=== PATIENT | female | born 1975 | race Caucasian/White ===

== ENCOUNTER 2018-04-05 21:03 | Inpatient (IN) | payer MEDICARE, MEDICAID ==
[~2018-04-05] VITALS: Ht 162.6 cm; Wt 59.6 kg
[~2018-04-05 21:03] MED LIST: ALBU17AE23 IH; ALPR0.5T PO; AMIT100T2 PO; ASPI-84 PO; ATOR40TA PO; BUPR300T PO; CALC-316 PO; CEPH500C PO; CLOB15CR3 TP; CYCL10TA9 PO; DEXT5TAB19 PO; DICY20TA57 PO; DULO60CA6 PO; HYDR-34 PO; IBP800T PO; INTE30KI4 SC; LINA145C PO; MORP15TA PO; MORP15TA69 PO; NF-ESOM40C PO; PREG150C PO; PROM25TA14 PO; RT-ALBUINH IH; TRAM50TA2 PO; ZLP10T PO; [UNRECOGNIZED DRUG - CODE] SQ; [UNRECOGNIZED DRUG - CODE] SQ
--- OUTSIDE RECORDS SUMMARY | 2018-04-05 21:10 | XMS REPORT ---
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 [employer] Name Role Phone GLADYS PATRICK Unavailable Allergies No Known Allergies Problems Problem Type Condition Code Onset Dates Condition Status Problem Anxiety F41.9 Active Problem GERD (gastroesophageal reflux disease) K21.9 Active Problem Fatigue R53.83 Active Problem Right shoulder pain M25.511 Active Problem Degenerative disc disease, lumbar M51.36 Active Problem Irritable bowel K58.9 Active Problem Multiple sclerosis G35 Active Problem Depression F32.9 Active Medications Medication Code System Code Instructions Start Date End Date Status Dosage Nexium [facility] [address]-20 40 MG Orally Once a day Nov 05, 2015 1 capsule Results No Known Results Summary Purpose eClinicalWorks Submission
--- OUTSIDE RECORDS SUMMARY | 2018-04-05 21:10 | XMS REPORT ---
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 Name Role Phone GLADYS Cheung Unavailable PROBLEMS Type Condition ICD9-CM Code FWV99-XI Code Onset Dates Condition Status SNOMED Code Problem Chronic pain G89.29 Active 70750049 Problem Other constipation K59.09 Active 100865627040768 Problem Mixed hyperlipidemia E78.2 Active 856983961 Problem Constipation, unspecified constipation type K59.00 Active 74697712 Problem Anxiety F41.9 Active 13124347 Problem Fibromyalgia M79.7 Active 892974128 Problem Acute cystitis without hematuria N30.00 Active 49382948 Problem Weight gain, abnormal R63.5 Active 352363713 Problem Acute left-sided low back pain with left-sided sciatica M54.42 Active 218295420 Problem GERD (gastroesophageal reflux disease) K21.9 Active 931666772 Problem Degenerative disc disease, lumbar M51.36 Active 00701808 Problem Multiple sclerosis G35 Active 21541840 Problem Depression F32.9 Active 54508777 Problem Anxiety state F41.1 Active 320861730 Problem Major depressive disorder, recurrent episode, moderate F33.1 Active 620510773 Problem Irritable bowel K58.9 Active 88825179 Problem Insomnia G47.00 Active 553859056 Problem Fatigue R53.83 Active 73898192 Problem Thrush B37.0 Active 81753636 ALLERGIES Substance Reaction Event Type Date Status Sulfamethoxazole Unknown Drug Allergy Apr, Active Remeron Unknown Drug Allergy Apr, Active Pendleton Unknown Drug Allergy Apr, Active Naproxen Unknown Drug Allergy Apr, Active Levaquin Unknown Drug Allergy Apr, Active Abilify Unknown Drug Allergy Apr, Active Adhesives, tapes, bandages Unknown Non Drug Allergy Apr, Active ENCOUNTERS Encounter Location Date Diagnosis [facility] [id number] [place] [address] 14963- 1983 Feb, [facility] [id number] [place] [address] 49960 -3677 Jan, Constipation, unspecified constipation type K59.00 [facility] [id number] [place] [address] 20026- 8840 Jan, [facility] [address] 96594- 9843 Jan, Multiple sclerosis G35 ; Anxiety F41.9 ; Insomnia G47.00 and Chronic pain G89.29 [facility] [address] 00098- 6621 Dec, [facility] [id number] [place] [address] 45298- 1689 Dec, [facility] [address] 31524- 0950 Nov, Fibromyalgia M79.7 [facility] [id number] [place] [address] 08908- 4547 Nov, [facility] [id number] [place] [address] 08147- 7190 Nov, [facility] [id number] [place] [address] 37367- 1273 Nov, Fibromyalgia M79.7 [facility] [id number] [place] [address] 05686- 4959 Oct, [facility] [id number] [place] [address] 81918- 7872 Oct, Multiple sclerosis G35 ; Depression F32.9 and Weight gain, abnormal R63.5 [facility] [id number] [place] [address] 76396- 0053 Oct, [facility] [id number] [place] [address] 83367- 2703 Sep, Fibromyalgia M79.7 [place] [id number] [place] [address] 53924- 5131 Sep, Urinary incontinence in female R32 [place] [address] 30046- 0247 08 Sep, 2017 [place] [address] 77467- 9371 Sep, [place] [address] 00328- 4253 Sep, Hypokalemia E87.6 [facility] [place] [address] 65195 -3527 Sep, Colitis K52.9 and Distended abdomen R14.0 [place] [address] 02873- 7899 Sep, Fibromyalgia M79.7 [facility] [place] [address] 21291 -2237 Aug, Epigastric pain R10.13 and Drug-induced constipation K59.03 [place] [address] 18560- 0429 Aug, Fibromyalgia M79.7 [place] [address] 57011- 7813 Jul, Fibromyalgia M79.7 [place] [address] 11309- 0021 Jul, [place] [address] 11901- 3620 Jun, Degenerative disc disease, lumbar M51.36 [place] [address] 86927- 4926 Jun, Acute left-sided low back pain with left-sided sciatica M54.42 ; Fibromyalgia M79.7 and Other constipation K59.09 [place] [id number] [place] [address] 26374- 7137 Jun, Acute left-sided low back pain with left-sided sciatica M54.42 [place] [id number] [place] [address] 57800- 8442 Jun, [place] [id number] [place] [address] 53496- 0735 Jun, [place] [id number] [place] [address] 83985- 6438 Jun, [place] [id number] [place] [address] 81352- 9714 Jun, Degenerative disc disease, lumbar M51.36 [facility] [id number] [place] [address] 96751 -8434 Jun, Acute left-sided low back pain with left-sided sciatica M54.42 [place] [id number] [place] [address] 84313- 6963 May, Degenerative disc disease, lumbar M51.36 ; Multiple sclerosis G35 ; GERD (gastroesophageal reflux disease) K21.9 ; Fatigue R53.83 ; Irritable bowel K58.9 ; Major depressive disorder, recurrent episode, moderate F33.1 ; Anxiety state F41.1 ; Thrush B37.0 ; Fibromyalgia M79.7 and Insomnia G47.00 [place] [id number] [place] [address] 08959- 9014 May, Chronic pain G89.29 and Major depressive disorder, recurrent episode, moderate F33.1 [place] [id number] [place] [address] 28784- 5309 May, Degenerative disc disease, lumbar M51.36 [facility] [address] [place] [address] 39545 -2508 May, Oral thrush B37.0 [place] [id number] [place] [address] 71026- 7817 May, Fatigue R53.83 and Chronic pain G89.29 [place] [id number] [place] [address] 25154- 7478 Apr, Multiple sclerosis G35 ; Chronic pain G89.29 ; GERD ( gastroesophageal reflux disease) K21.9 ; Fatigue R53.83 ; Depression F32.9 ; Degenerative disc disease, lumbar M51.36 ; Irritable bowel K58.9 ; Insomnia G47.00 ; Mixed hyperlipidemia E78.2 ; Fibromyalgia M79.7 and Urinary incontinence in female R32 [place] [address] 53686- 2439 March, Major depressive disorder, recurrent episode, moderate F33.1 [place] [address] 79851- 1776 March, Chronic pain G89.29 [place] [address] 29392- 3836 March, Urinary incontinence in female R32 and Allergic conjunctivitis, right H10.11 [place] [address] 14543- 8295 March, Radicular pain M54.10 [place] [address] 94878- 1293 March, [place] [address] 27190- 2284 Jan, [place] [address] 25528- 5921 Jan, Hypokalemia E87.6 [place] [address] 25698- 7224 Jan, Fatigue R53.83 [place] [address] 14260- 3903 Dec, [place] [address] 58548- 2042 Dec, Fatigue R53.83 [place] [id number] [place] [address] 23569- 1511 Dec, [place] [address] 65976- 6958 Dec, [place] [address] 88583- 6074 Dec, Hypokalemia E87.6 [place] [address] 49734- 4710 Nov, GERD (gastroesophageal reflux disease) K21.9 ; Fatigue R53.83 ; Depression F32.9 ; Major depressive disorder, recurrent episode, moderate F33.1 ; Fibromyalgia M79.7 ; Other constipation K59.09 ; Primary insomnia F51.01 ; Multiple sclerosis G35 and Mixed hyperlipidemia E78.2 [place] [address] 79974- 1487 Nov, [place] [address] 33111- 7342 Nov, Degenerative disc disease, lumbar M51.[address] 21785- 3790 Nov, [place] [address] 04331- 8029 Oct, Degenerative disc disease, lumbar M51.36 [place] [id number] [place] [address] 33569- 6715 Oct, Fibromyalgia M79.7 ; GERD (gastroesophageal reflux disease) K21.9 ; Multiple sclerosis G35 ; Depression F32.9 ; Degenerative disc disease, lumbar M51.36 ; Irritable bowel K58.9 ; Anxiety F41.9 ; Insomnia G47.00 ; Adverse effect of other opioids, initial encounter T40.2X5A ; Other constipation K59.09 and Fatigue R53.83 [place] [address] 48620- 7372 Oct, [facility] [id number] [place] [address] 95420 -1712 Sep, Hordeolum externum of right lower eyelid H00.012 [facility] [id number] [place] [address] 96595- 5960 Sep, GERD (gastroesophageal reflux disease) K21.9 ; Fatigue R53.83 ; Depression F32.9 ; Degenerative disc disease, lumbar M51.36 ; Irritable bowel K58.9 ; Anxiety F41.9 ; Major depressive disorder, recurrent episode, moderate F33.1 ; Insomnia G47.00 ; Multiple sclerosis G35 and Chronic pain G89.[address] 19114- 0104 Sep, Fatigue R53.83 [place] [id number] [place] [address] 84229- 1968 Sep, [place] [address] 87314- 2649 Aug, GERD (gastroesophageal reflux disease) K21.9 ; Fatigue R53.83 ; Depression F32.9 ; Degenerative disc disease, lumbar M51.36 ; Irritable bowel K58.9 ; Anxiety F41.9 ; Major depressive disorder, recurrent episode, moderate F33.1 ; Anxiety state F41.1 ; Chronic pain G89.29 ; Family history of hypercholesterolemia Z83.49 ; Other constipation K59.09 ; Fibromyalgia M79.7 and Hypercholesterolemia E78.00 [place] [id number] [place] [address] 93035- 6710 Aug, [address] 84222- 9454 Aug, Epigastric pain R10.13 ; Nausea R11.0 and Other constipation K59.09 [place] [id number] [place] [address] 14088- 5426 Aug, [place] [address] 87853- 4348 Aug, [facility] [id number] [place] [address] 86444- 7296 Jul, [facility] [id number] [place] [address] 09706- 1514 Jul, [facility] [id number] [place] [address] 14866- 8258 Jun, Dysuria R30.0 ; Irritable bowel K58.9 ; Adverse effect of other opioids, initial encounter T40.2X5A ; Other constipation K59.09 and Acute cystitis without hematuria N30.00 [facility] [id number] [place] [address] 53462- 8192 Jun, [facility] [id number] [place] [address] 36116 -4329 Jun, Left upper quadrant pain R10.12 [facility] [id number] [place] [address] 73753- 9943 Jun, Major depressive disorder, recurrent episode, moderate F33.1 ; Anxiety state F41.1 and Insomnia G47.00 [facility] [id number] [place] [address] 59120- 0856 May, [facility] [id number] [place] [address] 85001- 3635 May, [facility] [id number] [place] [address] 61027- 1956 May, Depression F32.9 ; Major depressive disorder, recurrent episode, moderate F33.1 ; Multiple sclerosis G35 and Chronic pain G89.29 [facility] [id number] [place] [address] 00637- 5708 May, [facility] [id number] [place] [address] 38130- 5465 Apr, Right shoulder pain M25.511 [facility] [id number] [place] [address] 05225- 2224 Apr, [place] [id number] [place] [address] 12484- 5040 Apr, Fatigue R53.83 ; Multiple sclerosis G35 ; Depression F32.9 ; Anxiety state F41.1 ; Degenerative disc disease, lumbar M51.36 ; GERD ( gastroesophageal reflux disease) K21.9 ; Insomnia G47.00 ; Environmental allergies Z91.09 and Thrush B37.0 [place] [address] 48281- 9031 Apr, [place] [address] 57369- 9098 Apr, Mixed hyperlipidemia E78.2 [place] [address] 21042- 8059 Apr, [place] [address] 36717- 0897 Apr, [place] [address] 61669- 8059 March, Degenerative disc disease, lumbar M51.36 [place] [address] 28196- 8292 March, Major depressive disorder, recurrent episode, moderate F33.1 ; Mass in neck R22.1 and Fatigue R53.83 [place] [id number] [place] [address] 82552- 4228 March, Major depressive disorder, recurrent episode, moderate F33.1 ; Anxiety F41.9 ; Insomnia G47.00 and Other chcf (current) drug therapy Z79.899 [place] [address] 29180- 0993 March, GERD (gastroesophageal reflux disease) K21.9 and Degenerative disc disease, lumbar M51.36 [place] [id number] [place] [address] 56568- 2208 March, GERD (gastroesophageal reflux disease) K21.9 ; Fatigue R53.83 ; Multiple sclerosis G35 ; Depression F32.9 ; Degenerative disc disease, lumbar M51.36 ; Anxiety F41.9 ; Right shoulder pain M25.511 ; Major depressive disorder, recurrent episode, moderate F33.1 and Insomnia G47.00 [place] [id number] [place] [address] 17736- 9035 March, Multiple sclerosis G35 [place] [address] 32699- 9324 Feb, [place] [address] 81455- 5753 Feb, [place] [address] 02330- 6925 Feb, Chronic pain G89.29 ; Fatigue R53.83 ; Depression F32.9 ; Degenerative disc disease, lumbar M51.36 ; Irritable bowel K58.9 ; Anxiety F41.9 ; Insomnia G47.00 and GERD (gastroesophageal reflux disease) K21.9 [place] [id number] [place] [address] 41175- 1955 Feb, Anxiety F41.9 and Major depressive disorder, recurrent episode, moderate F33.1 [place] [id number] [place] [address] 98342- 2558 Feb, [place] [id number] [place] [address] 42164- 9370 Jan, [place] [id number] [place] [address] 65460- 2954 Jan, Degenerative disc disease, lumbar M51.36 ; Multiple sclerosis G35 ; Fatigue R53.83 ; Depression F32.9 ; Irritable bowel K58.9 ; GERD (gastroesophageal reflux disease) K21.9 and 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 [place] [id number] [place] [address] 12517- 6097 Jan, [place] [address] [address]- 0586 16 Jan, 2016 [facility] [address] [address]- 8038 14 Jan, 2016 [facility] [address] [address]- 8048 14 Jan, 2016 [facility] [address] [address]- 2071 14 Jan, 2016 [facility] [address] [address]- 7391 Jan, [facility] [address]- 7874 Jan, [facility] [address] [address]- 2056 Jan, [facility] [address] [address]- 5439 Jan, [facility] [address] [place] [address]- 8322 Jan, [facility] [address] [address]- 2512 Dec, [facility] [address] [address]- 5124 Dec, Major depressive disorder, recurrent episode, moderate F33.1 ; Anxiety F41.9 and Insomnia G47.00 [facility] [address] [address]- 4767 Dec, Lymphadenitis I88.9 ; GERD (gastroesophageal reflux disease ) K21.9 ; Multiple sclerosis G35 ; Depression F32.9 ; Degenerative disc disease , lumbar M51.36 ; Irritable bowel K58.9 ; Anxiety F41.9 ; Major depressive disorder, recurrent episode, moderate F33.1 and Insomnia G47.00 [facility] [address] [address]- 8338 23 Dec, 2015 Major depressive disorder, recurrent episode, moderate F33.1 and Anxiety state F41.1 [place] [id number] [place] [address] 24780- 4189 16 Dec, 2015 Screening breast examination Z12.39 [place] [id number] [place] [address] 79149- 1994 10 Dec, 2015 Mass in neck R22.1 ; Chronic pain G89.29 ; GERD ( gastroesophageal reflux disease) K21.9 ; Fatigue R53.83 ; Anxiety F41.9 ; Major depressive disorder, recurrent episode, moderate F33.1 ; Encounter for screening mammogram for breast cancer Z12.31 and Thrush B37.0 [place] [id number] [place] [address] 83210- 4376 09 Dec, 2015 [place] [address] 01435- 3996 04 Dec, 2015 [place] [address] 30877- 2816 Nov, Major depressive disorder, recurrent episode, moderate F33.1 and Anxiety state F41.1 [place] [id number] [place] [address] 91879- 3411 15 Nov, 2015 Insomnia G47.00 [place] [id number] [place] [address] 32893- 4565 Nov, Major depressive disorder, recurrent episode, moderate F33.1 and Anxiety state F41.1 [place] [id number] [place] [address] 05273- 2009 Nov, [place] [address] 61908- 7646 Nov, [place] [id number] [place] [address] 84862- 0894 24 Oct, 2015 GERD (gastroesophageal reflux disease) K21.9 ; Depression F32.9 and Degenerative disc disease, lumbar M51.36 [place] [id number] [place] [address] 97364- 4886 Oct, Right shoulder pain M25.511 ; Degenerative disc disease, lumbar M51.36 ; Multiple sclerosis G35 ; Fatigue R53.83 ; GERD ( gastroesophageal reflux disease) K21.9 ; Major depressive disorder, recurrent episode, moderate F33.1 ; Anxiety state F41.1 and Constipation K59.[address] 58216- 5639 Oct, Hypoglycemia E16.[address] 06912- 5108 Oct, Unspecified fall, initial encounter W19.XXXA [address] 03892- 8464 Oct, [address] 10397- 4231 Oct, Major depressive disorder, recurrent episode, moderate F33.1 and Anxiety state F41.[address] 64440- 2427 Oct, [address] 03996- 3338 Oct, [address] 91980- 2182 Oct, Degenerative disc disease, lumbar M51.36 ; GERD ( gastroesophageal reflux disease) K21.9 ; Right shoulder pain M25.511 and Candidal vaginitis B37.[address] 42380- 2407 Sep, [address] 27514- 0404 Sep, GERD (gastroesophageal reflux disease) K21.9 ; Fatigue R53.83 ; Multiple sclerosis G35 ; Depression F32.9 ; Degenerative disc disease, lumbar M51.36 ; Irritable bowel K58.9 ; Anxiety F41.9 ; Right shoulder pain M25.511 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 [id number] [place] [address]- 7341 Sep, GERD (gastroesophageal reflux disease) K21.9 ; Fatigue R53.83 ; Multiple sclerosis G35 ; Depression F32.9 ; Degenerative disc disease, lumbar M51.36 ; Irritable bowel K58.9 ; Anxiety F41.9 and Bronchitis J40 IMMUNIZATIONS No Known Immunizations SOCIAL HISTORY Never Assessed REASON FOR VISIT Pain management (chronic), pt is still in a lot of pain. Samson, pt wants to see about stopping trazodone because it makes her groggy through out the day. But she still wants something to help her sleep. PLAN OF CARE Activity Details Follow Up 4 Weeks Reason:chronic pain VITAL SIGNS Height 64.0 in 2017-05-20 Weight 120.5 lbs 2017-05-20 Temperature 98.0 degrees Fahrenheit 2017-05-20 Heart Rate 78 bpm 2017-05-20 Respiratory Rate 18 2017-05-20 BMI 20.68 kg/m2 2017-05-20 Blood pressure systolic 102 mmHg 2017-05-20 Blood pressure diastolic 70 mmHg 2017-05-20 MEDICATIONS Medication Instructions Dosage Frequency Start Date End Date Duration Status Amphetamine-Dextroamphetamine 10 mg orally once a day 1 tablet in the morning 24h March, Active Alprazolam 0.5 MG Orally Three times a day 1 tablet 8h Active Doxepin HCl 50 mg Orally one hour at hs 1 capsule Apr, 30 day (s) Active Topamax 50 mg Orally Twice a day 1 tablet 12h 30 Active Lopid 600 MG Orally Twice a day 1 tablet 12h 30 Active Percocet 5-325 MG Orally 2 times a day 1 tablet as needed 12h Apr, Active Dulcolax Stool Softener 100 mg Orally twice a day 1 capsule 12h Active VESIcare 10 MG Orally Once a day 1 tablet 24h March, 30 days Active Potassium Chloride ER 10 MEQ Orally Once a day 1 capsule with food 24h 30 Active Linzess 145 MCG TAKE ONE CAPSULE BY MOUTH ONCE DAILY Active Nexium 40 MG TAKE ONE CAPSULE BY MOUTH ONCE DAILY Active Zofran 4 MG Orally 3 times a day prn 1 tablets Aug, Active Ibuprofen 800 MG Orally Three times a day 1 tablet 8h Active Latuda 60 MG Orally Once a day 1 tablet with food 24h 30 Active Duloxetine HCl 60 MG TAKE ONE CAPSULE BY MOUTH TWICE DAILY 30 Active Lyrica 150 MG Orally 2 times a day 1 capsule 12h Active Atorvastatin Calcium 20 mg Orally Once a day 1 tablet 24h 30 Active OxyContin 20 mg Orally every 12 hrs 1 tablet 12h 21 Apr, 2017 Active RESULTS No Results PROCEDURES Procedure Date Ordered Result Body Site [facility] VISIT NEW PATIENT May 20, 2017 INSTRUCTIONS MEDICATIONS ADMINISTERED No Known Medications MEDICAL (GENERAL) HISTORY Type Description Date Medical History multiple sclerosis Medical History chronic pain Medical History chronic pancreatitis Medical History osteoarthritis Medical History degenerative disease lumbosacral spine Medical History esophageal reflux Medical History depression Medical History anxiety Medical History insomnia Surgical History Laproscopy x 5 Surgical History C section Surgical History Partial Hysterectomy Surgical History Appendectomy Surgical History Full Hysterectomy Surgical History Gall bladder removal Surgical History Back surgery x2 disc removal and pins/rods Surgical History MRI of brain Hospitalization History Surgery Hospitalization History Pancreatitis multiple times Hospitalization History MS and pain multiple times Hospitalization History Low potassium Hospitalization History [facility] for depression Hospitalization History ER visit for possible pancreatitis
--- OUTSIDE RECORDS SUMMARY | 2018-04-05 21:10 | XMS REPORT ---
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 Name Role Phone GLADYS PATRICK CP Unavailable Allergies, Adverse Reactions, Alerts Substance Reaction Event Type Sulfamethoxazole Info Not Available Drug Allergy Remeron Info Not Available Drug Allergy [place] Info Not Available Drug Allergy Naproxen Info Not Available Drug Allergy Levaquin Info Not Available Drug Allergy Abilify Info Not Available Drug Allergy Adhesives, tapes, bandages Info Not Available Non Drug Allergy Problems Problem Type Condition Code Onset Dates Condition Status Problem Insomnia G47.00 Active Problem Chronic pain G89.29 Active Problem Thrush B37.0 Active Problem Dysuria R30.0 Active Problem Family history of hypercholesterolemia Z83.49 Active Problem Adverse effect of other opioids, initial encounter T40.2X5A Active Assessment Hordeolum externum of right lower eyelid H00.012 Active Problem Fibromyalgia M79.7 Active Problem Mixed hyperlipidemia E78.2 Active Problem 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 Active Problem Other constipation K59.09 Active Problem Acute cystitis without hematuria N30.00 Active Problem Degenerative disc disease, lumbar M51.36 Active Problem Depression F32.9 Active Problem Anxiety F41.9 Active Problem Irritable bowel K58.9 Active Problem GERD (gastroesophageal reflux disease) K21.9 Active Problem Right shoulder pain M25.511 Active Problem Multiple sclerosis G35 Active Problem Anxiety state F41.1 Active Problem Fatigue R53.83 Active Problem Major depressive disorder, recurrent episode, moderate F33.1 Active Medications Medication Code System Code Instructions Start Date End Date Status Dosage Latuda [facility] 87017727742 60 MG Orally Once a day 1 tablet with food Topamax [facility] 77878286608 50 mg Orally Twice a day 1 tablet Citrate of Magnesia [facility] [address]-80 1.745 GM/30ML Orally Sep 03, 2016 as directed Amphetamine-Dextroamphetamine [facility] 81535424654 5 MG orally once a day TAKE ONE TABLET Zofran [facility] [address]-63 4 MG Orally 4 times a day Sep 03, 2016 1 tablets Ibuprofen [facility] 34694172410 800 MG Orally Three times a day 1 tablet Nexium [facility] [address]-07 40 mg Orally Once a day 1 capsule Morphine Sulfate [facility] [address]-25 15 MG Orally 3 times a day March 04, 2016 1 tablet as needed Morphine Sulfate ER [facility] [address]-41 30 MG Orally one daily one hour before bed March 04, 2016 1 tablet Duloxetine HCl [facility] [address]-88 60 mg Orally Once a day TAKE ONE CAPSULE BY MOUTH ONCE DAILY Alprazolam [facility] [address]-01 0.5 MG Orally Three times a day 1 tablet Lyrica [facility] 10362635699 150 MG TAKE ONE CAPSULE BY MOUTH TWICE DAILY Tobramycin [facility] [address]-94 0.3 % Ophthalmic 4 times a day Oct 24, 2016 3 drops into affected eye Dulcolax Stool Softener [facility] 44774-56167 100 MG Orally twice a day 1 capsule Linzess [facility] [address]-97 145 MCG TAKE ONE CAPSULE BY MOUTH ONCE DAILY Trazodone HCl [facility] [address]-55 50 MG TAKE ONE TABLET BY MOUTH AT BEDTIME NEEDED Procedures Procedure Coding System Code Date Office Visit, Est Pt., Level 3 CPT-4 05469 Oct 24, 2016 [facility] VISIT ESTABLISHED PATIENT CPT-4 G0467 Oct 24, 2016 Vital Signs Date/Time: Oct 24, 2016 Cardiac Monitoring Heart Rate 72 bpm Weight 118.2 lbs Height 64.0 in BMI 20.29 Index Blood Pressure Diastolic 72 mmHg Blood Pressure Systolic 116 mmHg Results No Known Results Summary Purpose eClinicalWorks Submission
--- OUTSIDE RECORDS SUMMARY | 2018-04-05 21:11 | XMS REPORT ---
Author GLADYS Romano [facility] eClinicalWorks Address Unknown Phone Unavailable Care Team Providers Care Hair Preparer Name Role Phone GLADYS PATRICK CP Unavailable Allergies, Adverse Reactions, Alerts Substance Reaction Event Type Sulfamethoxazole Info Not Available Drug Allergy Remeron Info Not Available Drug Allergy [place] Info Not Available Drug Allergy Naproxen Info Not Available Drug Allergy Levaquin Info Not Available Drug Allergy Abilify Info Not Available Drug Allergy Adhesives, tapes, bandages Info Not Available Non Drug Allergy Problems Problem Type Condition Code Onset Dates Condition Status Problem Irritable bowel K58.9 Active Problem Depression F32.9 Active Problem Degenerative disc disease, lumbar M51.36 Active Assessment Insomnia G47.00 Active Problem Anxiety F41.9 Active Problem Major depressive disorder, recurrent episode, moderate F33.1 Active Problem Anxiety state F41.1 Active Problem Insomnia G47.00 Active Problem Fatigue R53.83 Active Problem Multiple sclerosis G35 Active Problem Right shoulder pain M25.511 Active Problem GERD (gastroesophageal reflux disease) K21.9 Active Medications Medication Code System Code Instructions Start Date End Date Status Dosage Cymbalta [facility] [address]-26 60 MG Orally Once a day 2 capsule ProAir HFA [facility] [address]-15 108 (90 Base) MCG/ACT Inhalation every 4 hrs 2 puffs as needed Morphine Sulfate [facility] [address]-09 15 MG IR Orally 2 times a day Nov 02, 2015 Jan 10, 2016 1 tablet as needed Transderm-Scop [facility] [address]-35 1 MG/3DAYS Transdermal not defined MS Contin [facility] [address]-26 30 MG Orally every 12 hrs Oct 26, 2015Dec 1 tablet Valtrex [facility] [address]-36 1 GM Orally every 24 hrs 1 tablet Promethazine HCl [facility] [address]-76 25 MG Orally every 6 hrs PRN 1 tablet as needed Linzess [facility] [address]-45 145 MCG Orally Once a day Jan 27, 2016 1 capsule Alprazolam [facility] [address]-77 0.5 MG Orally Three times a day 1 tablet Lyrica [facility] [address]-58 150 MG Orally Twice a day 1 capsule Nexium [facility] [address]-43 40 MG Orally Once a day Nov 05, 2015 1 capsule Trazodone HCl [facility] [address]-92 50 MG Orally Once a day Dec 14, 2015 1 tablet at bedtime as needed Amphetamine Sulfate [facility] [address]-99 5 MG Orally prescribed by neuro 1 Procedures Procedure Coding System Code Date Office Visit, Est Pt., Level 3 CPT-4 34984 Dec 14, 2015 [facility] VISIT ESTABLISHED PATIENT CPT-4 G0467 Dec 14, 2015 Vital Signs Date/Time: Dec 14, 2015 Temperature 97.4 F Weight 130.0 lbs Height 64.0 in BMI 22.31 Index Blood Pressure Diastolic 70 mmHg Blood Pressure Systolic 100 mmHg Cardiac Monitoring Heart Rate 80 bpm Results No Known Results Summary Purpose eClinicalWorks Submission
--- OUTSIDE RECORDS SUMMARY | 2018-04-05 21:11 | XMS REPORT ---
Author GLADYS Romano [facility] eClinicalWorks Address Unknown Phone Unavailable Care Team Providers Care Tapper Hand Name Role Phone GLADYS PATRICK Unavailable Allergies No Known Allergies Problems Problem Type Condition Code Onset Dates Condition Status Problem Anxiety F41.9 Active Problem Degenerative disc disease, lumbar M51.36 Active Problem Irritable bowel K58.9 Active Problem Anxiety state F41.1 Active Problem Right shoulder pain M25.511 Active Problem Major depressive disorder, recurrent episode, moderate F33.1 Active Problem Multiple sclerosis G35 Active Problem Depression F32.9 Active Problem GERD (gastroesophageal reflux disease) K21.9 Active Problem Fatigue R53.83 Active Medications Medication Code System Code Instructions Start Date End Date Status Dosage Morphine Sulfate [facility] [address]-99 15 MG IR Orally 2 times a day Nov 02, 2015 1 tablet as needed Cymbalta [facility] [address]-57 60 MG Orally Once a day 2 capsule Results No Known Results Summary Purpose eClinicalWorks Submission
--- OUTSIDE RECORDS SUMMARY | 2018-04-05 21:11 | XMS REPORT ---
Author Author GLADYS PATRICK Organization [facility] Address [address] [place] [address] Care Team Providers Care Maintenance Inspector Name Role Phone PATRICE PATRICKE Unavailable PROBLEMS Type Condition ICD9-CM Code [id number] Code Onset Dates Condition Status SNOMED Code Problem Major depressive disorder, recurrent episode, moderate F33.1 Active 963931426 Problem Thrush B37.0 Active 21938168 Problem Insomnia G47.00 Active 914268820 Problem Acute left-sided low back pain with left-sided sciatica M54.42 Active 820044910 Problem Fibromyalgia M79.7 Active 487690941 Problem Mixed hyperlipidemia E78.2 Active 901646905 Problem Chronic pain G89.29 Active 61833125 Problem Other constipation K59.09 Active 563290360254754 Problem Acute cystitis without hematuria N30.00 Active 27356928 Problem Irritable bowel K58.9 Active 65341200 Problem Multiple sclerosis G35 Active 59600645 Problem Fatigue R53.83 Active 15176762 Problem Degenerative disc disease, lumbar M51.36 Active 98009451 Problem GERD (gastroesophageal reflux disease) K21.9 Active 752010573 Problem Depression F32.9 Active 13133353 Problem Anxiety state F41.1 Active 553273396 ALLERGIES Unknown Allergies SOCIAL HISTORY No smoking Hx information available PLAN OF CARE VITAL SIGNS MEDICATIONS Medication Instructions Dosage Frequency Start Date End Date Duration Status Morphine Sulfate 15 MG Orally 2 times a day prn break throught pain 1 tablet as needed Nov, Active RESULTS No Results PROCEDURES No Known procedures IMMUNIZATIONS No Known Immunizations
--- OUTSIDE RECORDS SUMMARY | 2018-04-05 21:11 | XMS REPORT ---
Author Author LOURDES GALVEZ [facility] Address [address] [place] [address] Care Team Providers Care Marine Firer Name Role Phone LOURDES GALVEZ Unavailable PROBLEMS Type Condition ICD9-CM Code [id number] Code Onset Dates Condition Status SNOMED Code Problem Major depressive disorder, recurrent episode, moderate F33.1 Active 994823648 Problem Thrush B37.0 Active 85895181 Problem Insomnia G47.00 Active 211571650 Problem Acute left-sided low back pain with left-sided sciatica M54.42 Active 464670373 Problem Fibromyalgia M79.7 Active 436554348 Problem Mixed hyperlipidemia E78.2 Active 431987785 Problem Chronic pain G89.29 Active 60959726 Problem Acute cystitis without hematuria N30.00 Active 88573956 Problem Other constipation K59.09 Active 315671204648877 Problem Depression F32.9 Active 68411429 Problem Degenerative disc disease, lumbar M51.36 Active 58767283 Problem Fatigue R53.83 Active 63392157 Problem GERD (gastroesophageal reflux disease) K21.9 Active 596447161 Problem Irritable bowel K58.9 Active 74226965 Problem Multiple sclerosis G35 Active 28518499 Problem Anxiety state F41.1 Active 254650496 ALLERGIES Substance Reaction Event Type Date Status Sulfamethoxazole Unknown Drug Allergy March, Active Remeron Unknown Drug Allergy March, Active [place] Unknown Drug Allergy March, Active Naproxen Unknown Drug Allergy March, Active Levaquin Unknown Drug Allergy March, Active Abilify Unknown Drug Allergy March, Active Adhesives, tapes, bandages Unknown Non Drug Allergy March, Active SOCIAL HISTORY Never Assessed PLAN OF CARE Activity Details Follow Up prn Reason: VITAL SIGNS Height 64.0 in 2017-04-15 Weight 119 lbs 2017-04-15 Temperature 98.5 degrees Fahrenheit 2017-04-15 Heart Rate 88 bpm 2017-04-15 Respiratory Rate 18 2017-04-15 BMI 20.42 kg/m2 2017-04-15 Blood pressure systolic 100 mmHg 2017-04-15 Blood pressure diastolic 70 mmHg 2017-04-15 MEDICATIONS Medication Instructions Dosage Frequency Start Date End Date Duration Status Ibuprofen 800 MG Orally Three times a day 1 tablet 8h Active Alprazolam 0.5 MG Orally Three times a day 1 tablet 8h Active Nexium 40 MG TAKE ONE CAPSULE BY MOUTH ONCE DAILY 30 Active Dulcolax Stool Softener 100 mg Orally twice a day 1 capsule 12h Active Atorvastatin Calcium 20 mg Orally Once a day 1 tablet 24h Dec, 30 day(s) Active Duloxetine HCl 60 MG TAKE ONE CAPSULE BY MOUTH TWICE DAILY 30 Active Morphine Sulfate ER 30 MG Orally every 12 hrs 1 tablet 12h March, 28 Active Morphine Sulfate 15 MG Orally 2 times a day prn break throught pain 1 tablet as needed March, 28 Active DocQLace 100 MG TAKE ONE CAPSULE BY MOUTH TWICE DAILY. 30 Active Trazodone HCl 50 MG TAKE ONE TABLET BY MOUTH AT BEDTIME NEEDED 30 Active Latuda 60 MG Orally Once a day 1 tablet with food 24h 30 Active Lopid 600 MG Orally Twice a day 1 tablet 12h Dec, 30 day(s) Active Topamax 50 mg Orally Twice a day 1 tablet 12h Active Linzess 145 MCG TAKE ONE CAPSULE BY MOUTH ONCE DAILY 30 Active VESIcare 10 MG Orally Once a day 1 tablet 24h March, 30 days Active Zofran 4 MG Orally 3 times a day prn 1 tablets Aug, Active Amphetamine-Dextroamphetamine 10 mg orally once a day 1 tablet in the morning 24h March, 28 Active Lyrica 150 MG Orally 2 times a day 1 capsule 12h 28 days Active Potassium Chloride ER 10 MEQ Orally Once a day 1 capsule with food 24h 30 Active RESULTS No Results PROCEDURES Procedure Date Ordered Result Body Site [facility] VISIT ESTABLISHED PATIENT April 15, 2017 IMMUNIZATIONS No Known Immunizations MEDICAL (GENERAL) HISTORY Type Description Date Medical History multiple sclerosis Medical History chronic pain Medical History chronic pancreatitis Medical History osteoarthritis Medical History degenerative disease lumbosacral spine Medical History esophageal reflux Medical History depression Medical History anxiety Medical History insomnia Medical History pancreatitis Surgical History Laproscopy x 5 Surgical History C section Surgical History Partial Hysterectomy Surgical History Appendectomy Surgical History Full Hysterectomy Surgical History Gall bladder removal Surgical History Back surgery x2 disc removal and pins/rods Surgical History MRI of brain Hospitalization History Surgery Hospitalization History Pancreatitis multiple times Hospitalization History MS and pain multiple times Hospitalization History Low potassium Hospitalization History [facility] Unit for depression Hospitalization History ER visit for possible pancreatitis
--- OUTSIDE RECORDS SUMMARY | 2018-04-05 21:11 | XMS REPORT ---
Author GLADYS Romano [facility] eClinicalWorks Address Unknown Phone Unavailable Care Team Providers Care Safety Belt Installer Name Role Phone GLADYS PATRICK CP Unavailable Allergies, Adverse Reactions, Alerts Substance Reaction Event Type Sulfamethoxazole Info Not Available Drug Allergy Remeron Info Not Available Drug Allergy [place] Info Not Available Drug Allergy Naproxen Info Not Available Drug Allergy Levaquin Info Not Available Drug Allergy Abilify Info Not Available Drug Allergy Adhesives, tapes, bandages Info Not Available Non Drug Allergy Problems Problem Type Condition Code Onset Dates Condition Status Assessment GERD (gastroesophageal reflux disease) K21.9 Active Problem Anxiety F41.9 Active Assessment Degenerative disc disease, lumbar M51.36 Active Assessment Candidal vaginitis B37.3 Active Assessment Right shoulder pain M25.511 Active Problem GERD (gastroesophageal reflux disease) K21.9 Active Problem Fatigue R53.83 Active Problem Right shoulder pain M25.511 Active Problem Degenerative disc disease, lumbar M51.36 Active Problem Irritable bowel K58.9 Active Problem Multiple sclerosis G35 Active Problem Depression F32.9 Active Medications Medication Code System Code Instructions Start Date End Date Status Dosage Diflucan [facility] [address]-10 100 MG Orally Nov 02, 2015 Nov 09, 2015 1 tablet Nexium [facility] [address]-49 40 MG Orally Once a day 1 capsule Tizanidine HCl [facility] [address]-38 4 MG Orally 3 times a day PRN Dec 28, 2015 1 tablet as needed Nexium [facility] [address]-59 40 MG Orally Once a day Nov 02, 2015 1 capsule MS Contin [facility] [address]-02 30 MG Orally every 12 hrs Oct 26, 2015 1 tablet Valtrex [facility] [address]-34 1 GM Orally every 24 hrs 1 tablet Cymbalta [facility] [address]-97 60 MG Orally Once a day 1 capsule Alprazolam [facility] [address]-31 0.5 MG Orally Three times a day 1 tablet Promethazine HCl [facility] [address]-62 25 MG Orally every 6 hrs PRN 1 tablet as needed Lyrica [facility] [address]-46 150 MG Orally Twice a day 1 capsule Plegridy [facility] [address]-36 125 MCG/0.5ML Subcutaneous every 14 days 0.5 ml ProAir HFA [facility] [address]-86 108 (90 Base) MCG/ACT Inhalation every 4 hrs 2 puffs as needed Linzess [facility] [address]-44 145 MCG Orally Once a day Jan 27, 2016 1 capsule Morphine Sulfate [facility] [address]-32 15 MG Orally 2 times a day Nov 02, 2015 1 tablet as needed Amphetamine Sulfate [facility] [address]-89 5 MG Orally prescribed by neuro 1 Transderm-Scop [facility] [address]-54 1 MG/3DAYS Transdermal not defined Procedures Procedure Coding System Code Date Office Visit, Est Pt., Level 4 CPT-4 22222 Nov 02, 2015 [facility] VISIT ESTABLISHED PATIENT CPT-4 G0467 Nov 02, 2015 Vital Signs Date/Time: Nov 02, 2015 Temperature 98.4 F Weight 127.0 lbs Height 64.0 in BMI 21.80 Index Blood Pressure Diastolic 70 mmHg Blood Pressure Systolic 100 mmHg Cardiac Monitoring Heart Rate 80 bpm Results No Known Results Summary Purpose eClinicalWorks Submission
--- OUTSIDE RECORDS SUMMARY | 2018-04-05 21:11 | XMS REPORT ---
Author MICHAEL Gillette [facility] eClinicalWorks Address Unknown Phone Unavailable Care Team Providers Care Independent Consultant Name Role Phone MICHAEL SCOTT CP Unavailable Allergies, Adverse Reactions, Alerts Substance Reaction Event Type Sulfamethoxazole Info Not Available Drug Allergy Remeron Info Not Available Drug Allergy [place] Info Not Available Drug Allergy Naproxen Info Not Available Drug Allergy Levaquin Info Not Available Drug Allergy Abilify Info Not Available Drug Allergy Adhesives, tapes, bandages Info Not Available Non Drug Allergy Problems Problem Type Condition Code Onset Dates Condition Status Problem Fatigue R53.83 Active Problem Right shoulder pain M25.511 Active Problem GERD (gastroesophageal reflux disease) K21.9 Active Problem 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 Active Problem Chronic pain G89.29 Active Problem Mixed hyperlipidemia E78.2 Active Problem Major depressive disorder, recurrent episode, moderate F33.1 Active Problem Anxiety state F41.1 Active Problem Thrush B37.0 Active Problem Insomnia G47.00 Active Assessment Left upper quadrant pain R10.12 Active Problem Irritable bowel K58.9 Active Problem Degenerative disc disease, lumbar M51.36 Active Problem Family history of hypercholesterolemia Z83.49 Active Problem Depression F32.9 Active Problem Anxiety F41.9 Active Problem Multiple sclerosis G35 Active Medications Medication Code System Code Instructions Start Date End Date Status Dosage Nystatin [facility] [address]-13 [id number] UNIT/ML Mouth/Throat Four times a day swish 5mL Acyclovir [facility] [address]-69 5 % Externally every 3 hrs February 19, 2016 1 application to affected area Duloxetine HCl [facility] [address]-53 30 MG Orally Once a day (with 60mg cap) April 24, 2016 1 capsule Morphine Sulfate [facility] [address]-85 15 MG Orally 3 times a day March 04, 2016 1 tablet as needed Nexium [facility] [address]-83 40 mg Orally Once a day February 19, 2016 1 capsule Alprazolam [facility] [address]-68 0.5 MG Orally Three times a day 1 tablet Ibuprofen [facility] [address]-64 800 MG Orally Three times a day April 14, 2016 1 tablet Latuda [facility] [address]-76 80 Orally Once a day February 19, 2016 1 tablet with food Trazodone HCl [facility] [address]-39 50 mg Orally Once a day Dec 14, 2015 1 tablet at bedtime as needed ProAir HFA [facility] [address]-73 108 (90 Base) MCG/ACT Inhalation every 4 hrs 2 puffs as needed Topamax [facility] 63117804631 50 mg Orally Twice a day 1 tablet Linzess [facility] 55082882171 145 Orally Once a day 1 capsule Lyrica [facility] 89347075946 150 MG TAKE ONE CAPSULE BY MOUTH TWICE DAILY Duloxetine HCl [facility] 72794794882 60 MG Orally Once a day 1 capsule Promethazine HCl [facility] [address]-05 25 MG Orally every 6 hrs PRN 1 tablet as needed Trilipix [facility] [address]-44 135 MG Orally Once a day May 02, 2016 1 capsule Morphine Sulfate ER [facility] [address]-48 30 MG Orally one daily one hour before bed March 04, 2016 1 tablet Procedures Procedure Coding System Code Date Office Visit, Est Pt., Level 3 CPT-4 93045 Jul 15, 2016 [facility] VISIT ESTABLISHED PATIENT CPT-4 G0467 Jul 15, 2016 Vital Signs Date/Time: Jul 15, 2016 Cardiac Monitoring Heart Rate 76 bpm Weight 117 lbs Height 64.0 in BMI 20.08 Index Blood Pressure Diastolic 60 mmHg Blood Pressure Systolic 92 mmHg Results No Known Results Summary Purpose eClinicalWorks Submission
--- OUTSIDE RECORDS SUMMARY | 2018-04-05 21:12 | XMS REPORT ---
Author Author JHONY VERDUGO [facility] Address [address] [place] [address] Care Team Providers Care Production Pattern Maker Name Role Phone JHONY VERDUGO Unavailable PROBLEMS Type Condition ICD9-CM Code [id number] Code Onset Dates Condition Status SNOMED Code Problem Major depressive disorder, recurrent episode, moderate F33.1 Active 413855972 Problem Thrush B37.0 Active 17284272 Problem Insomnia G47.00 Active 962633462 Problem Acute left-sided low back pain with left-sided sciatica M54.42 Active 274978334 Problem Fibromyalgia M79.7 Active 318115329 Problem Mixed hyperlipidemia E78.2 Active 299733981 Problem Chronic pain G89.29 Active 56586212 Problem Acute cystitis without hematuria N30.00 Active 12315208 Problem Other constipation K59.09 Active 443141374232659 Problem Depression F32.9 Active 39254001 Problem Degenerative disc disease, lumbar M51.36 Active 85542374 Problem Fatigue R53.83 Active 17377364 Problem GERD (gastroesophageal reflux disease) K21.9 Active 909788891 Problem Irritable bowel K58.9 Active 48028029 Problem Multiple sclerosis G35 Active 03792563 Problem Anxiety state F41.1 Active 046882827 ALLERGIES Substance Reaction Event Type Date Status Sulfamethoxazole Unknown Drug Allergy March, Active Remeron Unknown Drug Allergy March, Active [place] Unknown Drug Allergy March, Active Naproxen Unknown Drug Allergy March, Active Levaquin Unknown Drug Allergy March, Active Abilify Unknown Drug Allergy March, Active Adhesives, tapes, bandages Unknown Non Drug Allergy March, Active SOCIAL HISTORY Never Assessed PLAN OF CARE Activity Details Follow Up Regular appt Reason: VITAL SIGNS Height 64.0 in 2017-04-07 Weight 119.5 lbs 2017-04-07 Temperature 98.3 degrees Fahrenheit 2017-04-07 Heart Rate 78 bpm 2017-04-07 Respiratory Rate 18 2017-04-07 BMI 20.51 kg/m2 2017-04-07 Blood pressure systolic 102 mmHg 2017-04-07 Blood pressure diastolic 68 mmHg 2017-04-07 MEDICATIONS Medication Instructions Dosage Frequency Start Date End Date Duration Status Morphine Sulfate 15 MG Orally 2 times a day prn break throught pain 1 tablet as needed March, 28 Active Morphine Sulfate ER 30 MG Orally every 12 hrs 1 tablet 12h March, 28 Active Linzess 145 MCG TAKE ONE CAPSULE BY MOUTH ONCE DAILY 30 Active Trazodone HCl 50 MG TAKE ONE TABLET BY MOUTH AT BEDTIME NEEDED 30 Active Topamax 50 mg Orally Twice a day 1 tablet 12h Active Latuda 60 MG Orally Once a day 1 tablet with food 24h 30 Active Zofran 4 MG Orally 3 times a day prn 1 tablets Aug, Active Alprazolam 0.5 MG Orally Three times a day 1 tablet 8h Active DocQLace 100 MG TAKE ONE CAPSULE BY MOUTH TWICE DAILY. 30 Active Lyrica 150 MG Orally 2 times a day 1 capsule 12h 28 days Active Amphetamine-Dextroamphetamine 10 mg orally once a day 1 tablet in the morning 24h March, 28 Active Duloxetine HCl 60 MG TAKE ONE CAPSULE BY MOUTH TWICE DAILY 30 Active Atorvastatin Calcium 20 mg Orally Once a day 1 tablet 24h Dec, 30 day(s) Active Potassium Chloride ER 10 MEQ Orally Once a day 1 capsule with food 24h 30 Active Lopid 600 MG Orally Twice a day 1 tablet 12h Dec, 30 day(s) Active Ibuprofen 800 MG Orally Three times a day 1 tablet 8h Active Nexium 40 MG TAKE ONE CAPSULE BY MOUTH ONCE DAILY 30 Active Dulcolax Stool Softener 100 mg Orally twice a day 1 capsule 12h Active RESULTS No Results PROCEDURES Procedure Date Ordered Result Body Site [facility] VISIT ESTABLISHED PATIENT April 07, 2017 IMMUNIZATIONS No Known Immunizations MEDICAL (GENERAL) [...] times Hospitalization History Low potassium Hospitalization History [facility] for depression Hospitalization History ER visit for possible pancreatitis
--- OUTSIDE RECORDS SUMMARY | 2018-04-05 21:12 | XMS REPORT ---
Author Author CELINA GLADYS Organization [facility] [place] Address [address] [place] [address] Care Team Providers Care Oiler Bander Name Role Phone GLADYS PATRICK Unavailable PROBLEMS Type Condition ICD9-CM Code [id number] Code Onset Dates Condition Status SNOMED Code Problem Major depressive disorder, recurrent episode, moderate F33.1 Active 518388770 Problem Thrush B37.0 Active 73509500 Problem Insomnia G47.00 Active 475098214 Problem Acute left-sided low back pain with left-sided sciatica M54.42 Active 560584795 Problem Fibromyalgia M79.7 Active 196896428 Problem Mixed hyperlipidemia E78.2 Active 927027822 Problem Chronic pain G89.29 Active 75276249 Problem Acute cystitis without hematuria N30.00 Active 36843508 Problem Other constipation K59.09 Active 597658200909064 Problem Depression F32.9 Active 07054302 Problem Degenerative disc disease, lumbar M51.36 Active 92353302 Problem Fatigue R53.83 Active 96166092 Problem GERD (gastroesophageal reflux disease) K21.9 Active 515081225 Problem Irritable bowel K58.9 Active 30685393 Problem Multiple sclerosis G35 Active 71012362 Problem Anxiety state F41.1 Active 205463146 ALLERGIES No Information SOCIAL HISTORY Never Assessed PLAN OF CARE VITAL SIGNS MEDICATIONS Unknown Medications RESULTS Name Result Date Reference Range [facility] 2017-02-16 Glucose, Serum 84 65-99 BUN 3 6-24 Creatinine, Serum 0.84 0.57-1.00 eGFR If NonAfricn Am 87 >59 eGFR If Africn Am 100 >59 BUN/Creatinine Ratio 4 9-23 Sodium, Serum 141 134-144 Potassium, Serum 3.2 3.5-5.2 Chloride, Serum 106 96-106 Carbon Dioxide, Total 20 18-29 Calcium, Serum 8.7 8.7-10.2 Protein, Total, Serum 5.6 6.0-8.5 Albumin, Serum 3.9 3.5-5.5 Globulin, Total 1.7 1.5-4.5 A/G Ratio 2.3 1.2-2.2 Bilirubin, Total <0.2 0.0-1.2 Alkaline Phosphatase, S 101 39-117 AST (SGOT) 21 0-40 ALT (SGPT) 9 0-32 PROCEDURES Procedure Date Ordered Result Body Site [facility] February 16, 2017 VENIPUNCT, ROUTINE* February 16, 2017 IMMUNIZATIONS No Known Immunizations MEDICAL (GENERAL) [...] times Hospitalization History Low potassium Hospitalization History [facility] Unit for depression Hospitalization History ER visit for possible pancreatitis
--- OUTSIDE RECORDS SUMMARY | 2018-04-05 21:12 | XMS REPORT ---
Author Author USMAN DOUGHERTY eClinical[employer] Address Unknown Phone Unavailable Care Team Providers Care Oil Spreader Operator Name Role Phone USMAN DOUGHERTY CP Unavailable Allergies No Known Allergies Problems Problem Type Condition Code Onset Dates Condition Status Problem Anxiety F41.9 Active Problem Degenerative disc disease, lumbar M51.36 Active Problem Irritable bowel K58.9 Active Assessment Anxiety state F41.1 Active Assessment Major depressive disorder, recurrent episode, moderate F33.1 Active Problem Anxiety state F41.1 Active Problem Right shoulder pain M25.511 Active Problem Major depressive disorder, recurrent episode, moderate F33.1 Active Problem Multiple sclerosis G35 Active Problem Depression F32.9 Active Problem GERD (gastroesophageal reflux disease) K21.9 Active Problem Fatigue R53.83 Active Medications No Known Medications Procedures Procedure Coding System Code Date Psych diagnostic evaluation, established patient CPT-4 06356 Nov 06, 2015 [facility] VISIT MENTAL HEALTH ESTAB PT CPT-4 G0470 Nov 06, 2015 Results No Known Results Summary Purpose eClinicalWorks Submission
--- OUTSIDE RECORDS SUMMARY | 2018-04-05 21:12 | XMS REPORT ---
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 Active Problem Anxiety state F41.1 Active Problem Right shoulder pain M25.511 Active Problem Insomnia G47.00 Active Problem Major depressive disorder, recurrent episode, moderate F33.1 Active Problem Anxiety F41.9 Active Problem Irritable bowel K58.9 Active Problem Degenerative disc disease, lumbar M51.36 Active Assessment Multiple sclerosis G35 Active Problem Depression F32.9 Active Medications Medication Code System Code Instructions Start Date End Date Status Dosage Morphine Sulfate ER [facility] [address]-19 30 MG Orally one daily one hour before bed March 04, 2016 1 tablet Morphine Sulfate [facility] [address]-61 15 MG Orally 3 times a day March 04, 2016 1 tablet as needed Results No Known Results Summary Purpose eClinicalWorks Submission
--- OUTSIDE RECORDS SUMMARY | 2018-04-05 21:12 | XMS REPORT ---
Author Author GLADYS PATRICK [facility] eClinicalWorks Address Unknown Phone Unavailable Care Team Providers Care Supervisor Safety Deposit Name Role Phone GLADYS PATRICK CP Unavailable [...] lumbar M51.36 Active Problem Depression F32.9 Active Medications No Known Medications Results No Known Results Summary Purpose eClinicalWorks Submission
--- OUTSIDE RECORDS SUMMARY | 2018-04-05 21:12 | XMS REPORT ---
Author Author CELINA GLADYS Organization [facility] Address [address] [place] [address] Care Team Providers Care Agent Producer Name Role Phone GLADYS PATRICK Unavailable PROBLEMS Type Condition ICD9-CM Code [id number] Code Onset Dates Condition Status SNOMED Code Problem Major depressive disorder, recurrent episode, moderate F33.1 Active 459612557 Problem Thrush B37.0 Active 72923757 Problem Insomnia G47.00 Active 065225873 Problem Acute left-sided low back pain with left-sided sciatica M54.42 Active 841032938 Problem Fibromyalgia M79.7 Active 829743719 Problem Mixed hyperlipidemia E78.2 Active 893413455 Problem Chronic pain G89.29 Active 89516385 Problem Acute cystitis without hematuria N30.00 Active 17974062 Problem Other constipation K59.09 Active 984154070767385 Problem Depression F32.9 Active 09570856 Problem Degenerative disc disease, lumbar M51.36 Active 10436540 Problem Fatigue R53.83 Active 79004553 Problem GERD (gastroesophageal reflux disease) K21.9 Active 697995065 Problem Irritable bowel K58.9 Active 18134966 Problem Multiple sclerosis G35 Active 45930370 Problem Anxiety state F41.1 Active 963197000 ALLERGIES No Information SOCIAL HISTORY Never Assessed PLAN OF CARE VITAL SIGNS MEDICATIONS Unknown Medications RESULTS No Results PROCEDURES No Known procedures IMMUNIZATIONS No Known Immunizations MEDICAL (GENERAL) HISTORY [...] times Hospitalization History Low potassium Hospitalization History [facility] Unit for depression Hospitalization History ER visit for possible pancreatitis
--- OUTSIDE RECORDS SUMMARY | 2018-04-05 21:12 | XMS REPORT ---
Author Author GLADYS PATRICK [facility] eClinicalWorks Address Unknown Phone Unavailable Care Team Providers Care Weave Room Supervisor Name Role Phone GLADYS PATRICK Unavailable Allergies No Known Allergies Problems Problem Type Condition Code Onset Dates Condition Status Problem Anxiety F41.9 Active Problem Degenerative disc disease, lumbar M51.36 Active Problem Irritable bowel K58.9 Active Assessment Hypoglycemia E16.2 Active Problem Anxiety state F41.1 Active Problem Right shoulder pain M25.511 Active Problem Major depressive disorder, recurrent episode, moderate F33.1 Active Problem Multiple sclerosis G35 Active Problem Depression F32.9 Active Problem GERD (gastroesophageal reflux disease) K21.9 Active Problem Fatigue R53.83 Active Medications No Known Medications Results No Known Results Summary Purpose eClinicalWorks Submission
--- OUTSIDE RECORDS SUMMARY | 2018-04-05 21:12 | XMS REPORT ---
Author GLADYS Romano [facility] eClinicalWorks Address Unknown Phone Unavailable Care Team Providers Care Mirror Framer Name Role Phone GLADYS PATRICK CP Unavailable [...] Instructions Start Date End Date Status Dosage MS Contin [facility] [address]-64 30 MG Orally every 12 hrs Oct 26, 2015Dec 1 tablet Results No Known Results Summary Purpose eClinicalWorks Submission
--- OUTSIDE RECORDS SUMMARY | 2018-04-05 21:12 | XMS REPORT ---
Author GLADYS Romano Organization [employer] Address Unknown Phone Unavailable Care Team Providers Care Transition Assistant Name Role Phone GLADYS PATRICK CP Unavailable [...] Thrush B37.0 Active Problem Insomnia G47.00 Active Problem Irritable bowel K58.9 Active Problem Degenerative disc disease, lumbar M51.36 Active Problem Family history of hypercholesterolemia Z83.49 Active Problem Depression F32.9 Active Problem Anxiety F41.9 Active Problem Multiple sclerosis G35 Active Medications Medication Code System Code Instructions Start Date End Date Status Dosage Morphine Sulfate ER [facility] [address]-72 30 MG Orally one daily one hour before bed March 04, 2016 1 tablet Morphine Sulfate [facility] [address]-19 15 MG Orally 3 times a day March 04, 2016 1 tablet as needed Results No Known Results Summary Purpose eClinicalWorks Submission
--- OUTSIDE RECORDS SUMMARY | 2018-04-05 21:12 | XMS REPORT ---
Author Author GLADYS PATRICK Organization [facility] Address [address] [place] [address] Care Team Providers Care Manager Operations Research Name Role Phone PATRICE PATRICKE Unavailable PROBLEMS Type Condition ICD9-CM Code [id number] Code Onset Dates Condition Status SNOMED Code Problem Major depressive disorder, recurrent episode, moderate F33.1 Active 267943047 Problem Thrush B37.0 Active 87055935 Problem Insomnia G47.00 Active 736605598 Problem Acute left-sided low back pain with left-sided sciatica M54.42 Active 307419610 Problem Fibromyalgia M79.7 Active 754061432 Problem Mixed hyperlipidemia E78.2 Active 462676355 Problem Chronic pain G89.29 Active 41981256 Problem Acute cystitis without hematuria N30.00 Active 28230437 Problem Other constipation K59.09 Active 858373158864660 Problem Depression F32.9 Active 52781032 Problem Degenerative disc disease, lumbar M51.36 Active 92658834 Problem Fatigue R53.83 Active 73839620 Problem GERD (gastroesophageal reflux disease) K21.9 Active 843501123 Problem Irritable bowel K58.9 Active 69775727 Problem Multiple sclerosis G35 Active 84587158 Problem Anxiety state F41.1 Active 582675688 ALLERGIES Unknown Allergies SOCIAL HISTORY No smoking Hx information available PLAN OF CARE VITAL SIGNS MEDICATIONS Medication Instructions Dosage Frequency Start Date End Date Duration Status Morphine Sulfate 15 MG Orally 2 times a day prn break throught pain 1 tablet as needed Nov, Active RESULTS No Results PROCEDURES No Known procedures IMMUNIZATIONS No Known Immunizations
--- OUTSIDE RECORDS SUMMARY | 2018-04-05 21:13 | XMS REPORT ---
Author Author CELINA GLADYS Organization [facility] Address [address] [place] [address] Care Team Providers Care Spanish Interpreter Name Role Phone GLADYS PATRICK Unavailable PROBLEMS Type Condition ICD9-CM Code ACI48-[id number] Code Onset Dates Condition Status SNOMED Code Problem Major depressive disorder, recurrent episode, moderate F33.1 Active 912678663 Problem Thrush B37.0 Active 42304626 Problem Insomnia G47.00 Active 046110714 Problem Acute left-sided low back pain with left-sided sciatica M54.42 Active 713021998 Problem Fibromyalgia M79.7 Active 003217297 Problem Mixed hyperlipidemia E78.2 Active 540732412 Problem Chronic pain G89.29 Active 31498050 Problem Acute cystitis without hematuria N30.00 Active 30532758 Problem Other constipation K59.09 Active 047290924942665 Problem Depression F32.9 Active 66861883 Problem Degenerative disc disease, lumbar M51.36 Active 25702676 Problem Fatigue R53.83 Active 06270804 Problem GERD (gastroesophageal reflux disease) K21.9 Active 725292973 Problem Irritable bowel K58.9 Active 11839860 Problem Multiple sclerosis G35 Active 52484009 Problem Anxiety state F41.1 Active 418111656 ALLERGIES No Information SOCIAL HISTORY Never Assessed PLAN OF CARE VITAL SIGNS MEDICATIONS Medication Instructions Dosage Frequency Start Date End Date Duration Status Amphetamine-Dextroamphetamine 10 mg orally once a day 1 tablet in the morning 24h March, 28 Active Morphine Sulfate ER 30 MG Orally every 12 hrs 1 tablet 12h March, 28 Active Morphine Sulfate 15 MG Orally 2 times a day prn break throught pain 1 tablet as needed March, 28 Active Alprazolam 0.5 MG Orally Three times a day 1 tablet 8h Active RESULTS No Results PROCEDURES No Known [...] times Hospitalization History Low potassium Hospitalization History [facility] Unit for depression Hospitalization History ER visit for possible pancreatitis
--- OUTSIDE RECORDS SUMMARY | 2018-04-05 21:13 | XMS REPORT ---
Author GLADYS Romano [facility] [place] eClinicalWorks Address Unknown Phone Unavailable Care Team Providers Care Career Development Coordinator/Teacher Name Role Phone GLADYS PATRICK CP Unavailable Allergies No Known Allergies Problems Problem Type Condition Code Onset Dates Condition Status Problem Insomnia G47.00 Active Problem Chronic pain G89.29 Active Problem Thrush B37.0 Active Problem Dysuria R30.0 Active Problem Family history of hypercholesterolemia Z83.49 Active Problem Adverse effect of other opioids, initial encounter T40.2X5A Active Problem Fibromyalgia M79.7 Active Problem Mixed [...] End Date Status Dosage Morphine Sulfate ER [facility] [address]-07 30 MG Orally one daily one hour before bed March 04, 2016 1 tablet Amphetamine-Dextroamphetamine [facility] 17607330193 5 MG orally once a day TAKE ONE TABLET Morphine Sulfate [facility] [address]-68 15 MG Orally 3 times a day March 04, 2016 1 tablet as needed Results No Known Results Summary Purpose eClinicalWorks Submission
--- OUTSIDE RECORDS SUMMARY | 2018-04-05 21:13 | XMS REPORT ---
Author Author GLADYS PATRICK Organization [facility] Address [address] [place] [address] Care Team Providers Care Retrieval Specialist Name Role Phone GLADYS PATRICK Unavailable PROBLEMS Type Condition ICD9-CM Code IVT38-PO Code Onset Dates Condition Status SNOMED Code Problem Major depressive disorder, recurrent episode, moderate F33.1 Active 137876384 Problem Thrush B37.0 Active 91500094 Problem Insomnia G47.00 Active 270825070 Problem Acute left-sided low back pain with left-sided sciatica M54.42 Active 848646481 Problem Fibromyalgia M79.7 Active 199960791 Problem Mixed hyperlipidemia E78.2 Active 265216316 Problem Chronic pain G89.29 Active 47982274 Problem Acute cystitis without hematuria N30.00 Active 15016316 Problem Other constipation K59.09 Active 683271858389828 Problem Depression F32.9 Active 72803457 Problem Degenerative disc disease, lumbar M51.36 Active 58112603 Problem Fatigue R53.83 Active 18807644 Problem GERD (gastroesophageal reflux disease) K21.9 Active 706408209 Problem Irritable bowel K58.9 Active 93977711 Problem Multiple sclerosis G35 Active 14624368 Problem Anxiety state F41.1 Active 236199504 ALLERGIES Unknown Allergies SOCIAL HISTORY No smoking Hx information available PLAN OF CARE VITAL SIGNS MEDICATIONS Medication Instructions Dosage Frequency Start Date End Date Duration Status Nicoderm CQ 21 MG/24HR Transdermal Once a day 1 patch to skin 24h Dec, March, 30 day(s) Active RESULTS No Results PROCEDURES No Known procedures IMMUNIZATIONS No Known Immunizations
--- OUTSIDE RECORDS SUMMARY | 2018-04-05 21:13 | XMS REPORT ---
Author Author GLADYS PATRICK Organization [facility] Address [address] [place] [address] Care Team Providers Care Client Service Supervisor Name Role Phone PATRICE PATRICKE Unavailable PROBLEMS Type Condition ICD9-CM Code KSH19-HM Code Onset Dates Condition Status SNOMED Code Problem Major depressive disorder, recurrent episode, moderate F33.1 Active 075735660 Problem Thrush B37.0 Active 15092193 Problem Insomnia G47.00 Active 688379405 Problem Acute left-sided low back pain with left-sided sciatica M54.42 Active 125671862 Problem Fibromyalgia M79.7 Active 552910722 Problem Mixed hyperlipidemia E78.2 Active 486123714 Problem Chronic pain G89.29 Active 27598460 Problem Acute cystitis without hematuria N30.00 Active 83400584 Problem Other constipation K59.09 Active 726673940302715 Problem Depression F32.9 Active 83024361 Problem Degenerative disc disease, lumbar M51.36 Active 26089508 Problem Fatigue R53.83 Active 32446584 Problem GERD (gastroesophageal reflux disease) K21.9 Active 502139436 Problem Irritable bowel K58.9 Active 83726108 Problem Multiple sclerosis G35 Active 94214602 Problem Anxiety state F41.1 Active 301853275 ALLERGIES Unknown Allergies SOCIAL HISTORY No smoking Hx information available PLAN OF CARE VITAL SIGNS MEDICATIONS Medication Instructions Dosage Frequency Start Date End Date Duration Status Morphine Sulfate ER 30 MG Orally every 12 hrs 1 tablet 12h 20 Nov, 2016 Active RESULTS No Results PROCEDURES No Known procedures IMMUNIZATIONS No Known Immunizations
--- OUTSIDE RECORDS SUMMARY | 2018-04-05 21:13 | XMS REPORT ---
Author Author CELINA GLADYS Organization [facility] Address [address] [place] [address] Care Team Providers Care Voip Network Engineer Name Role Phone PATRICE PATRICKE Unavailable PROBLEMS Type Condition ICD9-CM Code XEW27-JA Code Onset Dates Condition Status SNOMED Code Problem Major depressive disorder, recurrent episode, moderate F33.1 Active 628934633 Problem Thrush B37.0 Active 26974962 Problem Insomnia G47.00 Active 245198665 Problem Acute left-sided low back pain with left-sided sciatica M54.42 Active 490535669 Problem Fibromyalgia M79.7 Active 532561011 Problem Mixed hyperlipidemia E78.2 Active 422266911 Problem Chronic pain G89.29 Active 77445253 Problem Acute cystitis without hematuria N30.00 Active 34739137 Problem Other constipation K59.09 Active 355273492487206 Problem Depression F32.9 Active 76767035 Problem Degenerative disc disease, lumbar M51.36 Active 29085705 Problem Fatigue R53.83 Active 13207178 Problem GERD (gastroesophageal reflux disease) K21.9 Active 271552312 Problem Irritable bowel K58.9 Active 00015908 Problem Multiple sclerosis G35 Active 77532881 Problem Anxiety state F41.1 Active 608279490 ALLERGIES No Information SOCIAL HISTORY Never Assessed PLAN OF CARE VITAL SIGNS MEDICATIONS Medication Instructions Dosage Frequency Start Date End Date Duration Status Amphetamine-Dextroamphetamine 10 mg orally once a day 1 tablet in the morning 24h Dec, 6 days Active RESULTS No Results PROCEDURES No Known [...] times Hospitalization History Low potassium Hospitalization History [facility] Unit for depression Hospitalization History ER visit for possible pancreatitis
--- OUTSIDE RECORDS SUMMARY | 2018-04-05 21:13 | XMS REPORT ---
Author GLADYS Romano [facility] eClinicalWorks Address Unknown Phone Unavailable Care Team Providers Care Insulation And Flooring Assembler Name Role Phone GLADYS PATRICK CP Unavailable [...] End Date Status Dosage Morphine Sulfate ER [facility] [address]-45 30 MG Orally one daily one hour before bed March 04, 2016 1 tablet Morphine Sulfate [facility] [address]-23 15 MG Orally 3 times a day March 04, 2016 1 tablet as needed Amphetamine-Dextroamphetamine [facility] 32327266070 5 MG orally once a day TAKE ONE TABLET Results No Known Results Summary Purpose eClinicalWorks Submission
--- OUTSIDE RECORDS SUMMARY | 2018-04-05 21:13 | XMS REPORT ---
Author Author Jonatan GLADYS Organization [facility] Address [address] [place] [address] Care Team Providers Care Principal Android Developer Name Role Phone [email or web address] BatesNETTE Unavailable PROBLEMS Type Condition ICD9-CM Code QXV81-DK Code Onset Dates Condition Status SNOMED Code Problem Chronic pain G89.29 Active 48106105 Problem Other constipation K59.09 Active [id number] Problem Mixed hyperlipidemia E78.2 Active 493868367 Problem Constipation, unspecified constipation type K59.00 Active 24750062 Problem Anxiety F41.9 Active 78030231 Problem Fibromyalgia M79.7 Active 862187244 Problem Acute cystitis without hematuria N30.00 Active 40917401 Problem Weight gain, abnormal R63.5 Active 254717213 Problem Acute left-sided low back pain with left-sided sciatica M54.42 Active 502604024 Problem GERD (gastroesophageal reflux disease) K21.9 Active 461958867 Problem Degenerative disc disease, lumbar M51.36 Active 12912056 Problem Multiple sclerosis G35 Active 86531879 Problem Depression F32.9 Active 95933254 Problem Anxiety state F41.1 Active 545198872 Problem Major depressive disorder, recurrent episode, moderate F33.1 Active 389658059 Problem Irritable bowel K58.9 Active 10472037 Problem Insomnia G47.00 Active 864841026 Problem Fatigue R53.83 Active 92509104 Problem Thrush B37.0 Active 38517201 ALLERGIES No Information ENCOUNTERS Encounter Location Date Diagnosis [facility] [address], [place] [address] Feb, [facility] [address], [place] [address] Jan, Multiple sclerosis G35 ; Anxiety F41.9 and Insomnia G47.00 [facility] [address] [address] Jan, Constipation, unspecified constipation type K59.00 [facility] [address] [address]- [address] Jan, [facility] [id number] [place] [address] 10767- 4212 Jan, Multiple sclerosis G35 ; Anxiety F41.9 ; Insomnia G47.00 and Chronic pain G89.29 [facility] [address] [address]- [address] Dec, [facility] [address] 10584- 8957 Dec, [facility] [address] 31596- 9098 Nov, Fibromyalgia M79.7 [facility] [address] 18638- 0998 Nov, [facility] [address] [address]- [address] Nov, [facility] [address] 75481- 6744 Nov, Fibromyalgia M79.7 [facility] [address] 89[address]- 5716 Oct, [facility] [id number] [place] [address] 09367- 0222 Oct, Multiple sclerosis G35 ; Depression F32.9 and Weight gain, abnormal R63.5 [facility] [address] 74433- 4287 Oct, [facility] [address] 46225- 9907 Sep, Fibromyalgia M79.7 [facility] [address] 53335- 8468 Sep, Urinary incontinence in female R32 [facility] [id number] [place] [address] 82782- 6678 08 Sep, 2017 [facility] [address] 30341- 3952 Sep, [facility] [address] 92631- 7008 Sep, Hypokalemia E87.6 [facility] [address] [address] Sep, Colitis K52.9 and Distended abdomen R14.0 [place] [address] 54454- 9289 Sep, Fibromyalgia M79.7 [facility] [address] [address] Aug, Epigastric pain R10.13 and Drug-induced constipation K59.03 [facility] [id number] [place] [address] 42290- 1285 Aug, Fibromyalgia M79.7 [facility] [address] 70643- 0392 Jul, Fibromyalgia M79.7 [facility] [address] 54233- 0298 Jul, [facility] [id number] [place] [address] 27889- 2942 Jun, Degenerative disc disease, lumbar M51.36 [facility] [id number] [place] [address] 46599- 5805 Jun, Acute left-sided low back pain with left-sided sciatica M54.42 ; Fibromyalgia M79.7 and Other constipation K59.09 [facility] [id number] [place] [address] 31312- 0126 Jun, Acute left-sided low back pain with left-sided sciatica M54.42 [facility] [address] [place] [address] 79227- 1762 Jun, [facility] [id number] [place] [address] 18041- 7204 Jun, [facility] [id number] [place] [address] 13336- 6518 Jun, [facility] [id number] [place] [address] 94212- 5001 Jun, Degenerative disc disease, lumbar M51.36 [facility] [id number] [place] [address] 91268 -5017 Jun, Acute left-sided low back pain with left-sided sciatica M54.42 [facility] [id number] [place] [address] 62032- 9120 May, Degenerative disc disease, lumbar M51.36 ; Multiple sclerosis G35 ; GERD (gastroesophageal reflux disease) K21.9 ; Fatigue R53.83 ; Irritable bowel K58.9 ; Major depressive disorder, recurrent episode, moderate F33.1 ; Anxiety state F41.1 ; Thrush B37.0 ; Fibromyalgia M79.7 and Insomnia G47.00 [facility] [address] [place] [address] 11843- 8122 May, Chronic pain G89.29 and Major depressive disorder, recurrent episode, moderate F33.1 [facility] [address] [place] [address] 84195- 1571 May, Degenerative disc disease, lumbar M51.36 [facility] [address] [place] [address] 66874 -4005 May, Oral thrush B37.0 [facility] [id number] [place] [address] 29401- 5766 May, Fatigue R53.83 and Chronic pain G89.29 [facility] [id number] [place] [address] 83148- 4201 Apr, Multiple sclerosis G35 ; Chronic pain G89.29 ; GERD ( gastroesophageal reflux disease) K21.9 ; Fatigue R53.83 ; Depression F32.9 ; Degenerative disc disease, lumbar M51.36 ; Irritable bowel K58.9 ; Insomnia G47.00 ; Mixed hyperlipidemia E78.2 ; Fibromyalgia M79.7 and Urinary incontinence in female R32 [address] 9[address]- 9897 March, Major depressive disorder, recurrent episode, moderate F33.1 [place] [address] 64518- 8229 March, Chronic pain G89.29 [place] [address] 02858- 5918 March, Urinary incontinence in female R32 and Allergic conjunctivitis, right H10.[address] 25791- 2196 March, Radicular pain M54.10 [place] [address] 18158- 5969 March, [place] [address] 82245- 1097 Jan, [place] [address] 52299- 6929 Jan, Hypokalemia E87.6 [place] [address] 23254- 2715 Jan, Fatigue R53.83 [facility] [address] 90571- 9375 Dec, [facility] [address] 63992- 3515 Dec, Fatigue R53.83 [place] [address] 02131- 1665 Dec, [facility] [id number] [place] [address] 84883- 2936 Dec, [facility] [facility] [address] 63567- 9625 Dec, Hypokalemia E87.6 [facility] [address] 82611- 3874 Nov, GERD (gastroesophageal reflux disease) K21.9 ; Fatigue R53.83 ; Depression F32.9 ; Major depressive disorder, recurrent episode, moderate F33.1 ; Fibromyalgia M79.7 ; Other constipation K59.09 ; Primary insomnia F51.01 ; Multiple sclerosis G35 and Mixed hyperlipidemia E78.2 [place] [address] 98122- 8993 Nov, [facility] [facility] [address] 65845- 0708 Nov, Degenerative disc disease, lumbar M51.36 [place] [address] 39969- 5047 Nov, [facility] [address] 11048- 9100 Oct, Degenerative disc disease, lumbar M51.36 [facility] [id number] [place] [address] 84346- 9585 Oct, Fibromyalgia M79.7 ; GERD (gastroesophageal reflux disease) K21.9 ; Multiple sclerosis G35 ; Depression F32.9 ; Degenerative disc disease, lumbar M51.36 ; Irritable bowel K58.9 ; Anxiety F41.9 ; Insomnia G47.00 ; Adverse effect of other opioids, initial encounter T40.2X5A ; Other constipation K59.09 and Fatigue R53.83 [facility] [id number] [place] [address] 80895- 9872 Oct, [facility] [address] 55296 -1256 Sep, Hordeolum externum of right lower eyelid H00.012 [facility] [id number] [place] [address] 96307- 4713 Sep, GERD (gastroesophageal reflux disease) K21.9 ; Fatigue R53.83 ; Depression F32.9 ; Degenerative disc disease, lumbar M51.36 ; Irritable bowel K58.9 ; Anxiety F41.9 ; Major depressive disorder, recurrent episode, moderate F33.1 ; Insomnia G47.00 ; Multiple sclerosis G35 and Chronic pain G89.29 [place] [address] 63993- 1456 Sep, Fatigue R53.83 [place] [address] 32044- 4697 Sep, [place] [address] 46595- 1004 Aug, GERD (gastroesophageal reflux disease) K21.9 ; Fatigue R53.83 ; Depression F32.9 ; Degenerative disc disease, lumbar M51.36 ; Irritable bowel K58.9 ; Anxiety F41.9 ; Major depressive disorder, recurrent episode, moderate F33.1 ; Anxiety state F41.1 ; Chronic pain G89.29 ; Family history of hypercholesterolemia Z83.49 ; Other constipation K59.09 ; Fibromyalgia M79.7 and Hypercholesterolemia E78.00 [place] [address] 02972- 1237 Aug, [place] [address] 73346- 0219 Aug, Epigastric pain R10.13 ; Nausea R11.0 and Other constipation K59.09 [place] [address] 85423- 3148 Aug, [facility] [place] [id number] [place] [address] 91691- 7654 Aug, [place] [address] 79861- 5589 Jul, [facility] [id number] [place] [address] 96981- 1308 Jul, [facility] [id number] [place] [address] 50742- 7627 Jun, Dysuria R30.0 ; Irritable bowel K58.9 ; Adverse effect of other opioids, initial encounter T40.2X5A ; Other constipation K59.09 and Acute cystitis without hematuria N30.00 [facility] [id number] [place] [address] 61794- 7210 Jun, [facility] [id number] [place] [address] 98361 -2578 Jun, Left upper quadrant pain R10.12 [facility] [id number] [place] [address] 01254- 0175 Jun, Major depressive disorder, recurrent episode, moderate F33.1 ; Anxiety state F41.1 and Insomnia G47.00 [facility] [id number] [place] [address] 14418- 4470 May, [facility] [id number] [place] [address] 71078- 6408 May, [facility] [id number] [place] [address] 11190- 3695 May, Depression F32.9 ; Major depressive disorder, recurrent episode, moderate F33.1 ; Multiple sclerosis G35 and Chronic pain G89.29 [facility] [id number] [place] [address] 17846- 2315 May, [facility] [id number] [place] [address] 12208- 7854 Apr, Right shoulder pain M25.511 [facility] [id number] [place] [address] 79257- 7526 Apr, [facility] [id number] [place] [address] 68258- 5024 Apr, Fatigue R53.83 ; Multiple sclerosis G35 ; Depression F32.9 ; Anxiety state F41.1 ; Degenerative disc disease, lumbar M51.36 ; GERD ( gastroesophageal reflux disease) K21.9 ; Insomnia G47.00 ; Environmental allergies Z91.09 and Thrush B37.0 [facility] [id number] [place] [address] 10063- 0263 Apr, [place] [address] 93719- 1259 Apr, Mixed hyperlipidemia E78.2 [place] [address] 86340- 3719 Apr, [place] [address] 42275- 0620 Apr, [place] [address] 65588- 4817 March, Degenerative disc disease, lumbar M51.36 [facility] [place] [id number] [place] [address] 76884- 9331 March, Major depressive disorder, recurrent episode, moderate F33.1 ; Mass in neck R22.1 and Fatigue R53.83 [facility] [place] [id number] [place] [address] 66415- 0548 March, Major depressive disorder, recurrent episode, moderate F33.1 ; Anxiety F41.9 ; Insomnia G47.00 and Other shelter (current) drug therapy Z79.899 [facility] [id number] [place] [address] 54619- 5829 March, GERD (gastroesophageal reflux disease) K21.9 and Degenerative disc disease, lumbar M51.36 [facility] [place] [id number] [place] [address] 91856- 2105 March, GERD (gastroesophageal reflux disease) K21.9 ; Fatigue R53.83 ; Multiple sclerosis G35 ; Depression F32.9 ; Degenerative disc disease, lumbar M51.36 ; Anxiety F41.9 ; Right shoulder pain M25.511 ; Major depressive disorder, recurrent episode, moderate F33.1 and Insomnia G47.00 [place] [address] 79590- 9007 March, Multiple sclerosis G35 [place] [address] 37345- 7046 Feb, [place] [address] 31900- 6505 Feb, [place] [address] 69018- 3529 Feb, Chronic pain G89.29 ; Fatigue R53.83 ; Depression F32.9 ; Degenerative disc disease, lumbar M51.36 ; Irritable bowel K58.9 ; Anxiety F41.9 ; Insomnia G47.00 and GERD (gastroesophageal reflux disease) K21.9 [place] [address] 19079- 8732 Feb, Anxiety F41.9 and Major depressive disorder, recurrent episode, moderate F33.1 [place] [address] 96786- 0616 Feb, [place] [address] 67722- 2594 Jan, [place] [id number] [place] [address] 23698- 8749 Jan, Degenerative disc disease, lumbar M51.36 ; Multiple sclerosis G35 ; Fatigue R53.83 ; Depression F32.9 ; Irritable bowel K58.9 ; GERD (gastroesophageal reflux disease) K21.9 and 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 [place] [address] 99469- 4822 Jan, [place] [address] 57821- 4533 Jan, [place] [address] [place] [address]- 0293 14 Jan, 2016 [facility] [address], [place] [address]- 0884 14 Jan, 2016 [facility] [address], [place] [address]- 5708 14 Jan, 2016 [facility] [address], [place] [address]- 8685 Jan, [facility] [address] [address]- 5603 Jan, [facility] [address] [place] [address] 20707- 0591 Jan, [facility] [address], [place] [address]- 9247 Jan, [facility] [address], [place] [address]- 9188 Jan, [facility] [address], [place] [address]- 3757 Dec, [facility] [address], [place] [address]- 6019 Dec, Major depressive disorder, recurrent episode, moderate F33.1 ; Anxiety F41.9 and Insomnia G47.00 [facility] [address], [place] [address]- 8081 Dec, Lymphadenitis I88.9 ; GERD (gastroesophageal reflux disease ) K21.9 ; Multiple sclerosis G35 ; Depression F32.9 ; Degenerative disc disease , lumbar M51.36 ; Irritable bowel K58.9 ; Anxiety F41.9 ; Major depressive disorder, recurrent episode, moderate F33.1 and Insomnia G47.00 [facility] [address], [place] [address]- 7018 Dec, Major depressive disorder, recurrent episode, moderate F33.1 and Anxiety state F41.1 [facility] [id number] [place] [address] 77279- 0583 16 Dec, 2015 Screening breast examination Z12.39 [place] [id number] [place] [address] 79934- 4258 10 Dec, 2015 Mass in neck R22.1 ; Chronic pain G89.29 ; GERD ( gastroesophageal reflux disease) K21.9 ; Fatigue R53.83 ; Anxiety F41.9 ; Major depressive disorder, recurrent episode, moderate F33.1 ; Encounter for screening mammogram for breast cancer Z12.31 and Thrush B37.0 [place] [id number] [place] [address] 99075- 8132 09 Dec, 2015 [place] [address] 89192- 8699 04 Dec, 2015 [facility] [place] [id number] [place] [address] 62258- 4689 Nov, Major depressive disorder, recurrent episode, moderate F33.1 and Anxiety state F41.1 [facility] [place] [id number] [place] [address] 69008- 3183 15 Nov, 2015 Insomnia G47.00 [facility] [id number] [place] [address] 79060- 8683 14 Nov, 2015 Major depressive disorder, recurrent episode, moderate F33.1 and Anxiety state F41.1 [place] [id number] [place] [address] 61694- 5684 Nov, [facility] [place] [id number] [place] [address] 19770- 6988 Nov, [facility] [id number] [place] [address] 49774- 5435 Oct, GERD (gastroesophageal reflux disease) K21.9 ; Depression F32.9 and Degenerative disc disease, lumbar M51.36 [facility] [id number] [place] [address] 62140- 4883 Oct, Right shoulder pain M25.511 ; Degenerative disc disease, lumbar M51.36 ; Multiple sclerosis G35 ; Fatigue R53.83 ; GERD ( gastroesophageal reflux disease) K21.9 ; Major depressive disorder, recurrent episode, moderate F33.1 ; Anxiety state F41.1 and Constipation K59.00 [place] [id number] [place] [address] 84180- 2745 Oct, Hypoglycemia E16.2 [place] [address] 57894- 5140 Oct, Unspecified fall, initial encounter W19.XXXA [address] 34426- 5722 Oct, [address] 54440- 8325 Oct, Major depressive disorder, recurrent episode, moderate F33.1 and Anxiety state F41.[address] 79453- 6080 Oct, [place] [address] 73741- 5735 Oct, [address] 52422- 4325 Oct, Degenerative disc disease, lumbar M51.36 ; GERD ( gastroesophageal reflux disease) K21.9 ; Right shoulder pain M25.511 and Candidal vaginitis B37.3 [place] [id number] [place] [address] 20155- 6353 Sep, [address] 77815- 5138 Sep, GERD (gastroesophageal reflux disease) K21.9 ; Fatigue R53.83 ; Multiple sclerosis G35 ; Depression F32.9 ; Degenerative disc disease, lumbar M51.36 ; Irritable bowel K58.9 ; Anxiety F41.9 ; Right shoulder pain M25.511 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 [place] [address] [place] [address]- 0497 Sep, GERD (gastroesophageal reflux disease) K21.9 ; Fatigue R53.83 ; Multiple sclerosis G35 ; Depression F32.9 ; Degenerative disc disease, lumbar M51.36 ; Irritable bowel K58.9 ; Anxiety F41.9 and Bronchitis J40 IMMUNIZATIONS No Known Immunizations SOCIAL HISTORY Never Assessed REASON FOR VISIT Controlled Med Refill PLAN OF CARE VITAL SIGNS MEDICATIONS Medication Instructions Dosage Frequency Start Date End Date Duration Status Lyrica 150 MG Orally 2 times a day 1 capsule 12h Active Amphetamine-Dextroamphetamine 10 mg orally once a day 1 tablet in the morning 24h May, Active RESULTS No Results PROCEDURES No Known procedures INSTRUCTIONS MEDICATIONS ADMINISTERED No Known Medications MEDICAL [...] times Hospitalization History Low potassium Hospitalization History [facility] for depression Hospitalization History ER visit for possible pancreatitis
--- OUTSIDE RECORDS SUMMARY | 2018-04-05 21:13 | XMS REPORT ---
Author Author CELINA GLADYS Organization [facility] Address [address] [place] [address] Care Team Providers Care Assistant Professor Of Chemistry Name Role Phone GLADYS PATRICK Unavailable PROBLEMS Type Condition ICD9-CM Code GDH29-SG Code Onset Dates Condition Status SNOMED Code Problem Major depressive disorder, recurrent episode, moderate F33.1 Active 867533491 Problem Thrush B37.0 Active 95585070 Problem Insomnia G47.00 Active 554691552 Problem Acute left-sided low back pain with left-sided sciatica M54.42 Active 205509217 Problem Fibromyalgia M79.7 Active 827330614 Problem Mixed hyperlipidemia E78.2 Active 800596673 Problem Chronic pain G89.29 Active 69418926 Problem Acute cystitis without hematuria N30.00 Active 57466357 Problem Other constipation K59.09 Active 592286153323170 Problem Depression F32.9 Active 20388462 Problem Degenerative disc disease, lumbar M51.36 Active 07512049 Problem Fatigue R53.83 Active 32395381 Problem GERD (gastroesophageal reflux disease) K21.9 Active 961344275 Problem Irritable bowel K58.9 Active 88067564 Problem Multiple sclerosis G35 Active 77954428 Problem Anxiety state F41.1 Active 062106591 ALLERGIES Substance Reaction Event Type Date Status Sulfamethoxazole Unknown Drug Allergy Nov, Active Remeron Unknown Drug Allergy Nov, Active [place] Unknown Drug Allergy Nov, Active Naproxen Unknown Drug Allergy Nov, Active Levaquin Unknown Drug Allergy Nov, Active Abilify Unknown Drug Allergy Nov, Active Adhesives, tapes, bandages Unknown Non Drug Allergy Nov, Active SOCIAL HISTORY No smoking Hx information available PLAN OF CARE Activity Details Follow Up 3 Months, prn Reason:chronic pain management VITAL SIGNS Height 64.0 in 2016-12-29 Weight 118.0 lbs 2016-12-29 Temperature 98.3 degrees Fahrenheit 2016-12-29 Heart Rate 90 bpm 2016-12-29 Respiratory Rate 18 2016-12-29 BMI 20.25 kg/m2 2016-12-29 Blood pressure systolic 98 mmHg 2016-12-29 Blood pressure diastolic 72 mmHg 2016-12-29 MEDICATIONS Medication Instructions Dosage Frequency Start Date End Date Duration Status Morphine Sulfate 15 MG Orally 2 times a day prn break throught pain 1 tablet as needed Nov, Active Dulcolax Stool Softener 100 mg Orally twice a day 1 capsule 12h Active Ibuprofen 800 MG Orally Three times a day 1 tablet 8h Active Alprazolam 0.5 MG Orally Three times a day 1 tablet 8h Active Trazodone HCl 50 mg Orally Once a day 1 tablet at bedtime 24h Active Duloxetine HCl 60 mg Orally twice a day 1 capsule 12h 30 days Active Linzess 145 MCG TAKE ONE CAPSULE BY MOUTH ONCE DAILY 30 Active Amphetamine-Dextroamphetamine 10 mg orally once a day 1 tablet in the morning 24h 30 Nov, 2016 19 days Active Zofran 4 MG Orally 3 times a day prn 1 tablets Aug, Active Nexium 40 mg Orally Once a day 1 capsule 24h Active Topamax 50 mg Orally Twice a day 1 tablet 12h Active Lyrica 150 MG TAKE ONE CAPSULE BY MOUTH TWICE DAILY 30 Active Morphine Sulfate ER 30 MG Orally every 12 hrs 1 tablet 12h 20 Nov, 2016 Active Cymbalta 30 MG Orally Twice a day 1 capsule 12h Active Latuda 60 mg Orally Once a day 1 tablet with food 24h 30 Active RESULTS Name Result Date Reference Range AMERITOX 2016-12-29 TSH 2016-12-29 TSH 1.690 0.450-4.500 CBC 2016-12-29 WBC 10.4 3.4-10.8 RBC 4.40 3.77-5.28 Hemoglobin 13.3 11.1-15.9 Hematocrit 39.2 34.0-46.6 MCV 89 79-97 MCH 30.2 26.6-33.0 MCHC 33.9 31.5-35.7 RDW 14.5 12.3-15.4 Platelets 279 150-379 Neutrophils 66 Lymphs 26 Monocytes 7 Eos 1 Basos 0 Neutrophils (Absolute) 6.8 1.4-7.0 Lymphs (Absolute) 2.7 0.7-3.1 Monocytes(Absolute) 0.8 0.1-0.9 Eos (Absolute) 0.1 0.0-0.4 Baso (Absolute) 0.0 0.0-0.2 Immature Granulocytes 0 Immature Grans (Abs) 0.0 0.0-0.1 LIPID PANEL 2016-12-29 Cholesterol, Total 206 100-199 Triglycerides 305 0-149 HDL Cholesterol 23 >39 VLDL Cholesterol Wilberto 61 5-40 LDL Cholesterol Calc 122 0-99 Comment: CMP 2016-12-29 Glucose, Serum 88 65-99 BUN 6 6-24 Creatinine, Serum 0.81 0.57-1.00 eGFR If NonAfricn Am 90 >59 eGFR If Africn Am 104 >59 BUN/Creatinine Ratio 7 9-23 Sodium, Serum 141 134-144 Potassium, Serum 3.0 3.5-5.2 Chloride, Serum 102 96-106 Carbon Dioxide, Total 20 18-29 Calcium, Serum 9.3 8.7-10.2 Protein, Total, Serum 6.3 6.0-8.5 Albumin, Serum 4.3 3.5-5.5 Globulin, Total 2.0 1.5-4.5 A/G Ratio 2.2 1.1-2.5 Bilirubin, Total 0.2 0.0-1.2 Alkaline Phosphatase, S 112 39-117 AST (SGOT) 22 0-40 ALT (SGPT) 9 0-32 PROCEDURES Procedure Date Ordered Related Diagnosis Body Site [facility] VISIT ESTABLISHED PATIENT Dec 29, 2016 Office Visit, Est Pt., Level 4 Dec 29, 2016 VENIPUNCT, ROUTINE* Dec 29, 2016 [facility] Dec [facility], 2016 IMMUNIZATIONS No Known Immunizations
--- OUTSIDE RECORDS SUMMARY | 2018-04-05 21:14 | XMS REPORT ---
Author GLADYS Romano [facility] eClinicalWorks Address Unknown Phone Unavailable Care Team Providers Care Warehouse Stock Clerk Name Role Phone GLADYS PATRICK CP Unavailable Allergies, Adverse Reactions, Alerts Substance Reaction Event Type Sulfamethoxazole Info Not Available Drug Allergy Remeron Info Not Available Drug Allergy [place] Info Not Available Drug Allergy Naproxen Info [...] disease) K21.9 Active Problem Fatigue R53.83 Active Assessment Constipation K59.00 Active Assessment Anxiety state F41.1 Active Assessment Fatigue R53.83 Active Assessment Multiple sclerosis G35 Active Assessment Major depressive disorder, recurrent episode, moderate F33.1 Active Assessment Degenerative disc disease, lumbar M51.36 Active Assessment GERD (gastroesophageal reflux disease) K21.9 Active Assessment Right shoulder pain M25.511 Active Medications Medication Code System Code Instructions Start Date End Date Status Dosage Morphine Sulfate [facility] [address]-04 15 MG IR Orally 2 times a day Nov 02, 2015 1 tablet as needed MS Contin [facility] [address]-29 30 MG Orally every 12 hrs Oct 26, 2015 1 tablet Nexium [facility] [address]-43 40 MG Orally Once a day Nov 05, 2015 1 capsule Alprazolam [facility] [address]-60 0.5 MG Orally Three times a day 1 tablet Valtrex [facility] [address]-65 1 GM Orally every 24 hrs 1 tablet Transderm-Scop [facility] [address]-01 1 MG/3DAYS Transdermal not defined Cymbalta [facility] [address]-73 60 MG Orally Once a day 2 capsule Amphetamine Sulfate [facility] [address]-01 5 MG Orally prescribed by neuro 1 Lyrica [facility] [address]-19 150 MG Orally Twice a day 1 capsule Linzess [facility] [address]-74 145 MCG Orally Once a day Jan 27, 2016 1 capsule Promethazine HCl [facility] [address]-44 25 MG Orally every 6 hrs PRN 1 tablet as needed ProAir HFA [facility] [address]-05 108 (90 Base) MCG/ACT Inhalation every 4 hrs 2 puffs as needed Procedures Procedure Coding System Code Date Office Visit, Est Pt., Level 4 CPT-4 45400 Nov 16, 2015 [facility] VISIT ESTABLISHED PATIENT CPT-4 G0467 Nov 16, 2015 Vital Signs Date/Time: Nov 16, 2015 Temperature 98.0 F Weight 128.0 lbs Height 64.0 in BMI 21.97 Index Blood Pressure Diastolic 70 mmHg Blood Pressure Systolic 100 mmHg Cardiac Monitoring Heart Rate 76 bpm Results No Known Results Summary Purpose eClinicalWorks Submission
--- OUTSIDE RECORDS SUMMARY | 2018-04-05 21:14 | XMS REPORT ---
Author Author CELINA GLADYS Organization [facility] Address [address] [place] [address] Care Team Providers Care Mems Process Engineer Name Role Phone PATRICE PATRICKE Unavailable PROBLEMS Type Condition ICD9-CM Code OIR58-BS Code Onset Dates Condition Status SNOMED Code Problem Major depressive disorder, recurrent episode, moderate F33.1 Active 770558956 Problem Thrush B37.0 Active 23978187 Problem Insomnia G47.00 Active 330882507 Problem Acute left-sided low back pain with left-sided sciatica M54.42 Active 742551143 Problem Fibromyalgia M79.7 Active 351727542 Problem Mixed hyperlipidemia E78.2 Active 397449825 Problem Chronic pain G89.29 Active 08325801 Problem Acute cystitis without hematuria N30.00 Active 25192182 Problem Other constipation K59.09 Active 778110465615430 Problem Depression F32.9 Active 02266000 Problem Degenerative disc disease, lumbar M51.36 Active 40713339 Problem Fatigue R53.83 Active 02442892 Problem GERD (gastroesophageal reflux disease) K21.9 Active 085880573 Problem Irritable bowel K58.9 Active 19279542 Problem Multiple sclerosis G35 Active 43159137 Problem Anxiety state F41.1 Active 218095717 ALLERGIES No Information SOCIAL HISTORY Never Assessed [...] 1 tablet as needed March, 28 Active RESULTS No Results PROCEDURES No Known [...] times Hospitalization History Low potassium Hospitalization History [facility] Unit for depression Hospitalization History ER visit for possible pancreatitis
--- OUTSIDE RECORDS SUMMARY | 2018-04-05 21:14 | XMS REPORT ---
Author GLADYS Romano [facility] eClinicalWorks Address Unknown Phone Unavailable Care Team Providers Care Lead Instructor/Flight Attendant Name Role Phone GLADYS PATRICK CP Unavailable Allergies, Adverse Reactions, Alerts Substance Reaction Event Type Sulfamethoxazole Info Not Available Drug Allergy Remeron Info Not Available Drug Allergy [place] Info Not Available Drug Allergy Naproxen Info [...] K21.9 Active Problem Fatigue R53.83 Active Assessment Degenerative disc disease, lumbar M51.36 Active Assessment Depression F32.9 Active Assessment GERD (gastroesophageal reflux disease) K21.9 Active Medications Medication Code System Code Instructions Start Date End Date Status Dosage Alprazolam [facility] [address]-66 0.5 MG Orally Three times a day 1 tablet Lyrica [facility] [address]-96 150 MG Orally Twice a day 1 capsule ProAir HFA [facility] [address]-56 108 (90 Base) MCG/ACT Inhalation every 4 hrs 2 puffs as needed Promethazine HCl [facility] [address]-07 25 MG Orally every 6 hrs PRN 1 tablet as needed MS Contin [facility] [address]-10 30 MG Orally every 12 hrs Oct 26, 2015 1 tablet Cymbalta [facility] [address]-46 60 MG Orally Once a day 2 capsule Amphetamine Sulfate [facility] [address]-32 5 MG Orally prescribed by neuro 1 Transderm-Scop [facility] [address]-96 1 MG/3DAYS Transdermal not defined Nexium [facility] [address]-73 40 MG Orally Once a day Nov 05, 2015 1 capsule Valtrex [facility] [address]-43 1 GM Orally every 24 hrs 1 tablet Morphine Sulfate [facility] [address]-24 15 MG IR Orally 2 times a day Nov 02, 2015 1 tablet as needed Linzess [facility] [address]-25 145 MCG Orally Once a day Jan 27, 2016 1 capsule Procedures Procedure Coding System Code Date Office Visit, Est Pt., Level 4 CPT-4 02675 Nov 22, 2015 [facility] VISIT ESTABLISHED PATIENT CPT-4 G0467 Nov 22, 2015 Vital Signs Date/Time: Nov 22, 2015 Temperature 97.7 F Weight 132.2 lbs Height 64.0 in BMI 22.69 Index Blood Pressure Diastolic 70 mmHg Blood Pressure Systolic 110 mmHg Cardiac Monitoring Heart Rate 78 bpm Results No Known Results Summary Purpose eClinicalWorks Submission
--- OUTSIDE RECORDS SUMMARY | 2018-04-05 21:14 | XMS REPORT ---
Author Author USMAN DOUGHERTY eClinicalWorks Address Unknown Phone Unavailable Care Team Providers Care Auxiliary Engineer Name Role Phone USMAN DOUGHERTY CP Unavailable [...] Medications Procedures Procedure Coding System Code Date Psychotherapy, patient &/family, 30 minutes, established patient CPT-4 52994 Dec 13, 2015 [facility] VISIT MENTAL HEALTH ESTAB PT CPT-4 G0470 Dec 13, 2015 Results No Known Results Summary Purpose eClinicalWorks Submission
--- OUTSIDE RECORDS SUMMARY | 2018-04-05 21:14 | XMS REPORT ---
Author GLADYS Romano [facility] eClinicalWorks Address Unknown Phone Unavailable Care Team Providers Care Stonemason Supervisor Name Role Phone GLADYS PATRICK CP Unavailable Allergies, Adverse Reactions, Alerts Substance Reaction Event Type Sulfamethoxazole Info Not Available Drug Allergy Remeron Info Not Available Drug Allergy [place] Info Not Available Drug Allergy Naproxen Info Not Available Drug Allergy Levaquin Info Not Available Drug Allergy Abilify Info Not Available Drug Allergy Adhesives, tapes, bandages Info Not Available Non Drug Allergy Problems Problem Type Condition Code Onset Dates Condition Status Assessment Fatigue R53.83 Active Problem Anxiety F41.9 Active Assessment GERD (gastroesophageal reflux disease) K21.9 Active Problem GERD (gastroesophageal reflux disease) K21.9 Active Problem Fatigue R53.83 Active Problem Right shoulder pain M25.511 Active Problem Degenerative disc disease, lumbar M51.36 Active Problem Irritable bowel K58.9 Active Problem Multiple sclerosis G35 Active Problem Depression F32.9 Active Assessment FDC use of drug Z79.899 Active Assessment Irritable bowel K58.9 Active Assessment Degenerative disc disease, lumbar M51.36 Active Assessment Right shoulder pain M25.511 Active Assessment Depression F32.9 Active Assessment Anxiety F41.9 Active Assessment Multiple sclerosis G35 Active Medications Medication Code System Code Instructions Start Date End Date Status Dosage MS Contin [facility] [address]-51 30 MG Orally every 12 hrs Oct 26, 2015 1 tablet Transderm-Scop [facility] [address]-26 1 MG/3DAYS Transdermal not defined Valtrex [facility] [address]-41 1 GM Orally every 24 hrs 1 tablet ProAir HFA [facility] [address]-48 108 (90 Base) MCG/ACT Inhalation every 4 hrs 2 puffs as needed Cymbalta [facility] [address]-29 60 MG Orally Once a day 1 capsule Lyrica [facility] [address]-81 150 MG Orally Twice a day 1 capsule Morphine Sulfate [facility] [address]-77 15 MG Orally 3 times a day 1 tablet as needed Promethazine HCl [facility] [address]-01 25 MG Orally every 6 hrs PRN 1 tablet as needed Alprazolam [facility] [address]-83 0.5 MG Orally Three times a day 1 tablet Linzess [facility] [address]-11 145 MCG Orally Once a day 1 capsule Amphetamine Sulfate [facility] [address]-91 5 MG Orally prescribed by neuro 1 Plegridy [facility] [address]-10 125 MCG/0.5ML Subcutaneous every 14 days 0.5 ml Tizanidine HCl [facility] [address]-78 4 MG Orally 3 times a day PRN 1 tablet as needed Nexium [facility] [address]-94 40 MG Orally Once a day 1 capsule Procedures Procedure Coding System Code Date X-RAY EXAM OF SHOULDER CPT-4 72809 Oct 26, 2015 [facility] VISIT ESTABLISHED PATIENT CPT-4 G0467 Oct 26, 2015 GLYCATED HEMOGLOBIN TEST CPT-4 23509 Oct 26, 2015 No Charge CPT-4 61182 Oct 26, 2015 Office Visit, Est Pt., Level 4 CPT-4 15859 Oct 26, 2015 Vital Signs Date/Time: Oct 26, 2015 Temperature 96.8 F Weight 124.0 lbs Height 64.0 in BMI 21.28 Index Blood Pressure Diastolic 60 mmHg Blood Pressure Systolic 120 mmHg Cardiac Monitoring Heart Rate 78 bpm Results Name Result Date Reference Range Unit Abnormality Flag A1C (IN HOUSE) ----A1C IN HOUSE 5.0 20151026 4.30 - 5.6 % ----Previous A1c None [id number] ----Lot # [id number] ----Exp date [id number] Summary Purpose eClinicalWorks Submission
--- OUTSIDE RECORDS SUMMARY | 2018-04-05 21:15 | XMS REPORT ---
Author GLADYS Romano [facility] eClinicalWorks Address Unknown Phone Unavailable Care Team Providers Care Clam Bed Worker Name Role Phone GLADYS PATRICK CP Unavailable Allergies No Known Allergies Problems Problem Type Condition Code Onset Dates Condition Status Problem Irritable bowel K58.9 Active Problem Depression F32.9 Active Problem Degenerative disc disease, lumbar M51.36 Active Problem Anxiety F41.9 Active Problem Major depressive disorder, recurrent episode, moderate F33.1 Active Problem Anxiety state F41.1 Active Problem Insomnia G47.00 Active Problem Fatigue R53.83 Active Problem Multiple sclerosis G35 Active Problem Right shoulder pain M25.511 Active Problem GERD (gastroesophageal reflux disease) K21.9 Active Medications Medication Code System Code Instructions Start Date End Date Status Dosage MS Contin [facility] [address]-02 30 MG Orally every 12 hrs Oct 26, 2015 1 tablet Results No Known Results Summary Purpose eClinicalWorks Submission
--- OUTSIDE RECORDS SUMMARY | 2018-04-05 21:15 | XMS REPORT ---
Author Author MIC DOUGHERTY Organization eClinicalWorks Address Unknown Phone Unavailable Care Team Providers Care Medicaid Biller Name Role Phone MIC DOUGHERTY CP Unavailable Allergies, Adverse Reactions, Alerts Substance Reaction Event Type Sulfamethoxazole Info Not Available Drug Allergy Remeron Info Not Available Drug Allergy [place] Info Not Available Drug Allergy Naproxen Info [...] F41.9 Active Problem Irritable bowel K58.9 Active Assessment Major depressive disorder, recurrent episode, moderate F33.1 Active Problem Degenerative disc disease, lumbar M51.36 Active Assessment Anxiety F41.9 Active Problem Depression F32.9 Active Medications Medication Code System Code Instructions Start Date End Date Status Dosage Duloxetine HCl [facility] [address]-94 60 MG Orally Once a day March 04, [address] [facility] 13811358500 145 Orally Once a day [address] [facility] [address]-06 30 MG Orally every 12 hrs Oct 26, [address] [facility] [address]-25 40 MG Orally Once a day February 19, [address] [facility] [address]-18 25 MG Orally every 6 hrs PRN 1 tablet as needed Latuda [facility] [address]-43 40 MG Orally Once a day February 19, 2016 1 tablet with food Trazodone HCl [facility] [address]-06 50 MG Orally Once a day Dec 14, 2015 1 tablet at bedtime as needed Nabumetone [facility] [address]-40 500 MG Orally Twice a day February 19, 2016 May 19, [address] [facility] [address]-31 5 MG Orally prescribed by neuro [address] [facility] [address]-83 150 MG Orally Twice a day [address] [facility] [address]-42 5 % Externally every 3 hrs February 19, 2016 1 application to affected area Alprazolam [facility] [address]-34 0.5 MG Orally Three times a day 1 tablet Procedures Procedure Coding System Code Date Office Visit, Est Pt., Level 3 CPT-4 70797 March 04, 2016 [facility] VISIT ESTABLISHED PATIENT CPT-4 G0467 March 04, 2016 Vital Signs Date/Time: March 04, 2016 Cardiac Monitoring Heart Rate 72 bpm Weight 131.0 lbs Height 64.0 in BMI 22.48 Index Blood Pressure Diastolic 50 mmHg Blood Pressure Systolic 86 mmHg Results No Known Results Summary Purpose eClinicalWorks Submission
--- OUTSIDE RECORDS SUMMARY | 2018-04-05 21:15 | XMS REPORT ---
Author GLADYS Romano [facility] eClinicalWorks Address Unknown Phone Unavailable Care Team Providers Care State Epidemiologist Name Role Phone GLADYS PATRICK CP Unavailable [...] disorder, recurrent episode, moderate F33.1 Active Medications No Known Medications Results No Known Results Summary Purpose eClinicalWorks Submission
--- OUTSIDE RECORDS SUMMARY | 2018-04-05 21:15 | XMS REPORT ---
Author Author GLADYS PATRICK Organization eClinical[employer] Address Unknown Phone Unavailable Care Team Providers Care Inspector Balance Truing Name Role Phone GLADYS PATRIKC CP Unavailable Allergies No Known Allergies Problems [...] Date End Date Status Dosage Morphine Sulfate [facility] [address]-77 15 MG Orally 3 times a day March 04, 2016 1 tablet as needed Morphine Sulfate ER [facility] [address]-34 30 MG Orally one daily one hour before bed March 04, 2016 1 tablet Alprazolam [facility] [address]-06 0.5 MG Orally Three times a day 1 tablet Results No Known Results Summary Purpose eClinicalWorks Submission
--- OUTSIDE RECORDS SUMMARY | 2018-04-05 21:15 | XMS REPORT ---
Author GLADYS Romano [facility] eClinicalWorks Address Unknown Phone Unavailable Care Team Providers Care Call Worker Person Name Role Phone GLADYS PATRICK CP Unavailable Allergies, Adverse Reactions, Alerts Substance Reaction Event Type Sulfamethoxazole Info Not Available Drug Allergy Remeron Info Not Available Drug Allergy Orange Info Not Available Drug Allergy Naproxen Info Not Available Drug Allergy Levaquin Info Not Available Drug Allergy Abilify Info Not Available Drug Allergy Adhesives, tapes, bandages Info Not Available Non Drug Allergy Problems Problem Type Condition Code Onset Dates Condition Status Assessment Fibromyalgia M79.7 Active Assessment Hypercholesterolemia E78.00 Active Assessment Family history of hypercholesterolemia Z83.49 Active Assessment Other constipation K59.09 Active Assessment Chronic pain G89.29 Active Assessment Anxiety state F41.1 Active Assessment Major depressive disorder, recurrent episode, moderate F33.1 Active Assessment Anxiety F41.9 Active Assessment Irritable bowel K58.9 Active Problem Anxiety state F41.1 Active Assessment Degenerative disc disease, lumbar M51.36 Active Problem Major depressive disorder, recurrent episode, moderate F33.1 Active Assessment Depression F32.9 Active Problem Insomnia G47.00 Active Problem Chronic pain G89.29 Active Problem Thrush B37.0 Active Problem Dysuria R30.0 Active Problem Adverse effect of other opioids, initial encounter T40.2X5A Active Problem Family history of hypercholesterolemia Z83.49 Active Assessment GERD (gastroesophageal reflux disease) K21.9 Active Problem Fibromyalgia M79.7 Active Assessment Fatigue R53.83 Active Problem Mixed hyperlipidemia E78.2 Active Problem 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 Active Problem Other constipation K59.09 Active Problem Acute cystitis without hematuria N30.00 Active Problem Degenerative disc disease, lumbar M51.36 Active Problem Depression F32.9 Active Problem Anxiety F41.9 Active Problem Irritable bowel K58.9 Active Problem GERD (gastroesophageal reflux disease) K21.9 Active Problem Right shoulder pain M25.511 Active Problem Multiple sclerosis G35 Active Problem Fatigue R53.83 Active Medications Medication Code System Code Instructions Start Date End Date Status Dosage Alprazolam [facility] [address]-37 0.5 MG Orally Three times a day 1 tablet Ibuprofen [facility] [address]-53 800 MG Orally Three times a day April 14, 2016 1 tablet Morphine Sulfate [facility] [address]-04 15 MG Orally 3 times a day March 04, 2016 1 tablet as needed Duloxetine HCl [facility] [address]-58 60 mg Orally Once a day TAKE ONE CAPSULE BY MOUTH ONCE DAILY Lyrica [facility] 68847393479 150 MG TAKE ONE CAPSULE BY MOUTH TWICE DAILY Morphine Sulfate ER [facility] [address]-85 30 MG Orally one daily one hour before bed March 04, 2016 1 tablet Topamax [facility] [address]-45 50 mg Orally Twice a day 1 tablet Trazodone HCl [facility] [address]-01 50 mg Orally Once a day Dec 14, 2015 1 tablet at bedtime as needed Latuda [facility] 80258976016 60 MG Orally Once a day 1 tablet with food Dulcolax Stool Softener [facility] [address] 100 MG Orally twice a day 1 capsule Zofran [facility] [address]-59 4 MG Orally 4 times a day Sep 03, 2016 1 tablets Nexium [facility] [address]-80 40 mg Orally Once a day 1 capsule Trilipix [facility] [address]-45 135 MG Orally Once a day May 02, 2016 1 capsule Citrate of Magnesia [facility] [address]-95 1.745 GM/30ML Orally Sep 03, 2016 as directed Linzess [facility] [address]-48 145 MCG TAKE ONE CAPSULE BY MOUTH ONCE DAILY Amphetamine-Dextroamphetamine [facility] 33353066396 5 MG orally once a day TAKE ONE TABLET Linzess [facility] [address]-31 145 MCG Orally Once a day Sep 03, 2016 Oct 03, 2016 1 capsule Procedures Procedure Coding System Code Date Office Visit, Est Pt., Level 4 CPT-4 77272 Sep 17, 2016 [facility] VISIT ESTABLISHED PATIENT CPT-4 G0467 Sep 17, 2016 Vital Signs Date/Time: Sep 17, 2016 Cardiac Monitoring Heart Rate 88 bpm Weight 118.1 lbs Height 64.0 in BMI 20.27 Index Blood Pressure Diastolic 68 mmHg Blood Pressure Systolic 100 mmHg Results No Known Results Summary Purpose eClinicalWorks Submission
--- OUTSIDE RECORDS SUMMARY | 2018-04-05 21:15 | XMS REPORT ---
Author Author Jonatan GLADYS Organization [facility] Address [address] [place] [address] Care Team Providers Care Clay Preparation Supervisor Name Role Phone [email or web address] GLADYS Unavailable PROBLEMS Type Condition ICD9-CM Code TCO24-RL Code Onset Dates Condition Status SNOMED Code Problem Chronic pain G89.29 Active 86276399 Problem Other constipation K59.09 Active 254621359502218 Problem Mixed hyperlipidemia E78.2 Active 962310330 Problem Constipation, unspecified constipation type K59.00 Active 57500469 Problem Anxiety F41.9 Active 32301465 Problem Fibromyalgia M79.7 Active 570526326 Problem Acute cystitis without hematuria N30.00 Active 69109509 Problem Weight gain, abnormal R63.5 Active 172187609 Problem Acute left-sided low back pain with left-sided sciatica M54.42 Active 058152379 Problem GERD (gastroesophageal reflux disease) K21.9 Active 810875859 Problem Degenerative disc disease, lumbar M51.36 Active 86666746 Problem Multiple sclerosis G35 Active 80461503 Problem Depression F32.9 Active 94672541 Problem Anxiety state F41.1 Active 269456221 Problem Major depressive disorder, recurrent episode, moderate F33.1 Active 489519647 Problem Irritable bowel K58.9 Active 38096710 Problem Insomnia G47.00 Active 004750144 Problem Fatigue R53.83 Active 58819500 Problem Thrush B37.0 Active 16244045 ALLERGIES No Information ENCOUNTERS Encounter Location Date Diagnosis [facility] [id number] [address] Feb, [facility] [id number] [address] Jan, [facility] [id number] [address] Jan, Multiple sclerosis G35 ; Anxiety F41.9 and Insomnia G47.00 [facility] [address] [address]- [address] Jan, Multiple sclerosis G35 ; Anxiety F41.9 and Insomnia G47.00 [facility] [address] [address] Jan, Constipation, unspecified constipation type K59.00 [facility] [address] [address]- [address] Jan, [facility] [address] [address]- 1096 Jan, Multiple sclerosis G35 ; Anxiety F41.9 ; Insomnia G47.00 and Chronic pain G89.29 [place] [address] [address]- [address] Dec, [facility] [address] [address]- [address]113 Dec, [facility] [address] [address]- 6420 Nov, Fibromyalgia M79.7 [facility] [address] [address]- 0136 Nov, [facility] [address] 8[address]79- 5946 Nov, [facility] [address] [address]- 3990 Nov, Fibromyalgia M79.7 [facility] [address] [address]- 7495 Oct, [place] [address] 285[address]- 8553 Oct, Multiple sclerosis G35 ; Depression F32.9 and Weight gain, abnormal R63.5 [facility] [address] 6[address]- 4467 Oct, [facility] [id number] [place] [address] 57459- 0992 Sep, Fibromyalgia M79.7 [facility] [id number] [place] [address] 73244- 5742 Sep, Urinary incontinence in female R32 [facility] [address] [address]- 9[address] 08 Sep, 2017 [facility] [address] 256[address]- 9958 Sep, [facility] [address] 57[address]- 1287 Sep, Hypokalemia E87.6 [facility] [address] [address] Sep, Colitis K52.9 and Distended abdomen R14.0 [facility] [address] [address]- 3592 Sep, Fibromyalgia M79.7 [facility] [address] [address] Aug, Epigastric pain R10.13 and Drug-induced constipation K59.03 [facility] [id number] [place] [address] 16508- 6439 Aug, Fibromyalgia M79.7 [facility] [address] [address]- 8658 Jul, Fibromyalgia M79.7 [facility] [address] [address]- 5200 Jul, [facility] [address] 77[address]- 4341 Jun, Degenerative disc disease, lumbar M51.36 [place] [address] [address]- 1824 Jun, Acute left-sided low back pain with left-sided sciatica M54.42 ; Fibromyalgia M79.7 and Other constipation K59.09 [place] [id number] [place] [address] 73964- 1054 Jun, Acute left-sided low back pain with left-sided sciatica M54.42 [place] [id number] [place] [address] 54297- 3915 Jun, [place] [id number] [place] [address] 26689- 0868 Jun, [place] [id number] [place] [address] 84320- 8906 Jun, [place] [id number] [place] [address] 52532- 0665 Jun, Degenerative disc disease, lumbar M51.36 [facility] [place] [address] [address] Jun, Acute left-sided low back pain with left-sided sciatica M54.42 [place] [id number] [place] [address] 54965- 8919 May, Degenerative disc disease, lumbar M51.36 ; Multiple sclerosis G35 ; GERD (gastroesophageal reflux disease) K21.9 ; Fatigue R53.83 ; Irritable bowel K58.9 ; Major depressive disorder, recurrent episode, moderate F33.1 ; Anxiety state F41.1 ; Thrush B37.0 ; Fibromyalgia M79.7 and Insomnia G47.00 [place] [id number] [place] [address]10- 2950 May, Chronic pain G89.29 and Major depressive disorder, recurrent episode, moderate F33.1 [place] [id number] [place] [address] 86353- 8448 May, Degenerative disc disease, lumbar M51.36 [facility] [id number] [place] [address]990 -8316 May, Oral thrush B37.0 [place] [id number] [place] [address] 73371- 6475 May, Fatigue R53.83 and Chronic pain G89.29 [place] [id number] [place] [address] 22106- 9295 Apr, Multiple sclerosis G35 ; Chronic pain G89.29 ; GERD ( gastroesophageal reflux disease) K21.9 ; Fatigue R53.83 ; Depression F32.9 ; Degenerative disc disease, lumbar M51.36 ; Irritable bowel K58.9 ; Insomnia G47.00 ; Mixed hyperlipidemia E78.2 ; Fibromyalgia M79.7 and Urinary incontinence in female R32 [place] [address] [address]- [address] March, Major depressive disorder, recurrent episode, moderate F33.1 [place] [address] 19[address]- 0790 March, Chronic pain G89.29 [place] [address] 06173- 1749 March, Urinary incontinence in female R32 and Allergic conjunctivitis, right H10.11 [place] [id number] [place] [address] 27539- 3261 March, Radicular pain M54.10 [place] [id number] [place] [address] 28651- 0697 March, [place] [id number] [place] [address] 43830- 6015 Jan, [place] [address] 0[address]- 6133 Jan, Hypokalemia E87.6 [place] [id number] [place] [address] 55655- 2074 Jan, Fatigue R53.83 [place] [address] 033[address]- 9062 Dec, [facility] [id number] [place] [address] 37648- 3881 Dec, Fatigue R53.83 [facility] [id number] [place] [address] 62465- 3350 Dec, [place] [id number] [place] [address] 67954- 9491 Dec, [place] [id number] [place] [address] 09510- 7534 Dec, Hypokalemia E87.6 [place] [id number] [place] [address] 48344- 9358 Nov, GERD (gastroesophageal reflux disease) K21.9 ; Fatigue R53.83 ; Depression F32.9 ; Major depressive disorder, recurrent episode, moderate F33.1 ; Fibromyalgia M79.7 ; Other constipation K59.09 ; Primary insomnia F51.01 ; Multiple sclerosis G35 and Mixed hyperlipidemia E78.2 [place] [id number] [place] [address] 30970- 5184 Nov, [place] [id number] [place] [address] 64207- 8814 Nov, Degenerative disc disease, lumbar M51.36 [place] [id number] [place] [address] 77764- 2878 Nov, [place] [id number] [place] [address] 67931- 7887 Oct, Degenerative disc disease, lumbar M51.36 [place] [id number] [place] [address] 58670- 7368 Oct, Fibromyalgia M79.7 ; GERD (gastroesophageal reflux disease) K21.9 ; Multiple sclerosis G35 ; Depression F32.9 ; Degenerative disc disease, lumbar M51.36 ; Irritable bowel K58.9 ; Anxiety F41.9 ; Insomnia G47.00 ; Adverse effect of other opioids, initial encounter T40.2X5A ; Other constipation K59.09 and Fatigue R53.83 [facility] [id number] [place] [address] 60059- 6154 Oct, [facility] [id number] [place] [address]5360 -7475 Sep, Hordeolum externum of right lower eyelid H00.012 [facility] [address] 118[address]- 5114 Sep, GERD (gastroesophageal reflux disease) K21.9 ; Fatigue R53.83 ; Depression F32.9 ; Degenerative disc disease, lumbar M51.36 ; Irritable bowel K58.9 ; Anxiety F41.9 ; Major depressive disorder, recurrent episode, moderate F33.1 ; Insomnia G47.00 ; Multiple sclerosis G35 and Chronic pain G89.[address] [address]- 1929 Sep, Fatigue R53.83 [facility] [address] 22088- 9152 Sep, [place] [address] 17550- 7933 Aug, GERD (gastroesophageal reflux disease) K21.9 ; Fatigue R53.83 ; Depression F32.9 ; Degenerative disc disease, lumbar M51.36 ; Irritable bowel K58.9 ; Anxiety F41.9 ; Major depressive disorder, recurrent episode, moderate F33.1 ; Anxiety state F41.1 ; Chronic pain G89.29 ; Family history of hypercholesterolemia Z83.49 ; Other constipation K59.09 ; Fibromyalgia M79.7 and Hypercholesterolemia E78.00 [place] [address] [address]84- 3560 Aug, [place] [address] 41201- 8509 Aug, Epigastric pain R10.13 ; Nausea R11.0 and Other constipation K59.09 [id number] [address]- 6[address] Aug, [facility] [id number] [place] [address] 01814- 6600 Aug, [facility] [id number] [place] [address] 18006- 4254 Jul, [facility] [id number] [place] [address] 39628- 8985 Jul, [facility] [id number] [place] [address] 71238- 1087 Jun, Dysuria R30.0 ; Irritable bowel K58.9 ; Adverse effect of other opioids, initial encounter T40.2X5A ; Other constipation K59.09 and Acute cystitis without hematuria N30.00 [facility] [id number] [place] [address] 52792- 9823 Jun, [facility] [id number] [place] [address] 48765 -3150 Jun, Left upper quadrant pain R10.12 [facility] [id number] [place] [address] 91183- 0617 Jun, Major depressive disorder, recurrent episode, moderate F33.1 ; Anxiety state F41.1 and Insomnia G47.00 [facility] [address] [place] [address] 56192- 7547 May, [facility] [id number] [place] [address] 73747- 6186 May, [facility] [id number] [place] [address] 49873- 7596 May, Depression F32.9 ; Major depressive disorder, recurrent episode, moderate F33.1 ; Multiple sclerosis G35 and Chronic pain G89.29 [facility] [address] [place] [address] 43934- 4668 May, [facility] [id number] [place] [address] 63624- 9017 Apr, Right shoulder pain M25.511 [place] [id number] [place] [address] 89902- 3606 Apr, [place] [address] 58686- 2545 Apr, Fatigue R53.83 ; Multiple sclerosis G35 ; Depression F32.9 ; Anxiety state F41.1 ; Degenerative disc disease, lumbar M51.36 ; GERD ( gastroesophageal reflux disease) K21.9 ; Insomnia G47.00 ; Environmental allergies Z91.09 and Thrush B37.0 [place] [address] [address]- 1990 Apr, [place] [address] 47113- 6422 Apr, Mixed hyperlipidemia E78.2 [place] [address] 52739- 1170 Apr, [place] [address] 69258- 0210 Apr, [place] [address] 96978- 7769 March, Degenerative disc disease, lumbar M51.36 [place] [id number] [place] [address] 30790- 7022 March, Major depressive disorder, recurrent episode, moderate F33.1 ; Mass in neck R22.1 and Fatigue R53.83 [place] [id number] [place] [address] 74336- 4282 March, Major depressive disorder, recurrent episode, moderate F33.1 ; Anxiety F41.9 ; Insomnia G47.00 and Other halfway (current) drug therapy Z79.899 [place] [id number] [place] [address] 83601- 4018 March, GERD (gastroesophageal reflux disease) K21.9 and Degenerative disc disease, lumbar M51.36 [place] [id number] [place] [address] 65287- 0276 March, GERD (gastroesophageal reflux disease) K21.9 ; Fatigue R53.83 ; Multiple sclerosis G35 ; Depression F32.9 ; Degenerative disc disease, lumbar M51.36 ; Anxiety F41.9 ; Right shoulder pain M25.511 ; Major depressive disorder, recurrent episode, moderate F33.1 and Insomnia G47.00 [place] [address] 30365- 0267 March, Multiple sclerosis G35 [place] [address] 10483- 3021 Feb, [place] [address] 15531- 5365 Feb, [place] [address] 51777- 1542 Feb, Chronic pain G89.29 ; Fatigue R53.83 ; Depression F32.9 ; Degenerative disc disease, lumbar M51.36 ; Irritable bowel K58.9 ; Anxiety F41.9 ; Insomnia G47.00 and GERD (gastroesophageal reflux disease) K21.9 [place] [id number] [place] [address] 72260- 6761 Feb, Anxiety F41.9 and Major depressive disorder, recurrent episode, moderate F33.1 [place] [id number] [place] [address] 30485- 9881 Feb, [place] [address] 24475- 3392 Jan, [place] [address] 86187- 6080 Jan, Degenerative disc disease, lumbar M51.36 ; Multiple sclerosis G35 ; Fatigue R53.83 ; Depression F32.9 ; Irritable bowel K58.9 ; GERD (gastroesophageal reflux disease) K21.9 and 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 [facility] [address] [address]- 2624 16 Jan, 2016 [facility] [address] [place] [address] 45938558- 7991 16 Jan, 2016 [facility] [address] [address]- 3605 Jan, [facility] [id number] [place] [address] 92708- 8348 Jan, [facility] [address] [address]- 6827 Jan, [facility] [address] [address]- 5996 Jan, [facility] [address] [place] [address] 84712- 0955 Jan, [facility] [address] [place] [address] 52638- 8261 Jan, [facility] [address] [address]- 3276 Jan, [facility] [address] [address]- 4526 Jan, [facility] [address] [address]- 7299 Dec, [facility] [address]16 Dec, Major depressive disorder, recurrent episode, moderate F33.1 ; Anxiety F41.9 and Insomnia G47.00 [facility] [address] [address]- 6414 Dec, Lymphadenitis I88.9 ; GERD (gastroesophageal reflux disease ) K21.9 ; Multiple sclerosis G35 ; Depression F32.9 ; Degenerative disc disease , lumbar M51.36 ; Irritable bowel K58.9 ; Anxiety F41.9 ; Major depressive disorder, recurrent episode, moderate F33.1 and Insomnia G47.00 [place] [id number] [place] [address] 65596- 1114 23 Dec, 2015 Major depressive disorder, recurrent episode, moderate F33.1 and Anxiety state F41.1 [place] [id number] [place] [address] 33441- 4977 16 Dec, 2015 Screening breast examination Z12.39 [place] [address] 54189- 4775 10 Dec, 2015 Mass in neck R22.1 ; Chronic pain G89.29 ; GERD ( gastroesophageal reflux disease) K21.9 ; Fatigue R53.83 ; Anxiety F41.9 ; Major depressive disorder, recurrent episode, moderate F33.1 ; Encounter for screening mammogram for breast cancer Z12.31 and Thrush B37.[address] 24141- 6306 09 Dec, 2015 [place] [address] 35375- 1707 04 Dec, 2015 [place] [address] 08478- 2147 Nov, Major depressive disorder, recurrent episode, moderate F33.1 and Anxiety state F41.1 [place] [id number] [place] [address] 68493- 4702 15 Nov, 2015 Insomnia G47.00 [place] [address] 36235- 4765 14 Nov, 2015 Major depressive disorder, recurrent episode, moderate F33.1 and Anxiety state F41.[address] 86608- 7116 Nov, [place] [address] 75878- 5541 Nov, [place] [address] 07817- 2111 Oct, GERD (gastroesophageal reflux disease) K21.9 ; Depression F32.9 and Degenerative disc disease, lumbar M51.[address] 40717- 7947 Oct, Right shoulder pain M25.511 ; Degenerative disc disease, lumbar M51.36 ; Multiple sclerosis G35 ; Fatigue R53.83 ; GERD ( gastroesophageal reflux disease) K21.9 ; Major depressive disorder, recurrent episode, moderate F33.1 ; Anxiety state F41.1 and Constipation K59.[address] 69843- 2237 Oct, Hypoglycemia E16.[address] 10907- 5405 Oct, Unspecified fall, initial encounter W19.XXXA [address] 25426- 4302 Oct, [address] 53331- 0822 Oct, Major depressive disorder, recurrent episode, moderate F33.1 and Anxiety state F41.[address] 98591- 0007 Oct, [address] 54878- 5429 Oct, [address] 70964- 6024 Oct, GERD (gastroesophageal reflux disease) K21.9 ; Degenerative disc disease, lumbar M51.36 ; Right shoulder pain M25.511 and Candidal vaginitis B37.[address] 83379- 9266 Sep, [address] 83971- 4685 Sep, GERD (gastroesophageal reflux disease) K21.9 ; Fatigue R53.83 ; Multiple sclerosis G35 ; Depression F32.9 ; Degenerative disc disease, lumbar M51.36 ; Irritable bowel K58.9 ; Anxiety F41.9 ; Right shoulder pain M25.511 and 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 Z79.899 [facility] [address] [facility] [id number] [address]- 77[address] Sep, GERD (gastroesophageal reflux disease) K21.9 ; Fatigue R53.83 ; Multiple sclerosis G35 ; Depression F32.9 ; Degenerative disc disease, lumbar M51.36 ; Irritable bowel K58.9 ; Anxiety F41.9 and Bronchitis J40 IMMUNIZATIONS No Known Immunizations SOCIAL HISTORY Never Assessed REASON FOR VISIT Controlled Med Refill PLAN OF CARE VITAL SIGNS MEDICATIONS Medication Instructions Dosage Frequency Start Date End Date Duration Status Alprazolam 0.5 MG Orally Three times a day 1 tablet 8h 28 days Active OxyContin 20 mg Orally every 12 hrs 1 tablet 12h Apr, 28 days Active Percocet 5-325 MG Orally 2 times a day 1 tablet as needed 12h Apr, 28 days Active RESULTS No Results PROCEDURES No [...] times Hospitalization History Low potassium Hospitalization History [facility] for depression Hospitalization History ER visit for possible pancreatitis
--- OUTSIDE RECORDS SUMMARY | 2018-04-05 21:15 | XMS REPORT ---
Author GLADYS Romano [facility] eClinical[employer] Address Unknown Phone Unavailable Care Team Providers Care Safety Investigator/Cause Analyst Name Role Phone GLADYS PATRICK CP Unavailable [...]
--- OUTSIDE RECORDS SUMMARY | 2018-04-05 21:16 | XMS REPORT ---
Author Author CYNDY SILVER [facility] Address [address] [place] [address] Care Team Providers Care Lithographic Plate Maker Name Role Phone CYNDY SILVER Unavailable PROBLEMS Type Condition ICD9-CM Code QME94-CN Code Onset Dates Condition Status SNOMED Code Problem Fibromyalgia M79.7 Active 434639018 Problem Weight gain, abnormal R63.5 Active 532843891 Problem Acute left-sided low back pain with left-sided sciatica M54.42 Active 962138093 Problem Early satiety R68.81 Active 569141798 Problem Fatigue R53.83 Active 55031938 Problem Relapsing remitting multiple sclerosis G35 Active 798973549 Problem GERD (gastroesophageal reflux disease) K21.9 Active 626698066 Problem Depression F32.9 Active 59027442 Problem Constipation, unspecified constipation type K59.00 Active 78784168 Problem Anxiety F41.9 Active 26083110 Problem Controlled substance agreement terminated Z91.14 Active 642082270 Problem Chronic pain syndrome G89.4 Active 646374118 Problem Anxiety state F41.1 Active 977872457 Problem Major depressive disorder, recurrent episode, moderate F33.1 Active 688916416 Problem Degenerative disc disease, lumbar M51.36 Active 81032156 Problem Irritable bowel K58.9 Active 33093408 Problem Thrush B37.0 Active 72135996 Problem Mixed hyperlipidemia E78.2 Active 537470006 Problem Insomnia G47.00 Active 777866766 Problem Other constipation K59.09 Active 778905654599271 Problem Chronic pain G89.29 Active 67923096 Problem Acute cystitis without hematuria N30.00 Active 20664116 ALLERGIES No Information ENCOUNTERS Encounter Location Date Diagnosis [facility] [address] [facility] [id number] [address] Apr, [facility] [address] [facility] [id number], [place] [address] March, [facility] [id number] [place] [address] 40692- 7696 March, Controlled substance agreement terminated Z91.14 ; Early satiety R68.81 and Relapsing remitting multiple sclerosis G35 [facility] [id number] [place] [address] 32857- 5323 Feb, Controlled substance agreement terminated Z91.14 ; Chronic pain syndrome G89.4 ; Degenerative disc disease, lumbar M51.36 and Fibromyalgia M79.7 [facility] [id number] [place] [address] 55482- 1638 Feb, [place] [address] 39924- 0607 Jan, Multiple sclerosis G35 ; Anxiety F41.9 and Chronic pain G89.29 [place] [id number] [place] [address] 34912- 2030 Jan, Multiple sclerosis G35 ; Anxiety F41.9 and Insomnia G47.00 [facility] [id number] [place] [address] 06224- 7666 Jan, Multiple sclerosis G35 ; Anxiety F41.9 and Insomnia G47.00 [facility] [id number] [place] [address] 49000 -1408 Jan, Constipation, unspecified constipation type K59.00 [place] [id number] [place] [address] 58390- 7804 Jan, [place] [id number] [place] [address] 62058- 8488 Jan, Multiple sclerosis G35 ; Anxiety F41.9 ; Insomnia G47.00 and Chronic pain G89.29 [place] [id number] [place] [address] 98949- 8445 Dec, [facility] [id number] [place] [address] 76340- 9218 Dec, [facility] [id number] [place] [address] 96862- 7233 Nov, Fibromyalgia M79.7 [facility] [address] 02980- 5614 Nov, [facility] [address] 51221- 4962 Nov, [facility] [address] 04831- 2792 Nov, Fibromyalgia M79.7 [facility] [address] 23536- 9234 Oct, [facility] [address] 79952- 7873 Oct, Multiple sclerosis G35 ; Depression F32.9 and Weight gain, abnormal R63.5 [facility] [address] 95697- 5078 Oct, [facility] [address] 29381- 4495 Sep, Fibromyalgia M79.7 [facility] [address] 92408- 7441 Sep, Urinary incontinence in female R32 [facility] [address] 03636- 3604 08 Sep, 2017 [facility] [address] 97968- 2672 Sep, [facility] [address] 50874- 5817 Sep, Hypokalemia E87.6 [facility] [address] 95768 -7308 Sep, Colitis K52.9 and Distended abdomen R14.0 [facility] [address] 06696- 3517 Sep, Fibromyalgia M79.7 [facility] [id number] [place] [address] 25909 -4190 Aug, Epigastric pain R10.13 and Drug-induced constipation K59.03 [facility] [id number] [place] [address] 58634- 5394 Aug, Fibromyalgia M79.7 [facility] [address] 57821- 3907 Jul, Fibromyalgia M79.7 [facility] [id number] [place] [address] 17142- 0872 Jul, [facility] [id number] [place] [address] 64387- 4878 Jun, Degenerative disc disease, lumbar M51.36 [facility] [id number] [place] [address] 90981- 7861 Jun, Acute left-sided low back pain with left-sided sciatica M54.42 ; Fibromyalgia M79.7 and Other constipation K59.09 [facility] [id number] [place] [address] 08134- 9775 Jun, Acute left-sided low back pain with left-sided sciatica M54.42 [facility] [id number] [place] [address] 86074- 3840 Jun, [facility] [id number] [place] [address] 07475- 0896 Jun, [facility] [id number] [place] [address] 73909- 1014 Jun, [facility] [id number] [place] [address] 64054- 1768 Jun, Degenerative disc disease, lumbar M51.36 [facility] [id number] [place] [address] 62812 -7711 Jun, Acute left-sided low back pain with left-sided sciatica M54.42 [facility] [id number] [place] [address] 63707- 5508 May, Degenerative disc disease, lumbar M51.36 ; Multiple sclerosis G35 ; GERD (gastroesophageal reflux disease) K21.9 ; Fatigue R53.83 ; Irritable bowel K58.9 ; Major depressive disorder, recurrent episode, moderate F33.1 ; Anxiety state F41.1 ; Thrush B37.0 ; Fibromyalgia M79.7 and Insomnia G47.00 [facility] [id number] [place] [address] 90226- 6984 May, Chronic pain G89.29 and Major depressive disorder, recurrent episode, moderate F33.1 [place] [address] 97263- 5044 May, Degenerative disc disease, lumbar M51.36 [facility] [address] 11343 -0474 May, Oral thrush B37.0 [place] [address] 59299- 0287 May, Fatigue R53.83 and Chronic pain G89.29 [place] [address] 76841- 4867 Apr, Multiple sclerosis G35 ; Chronic pain G89.29 ; GERD ( gastroesophageal reflux disease) K21.9 ; Fatigue R53.83 ; Depression F32.9 ; Degenerative disc disease, lumbar M51.36 ; Irritable bowel K58.9 ; Insomnia G47.00 ; Mixed hyperlipidemia E78.2 ; Fibromyalgia M79.7 and Urinary incontinence in female R32 [place] [id number] [place] [address] 99745- 3558 March, Major depressive disorder, recurrent episode, moderate F33.1 [place] [id number] [place] [address] 34262- 5551 March, Chronic pain G89.29 [place] [address] 39210- 0183 March, Urinary incontinence in female R32 and Allergic conjunctivitis, right H10.11 [facility] [id number] [place] [address] 54490- 4026 March, Radicular pain M54.10 [facility] [id number] [place] [address] 87682- 5096 March, [facility] [address] 0[address]27 2546 Jan, [facility] [id number] [place] [address] 36428- 0056 Jan, Hypokalemia E87.6 [facility] [id number] [place] [address] 18877- 4266 Jan, Fatigue R53.83 [facility] [id number] [place] [address] 82897- 1846 Dec, [facility] [id number] [place] [address] 27194 2546 Dec, Fatigue R53.83 [facility] [id number] [place] [address] 54391 2546 Dec, [facility] [id number] [place] [address] 09109- 1816 Dec, [facility] [id number] [place] [address] 05190- 2036 Dec, Hypokalemia E87.6 [facility] [id number] [place] [address] 32187- 2546 Nov, GERD (gastroesophageal reflux disease) K21.9 ; Fatigue R53.83 ; Depression F32.9 ; Major depressive disorder, recurrent episode, moderate F33.1 ; Fibromyalgia M79.7 ; Other constipation K59.09 ; Primary insomnia F51.01 ; Multiple sclerosis G35 and Mixed hyperlipidemia E78.2 [facility] [address] [place] [address]- 7084 Nov, [facility] [id number] [place] [address] 37033- 5666 Nov, Degenerative disc disease, lumbar M51.36 [facility] [id number] [place] [address] 78108- 6818 Nov, [facility] [address] 86558- 2891 Oct, Degenerative disc disease, lumbar M51.36 [place] [address] 51900- 1959 Oct, Fibromyalgia M79.7 ; GERD (gastroesophageal reflux disease) K21.9 ; Multiple sclerosis G35 ; Depression F32.9 ; Degenerative disc disease, lumbar M51.36 ; Irritable bowel K58.9 ; Anxiety F41.9 ; Insomnia G47.00 ; Adverse effect of other opioids, initial encounter T40.2X5A ; Other constipation K59.09 and Fatigue R53.83 [place] [id number] [place] [address] 61532- 3973 Oct, [facility] [id number] [place] [address] 93197 -3695 Sep, Hordeolum externum of right lower eyelid H00.012 [place] [id number] [place] [address] 06803- 3401 Sep, GERD (gastroesophageal reflux disease) K21.9 ; Fatigue R53.83 ; Depression F32.9 ; Degenerative disc disease, lumbar M51.36 ; Irritable bowel K58.9 ; Anxiety F41.9 ; Major depressive disorder, recurrent episode, moderate F33.1 ; Insomnia G47.00 ; Multiple sclerosis G35 and Chronic pain G89.29 [place] [id number] [place] [address] 24733- 7953 Sep, Fatigue R53.83 [place] [id number] [place] [address] 42776- 0093 Sep, [facility] [id number] [place] [address] 17001- 3625 Aug, GERD (gastroesophageal reflux disease) K21.9 ; Fatigue R53.83 ; Depression F32.9 ; Degenerative disc disease, lumbar M51.36 ; Irritable bowel K58.9 ; Anxiety F41.9 ; Major depressive disorder, recurrent episode, moderate F33.1 ; Anxiety state F41.1 ; Chronic pain G89.29 ; Family history of hypercholesterolemia Z83.49 ; Other constipation K59.09 ; Fibromyalgia M79.7 and Hypercholesterolemia E78.00 [facility] [address] 29707- 0593 Aug, [place] [address] 76324- 2376 Aug, Epigastric pain R10.13 ; Nausea R11.0 and Other constipation K59.09 [facility] [address] 10577- 4100 Aug, [facility] [address] 94585- 1643 Aug, [facility] [address] 02175- 9678 Jul, [facility] [address] 22290- 0876 Jul, [facility] [address] 58570- 2022 Jun, Dysuria R30.0 ; Irritable bowel K58.9 ; Adverse effect of other opioids, initial encounter T40.2X5A ; Other constipation K59.09 and Acute cystitis without hematuria N30.00 [facility] [address] 67299- 2374 Jun, [facility] [id number] [place] [address] 06894 -8890 Jun, Left upper quadrant pain R10.12 [place] [address] [place] [address] 14367- 3173 Jun, Major depressive disorder, recurrent episode, moderate F33.1 ; Anxiety state F41.1 and Insomnia G47.00 [place] [id number] [place] [address] 09622- 0489 May, [place] [id number] [place] [address] 79749- 9941 May, [place] [id number] [place] [address] 24145- 1608 May, Depression F32.9 ; Major depressive disorder, recurrent episode, moderate F33.1 ; Multiple sclerosis G35 and Chronic pain G89.29 [place] [id number] [place] [address] 45059- 2852 May, [place] [address] 13453- 6424 Apr, Right shoulder pain M25.511 [place] [id number] [place] [address] 76029- 4589 Apr, [place] [id number] [place] [address] 47992- 8546 Apr, Fatigue R53.83 ; Multiple sclerosis G35 ; Depression F32.9 ; Anxiety state F41.1 ; Degenerative disc disease, lumbar M51.36 ; GERD ( gastroesophageal reflux disease) K21.9 ; Insomnia G47.00 ; Environmental allergies Z91.09 and Thrush B37.0 [place] [id number] [place] [address] 29458- 9856 Apr, [address] 46203- 0109 Apr, Mixed hyperlipidemia E78.2 [place] [id number] [place] [address] 11543- 6706 Apr, [place] [address] [place] [address]- 3980 Apr, [place] [id number] [place] [address] 47096- 6106 March, Degenerative disc disease, lumbar M51.36 [place] [id number] [place] [address] 48852- 0908 March, Major depressive disorder, recurrent episode, moderate F33.1 ; Mass in neck R22.1 and Fatigue R53.83 [place] [id number] [place] [address] 40029- 2465 March, Major depressive disorder, recurrent episode, moderate F33.1 ; Anxiety F41.9 ; Insomnia G47.00 and 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 [place] [id number] [place] [address] 81160- 2263 March, GERD (gastroesophageal reflux disease) K21.9 and Degenerative disc disease, lumbar M51.36 [place] [id number] [place] [address] 13718- 7621 March, GERD (gastroesophageal reflux disease) K21.9 ; Fatigue R53.83 ; Multiple sclerosis G35 ; Depression F32.9 ; Degenerative disc disease, lumbar M51.36 ; Anxiety F41.9 ; Right shoulder pain M25.511 ; Major depressive disorder, recurrent episode, moderate F33.1 and Insomnia G47.00 [place] [id number] [place] [address] 21937- 2597 March, Multiple sclerosis G35 [place] [id number] [place] [address] 47655- 5403 Feb, [place] [id number] [place] [address] 47369- 5976 Feb, [place] [id number] [place] [address] 24895- 4887 Feb, Chronic pain G89.29 ; Fatigue R53.83 ; Depression F32.9 ; Degenerative disc disease, lumbar M51.36 ; Irritable bowel K58.9 ; Anxiety F41.9 ; Insomnia G47.00 and GERD (gastroesophageal reflux disease) K21.9 [facility] [id number] [place] [address] 06702- 4829 Feb, Anxiety F41.9 and Major depressive disorder, recurrent episode, moderate F33.1 [facility] [id number] [place] [address] 27655- 6470 Feb, [facility] [id number] [place] [address] 06987- 5779 30 Jan, 2016 [facility] [id number] [place] [address] 11612- 9566 Jan, Degenerative disc disease, lumbar M51.36 ; Multiple sclerosis G35 ; Fatigue R53.83 ; Depression F32.9 ; Irritable bowel K58.9 ; GERD (gastroesophageal reflux disease) K21.9 and 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 [facility] [id number] [place] [address] 60942- 6221 16 Jan, 2016 [facility] [id number] [place] [address] 59313- 0276 16 Jan, 2016 [facility] [id number] [place] [address] 37449- 4413 14 Jan, 2016 [facility] [address] [address]- 7932 14 Jan, 2016 [facility] [id number] [place] [address] 98359- 1481 14 Jan, 2016 [facility] [id number] [place] [address] 11945- 7548 10 Jan, 2016 [facility] [id number] [place] [address] 32536- 9154 Jan, [facility] [address] [address]- 7808 Jan, [facility] [id number] [address]- 4572 Jan, [place] [id number] [place] [address] 44177- 7495 Jan, [place] [id number] [place] [address] 51795- 0226 Dec, [place] [id number] [place] [address] 07640- 6788 Dec, Major depressive disorder, recurrent episode, moderate F33.1 ; Anxiety F41.9 and Insomnia G47.00 [place] [id number] [place] [address] 06063- 1140 Dec, Lymphadenitis I88.9 ; GERD (gastroesophageal reflux disease ) K21.9 ; Multiple sclerosis G35 ; Depression F32.9 ; Degenerative disc disease , lumbar M51.36 ; Irritable bowel K58.9 ; Anxiety F41.9 ; Major depressive disorder, recurrent episode, moderate F33.1 and Insomnia G47.00 [place] [id number] [place] [address] 94196- 3531 Dec, Major depressive disorder, recurrent episode, moderate F33.1 and Anxiety state F41.1 [place] [id number] [place] [address] 24436- 7104 16 Dec, 2015 Screening breast examination Z12.39 [place] [id number] [place] [address] 98481- 5418 10 Dec, 2015 Mass in neck R22.1 ; Chronic pain G89.29 ; GERD ( gastroesophageal reflux disease) K21.9 ; Fatigue R53.83 ; Anxiety F41.9 ; Major depressive disorder, recurrent episode, moderate F33.1 ; Encounter for screening mammogram for breast cancer Z12.31 and Thrush B37.0 [place] [address] [place] [address] 25421- 7304 09 Dec, 2015 [place] [id number] [place] [address] 39271- 6088 Dec, [place] [id number] [place] [address] 16526- 9862 Nov, Major depressive disorder, recurrent episode, moderate F33.1 and Anxiety state F41.1 [place] [id number] [place] [address] 35260- 1588 Nov, Insomnia G47.00 [place] [address] 37758- 5372 Nov, Major depressive disorder, recurrent episode, moderate F33.1 and Anxiety state F41.[address] 41066- 4903 Nov, [place] [address] 70066- 3545 Nov, [place] [address] 79411- 2659 Oct, GERD (gastroesophageal reflux disease) K21.9 ; Depression F32.9 and Degenerative disc disease, lumbar M51.[address] 05896- 0968 Oct, Right shoulder pain M25.511 ; Degenerative disc disease, lumbar M51.36 ; Multiple sclerosis G35 ; Fatigue R53.83 ; GERD ( gastroesophageal reflux disease) K21.9 ; Major depressive disorder, recurrent episode, moderate F33.1 ; Anxiety state F41.1 and Constipation K59.00 [place] [id number] [place] [address] 03787- 9400 Oct, Hypoglycemia E16.[address] 47103- 2012 Oct, Unspecified fall, initial encounter W19.XXXA [place] [id number] [place] [address] 58475- 3160 08 Oct, 2015 [place] [address] 90004- 3860 Oct, Major depressive disorder, recurrent episode, moderate F33.1 and Anxiety state F41.1 [place] [id number] [place] [address] 01435- 6681 Oct, [place] [id number] [place] [address] 57219- 4321 Oct, [place] [id number] [place] [address]- 6[address] Oct, Degenerative disc disease, lumbar M51.36 ; GERD ( gastroesophageal reflux disease) K21.9 ; Right shoulder pain M25.511 and Candidal vaginitis B37.3 [place] [id number] [place] [address] 77009- 6317 Sep, [place] [id number] [place] [address] 13445- 0377 Sep, GERD (gastroesophageal reflux disease) K21.9 ; Fatigue R53.83 ; Multiple sclerosis G35 ; Depression F32.9 ; Degenerative disc disease, lumbar M51.36 ; Irritable bowel K58.9 ; Anxiety F41.9 ; Right shoulder pain M25.511 and residential use of drug Z79.899 [place] [address] [place] [address] 48831- 0420 Sep, GERD (gastroesophageal reflux disease) K21.9 ; Fatigue R53.83 ; Multiple sclerosis G35 ; Depression F32.9 ; Degenerative disc disease, lumbar M51.36 ; Irritable bowel K58.9 ; Anxiety F41.9 and Bronchitis J40 IMMUNIZATIONS No Known Immunizations SOCIAL HISTORY Never Assessed REASON FOR VISIT PT follow-up PLAN OF CARE Activity Details Follow Up 2 Weeks Reason:F/U PT VITAL SIGNS MEDICATIONS Unknown Medications RESULTS No Results PROCEDURES Procedure Date Ordered Result Body Site THERAPEUTIC EXERCISES Jul 09, 2017 INSTRUCTIONS MEDICATIONS ADMINISTERED No Known Medications [...] times Hospitalization History Low potassium Hospitalization History [facility] Unit for depression Hospitalization History ER visit for possible pancreatitis
--- OUTSIDE RECORDS SUMMARY | 2018-04-05 21:16 | XMS REPORT ---
Author Author MIC DOUGHERTY Organization [employer] Address Unknown Phone Unavailable Care Team Providers Care Associate Media Director Name Role Phone MIC DOUGHERTY CP Unavailable Allergies No Known Allergies Problems Problem Type Condition Code Onset Dates Condition Status Problem Major depressive disorder, recurrent episode, moderate F33.1 Active Problem Thrush B37.0 Active Problem Insomnia G47.00 Active Problem Adverse effect of other opioids, initial encounter T40.2X5A Active Problem Other constipation K59.09 Active Problem Dysuria R30.0 Active Problem 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 Active Problem Chronic pain G89.29 Active Problem Acute cystitis without hematuria N30.00 Active Problem Mixed hyperlipidemia E78.2 Active Problem Irritable bowel K58.9 Active Problem Degenerative disc disease, lumbar M51.36 Active Problem Family history of hypercholesterolemia Z83.49 Active Problem Anxiety F41.9 Active Problem Fatigue R53.83 Active Problem GERD (gastroesophageal reflux disease) K21.9 Active Problem Depression F32.9 Active Problem Right shoulder pain M25.511 Active Problem Multiple sclerosis G35 Active Problem Anxiety state F41.1 Active Medications Medication Code System Code Instructions Start Date End Date Status Dosage Topamax [facility][NOTE 3] [address]-79 50 mg Orally Twice a day 1 tablet Duloxetine HCl [facility] [place][NOTE 3] [address]-61 60 mg Orally TAKE ONE CAPSULE BY MOUTH ONCE DAILY Latuda [facility] [place][NOTE 3] 46303231628 60 MG Orally Once a day 1 tablet with food Results No Known Results Summary Purpose [employer] Submission
--- OUTSIDE RECORDS SUMMARY | 2018-04-05 21:16 | XMS REPORT ---
Author Author USMAN DOUGHERTY eClinicalWorks Address Unknown Phone Unavailable Care Team Providers Care Hand Crocheter Name Role Phone USMAN DOUGHERTY CP Unavailable [...] Problem GERD (gastroesophageal reflux disease) K21.9 Active Assessment Anxiety state F41.1 Active Assessment Major depressive disorder, recurrent episode, moderate F33.1 Active Problem Anxiety F41.9 Active Medications No Known Medications Procedures Procedure Coding System Code Date Psychotherapy, patient &/family, 45 minutes, established patient CPT-4 61830 Dec 20, 2015 [facility] VISIT MENTAL HEALTH ESTAB PT CPT-4 G0470 Dec 20, 2015 Results No Known Results Summary Purpose eClinicalWorks Submission
--- OUTSIDE RECORDS SUMMARY | 2018-04-05 21:16 | XMS REPORT ---
Author GLADYS Romano [facility] eClinicalWorks Address Unknown Phone Unavailable Care Team Providers Care Store Team Member Name Role Phone GLADYS PATRICK CP Unavailable Allergies, Adverse Reactions, Alerts Substance Reaction Event Type Sulfamethoxazole Info Not Available Drug Allergy Remeron Info Not Available Drug Allergy [place] Info Not Available Drug Allergy Naproxen Info [...] other opioids, initial encounter T40.2X5A Active Assessment Epigastric pain R10.13 Active Assessment Nausea R11.0 Active Problem Fibromyalgia M79.7 Active Problem Mixed [...] G35 Active Problem Anxiety state F41.1 Active Assessment Other constipation K59.09 Active Problem Fatigue R53.83 Active Problem Major depressive disorder, recurrent episode, moderate F33.1 Active Medications Medication Code System Code Instructions Start Date End Date Status Dosage Morphine Sulfate [facility] [address]-32 15 MG Orally 3 times a day March 04, 2016 1 tablet as needed Nystatin [facility] [address]-89 174826 UNIT/ML Mouth/Throat Four times a day swish 5mL Linzess [facility] [address]-18 145 MCG Orally Once a day Sep 03, 2016 Oct 03, 2016 1 capsule Citrate of Magnesia [facility] [address]-78 1.745 GM/30ML Orally Sep 03, 2016 as directed Latuda [facility] 18929424220 60 MG Orally Once a day 1 tablet with food Trazodone HCl [facility] [address]-75 50 mg Orally Once a day Dec 14, 2015 1 tablet at bedtime as needed Amphetamine-Dextroamphetamine [facility] 65598443164 5 MG orally once a day TAKE ONE TABLET Acyclovir [facility] [address]-86 5 % Externally every 3 hrs February 19, 2016 1 application to affected area Duloxetine HCl [facility] [address]-17 60 mg Orally TAKE ONE CAPSULE BY MOUTH ONCE DAILY Nexium [facility] 72268813793 40 mg Orally Once a day 1 capsule Topamax [facility] 89670063892 50 mg Orally Twice a day 1 tablet ProAir HFA [facility] [address]-35 108 (90 Base) MCG/ACT Inhalation every 4 hrs 2 puffs as needed Promethazine HCl [facility] [address]-39 25 MG Orally every 6 hrs PRN 1 tablet as needed Zofran [facility] [address]-72 4 MG Orally 4 times a day Sep 03, 2016 1 tablets Alprazolam [facility] [address]-13 0.5 MG Orally Three times a day 1 tablet Morphine Sulfate ER [facility] [address]-25 30 MG Orally one daily one hour before bed March 04, 2016 1 tablet Ibuprofen [facility] [address]-57 800 MG Orally Three times a day April 14, 2016 1 tablet Trilipix [facility] [address]-30 135 MG Orally Once a day May 02, 2016 1 capsule Lyrica [facility] 16571204034 150 MG TAKE ONE CAPSULE BY MOUTH TWICE DAILY Procedures Procedure Coding System Code Date X-RAY EXAM OF ABDOMEN CPT-4 11386 Sep 03, 2016 [facility] VISIT ESTABLISHED PATIENT CPT-4 G0467 Sep 03, 2016 URINALYSIS, AUTO, W/O SCOPE CPT-4 68308 Sep 03, 2016 Office Visit, Est Pt., Level 4 CPT-4 06600 Sep 03, 2016 Vital Signs Date/Time: Sep 03, 2016 Cardiac Monitoring Heart Rate 72 bpm Weight 118.4 lbs Height 64.0 in BMI 20.32 Index Blood Pressure Diastolic 70 mmHg Blood Pressure Systolic 102 mmHg Results Name Result Date Reference Range Unit Abnormality Flag UA LONG DIP (IN HOUSE) ----ALONSO negative 20160903 ----BLO negative 20160903 ----SG 7.0 20160903 ----KET negative 20160903 ----VANESSA negative 20160903 ----GLU negative 20160903 ----Protein negative 20160903 ----pH 7.0 20160903 ----NIT negative 20160903 ----URO 0.2 20160903 ----Exp date [id number] ----Clarity cloudy 20160903 ----Color yellow [id number] ----Odor none [id number] Xray : ROBERT (IN HOUSE) Summary Purpose eClinicalWorks Submission
--- OUTSIDE RECORDS SUMMARY | 2018-04-05 21:17 | XMS REPORT ---
Author GLADYS Romano [facility] eClinicalWorks Address Unknown Phone Unavailable Care Team Providers Care Appraisal Coordinator Name Role Phone GLADYS PATRICK CP Unavailable Allergies, Adverse Reactions, Alerts Substance Reaction Event Type Sulfamethoxazole Info Not Available Drug Allergy Remeron Info Not Available Drug Allergy [place] Info Not Available Drug Allergy Naproxen Info Not Available Drug Allergy Levaquin Info Not Available Drug Allergy Abilify Info Not Available Drug Allergy Adhesives, tapes, bandages Info Not Available Non Drug Allergy Problems Problem Type Condition Code Onset Dates Condition Status Assessment Chronic pain G89.29 Active Assessment Multiple sclerosis G35 Active Assessment Insomnia G47.00 Active Assessment Major depressive disorder, recurrent episode, [...] Instructions Start Date End Date Status Dosage Zofran [facility] [address]-19 4 MG Orally 4 times a day Sep 03, 2016 1 tablets Folic Acid-Vit B6-Vit B12 [facility] [address]-19 0.8-10-0.115 MG Orally Once a day Oct 17, 2016 Nov 16, 2016 1 tablet Morphine Sulfate [facility] [address]-94 15 MG Orally 3 times a day March 04, 2016 1 tablet as needed Topamax [facility] 65365014779 50 mg Orally Twice a day 1 tablet Ibuprofen [facility] 56325822443 800 MG Orally Three times a day 1 tablet Alprazolam [facility] [address]-22 0.5 MG Orally Three times a day 1 tablet Amphetamine-Dextroamphetamine [facility] 98074327935 5 MG orally once a day TAKE ONE TABLET Morphine Sulfate ER [facility] [address]-55 30 MG Orally one daily one hour before bed March 04, 2016 1 tablet Linzess [facility] [address]-40 145 MCG TAKE ONE CAPSULE BY MOUTH ONCE DAILY Dulcolax Stool Softener [facility] 75145-[address]116 100 MG Orally twice a day 1 capsule Lyrica [facility] 11971850862 150 MG TAKE ONE CAPSULE BY MOUTH TWICE DAILY Duloxetine HCl [facility] [address]-62 60 mg Orally Once a day TAKE ONE CAPSULE BY MOUTH ONCE DAILY Citrate of Magnesia [facility] [address]-35 1.745 GM/30ML Orally Sep 03, 2016 as directed Nexium [facility] [address]-11 40 mg Orally Once a day 1 capsule Trazodone HCl [facility] [address]-87 50 mg Orally Once a day Dec 14, 2015 1 tablet at bedtime as needed Latuda [facility] 11190413907 60 MG Orally Once a day 1 tablet with food Procedures Procedure Coding System Code Date Office Visit, Est Pt., Level 4 CPT-4 73585 Oct 17, 2016 [facility] VISIT ESTABLISHED PATIENT CPT-4 G0467 Oct 17, 2016 Vital Signs Date/Time: Oct 17, 2016 Cardiac Monitoring Heart Rate 68 bpm Weight 118 lbs Height 64.0 in BMI 20.25 Index Blood Pressure Diastolic 56 mmHg Blood Pressure Systolic 88 mmHg Results No Known Results Summary Purpose eClinicalWorks Submission
--- OUTSIDE RECORDS SUMMARY | 2018-04-05 21:17 | XMS REPORT ---
Author Author CELINA GLADYS Organization [facility] Address [address] [place] [address] Care Team Providers Care C Web Developer Name Role Phone GLADYS PATRICK Unavailable PROBLEMS Type Condition ICD9-CM Code QOM43-NR Code Onset Dates Condition Status SNOMED Code Problem Major depressive disorder, recurrent episode, moderate F33.1 Active 732222599 Problem Thrush B37.0 Active 86768662 Problem Insomnia G47.00 Active 559687556 Problem Acute left-sided low back pain with left-sided sciatica M54.42 Active 519826800 Problem Fibromyalgia M79.7 Active 763932810 Problem Mixed hyperlipidemia E78.2 Active 258160379 Problem Chronic pain G89.29 Active 77828608 Problem Acute cystitis without hematuria N30.00 Active 18552726 Problem Other constipation K59.09 Active 020582742516071 Problem Depression F32.9 Active 73626229 Problem Degenerative disc disease, lumbar M51.36 Active 60659394 Problem Fatigue R53.83 Active 51358656 Problem GERD (gastroesophageal reflux disease) K21.9 Active 378909434 Problem Irritable bowel K58.9 Active 98640394 Problem Multiple sclerosis G35 Active 03254033 Problem Anxiety state F41.1 Active 291893681 ALLERGIES No Information SOCIAL HISTORY Never Assessed [...] times Hospitalization History Low potassium Hospitalization History [facility] Unit for depression Hospitalization History ER visit for possible pancreatitis
--- OUTSIDE RECORDS SUMMARY | 2018-04-05 21:17 | XMS REPORT ---
Author GLADYS Romano [facility] eClinicalWorks Address Unknown Phone Unavailable Care Team Providers Care Underwriting Service Representative Name Role Phone GLADYS PATRICK CP Unavailable Allergies, Adverse Reactions, Alerts Substance Reaction Event Type Sulfamethoxazole Info Not Available Drug Allergy Remeron Info Not Available Drug Allergy [place] Info Not Available Drug Allergy Naproxen Info Not Available Drug Allergy Levaquin Info Not Available Drug Allergy Abilify Info Not Available Drug Allergy Adhesives, tapes, bandages Info Not Available Non Drug Allergy Problems Problem Type Condition Code Onset Dates Condition Status Assessment Multiple sclerosis G35 Active Assessment GERD (gastroesophageal reflux disease) K21.9 Active Assessment Fatigue R53.83 Active Problem Fatigue R53.83 Active Problem Multiple sclerosis G35 Active Problem GERD (gastroesophageal reflux disease) K21.9 Active Problem Irritable bowel K58.9 Active Problem Anxiety F41.9 Active Problem Depression F32.9 Active Problem Degenerative disc disease, lumbar M51.36 Active Assessment Anxiety F41.9 Active Assessment Irritable bowel K58.9 Active Assessment Degenerative disc disease, lumbar M51.36 Active Assessment Bronchitis J40 Active Assessment Depression F32.9 Active Medications Medication Code System Code Instructions Start Date End Date Status Dosage Valtrex [facility] [address]-11 1 GM Orally every 24 hrs 1 tablet Tizanidine HCl [facility] [address]-01 4 MG Orally every 72 hours 1 tablet as needed Amphetamine Sulfate [facility] [address]-43 5 MG Orally prescribed by neuro 1 Azithromycin [facility] [address]-98 250 MG Orally Once a day Oct 04, 2015 Oct 09, 2015 2 tablets on the first day, then 1 tablet daily for 4 days ProAir HFA [facility] [address]-27 108 (90 Base) MCG/ACT Inhalation every 4 hrs 2 puffs as needed Linzess [facility] [address]-13 145 MCG Orally Once a day 1 capsule Alprazolam [facility] [address]-65 0.5 MG Orally Three times a day 1 tablet Nexium [facility] [address]-84 40 MG Orally Once a day 1 capsule Morphine Sulfate [facility] [address]-26 15 MG Orally twice a day 1 tablet as needed Lyrica [facility] [address]-61 150 MG Orally Twice a day 1 capsule Morphine Sulfate [facility] [address]-80 15 MG Injection 3 times a day 1 tablet as needed Cymbalta [facility] [address]-45 60 MG Orally Once a day 1 capsule Promethazine HCl [facility] [address]-14 25 MG Orally every 6 hrs PRN 1 tablet as needed Plegridy [facility] [address]-28 125 MCG/0.5ML Subcutaneous every 14 days 0.5 ml Transderm-Scop [facility] [address]-31 1 MG/3DAYS Transdermal not defined Procedures Procedure Coding System Code Date Office Visit, New Pt., Level 4 CPT-4 96271 Oct 04, 2015 Vital Signs Date/Time: Oct 04, 2015 Temperature 97.74 F Weight 130.3 lbs Height 64.0 in BMI 22.36 Index Blood Pressure Diastolic 60 mmHg Blood Pressure Systolic 90 mmHg Cardiac Monitoring Heart Rate 88 bpm Results No Known Results Summary Purpose eClinicalWorks Submission
--- OUTSIDE RECORDS SUMMARY | 2018-04-05 21:17 | XMS REPORT ---
Author Author LOURDES GALVEZ Organization [facility] Address [address] [place] [address] Care Team Providers Care Slide Fastener Chain Assembler Name Role Phone LOURDES GALVEZ Unavailable PROBLEMS Type Condition ICD9-CM Code [id number] Code Onset Dates Condition Status SNOMED Code Problem Chronic pain G89.29 Active 97401408 Problem Other constipation K59.09 Active 171025321738618 Problem Mixed hyperlipidemia E78.2 Active 778577646 Problem Constipation, unspecified constipation type K59.00 Active 49905686 Problem Anxiety F41.9 Active 18831741 Problem Fibromyalgia M79.7 Active 108488881 Problem Acute cystitis without hematuria N30.00 Active 72924863 Problem Weight gain, abnormal R63.5 Active 481570323 Problem Acute left-sided low back pain with left-sided sciatica M54.42 Active 994169229 Problem GERD (gastroesophageal reflux disease) K21.9 Active 310170367 Problem Degenerative disc disease, lumbar M51.36 Active 30125782 Problem Multiple sclerosis G35 Active 47248911 Problem Depression F32.9 Active 26549749 Problem Anxiety state F41.1 Active 628855827 Problem Major depressive disorder, recurrent episode, moderate F33.1 Active 610472851 Problem Irritable bowel K58.9 Active 07491988 Problem Insomnia G47.00 Active 195880747 Problem Fatigue R53.83 Active 83957973 Problem Thrush B37.0 Active 73944984 ALLERGIES No Information ENCOUNTERS Encounter Location Date Diagnosis [facility] [address] [facility] [id number] [address] March, [facility] [address], [place] [address] March, [facility] [address] [id number] [address] Feb, [facility] [address] [id number] [place] [address] 17353- 9368 Feb, [facility] [address] 23820- 8541 Jan, Multiple sclerosis G35 ; Anxiety F41.9 and Chronic pain G89.29 [facility] [id number] [place] [address] 47666- 5088 Jan, Multiple sclerosis G35 ; Anxiety F41.9 and Insomnia G47.00 [facility] [id number] [place] [address] 32820- 8666 Jan, Multiple sclerosis G35 ; Anxiety F41.9 and Insomnia G47.00 [facility] [id number] [place] [address] 28438 -9718 Jan, Constipation, unspecified constipation type K59.00 [facility] [address] [address]- [address] Jan, [facility] [id number] [place] [address] 15281- 8146 Jan, Multiple sclerosis G35 ; Anxiety F41.9 ; Insomnia G47.00 and Chronic pain G89.29 [facility] [id number] [place] [address] 88296- 3352 Dec, [facility] [id number] [place] [address] 45825- 1285 Dec, [facility] [id number] [place] [address] 34958- 2437 Nov, Fibromyalgia M79.7 [facility] [address] 31705- 7461 Nov, [facility] [id number] [place] [address] 33278- 5843 Nov, [facility] [id number] [place] [address] 93529- 4502 Nov, Fibromyalgia M79.7 [facility] [id number] [place] [address] 89306- 1523 Oct, [facility] [address] 17000- 0092 Oct, Multiple sclerosis G35 ; Depression F32.9 and Weight gain, abnormal R63.5 [place] [address] 7[address]00- 2002 Oct, [facility] [address] 54416- 8262 Sep, Fibromyalgia M79.7 [place] [address] 66141- 5591 Sep, Urinary incontinence in female R32 [place] [address] 55117- 0454 Sep, [place] [address] 63476- 5355 Sep, [place] [address] 36410- 4641 Sep, Hypokalemia E87.6 [facility] [place] [id number] [place] [address] 90211 -0306 Sep, Colitis K52.9 and Distended abdomen R14.0 [place] [address] 76871- 6340 Sep, Fibromyalgia M79.7 [facility] [id number] [place] [address] 36986 -9890 Aug, Epigastric pain R10.13 and Drug-induced constipation K59.03 [facility] [address] 25580- 1924 Aug, Fibromyalgia M79.7 [facility] [address] 17638- 4018 Jul, Fibromyalgia M79.7 [facility] [id number] [place] [address] 52125- 1640 Jul, [facility] [id number] [place] [address] 08021- 3748 Jun, Degenerative disc disease, lumbar M51.36 [facility] [id number] [place] [address] 72775- 5514 Jun, Acute left-sided low back pain with left-sided sciatica M54.42 ; Fibromyalgia M79.7 and Other constipation K59.09 [facility] [id number] [place] [address] 26870- 4625 Jun, Acute left-sided low back pain with left-sided sciatica M54.42 [facility] [id number] [place] [address] 91289- 6140 Jun, [facility] [address] 00175- 7960 Jun, [facility] [id number] [place] [address] 30961- 6898 Jun, [facility] [id number] [place] [address] 62054- 3946 Jun, Degenerative disc disease, lumbar M51.36 [facility] [id number] [place] [address] 94466 -1624 Jun, Acute left-sided low back pain with left-sided sciatica M54.42 [facility] [id number] [place] [address] 14373- 6898 May, Degenerative disc disease, lumbar M51.36 ; Multiple sclerosis G35 ; GERD (gastroesophageal reflux disease) K21.9 ; Fatigue R53.83 ; Irritable bowel K58.9 ; Major depressive disorder, recurrent episode, moderate F33.1 ; Anxiety state F41.1 ; Thrush B37.0 ; Fibromyalgia M79.7 and Insomnia G47.00 [facility] [id number] [place] [address] 13196- 1243 May, Chronic pain G89.29 and Major depressive disorder, recurrent episode, moderate F33.1 [facility] [address] 78670- 1408 May, Degenerative disc disease, lumbar M51.36 [facility] [id number] [place] [address] 39058 -3891 May, Oral thrush B37.0 [facility] [address] 95483- 1578 May, Fatigue R53.83 and Chronic pain G89.29 [place] [address] 59851- 2880 Apr, Multiple sclerosis G35 ; Chronic pain G89.29 ; GERD ( gastroesophageal reflux disease) K21.9 ; Fatigue R53.83 ; Depression F32.9 ; Degenerative disc disease, lumbar M51.36 ; Irritable bowel K58.9 ; Insomnia G47.00 ; Mixed hyperlipidemia E78.2 ; Fibromyalgia M79.7 and Urinary incontinence in female R32 [place] [address] 34857- 0096 March, Major depressive disorder, recurrent episode, moderate F33.1 [place] [address] [id number] [place] [address] 03535- 3510 March, Chronic pain G89.29 [facility] [id number] [place] [address] 26988- 7824 March, Urinary incontinence in female R32 and Allergic conjunctivitis, right H10.11 [place] [address] 80819- 0352 March, Radicular pain M54.10 [place] [id number] [place] [address] 24597- 7163 March, [place] [address] 43867- 9935 Jan, [facility] [address] [place] [address] 30025- 5037 Jan, Hypokalemia E87.6 [facility] [id number] [place] [address] 60643- 5050 Jan, Fatigue R53.83 [facility] [id number] [place] [address] 85473- 9846 Dec, [facility] [id number] [place] [address] 99072- 7960 Dec, Fatigue R53.83 [facility] [address] 44823- 6861 Dec, [place] [id number] [place] [address] 38268- 6442 Dec, [facility] [id number] [place] [address] 77965- 3578 Dec, Hypokalemia E87.6 [facility] [id number] [place] [address] 50122- 9198 Nov, GERD (gastroesophageal reflux disease) K21.9 ; Fatigue R53.83 ; Depression F32.9 ; Major depressive disorder, recurrent episode, moderate F33.1 ; Fibromyalgia M79.7 ; Other constipation K59.09 ; Primary insomnia F51.01 ; Multiple sclerosis G35 and Mixed hyperlipidemia E78.2 [facility] [id number] [place] [address] 96379- 7486 Nov, [facility] [id number] [place] [address] 12301- 5170 Nov, Degenerative disc disease, lumbar M51.36 [facility] [id number] [place] [address] 80499- 7676 Nov, [facility] [id number] [place] [address] 92307- 4313 Oct, Degenerative disc disease, lumbar M51.36 [place] [id number] [place] [address] 57953- 2752 Oct, Fibromyalgia M79.7 ; GERD (gastroesophageal reflux disease) K21.9 ; Multiple sclerosis G35 ; Depression F32.9 ; Degenerative disc disease, lumbar M51.36 ; Irritable bowel K58.9 ; Anxiety F41.9 ; Insomnia G47.00 ; Adverse effect of other opioids, initial encounter T40.2X5A ; Other constipation K59.09 and Fatigue R53.83 [place] [id number] [place] [address] 86092- 8210 Oct, [facility] [address] [place] [address] 96824 -5601 Sep, Hordeolum externum of right lower eyelid H00.[address] 80603- 1036 Sep, GERD (gastroesophageal reflux disease) K21.9 ; Fatigue R53.83 ; Depression F32.9 ; Degenerative disc disease, lumbar M51.36 ; Irritable bowel K58.9 ; Anxiety F41.9 ; Major depressive disorder, recurrent episode, moderate F33.1 ; Insomnia G47.00 ; Multiple sclerosis G35 and Chronic pain G89.29 [place] [id number] [place] [address] 78212- 2343 Sep, Fatigue R53.83 [place] [id number] [place] [address] 60252- 5535 Sep, [place] [id number] [place] [address] 90547- 2223 Aug, GERD (gastroesophageal reflux disease) K21.9 ; Fatigue R53.83 ; Depression F32.9 ; Degenerative disc disease, lumbar M51.36 ; Irritable bowel K58.9 ; Anxiety F41.9 ; Major depressive disorder, recurrent episode, moderate F33.1 ; Anxiety state F41.1 ; Chronic pain G89.29 ; Family history of hypercholesterolemia Z83.49 ; Other constipation K59.09 ; Fibromyalgia M79.7 and Hypercholesterolemia E78.00 [facility] [id number] [place] [address] 81878- 1782 Aug, [facility] [id number] [place] [address] 85106- 3552 Aug, Epigastric pain R10.13 ; Nausea R11.0 and Other constipation K59.09 [facility] [id number] [place] [address] 33053- 5098 Aug, [facility] [id number] [place] [address] 44411- 2802 Aug, [facility] [id number] [place] [address] 96473- 6996 Jul, [facility] [id number] [place] [address] 11109- 5415 Jul, [facility] [address] 52221- 3045 Jun, Dysuria R30.0 ; Irritable bowel K58.9 ; Adverse effect of other opioids, initial encounter T40.2X5A ; Other constipation K59.09 and Acute cystitis without hematuria N30.00 [facility] [id number] [place] [address] 92637- 7293 Jun, [facility] [id number] [place] [address] 26872 -5284 Jun, Left upper quadrant pain R10.12 [facility] [id number] [place] [address] 13100- 2827 Jun, Major depressive disorder, recurrent episode, moderate F33.1 ; Anxiety state F41.1 and Insomnia G47.00 [facility] [address] [place] [address] 17145- 6032 May, [facility] [id number] [place] [address] 77080- 4587 May, [place] [address] [place] [address] 92013- 6687 May, Depression F32.9 ; Major depressive disorder, recurrent episode, moderate F33.1 ; Multiple sclerosis G35 and Chronic pain G89.29 [place] [address] [place] [address] 17130- 3606 May, [place] [address] [address] [place] [address] 06524- 8207 Apr, Right shoulder pain M25.511 [place] [address] [address] [address] [place] [address] 10017- 2568 Apr, [place] [address] [address] [place] [address] 66492- 1907 Apr, Fatigue R53.83 ; Multiple sclerosis G35 ; Depression F32.9 ; Anxiety state F41.1 ; Degenerative disc disease, lumbar M51.36 ; GERD ( gastroesophageal reflux disease) K21.9 ; Insomnia G47.00 ; Environmental allergies Z91.09 and Thrush B37.0 [place] [address] [place] [address] 96088- 2146 Apr, [place] [address] [address] [place] [address] 46600- 7108 Apr, Mixed hyperlipidemia E78.2 [place] [address] [address] [address] [place] [address] 27842- 0788 Apr, [place] [address] [address] [address] [place] [address] 28326- 5088 Apr, [place] [address] [address] [place] [address] 10706- 4814 March, Degenerative disc disease, lumbar M51.36 [place] [address] [address] [address] [place] [address] 24509- 9771 March, Major depressive disorder, recurrent episode, moderate F33.1 ; Mass in neck R22.1 and Fatigue R53.83 [place] [address] [address] [address] [place] [address] 83271- 2411 March, Major depressive disorder, recurrent episode, moderate F33.1 ; Anxiety F41.9 ; Insomnia G47.00 and Other senior living (current) drug therapy Z79.899 [place] [address] [address] [address] [place] [address] 77562- 7009 March, GERD (gastroesophageal reflux disease) K21.9 and Degenerative disc disease, lumbar M51.[address] 09629- 2005 March, GERD (gastroesophageal reflux disease) K21.9 ; Fatigue R53.83 ; Multiple sclerosis G35 ; Depression F32.9 ; Degenerative disc disease, lumbar M51.36 ; Anxiety F41.9 ; Right shoulder pain M25.511 ; Major depressive disorder, recurrent episode, moderate F33.1 and Insomnia G47.[address] 20483- 1246 March, Multiple sclerosis G35 [place] [address] 86929- 6508 Feb, [address] 40590- 7568 Feb, [place] [address] [place] [address] 92104- 1447 Feb, Chronic pain G89.29 ; Fatigue R53.83 ; Depression F32.9 ; Degenerative disc disease, lumbar M51.36 ; Irritable bowel K58.9 ; Anxiety F41.9 ; Insomnia G47.00 and GERD (gastroesophageal reflux disease) K21.[address] 73336- 6635 Feb, Anxiety F41.9 and Major depressive disorder, recurrent episode, moderate F33.1 [place] [id number] [place] [address] 18566- 9630 Feb, [place] [address]- 7508 30 Jan, 2016 [facility] [id number] [place] [address] 585401- 3192 Jan, Degenerative disc disease, lumbar M51.36 ; Multiple sclerosis G35 ; Fatigue R53.83 ; Depression F32.9 ; Irritable bowel K58.9 ; GERD (gastroesophageal reflux disease) K21.9 and 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 [facility] [id number] [place] [address] 132553- 8492 16 Jan, 2016 [facility] [address] [place] [address] 314903- 8749 16 Jan, 2016 [facility] [address] [place] [address] 314252- 1492 Jan, [facility] [address] [place] [address] 74668- 9358 Jan, [facility] [address] [address]- 8616 14 Jan, 2016 [facility] [id number] [place] [address] 40189- 8295 Jan, [facility] [address]- 7017 Jan, [facility] [address], [place] [address]- 6114 Jan, [facility] [address]- 1184 08 Jan, 2016 [facility] [address], [place] [address]- 1316 Jan, [facility] [address] 3379 Dec, [facility] [address] 4763 Dec, Major depressive disorder, recurrent episode, moderate F33.1 ; Anxiety F41.9 and Insomnia G47.00 [place] [address] [place] [address] 95304- 5413 23 Dec, 2015 Lymphadenitis I88.9 ; GERD (gastroesophageal reflux disease ) K21.9 ; Multiple sclerosis G35 ; Depression F32.9 ; Degenerative disc disease , lumbar M51.36 ; Irritable bowel K58.9 ; Anxiety F41.9 ; Major depressive disorder, recurrent episode, moderate F33.1 and Insomnia G47.00 [place] [address] [address] [address] [place] [address] 66120- 8032 23 Dec, 2015 Major depressive disorder, recurrent episode, moderate F33.1 and Anxiety state F41.[address] 89886- 3128 16 Dec, 2015 Screening breast examination Z12.[address] 37736- 0824 10 Dec, 2015 Mass in neck R22.1 ; Chronic pain G89.29 ; GERD ( gastroesophageal reflux disease) K21.9 ; Fatigue R53.83 ; Anxiety F41.9 ; Major depressive disorder, recurrent episode, moderate F33.1 ; Encounter for screening mammogram for breast cancer Z12.31 and Thrush B37.0 [place] [id number] [place] [address] 66472- 2215 09 Dec, 2015 [place] [address] [address] [address] [place] [address] 71263- 3318 04 Dec, 2015 [place] [address] [address] [address] [place] [address] 20302- 7654 Nov, Major depressive disorder, recurrent episode, moderate F33.1 and Anxiety state F41.1 [place] [address] [address] [address] [place] [address] 96762- 9826 15 Nov, 2015 Insomnia G47.[address] 70993- 2767 Nov, Major depressive disorder, recurrent episode, moderate F33.1 and Anxiety state F41.1 [place] [address] [address] [id number] [place] [address] 01409- 7175 Nov, [place] [address] [place] [address] [place] [address] 61152- 4332 Nov, [place] [address] 27401- 1568 Oct, GERD (gastroesophageal reflux disease) K21.9 ; Depression F32.9 and Degenerative disc disease, lumbar M51.36 [place] [address] 66040- 8541 Oct, Right shoulder pain M25.511 ; Degenerative disc disease, lumbar M51.36 ; Multiple sclerosis G35 ; Fatigue R53.83 ; GERD ( gastroesophageal reflux disease) K21.9 ; Major depressive disorder, recurrent episode, moderate F33.1 ; Anxiety state F41.1 and Constipation K59.00 [place] [address] [place] [address] [place] [address] 79532- 8501 15 Oct, 2015 Hypoglycemia E16.2 [place] [address] 71560- 1208 Oct, Unspecified fall, initial encounter W19.XXXA [place] [address] 73669- 6757 Oct, [place] [address] 22688- 1214 Oct, Major depressive disorder, recurrent episode, moderate F33.1 and Anxiety state F41.1 [place] [address] 96090- 5270 Oct, [place] [address] [place] [id number] [place] [address] 39412- 4276 Oct, [place] [address] 95783- 2283 Oct, Degenerative disc disease, lumbar M51.36 ; GERD ( gastroesophageal reflux disease) K21.9 ; Right shoulder pain M25.511 and Candidal vaginitis B37.3 [place] [address] [place] [id number] [address]- 8425 Sep, [place] [address] [facility] [id number] [address]- 2309 Sep, GERD (gastroesophageal reflux disease) K21.9 ; Fatigue R53.83 ; Multiple sclerosis G35 ; Depression F32.9 ; Degenerative disc disease, lumbar M51.36 ; Irritable bowel K58.9 ; Anxiety F41.9 ; Right shoulder pain M25.511 and 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 [place] [address] [id number] [address]- 0428 Sep, GERD (gastroesophageal reflux disease) K21.9 ; Fatigue R53.83 ; Multiple sclerosis G35 ; Depression F32.9 ; Degenerative disc disease, lumbar M51.36 ; Irritable bowel K58.9 ; Anxiety F41.9 and Bronchitis J40 IMMUNIZATIONS No Known Immunizations SOCIAL HISTORY Never Assessed REASON FOR VISIT 19 day supply Oxycodone and Oxycontin- 08/12 PLAN OF CARE VITAL SIGNS MEDICATIONS Medication Instructions Dosage Frequency Start Date End Date Duration Status OxyContin 20 mg Orally every 12 hrs 1 tablet 12h Jul, 19 days Active Percocet 10-325 MG Orally 3 times a day 1 tablet as needed 8h Jul, 19 days Active RESULTS No Results PROCEDURES No [...] times Hospitalization History Low potassium Hospitalization History [facility] Unit for depression Hospitalization History ER visit for possible pancreatitis
--- OUTSIDE RECORDS SUMMARY | 2018-04-05 21:17 | XMS REPORT ---
Author OSMANI Laboy [facility] [place] eClinicalWorks Address Unknown Phone Unavailable Care Team Providers Care Air Intercept Controller Supervisor Name Role Phone OSMANI BERUMEN CP Unavailable Allergies, Adverse Reactions, Alerts Substance Reaction Event Type Sulfamethoxazole Info Not Available Drug Allergy Remeron Info Not Available Drug Allergy [place] Info Not Available Drug Allergy Naproxen Info Not Available Drug Allergy Levaquin Info Not Available Drug Allergy Abilify Info Not Available Drug Allergy Adhesives, tapes, bandages Info Not Available Non Drug Allergy Problems Problem Type Condition Code Onset Dates Condition Status Problem Anxiety F41.9 Active Problem Degenerative disc disease, lumbar M51.36 Active Problem Irritable bowel K58.9 Active Assessment Unspecified fall, initial encounter W19.XXXA Active Problem Anxiety state F41.1 Active Problem Right shoulder pain M25.511 Active Problem Major depressive disorder, recurrent episode, moderate F33.1 Active Problem Multiple sclerosis G35 Active Problem Depression F32.9 Active Problem GERD (gastroesophageal reflux disease) K21.9 Active Problem Fatigue R53.83 Active Medications Medication Code System Code Instructions Start Date End Date Status Dosage Promethazine HCl [facility] [address]-83 25 MG Orally every 6 hrs PRN 1 tablet as needed Amphetamine Sulfate [facility] [address]-81 5 MG Orally prescribed by neuro 1 Morphine Sulfate [facility] [address]-91 15 MG IR Orally 2 times a day Nov 02, 2015 1 tablet as needed Cymbalta [facility] [address]-33 60 MG Orally Once a day 2 capsule Nexium [facility] [address]-13 40 MG Orally Once a day Nov 05, 2015 1 capsule Alprazolam [facility] [address]-14 0.5 MG Orally Three times a day 1 tablet Valtrex [facility] [address]-97 1 GM Orally every 24 hrs 1 tablet ProAir HFA [facility] [address]-66 108 (90 Base) MCG/ACT Inhalation every 4 hrs 2 puffs as needed Transderm-Scop [facility] [address]-89 1 MG/3DAYS Transdermal not defined MS Contin [facility] [address]-10 30 MG Orally every 12 hrs Oct 26, 2015 1 tablet Lyrica [facility] [address]-86 150 MG Orally Twice a day 1 capsule Linzess [facility] [address]-68 145 MCG Orally Once a day Jan 27, 2016 1 capsule Procedures Procedure Coding System Code Date [facility] VISIT ESTABLISHED PATIENT CPT-4 G0467 Nov 09, 2015 Office Visit, Est Pt., Level 3 CPT-4 08128 Nov 09, 2015 X-RAY EXAM OF PELVIS CPT-4 00639 Nov 09, 2015 Vital Signs Date/Time: Nov 09, 2015 Temperature 98.0 F Weight 126.7 lbs Height 64.0 in BMI 21.75 Index Blood Pressure Diastolic 58 mmHg Blood Pressure Systolic 94 mmHg Cardiac Monitoring Heart Rate 72 bpm Results No Known Results Summary Purpose eClinicalWorks Submission
--- OUTSIDE RECORDS SUMMARY | 2018-04-05 21:18 | XMS REPORT ---
Author Author GLADYS PATRICK Organization [facility] Address [address] [place] [address] Care Team Providers Care Shiatsu Therapist Name Role Phone PATRICE PATRICKE Unavailable PROBLEMS Type Condition ICD9-CM Code VKX22-[id number] Code Onset Dates Condition Status SNOMED Code Problem Insomnia G47.00 Active 351072386 Problem Chronic pain G89.29 Active 07421289 Problem Thrush B37.0 Active 25079335 Problem Dysuria R30.0 Active 05964350 Problem Family history of hypercholesterolemia Z83.49 Active 264472238 Problem Adverse effect of other opioids, initial encounter T40.2X5A Active 802508493 Problem Mixed hyperlipidemia E78.2 Active 645202968 Problem 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 Active 54834407 Problem Other constipation K59.09 Active 810443305579242 Problem Acute cystitis without hematuria N30.00 Active 91277447 Problem Degenerative disc disease, lumbar M51.36 Active 46850551 Problem Depression F32.9 Active 21314343 Problem Anxiety F41.9 Active 45395543 Problem Irritable bowel K58.9 Active 93701887 Problem GERD (gastroesophageal reflux disease) K21.9 Active 748146853 Problem Right shoulder pain M25.511 Active 22487317 Problem Multiple sclerosis G35 Active 01159349 Problem Anxiety state F41.1 Active 610204736 Problem Fatigue R53.83 Active 81317717 Problem Major depressive disorder, recurrent episode, moderate F33.1 Active 407998141 ALLERGIES Unknown Allergies SOCIAL HISTORY No smoking Hx information available PLAN OF CARE VITAL SIGNS MEDICATIONS Unknown Medications RESULTS No Results PROCEDURES No Known procedures IMMUNIZATIONS No Known Immunizations
--- OUTSIDE RECORDS SUMMARY | 2018-04-05 21:18 | XMS REPORT ---
Author Author CELINA GLADYS Organization [facility] Address [address] [place] [address] Care Team Providers Care Main Entree Cook And Cashier Name Role Phone GLADYS PATRICK Unavailable PROBLEMS Type Condition ICD9-CM Code FUW27-KI Code Onset Dates Condition Status SNOMED Code Problem Major depressive disorder, recurrent episode, moderate F33.1 Active 939688049 Problem Thrush B37.0 Active 44709609 Problem Insomnia G47.00 Active 132252813 Problem Acute left-sided low back pain with left-sided sciatica M54.42 Active 281058507 Problem Fibromyalgia M79.7 Active 127156019 Problem Mixed hyperlipidemia E78.2 Active 188805264 Problem Chronic pain G89.29 Active 41786381 Problem Acute cystitis without hematuria N30.00 Active 93303144 Problem Other constipation K59.09 Active 811214846689716 Problem Depression F32.9 Active 06824569 Problem Degenerative disc disease, lumbar M51.36 Active 82367953 Problem Fatigue R53.83 Active 49060328 Problem GERD (gastroesophageal reflux disease) K21.9 Active 187376619 Problem Irritable bowel K58.9 Active 42660752 Problem Multiple sclerosis G35 Active 97741258 Problem Anxiety state F41.1 Active 331145750 ALLERGIES Unknown Allergies SOCIAL HISTORY No smoking Hx information available PLAN OF CARE VITAL SIGNS MEDICATIONS Medication Instructions Dosage Frequency Start Date End Date Duration Status Lopid 600 MG Orally Twice a day 1 tablet 12h Dec, 30 day(s) Active Potassium Chloride ER 10 MEQ Orally Once a day 1 capsule with food 24h Dec, Jan, 30 day(s) Active Atorvastatin Calcium 20 mg Orally Once a day 1 tablet 24h Dec, 30 day(s) Active RESULTS No Results PROCEDURES No Known procedures IMMUNIZATIONS No Known Immunizations
--- OUTSIDE RECORDS SUMMARY | 2018-04-05 21:18 | XMS REPORT ---
Author Author GLADYS PATRICK Organization [employer] Address Unknown Phone Unavailable Care Team Providers Care Ornament Maker Hand Name Role Phone GLADYS PATRICK CP Unavailable [...] Active Problem Multiple sclerosis G35 Active Medications No Known Medications Results No Known Results Summary Purpose eClinicalWorks Submission
--- OUTSIDE RECORDS SUMMARY | 2018-04-05 21:19 | XMS REPORT ---
Author Author JHONY VERDUGO [facility] Address [address] [place] [address] Care Team Providers Care Machine Farmworker Name Role Phone JHONY VERDUGO Unavailable PROBLEMS Type Condition ICD9-CM Code [id number] Code Onset Dates Condition Status SNOMED Code Problem Fibromyalgia M79.7 Active 211003928 Problem Weight gain, abnormal R63.5 Active 719256171 Problem Acute left-sided low back pain with left-sided sciatica M54.42 Active 203924497 Problem Early satiety R68.81 Active 845002124 Problem Fatigue R53.83 Active 91014386 Problem Relapsing remitting multiple sclerosis G35 Active 505907443 Problem GERD (gastroesophageal reflux disease) K21.9 Active 437877731 Problem Depression F32.9 Active 99504635 Problem Constipation, unspecified constipation type K59.00 Active 46391354 Problem Anxiety F41.9 Active 84532950 Problem Controlled substance agreement terminated Z91.14 Active 823298304 Problem Chronic pain syndrome G89.4 Active 697359895 Problem Anxiety state F41.1 Active 334933425 Problem Major depressive disorder, recurrent episode, moderate F33.1 Active 354003951 Problem Degenerative disc disease, lumbar M51.36 Active 71361406 Problem Irritable bowel K58.9 Active 93859667 Problem Thrush B37.0 Active 47612494 Problem Mixed hyperlipidemia E78.2 Active 560588473 Problem Insomnia G47.00 Active 152541480 Problem Other constipation K59.09 Active [id number] Problem Chronic pain G89.29 Active 76558719 Problem Acute cystitis without hematuria N30.00 Active 57568713 ALLERGIES No Information ENCOUNTERS Encounter Location Date Diagnosis [facility] [address] [facility] [id number] [address] Apr, [facility] [address] [facility] [id number], [place] [address] March, [facility] [address] [place] [id number] [place] [address] 52688- 6693 March, Controlled substance agreement terminated Z91.14 ; Early satiety R68.81 and Relapsing remitting multiple sclerosis G35 [facility] [id number] [place] [address] 31750- 4123 Feb, Controlled substance agreement terminated Z91.14 ; Chronic pain syndrome G89.4 ; Degenerative disc disease, lumbar M51.36 and Fibromyalgia M79.7 [facility] [id number] [place] [address] 59888- 7150 Feb, [place] [address] 99176- 2089 Jan, Multiple sclerosis G35 ; Anxiety F41.9 and Chronic pain G89.29 [place] [id number] [place] [address] 75369- 0881 Jan, Multiple sclerosis G35 ; Anxiety F41.9 and Insomnia G47.00 [facility] [id number] [place] [address] 41369- 4891 Jan, Multiple sclerosis G35 ; Anxiety F41.9 and Insomnia G47.00 [facility] [id number] [place] [address] 62153 -9129 Jan, Constipation, unspecified constipation type K59.00 [place] [id number] [place] [address] 71605- 4258 Jan, [facility] [id number] [place] [address] 90475- 9145 Jan, Multiple sclerosis G35 ; Anxiety F41.9 ; Insomnia G47.00 and Chronic pain G89.29 [place] [id number] [place] [address] 95731- 2047 Dec, [facility] [id number] [place] [address] 94158- 0493 Dec, [facility] [id number] [place] [address] 89402- 9924 Nov, Fibromyalgia M79.7 [facility] [address] 74464- 6497 Nov, [facility] [id number] [place] [address] 07156- 3452 Nov, [facility] [address] 79582- 0650 Nov, Fibromyalgia M79.7 [facility] [address] 30760- 1751 Oct, [facility] [address] 94435- 8567 Oct, Multiple sclerosis G35 ; Depression F32.9 and Weight gain, abnormal R63.5 [facility] [address] 48241- 8113 Oct, [facility] [address] 07918- 4165 Sep, Fibromyalgia M79.7 [facility] [address] 95933- 7683 Sep, Urinary incontinence in female R32 [facility] [address] 83435- 5062 Sep, [facility] [address] 51362- 4215 Sep, [facility] [id number] [place] [address] 79657- 0732 Sep, Hypokalemia E87.6 [facility] [id number] [place] [address] 06455 -6349 Sep, Colitis K52.9 and Distended abdomen R14.0 [facility] [address] 35666- 8027 Sep, Fibromyalgia M79.7 [facility] [id number] [place] [address] 78071 -3500 Aug, Epigastric pain R10.13 and Drug-induced constipation K59.03 [facility] [id number] [place] [address] 25612- 8089 Aug, Fibromyalgia M79.7 [facility] [address] 35263- 6973 Jul, Fibromyalgia M79.7 [facility] [id number] [place] [address] 69384- 6774 Jul, [facility] [id number] [place] [address] 06450- 0997 Jun, Degenerative disc disease, lumbar M51.36 [facility] [id number] [place] [address] 72865- 5257 Jun, Acute left-sided low back pain with left-sided sciatica M54.42 ; Fibromyalgia M79.7 and Other constipation K59.09 [facility] [id number] [place] [address] 64229- 3823 Jun, Acute left-sided low back pain with left-sided sciatica M54.42 [facility] [id number] [place] [address] 69503- 5604 Jun, [facility] [id number] [place] [address] 35487- 3299 Jun, [facility] [id number] [place] [address] 60284- 3433 Jun, [facility] [id number] [place] [address] 50492- 8177 Jun, Degenerative disc disease, lumbar M51.36 [facility] [id number] [place] [address] 15975 -3668 Jun, Acute left-sided low back pain with left-sided sciatica M54.42 [facility] [id number] [place] [address] 27528- 2104 May, Degenerative disc disease, lumbar M51.36 ; Multiple sclerosis G35 ; GERD (gastroesophageal reflux disease) K21.9 ; Fatigue R53.83 ; Irritable bowel K58.9 ; Major depressive disorder, recurrent episode, moderate F33.1 ; Anxiety state F41.1 ; Thrush B37.0 ; Fibromyalgia M79.7 and Insomnia G47.00 [facility] [id number] [place] [address] 29651- 2019 May, Chronic pain G89.29 and Major depressive disorder, recurrent episode, moderate F33.1 [place] [address] 77023- 9052 May, Degenerative disc disease, lumbar M51.36 [facility] [address] 05955 -4320 May, Oral thrush B37.0 [place] [address] 45432- 8153 May, Fatigue R53.83 and Chronic pain G89.29 [place] [id number] [place] [address] 54470- 6040 Apr, Multiple sclerosis G35 ; Chronic pain G89.29 ; GERD ( gastroesophageal reflux disease) K21.9 ; Fatigue R53.83 ; Depression F32.9 ; Degenerative disc disease, lumbar M51.36 ; Irritable bowel K58.9 ; Insomnia G47.00 ; Mixed hyperlipidemia E78.2 ; Fibromyalgia M79.7 and Urinary incontinence in female R32 [place] [id number] [place] [address] 89046- 7380 March, Major depressive disorder, recurrent episode, moderate F33.1 [place] [id number] [place] [address] 87002- 9029 March, Chronic pain G89.29 [place] [address] 45123- 1728 March, Urinary incontinence in female R32 and Allergic conjunctivitis, right H10.11 [facility] [id number] [place] [address] 53435- 2932 March, Radicular pain M54.10 [facility] [id number] [place] [address] 78927- 0716 March, [facility] [address] 67433- 2166 Jan, [facility] [id number] [place] [address] 74612- 0594 Jan, Hypokalemia E87.6 [place] [id number] [place] [address] 57155- 3256 Jan, Fatigue R53.83 [place] [id number] [place] [address] 69516- 4316 Dec, [facility] [id number] [place] [address] 60178- 7590 Dec, Fatigue R53.83 [facility] [id number] [place] [address] 24823- 2546 Dec, [facility] [id number] [place] [address] 15985- 4394 Dec, [facility] [id number] [place] [address] 05679- 3930 Dec, Hypokalemia E87.6 [facility] [id number] [place] [address] 63446- 2830 Nov, GERD (gastroesophageal reflux disease) K21.9 ; Fatigue R53.83 ; Depression F32.9 ; Major depressive disorder, recurrent episode, moderate F33.1 ; Fibromyalgia M79.7 ; Other constipation K59.09 ; Primary insomnia F51.01 ; Multiple sclerosis G35 and Mixed hyperlipidemia E78.2 [facility] [address] [place] [address]- 2930 Nov, [facility] [address] 35990- 0591 Nov, Degenerative disc disease, lumbar M51.36 [facility] [address] 82641- 6652 Nov, [place] [address] 45679- 4551 Oct, Degenerative disc disease, lumbar M51.36 [place] [address] 01101- 1133 Oct, Fibromyalgia M79.7 ; GERD (gastroesophageal reflux disease) K21.9 ; Multiple sclerosis G35 ; Depression F32.9 ; Degenerative disc disease, lumbar M51.36 ; Irritable bowel K58.9 ; Anxiety F41.9 ; Insomnia G47.00 ; Adverse effect of other opioids, initial encounter T40.2X5A ; Other constipation K59.09 and Fatigue R53.83 [place] [id number] [place] [address] 79715- 8863 Oct, [facility] [id number] [place] [address] 25852 -1568 Sep, Hordeolum externum of right lower eyelid H00.012 [place] [id number] [place] [address] 15360- 3211 Sep, GERD (gastroesophageal reflux disease) K21.9 ; Fatigue R53.83 ; Depression F32.9 ; Degenerative disc disease, lumbar M51.36 ; Irritable bowel K58.9 ; Anxiety F41.9 ; Major depressive disorder, recurrent episode, moderate F33.1 ; Insomnia G47.00 ; Multiple sclerosis G35 and Chronic pain G89.29 [place] [id number] [place] [address] 83572- 7535 Sep, Fatigue R53.83 [place] [address] 89672- 1955 Sep, [facility] [id number] [place] [address] 46262- 9941 Aug, GERD (gastroesophageal reflux disease) K21.9 ; Fatigue R53.83 ; Depression F32.9 ; Degenerative disc disease, lumbar M51.36 ; Irritable bowel K58.9 ; Anxiety F41.9 ; Major depressive disorder, recurrent episode, moderate F33.1 ; Anxiety state F41.1 ; Chronic pain G89.29 ; Family history of hypercholesterolemia Z83.49 ; Other constipation K59.09 ; Fibromyalgia M79.7 and Hypercholesterolemia E78.00 [facility] [address] 86016- 4289 Aug, [place] [address] 16363- 5145 Aug, Epigastric pain R10.13 ; Nausea R11.0 and Other constipation K59.09 [place] [address] 47376- 0753 Aug, [facility] [address] 39094- 8377 Aug, [facility] [address] 66121- 6251 Jul, [facility] [address] 93905- 9861 Jul, [facility] [address] 58829- 3638 Jun, Dysuria R30.0 ; Irritable bowel K58.9 ; Adverse effect of other opioids, initial encounter T40.2X5A ; Other constipation K59.09 and Acute cystitis without hematuria N30.00 [facility] [address] 64218- 3742 Jun, [facility] [address] 43786 -2933 Jun, Left upper quadrant pain R10.12 [place] [address] [place] [address] 96630- 4376 Jun, Major depressive disorder, recurrent episode, moderate F33.1 ; Anxiety state F41.1 and Insomnia G47.00 [place] [id number] [place] [address] 99697- 9864 May, [place] [id number] [place] [address] 32667- 1319 May, [place] [id number] [place] [address] 65364- 6779 May, Depression F32.9 ; Major depressive disorder, recurrent episode, moderate F33.1 ; Multiple sclerosis G35 and Chronic pain G89.29 [place] [id number] [place] [address] 76934- 8749 May, [place] [address] 79632- 9992 Apr, Right shoulder pain M25.511 [place] [id number] [place] [address] 00339- 3062 Apr, [place] [address] 53932- 2322 Apr, Fatigue R53.83 ; Multiple sclerosis G35 ; Depression F32.9 ; Anxiety state F41.1 ; Degenerative disc disease, lumbar M51.36 ; GERD ( gastroesophageal reflux disease) K21.9 ; Insomnia G47.00 ; Environmental allergies Z91.09 and Thrush B37.0 [place] [id number] [place] [address] 90328- 3798 Apr, [address] 28906- 2220 Apr, Mixed hyperlipidemia E78.2 [place] [id number] [place] [address] 68785- 2060 Apr, [place] [address] [place] [address]- 8516 Apr, [place] [id number] [place] [address] 87193- 5379 March, Degenerative disc disease, lumbar M51.36 [place] [id number] [place] [address] 66509- 9052 March, Major depressive disorder, recurrent episode, moderate F33.1 ; Mass in neck R22.1 and Fatigue R53.83 [place] [id number] [place] [address] 43123- 9395 March, Major depressive disorder, recurrent episode, moderate F33.1 ; Anxiety F41.9 ; Insomnia G47.00 and Other long term care administrator (current) drug therapy Z79.899 [place] [id number] [place] [address] 08900- 3571 March, GERD (gastroesophageal reflux disease) K21.9 and Degenerative disc disease, lumbar M51.36 [place] [id number] [place] [address] 55824- 1607 March, GERD (gastroesophageal reflux disease) K21.9 ; Fatigue R53.83 ; Multiple sclerosis G35 ; Depression F32.9 ; Degenerative disc disease, lumbar M51.36 ; Anxiety F41.9 ; Right shoulder pain M25.511 ; Major depressive disorder, recurrent episode, moderate F33.1 and Insomnia G47.00 [place] [address] [place] [address] 72306- 9216 March, Multiple sclerosis G35 [place] [id number] [place] [address] 90974- 3173 Feb, [place] [id number] [place] [address] 56978- 6197 Feb, [place] [id number] [place] [address] 22406- 3500 Feb, Chronic pain G89.29 ; Fatigue R53.83 ; Depression F32.9 ; Degenerative disc disease, lumbar M51.36 ; Irritable bowel K58.9 ; Anxiety F41.9 ; Insomnia G47.00 and GERD (gastroesophageal reflux disease) K21.9 [facility] [id number] [place] [address] 19899- 4598 Feb, Anxiety F41.9 and Major depressive disorder, recurrent episode, moderate F33.1 [facility] [id number] [place] [address] 97276- 3427 Feb, [facility] [id number] [place] [address] 93872- 5987 30 Jan, 2016 [facility] [id number] [place] [address] 28884- 3907 Jan, Degenerative disc disease, lumbar M51.36 ; Multiple sclerosis G35 ; Fatigue R53.83 ; Depression F32.9 ; Irritable bowel K58.9 ; GERD (gastroesophageal reflux disease) K21.9 and 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 [facility] [id number] [place] [address] 95069- 9730 16 Jan, 2016 [facility] [id number] [place] [address] 09333- 7371 16 Jan, 2016 [facility] [id number] [place] [address] 22986- 1066 14 Jan, 2016 [facility] [address] [address]- 9171 14 Jan, 2016 [facility] [id number] [place] [address] 77218- 8872 14 Jan, 2016 [facility] [address] [place] [address] 45679- 0757 10 Jan, 2016 [facility] [id number] [place] [address] 04930- 6319 Jan, [facility] [address] [address]- 8023 Jan, [facility] [id number] [place] [address] 97727- 5859 Jan, [place] [id number] [place] [address] 58982- 6552 Jan, [place] [id number] [place] [address] 56813- 2420 Dec, [place] [id number] [place] [address] 29510- 0041 Dec, Major depressive disorder, recurrent episode, moderate F33.1 ; Anxiety F41.9 and Insomnia G47.00 [place] [id number] [place] [address] 60729- 7040 Dec, Lymphadenitis I88.9 ; GERD (gastroesophageal reflux disease ) K21.9 ; Multiple sclerosis G35 ; Depression F32.9 ; Degenerative disc disease , lumbar M51.36 ; Irritable bowel K58.9 ; Anxiety F41.9 ; Major depressive disorder, recurrent episode, moderate F33.1 and Insomnia G47.00 [place] [id number] [place] [address] 92319- 4180 Dec, Major depressive disorder, recurrent episode, moderate F33.1 and Anxiety state F41.1 [place] [id number] [place] [address] 01286- 1472 16 Dec, 2015 Screening breast examination Z12.39 [place] [id number] [place] [address] 36980- 4349 10 Dec, 2015 Mass in neck R22.1 ; Chronic pain G89.29 ; GERD ( gastroesophageal reflux disease) K21.9 ; Fatigue R53.83 ; Anxiety F41.9 ; Major depressive disorder, recurrent episode, moderate F33.1 ; Encounter for screening mammogram for breast cancer Z12.31 and Thrush B37.0 [place] [address] [place] [address] 81304- 6126 09 Dec, 2015 [place] [id number] [place] [address] 48542- 2800 Dec, [place] [id number] [place] [address] 36469- 2225 Nov, Major depressive disorder, recurrent episode, moderate F33.1 and Anxiety state F41.1 [place] [id number] [place] [address] 13273- 3267 15 Nov, 2015 Insomnia G47.00 [place] [address] 82511- 3268 Nov, Major depressive disorder, recurrent episode, moderate F33.1 and Anxiety state F41.1 [place] [address] 37642- 9653 Nov, [place] [address] 36352- 1948 Nov, [place] [address] 36109- 8329 Oct, GERD (gastroesophageal reflux disease) K21.9 ; Depression F32.9 and Degenerative disc disease, lumbar M51.[address] 61624- 1788 Oct, Right shoulder pain M25.511 ; Degenerative disc disease, lumbar M51.36 ; Multiple sclerosis G35 ; Fatigue R53.83 ; GERD ( gastroesophageal reflux disease) K21.9 ; Major depressive disorder, recurrent episode, moderate F33.1 ; Anxiety state F41.1 and Constipation K59.00 [place] [id number] [place] [address] 56705- 6308 Oct, Hypoglycemia E16.[address] 70105- 8902 Oct, Unspecified fall, initial encounter W19.XXXA [place] [address] 00991- 1435 08 Oct, 2015 [place] [address] 20201- 3395 Oct, Major depressive disorder, recurrent episode, moderate F33.1 and Anxiety state F41.1 [place] [address] [address]- 5936 Oct, [place] [id number] [place] [address] 88953- 7707 Oct, [place] [id number] [place] [address] 69805- 6864 Oct, Degenerative disc disease, lumbar M51.36 ; GERD ( gastroesophageal reflux disease) K21.9 ; Right shoulder pain M25.511 and Candidal vaginitis B37.3 [place] [id number] [place] [address] 94385- 0565 Sep, [place] [id number] [place] [address] 43243- 5782 Sep, GERD (gastroesophageal reflux disease) K21.9 ; Fatigue R53.83 ; Multiple sclerosis G35 ; Depression F32.9 ; Degenerative disc disease, lumbar M51.36 ; Irritable bowel K58.9 ; Anxiety F41.9 ; Right shoulder pain M25.511 and termite helper use of drug Z79.899 [place] [address] [place] [address] 71037- 8492 Sep, GERD (gastroesophageal reflux disease) K21.9 ; Fatigue R53.83 ; Multiple sclerosis G35 ; Depression F32.9 ; Degenerative disc disease, lumbar M51.36 ; Irritable bowel K58.9 ; Anxiety F41.9 and Bronchitis J40 IMMUNIZATIONS No Known Immunizations SOCIAL HISTORY Never Assessed REASON FOR VISIT Oxycodone, Oxycontin, Adderall- 09/03 PLAN OF CARE VITAL SIGNS MEDICATIONS Medication Instructions Dosage Frequency Start Date End Date Duration Status Percocet 10-325 MG Orally 3 times a day 1 tablet as needed 8h Aug, 28 days Active OxyContin 20 mg Orally every 12 hrs 1 tablet 12h Aug, 28 days Active Amphetamine-Dextroamphetamine 10 mg orally once a day 1 tablet in the morning 24h Aug, 28 days Active RESULTS No Results PROCEDURES [...] times Hospitalization History Low potassium Hospitalization History [facility] Unit for depression Hospitalization History ER visit for possible pancreatitis
--- OUTSIDE RECORDS SUMMARY | 2018-04-05 21:20 | XMS REPORT ---
Author Author PATRICK GLADYS Organization [facility] Address [address] [place] [address] Care Team Providers Care [place] Supervisor Name Role Phone GLADYS PATRICK Unavailable PROBLEMS Type Condition ICD9-CM Code [id number] Code Onset Dates Condition Status SNOMED Code Problem Thrush B37.0 Active 37149763 Problem 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 Active 83804746 Problem Chronic pain G89.29 Active 44950827 Problem Fibromyalgia M79.7 Active 317084981 Problem Anxiety F41.9 Active 79589179 Problem Dysuria R30.0 Active 63808852 Problem Family history of hypercholesterolemia Z83.49 Active 288194878 Problem Acute cystitis without hematuria N30.00 Active 70540886 Problem Mixed hyperlipidemia E78.2 Active 579490436 Problem Adverse effect of other opioids, initial encounter T40.2X5A Active 694264362 Problem Other constipation K59.09 Active 981269376433434 Problem Depression F32.9 Active 52045746 Problem Multiple sclerosis G35 Active 76565812 Problem Irritable bowel K58.9 Active 22894813 Problem Degenerative disc disease, lumbar M51.36 Active 83165831 Problem Right shoulder pain M25.511 Active 44067912 Problem Anxiety state F41.1 Active 044767690 Problem Fatigue R53.83 Active 92073040 Problem Major depressive disorder, recurrent episode, moderate F33.1 Active 647750265 Problem GERD (gastroesophageal reflux disease) K21.9 Active 708980416 Problem Insomnia G47.00 Active [id number] ALLERGIES Unknown Allergies SOCIAL HISTORY No smoking Hx information available PLAN OF CARE VITAL SIGNS MEDICATIONS Medication Instructions Dosage Frequency Start Date End Date Duration Status Morphine Sulfate ER 30 MG Orally one daily one hour before bed 1 tablet Feb, 2 Nov, 2016 28 days Active Amphetamine-Dextroamphetamine 5 mg orally once a day TAKE ONE TABLET 24h 28 days Active RESULTS No Results PROCEDURES No Known procedures IMMUNIZATIONS No Known Immunizations
--- OUTSIDE RECORDS SUMMARY | 2018-04-05 21:20 | XMS REPORT ---
Author GLADYS Romano [facility] eClinicalWorks Address Unknown Phone Unavailable Care Team Providers Care Awning Finisher Name Role Phone GLADYS PATRICK Unavailable Allergies [...] Date End Date Status Dosage Morphine Sulfate [facility] [place] [address]-23 15 MG IR Orally 2 times a day Nov 02, 2015 Jan 10, 2016 1 tablet as needed Results No Known Results Summary Purpose eClinicalWorks Submission
--- OUTSIDE RECORDS SUMMARY | 2018-04-05 21:20 | XMS REPORT ---
Author Author CYNDY SILVER [facility] Address [address] 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 Name Role Phone CYNDY SILVER Unavailable PROBLEMS Type Condition ICD9-CM Code [id number] Code Onset Dates Condition Status SNOMED Code Problem Chronic pain G89.29 Active 97329051 Problem Other constipation K59.09 Active 279087534468414 Problem Mixed hyperlipidemia E78.2 Active 699485129 Problem Constipation, unspecified constipation type K59.00 Active 88001578 Problem Anxiety F41.9 Active 26414876 Problem Fibromyalgia M79.7 Active 857068343 Problem Acute cystitis without hematuria N30.00 Active 39583191 Problem Weight gain, abnormal R63.5 Active 253677091 Problem Acute left-sided low back pain with left-sided sciatica M54.42 Active 421447965 Problem GERD (gastroesophageal reflux disease) K21.9 Active 185576796 Problem Degenerative disc disease, lumbar M51.36 Active 59273070 Problem Multiple sclerosis G35 Active 04484379 Problem Depression F32.9 Active 16883215 Problem Anxiety state F41.1 Active 720961318 Problem Major depressive disorder, recurrent episode, moderate F33.1 Active 868482800 Problem Irritable bowel K58.9 Active 80358072 Problem Insomnia G47.00 Active 126647889 Problem Fatigue R53.83 Active 87572300 Problem Thrush B37.0 Active 02718620 ALLERGIES No Information ENCOUNTERS Encounter Location Date Diagnosis [facility] [address] [facility] [id number] [address] March, [facility] [id number] [address] 94[address] March, [facility] [address] [id number] [address] 1043 Feb, [facility] [id number] [place] [address] 63138- 9633 Feb, [facility] [id number] [place] [address] 83268- 8128 Jan, Multiple sclerosis G35 ; Anxiety F41.9 and Chronic pain G89.29 [facility] [id number] [place] [address] 28316- 4595 Jan, Multiple sclerosis G35 ; Anxiety F41.9 and Insomnia G47.00 [facility] [id number] [place] [address] 15645- 7321 Jan, Multiple sclerosis G35 ; Anxiety F41.9 and Insomnia G47.00 [facility] [id number] [place] [address] 03344 -8756 Jan, Constipation, unspecified constipation type K59.00 [place] [address] 06114- 9075 Jan, [facility] [id number] [place] [address] 55542- 8005 Jan, Multiple sclerosis G35 ; Anxiety F41.9 ; Insomnia G47.00 and Chronic pain G89.29 [facility] [id number] [place] [address] 10955- 8417 Dec, [facility] [id number] [place] [address] 88638- 8746 Dec, [facility] [id number] [place] [address] 80698- 1580 Nov, Fibromyalgia M79.7 [facility] [id number] [place] [address] 86272- 2219 Nov, [facility] [id number] [place] [address] 53255- 7569 Nov, [facility] [id number] [place] [address] 73980- 9333 Nov, Fibromyalgia M79.7 [facility] [id number] [place] [address] 80897- 0312 Oct, [facility] [address] 52837- 9598 Oct, Multiple sclerosis G35 ; Depression F32.9 and Weight gain, abnormal R63.5 [facility] [address] 77300- 3662 Oct, [facility] [address] 30309- 2175 Sep, Fibromyalgia M79.7 [facility] [address] 10763- 7115 Sep, Urinary incontinence in female R32 [facility] [address] 97450- 2670 Sep, [facility] [address] 39182- 5621 Sep, [facility] [address] 96918- 4078 Sep, Hypokalemia E87.6 [facility] [address] 00391 -9782 Sep, Colitis K52.9 and Distended abdomen R14.0 [facility] [address] 67937- 8207 Sep, Fibromyalgia M79.7 [facility] [address] 48989 -2362 Aug, Epigastric pain R10.13 and Drug-induced constipation K59.03 [facility] [id number] [place] [address] 46854- 9294 Aug, Fibromyalgia M79.7 [facility] [id number] [place] [address] 80823- 6138 Jul, Fibromyalgia M79.7 [facility] [id number] [place] [address] 53472- 0094 Jul, [facility] [address] 87072- 6073 Jun, Degenerative disc disease, lumbar M51.36 [facility] [id number] [place] [address] 37988- 1103 Jun, Acute left-sided low back pain with left-sided sciatica M54.42 ; Fibromyalgia M79.7 and Other constipation K59.09 [facility] [id number] [place] [address] 43949- 5273 Jun, Acute left-sided low back pain with left-sided sciatica M54.42 [facility] [id number] [place] [address] 96030- 2468 Jun, [facility] [address] 92406- 6222 Jun, [facility] [id number] [place] [address] 99702- 2256 Jun, [facility] [id number] [place] [address] 58122- 5135 Jun, Degenerative disc disease, lumbar M51.36 [facility] [id number] [place] [address] 13681 -1866 Jun, Acute left-sided low back pain with left-sided sciatica M54.42 [facility] [id number] [place] [address] 87991- 7167 May, Degenerative disc disease, lumbar M51.36 ; Multiple sclerosis G35 ; GERD (gastroesophageal reflux disease) K21.9 ; Fatigue R53.83 ; Irritable bowel K58.9 ; Major depressive disorder, recurrent episode, moderate F33.1 ; Anxiety state F41.1 ; Thrush B37.0 ; Fibromyalgia M79.7 and Insomnia G47.00 [facility] [id number] [place] [address] 73711- 2721 May, Chronic pain G89.29 and Major depressive disorder, recurrent episode, moderate F33.1 [facility] [address] 95674- 0674 May, Degenerative disc disease, lumbar M51.36 [facility] [id number] [place] [address] 30871 -8672 May, Oral thrush B37.0 [facility] [address] 00261- 6149 May, Fatigue R53.83 and Chronic pain G89.29 [place] [address] 49790- 2566 Apr, Multiple sclerosis G35 ; Chronic pain G89.29 ; GERD ( gastroesophageal reflux disease) K21.9 ; Fatigue R53.83 ; Depression F32.9 ; Degenerative disc disease, lumbar M51.36 ; Irritable bowel K58.9 ; Insomnia G47.00 ; Mixed hyperlipidemia E78.2 ; Fibromyalgia M79.7 and Urinary incontinence in female R32 [place] [address] 07540- 4830 March, Major depressive disorder, recurrent episode, moderate F33.1 [place] [id number] [place] [address] 70400- 0843 March, Chronic pain G89.29 [place] [id number] [place] [address] 13068- 5755 March, Urinary incontinence in female R32 and Allergic conjunctivitis, right H10.11 [place] [address] 05083- 5411 March, Radicular pain M54.10 [facility] [id number] [place] [address] 91437- 1361 March, [place] [address] 44244- 4539 Jan, [facility] [address] [address]- 2908 Jan, Hypokalemia E87.6 [facility] [id number] [place] [address] 28631- 4634 Jan, Fatigue R53.83 [facility] [id number] [place] [address] 17433- 2246 Dec, [facility] [id number] [place] [address] 23296- 1761 Dec, Fatigue R53.83 [facility] [id number] [place] [address] 796200- 7606 Dec, [facility] [id number] [place] [address] 89157- 3407 Dec, [facility] [id number] [place] [address] 21308- 3578 Dec, Hypokalemia E87.6 [facility] [id number] [place] [address] 33466- 1136 Nov, GERD (gastroesophageal reflux disease) K21.9 ; Fatigue R53.83 ; Depression F32.9 ; Major depressive disorder, recurrent episode, moderate F33.1 ; Fibromyalgia M79.7 ; Other constipation K59.09 ; Primary insomnia F51.01 ; Multiple sclerosis G35 and Mixed hyperlipidemia E78.2 [facility] [id number] [place] [address] 16987- 5062 Nov, [facility] [id number] [place] [address] 94398- 0881 Nov, Degenerative disc disease, lumbar M51.36 [facility] [id number] [place] [address] 49922- 2044 Nov, [facility] [id number] [place] [address] 95988- 4602 Oct, Degenerative disc disease, lumbar M51.36 [facility] [id number] [place] [address] 13615- 7280 Oct, Fibromyalgia M79.7 ; GERD (gastroesophageal reflux disease) K21.9 ; Multiple sclerosis G35 ; Depression F32.9 ; Degenerative disc disease, lumbar M51.36 ; Irritable bowel K58.9 ; Anxiety F41.9 ; Insomnia G47.00 ; Adverse effect of other opioids, initial encounter T40.2X5A ; Other constipation K59.09 and Fatigue R53.83 [place] [address] 97477- 7711 Oct, [facility] [address] 61086 -5364 Sep, Hordeolum externum of right lower eyelid H00.012 [place] [id number] [place] [address] 00685- 0143 Sep, GERD (gastroesophageal reflux disease) K21.9 ; Fatigue R53.83 ; Depression F32.9 ; Degenerative disc disease, lumbar M51.36 ; Irritable bowel K58.9 ; Anxiety F41.9 ; Major depressive disorder, recurrent episode, moderate F33.1 ; Insomnia G47.00 ; Multiple sclerosis G35 and Chronic pain G89.29 [place] [id number] [place] [address] 70646- 2479 Sep, Fatigue R53.83 [place] [address] 15974- 2450 Sep, [place] [id number] [place] [address] 38259- 1610 Aug, GERD (gastroesophageal reflux disease) K21.9 ; Fatigue R53.83 ; Depression F32.9 ; Degenerative disc disease, lumbar M51.36 ; Irritable bowel K58.9 ; Anxiety F41.9 ; Major depressive disorder, recurrent episode, moderate F33.1 ; Anxiety state F41.1 ; Chronic pain G89.29 ; Family history of hypercholesterolemia Z83.49 ; Other constipation K59.09 ; Fibromyalgia M79.7 and Hypercholesterolemia E78.00 [facility] [id number] [place] [address] 75921- 4671 Aug, [facility] [id number] [place] [address] 11328- 6738 Aug, Epigastric pain R10.13 ; Nausea R11.0 and Other constipation K59.09 [facility] [address] 03320- 9423 Aug, [facility] [id number] [place] [address] 80836- 4994 Aug, [facility] [address] 40571- 1057 Jul, [facility] [id number] [place] [address] 75906- 4155 Jul, [facility] [address] 92288- 0993 Jun, Dysuria R30.0 ; Irritable bowel K58.9 ; Adverse effect of other opioids, initial encounter T40.2X5A ; Other constipation K59.09 and Acute cystitis without hematuria N30.00 [facility] [id number] [place] [address] 97677- 9021 Jun, [facility] [id number] [place] [address] 72938 -2269 Jun, Left upper quadrant pain R10.12 [facility] [id number] [place] [address] 71031- 9168 Jun, Major depressive disorder, recurrent episode, moderate F33.1 ; Anxiety state F41.1 and Insomnia G47.00 [facility] [id number] [place] [address] 28814- 5343 May, [facility] [id number] [place] [address] 53511- 0084 May, [facility] [id number] [place] [address] 18904- 3724 May, Depression F32.9 ; Major depressive disorder, recurrent episode, moderate F33.1 ; Multiple sclerosis G35 and Chronic pain G89.29 [place] [id number] [place] [address] 67955- 7543 May, [place] [address] 52349- 4500 Apr, Right shoulder pain M25.511 [place] [id number] [place] [address] 05895- 6463 Apr, [place] [address] 66882- 6903 Apr, Fatigue R53.83 ; Multiple sclerosis G35 ; Depression F32.9 ; Anxiety state F41.1 ; Degenerative disc disease, lumbar M51.36 ; GERD ( gastroesophageal reflux disease) K21.9 ; Insomnia G47.00 ; Environmental allergies Z91.09 and Thrush B37.0 [place] [id number] [place] [address] 27149- 1687 Apr, [place] [address] 09194- 4058 Apr, Mixed hyperlipidemia E78.2 [place] [id number] [place] [address] 44026- 0680 Apr, [place] [id number] [place] [address] 78357- 6692 Apr, [place] [id number] [place] [address] 51947- 0652 March, Degenerative disc disease, lumbar M51.36 [place] [id number] [place] [address] 58907- 6387 March, Major depressive disorder, recurrent episode, moderate F33.1 ; Mass in neck R22.1 and Fatigue R53.83 [place] [address] [place] [address]- 1069 March, Major depressive disorder, recurrent episode, moderate F33.1 ; Anxiety F41.9 ; Insomnia G47.00 and Other usp (current) drug therapy Z79.899 [place] [address] 14231- 5501 March, GERD (gastroesophageal reflux disease) K21.9 and Degenerative disc disease, lumbar M51.36 [place] [address] 78260- 8631 March, GERD (gastroesophageal reflux disease) K21.9 ; Fatigue R53.83 ; Multiple sclerosis G35 ; Depression F32.9 ; Degenerative disc disease, lumbar M51.36 ; Anxiety F41.9 ; Right shoulder pain M25.511 ; Major depressive disorder, recurrent episode, moderate F33.1 and Insomnia G47.00 [place] [address] 68779- 4362 March, Multiple sclerosis G35 [place] [address] 42967- 8263 Feb, [place] [address] 17402- 3850 Feb, [place] [address] 27483- 9974 Feb, Chronic pain G89.29 ; Fatigue R53.83 ; Depression F32.9 ; Degenerative disc disease, lumbar M51.36 ; Irritable bowel K58.9 ; Anxiety F41.9 ; Insomnia G47.00 and GERD (gastroesophageal reflux disease) K21.9 [place] [address] 25944- 4327 Feb, Anxiety F41.9 and Major depressive disorder, recurrent episode, moderate F33.1 [place] [address] 07219- 8674 Feb, [place] [address] 41556- 2314 30 Jan, 2016 [facility] [address] [address]- 6116 Jan, Degenerative disc disease, lumbar M51.36 ; Multiple sclerosis G35 ; Fatigue R53.83 ; Depression F32.9 ; Irritable bowel K58.9 ; GERD (gastroesophageal reflux disease) K21.9 and 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 [facility] [address] [address]- 4156 16 Jan, 2016 [facility] [address] [address]- 8303 16 Jan, 2016 [facility] [id number] [place] [address] 31040- 5411 Jan, [facility] [id number] [address]- 6121 Jan, [facility] [address] [address]- 3257 14 Jan, 2016 [facility] [address]- 3463 Jan, [facility] [id number] 2832 Jan, [facility] [address] [address]- 7586 Jan, [facility] [address] [address]- 0048 Jan, [facility] [address] [address]- 7656 Jan, [facility] [id number] [address]- 9526 Dec, [facility] [address] [address]- 5406 Dec, Major depressive disorder, recurrent episode, moderate F33.1 ; Anxiety F41.9 and Insomnia G47.00 [place] [id number] [place] [address] 32117- 9147 23 Dec, 2015 Lymphadenitis I88.9 ; GERD (gastroesophageal reflux disease ) K21.9 ; Multiple sclerosis G35 ; Depression F32.9 ; Degenerative disc disease , lumbar M51.36 ; Irritable bowel K58.9 ; Anxiety F41.9 ; Major depressive disorder, recurrent episode, moderate F33.1 and Insomnia G47.00 [place] [address] 84804- 8400 23 Dec, 2015 Major depressive disorder, recurrent episode, moderate F33.1 and Anxiety state F41.1 [place] [address] 58446- 8088 16 Dec, 2015 Screening breast examination Z12.[address] 53884- 7280 10 Dec, 2015 Mass in neck R22.1 ; Chronic pain G89.29 ; GERD ( gastroesophageal reflux disease) K21.9 ; Fatigue R53.83 ; Anxiety F41.9 ; Major depressive disorder, recurrent episode, moderate F33.1 ; Encounter for screening mammogram for breast cancer Z12.31 and Thrush B37.0 [place] [id number] [place] [address] 51981- 6885 09 Dec, 2015 [place] [address] 03230- 5310 04 Dec, 2015 [place] [address] 43524- 1549 Nov, Major depressive disorder, recurrent episode, moderate F33.1 and Anxiety state F41.1 [place] [address] 81794- 0920 15 Nov, 2015 Insomnia G47.00 [place] [address] 19835- 9646 14 Nov, 2015 Major depressive disorder, recurrent episode, moderate F33.1 and Anxiety state F41.1 [place] [id number] [place] [address] 54861- 4435 Nov, [place] [id number] [place] [address] 65992- 5091 Nov, [place] [id number] [place] [address] 20504- 8417 Oct, GERD (gastroesophageal reflux disease) K21.9 ; Depression F32.9 and Degenerative disc disease, lumbar M51.36 [place] [id number] [place] [address] 40865- 4695 Oct, Right shoulder pain M25.511 ; Degenerative disc disease, lumbar M51.36 ; Multiple sclerosis G35 ; Fatigue R53.83 ; GERD ( gastroesophageal reflux disease) K21.9 ; Major depressive disorder, recurrent episode, moderate F33.1 ; Anxiety state F41.1 and Constipation K59.00 [place] [id number] [place] [address] 31915- 1502 15 Oct, 2015 Hypoglycemia E16.2 [place] [address] 74486- 9902 Oct, Unspecified fall, initial encounter W19.XXXA [place] [id number] [place] [address] 24545- 4037 Oct, [place] [id number] [place] [address] 05616- 8670 Oct, Major depressive disorder, recurrent episode, moderate F33.1 and Anxiety state F41.1 [place] [id number] [place] [address] 71087- 5650 Oct, [place] [address] 53540- 2199 Oct, [place] [id number] [place] [address] 57944- 4666 Oct, GERD (gastroesophageal reflux disease) K21.9 ; Degenerative disc disease, lumbar M51.36 ; Right shoulder pain M25.511 and Candidal vaginitis B37.3 [place] [id number] [address]- 5120 Sep, [place] [id number] [address]- 9289 Sep, GERD (gastroesophageal reflux disease) K21.9 ; Fatigue R53.83 ; Multiple sclerosis G35 ; Depression F32.9 ; Degenerative disc disease, lumbar M51.36 ; Irritable bowel K58.9 ; Anxiety F41.9 ; Right shoulder pain M25.511 and FDC use of drug Z79.899 [place] [id number] [address]- 0165 Sep, GERD (gastroesophageal reflux disease) K21.9 ; Fatigue R53.83 ; Multiple sclerosis G35 ; Depression F32.9 ; Degenerative disc disease, lumbar M51.36 ; Irritable bowel K58.9 ; Anxiety F41.9 and Bronchitis J40 IMMUNIZATIONS No Known Immunizations SOCIAL HISTORY Never Assessed REASON FOR VISIT PT follow-up PLAN OF CARE Activity Details Follow Up 3 Weeks Reason:F/U PT VITAL SIGNS MEDICATIONS Unknown Medications RESULTS No Results PROCEDURES Procedure Date Ordered Result Body Site THERAPEUTIC EXERCISES June 16, 2017 INSTRUCTIONS MEDICATIONS ADMINISTERED No Known Medications [...] times Hospitalization History Low potassium Hospitalization History [facility] Unit for depression Hospitalization History ER visit for possible pancreatitis
--- OUTSIDE RECORDS SUMMARY | 2018-04-05 21:20 | XMS REPORT ---
Author Author Jonatan GLADYS Organization [facility] Address [address] [place] [address] Care Team Providers Care Tilting Head Band Sawyer Name Role Phone santiRoshanOLENA GLADYS Unavailable PROBLEMS Type Condition ICD9-CM Code UIW45-XD Code Onset Dates Condition Status SNOMED Code Problem Chronic pain G89.29 Active 12382196 Problem Other constipation K59.09 Active 142266438546987 Problem Mixed hyperlipidemia E78.2 Active 499484420 Problem Constipation, unspecified constipation type K59.00 Active 57539948 Problem Anxiety F41.9 Active 69174353 Problem Fibromyalgia M79.7 Active 988093695 Problem Acute cystitis without hematuria N30.00 Active 23099379 Problem Weight gain, abnormal R63.5 Active 769927730 Problem Acute left-sided low back pain with left-sided sciatica M54.42 Active 533826798 Problem GERD (gastroesophageal reflux disease) K21.9 Active 991054027 Problem Degenerative disc disease, lumbar M51.36 Active 72933365 Problem Multiple sclerosis G35 Active 46518028 Problem Depression F32.9 Active 01171457 Problem Anxiety state F41.1 Active 299883283 Problem Major depressive disorder, recurrent episode, moderate F33.1 Active 861474983 Problem Irritable bowel K58.9 Active 70086784 Problem Insomnia G47.00 Active 428887277 Problem Fatigue R53.83 Active 09641825 Problem Thrush B37.0 Active 25585250 ALLERGIES No Information ENCOUNTERS Encounter Location Date Diagnosis [facility] [id number], [place] [address] March, [facility] [address], [place] [address] March, [facility] [id number], [place] [address] 7275 Feb, [facility] [id number] [place] [address] 87324- 2103 Feb, [facility] [id number] [place] [address] 21038- 9664 Jan, Multiple sclerosis G35 ; Anxiety F41.9 and Chronic pain G89.29 [facility] [id number] [place] [address] 94133- 3981 Jan, Multiple sclerosis G35 ; Anxiety F41.9 and Insomnia G47.00 [facility] [id number] [place] [address] 77758- 3375 Jan, Multiple sclerosis G35 ; Anxiety F41.9 and Insomnia G47.00 [facility] [id number] [place] [address] 58881 -3692 Jan, Constipation, unspecified constipation type K59.00 [facility] [id number] [place] [address] 91656- 5260 Jan, [facility] [id number] [place] [address] 04799- 7994 Jan, Multiple sclerosis G35 ; Anxiety F41.9 ; Insomnia G47.00 and Chronic pain G89.29 [facility] [id number] [place] [address] 45062- 8310 Dec, [facility] [id number] [place] [address] 14131- 3518 Dec, [facility] [id number] [place] [address] 95904- 0021 Nov, Fibromyalgia M79.7 [facility] [id number] [place] [address] 29338- 6792 Nov, [facility] [id number] [place] [address] 22296- 5591 Nov, [facility] [id number] [place] [address] 97087- 6517 Nov, Fibromyalgia M79.7 [facility] [id number] [place] [address] 81450- 3566 Oct, [facility] [id number] [place] [address] 32448- 5842 Oct, Multiple sclerosis G35 ; Depression F32.9 and Weight gain, abnormal R63.5 [facility] [address] 11081- 7100 Oct, [facility] [address] 12020- 8891 Sep, Fibromyalgia M79.7 [facility] [address] 12609- 1363 Sep, Urinary incontinence in female R32 [address] 24715- 1479 08 Sep, 2017 [facility] [address] 32385- 3385 Sep, [facility] [address] 52297- 0262 Sep, Hypokalemia E87.6 [facility] [address] [place] [id number] [place] [address] 79584 -6143 Sep, Colitis K52.9 and Distended abdomen R14.0 [place] [id number] [place] [address] 25216- 9346 Sep, Fibromyalgia M79.7 [facility] [id number] [place] [address] 29102 -9960 Aug, Epigastric pain R10.13 and Drug-induced constipation K59.03 [facility] [id number] [place] [address] 07235- 3836 Aug, Fibromyalgia M79.7 [facility] [address] 39630- 8059 Jul, Fibromyalgia M79.7 [facility] [id number] [place] [address] 06924- 9114 Jul, [facility] [id number] [place] [address] 89834- 5175 Jun, Degenerative disc disease, lumbar M51.36 [facility] [id number] [place] [address] 07666- 6139 Jun, Acute left-sided low back pain with left-sided sciatica M54.42 ; Fibromyalgia M79.7 and Other constipation K59.09 [facility] [id number] [place] [address] 32459- 6454 Jun, Acute left-sided low back pain with left-sided sciatica M54.42 [place] [id number] [place] [address] 25376- 6663 Jun, [facility] [address] 74851- 1019 Jun, [facility] [id number] [place] [address] 08084- 9260 Jun, [facility] [id number] [place] [address] 51225- 2321 Jun, Degenerative disc disease, lumbar M51.36 [facility] [address] [place] [address] 80303 -7822 Jun, Acute left-sided low back pain with left-sided sciatica M54.42 [facility] [id number] [place] [address] 88115- 6013 May, Degenerative disc disease, lumbar M51.36 ; Multiple sclerosis G35 ; GERD (gastroesophageal reflux disease) K21.9 ; Fatigue R53.83 ; Irritable bowel K58.9 ; Major depressive disorder, recurrent episode, moderate F33.1 ; Anxiety state F41.1 ; Thrush B37.0 ; Fibromyalgia M79.7 and Insomnia G47.00 [facility] [id number] [place] [address] 83785- 5957 May, Chronic pain G89.29 and Major depressive disorder, recurrent episode, moderate F33.1 [place] [id number] [place] [address] 48004- 0972 May, Degenerative disc disease, lumbar M51.36 [facility] [address] 23190 -2259 May, Oral thrush B37.0 [place] [address] 98011- 4411 May, Fatigue R53.83 and Chronic pain G89.29 [place] [address] 62279- 5923 Apr, Multiple sclerosis G35 ; Chronic pain G89.29 ; GERD ( gastroesophageal reflux disease) K21.9 ; Fatigue R53.83 ; Depression F32.9 ; Degenerative disc disease, lumbar M51.36 ; Irritable bowel K58.9 ; Insomnia G47.00 ; Mixed hyperlipidemia E78.2 ; Fibromyalgia M79.7 and Urinary incontinence in female R32 [place] [address] 13072- 4959 March, Major depressive disorder, recurrent episode, moderate F33.1 [place] [id number] [place] [address] 23008- 8295 March, Chronic pain G89.29 [place] [address] 45779- 5304 March, Urinary incontinence in female R32 and Allergic conjunctivitis, right H10.11 [place] [address] 08827- 4487 March, Radicular pain M54.10 [place] [id number] [place] [address] 60610- 3926 March, [place] [address] 79459- 0760 Jan, [facility] [address] [place] [address] 40423- 7465 Jan, Hypokalemia E87.6 [facility] [id number] [place] [address] 22391- 7466 Jan, Fatigue R53.83 [facility] [id number] [place] [address] 13261- 3456 Dec, [facility] [id number] [place] [address] 38227- 7113 Dec, Fatigue R53.83 [facility] [id number] [place] [address] 99697- 0745 Dec, [place] [id number] [place] [address] 91984- 1118 Dec, [facility] [id number] [place] [address] 54719- 7895 Dec, Hypokalemia E87.6 [place] [id number] [place] [address] 02579- 6985 Nov, GERD (gastroesophageal reflux disease) K21.9 ; Fatigue R53.83 ; Depression F32.9 ; Major depressive disorder, recurrent episode, moderate F33.1 ; Fibromyalgia M79.7 ; Other constipation K59.09 ; Primary insomnia F51.01 ; Multiple sclerosis G35 and Mixed hyperlipidemia E78.2 [facility] [address], [place] [address]- 3053 Nov, [place] [id number] [place] [address] 44793- 2902 Nov, Degenerative disc disease, lumbar M51.36 [facility] [address], [place] [address]- 1914 Nov, [facility] [id number] [place] [address] 88261- 7451 Oct, Degenerative disc disease, lumbar M51.36 [facility] [id number] [place] [address] 52994- 9588 Oct, Fibromyalgia M79.7 ; GERD (gastroesophageal reflux disease) K21.9 ; Multiple sclerosis G35 ; Depression F32.9 ; Degenerative disc disease, lumbar M51.36 ; Irritable bowel K58.9 ; Anxiety F41.9 ; Insomnia G47.00 ; Adverse effect of other opioids, initial encounter T40.2X5A ; Other constipation K59.09 and Fatigue R53.83 [place] [id number] [place] [address] 98059- 3915 Oct, [facility] [address] [place] [address] 67172 -1499 Sep, Hordeolum externum of right lower eyelid H00.012 [id number] [place] [address] 36213- 8603 Sep, GERD (gastroesophageal reflux disease) K21.9 ; Fatigue R53.83 ; Depression F32.9 ; Degenerative disc disease, lumbar M51.36 ; Irritable bowel K58.9 ; Anxiety F41.9 ; Major depressive disorder, recurrent episode, moderate F33.1 ; Insomnia G47.00 ; Multiple sclerosis G35 and Chronic pain G89.29 [place] [id number] [place] [address] 49297- 1016 Sep, Fatigue R53.83 [place] [id number] [place] [address] 90391- 2742 Sep, [place] [id number] [place] [address] 37915- 6351 Aug, GERD (gastroesophageal reflux disease) K21.9 ; Fatigue R53.83 ; Depression F32.9 ; Degenerative disc disease, lumbar M51.36 ; Irritable bowel K58.9 ; Anxiety F41.9 ; Major depressive disorder, recurrent episode, moderate F33.1 ; Anxiety state F41.1 ; Chronic pain G89.29 ; Family history of hypercholesterolemia Z83.49 ; Other constipation K59.09 ; Fibromyalgia M79.7 and Hypercholesterolemia E78.00 [facility] [id number] [place] [address] 46873- 8089 Aug, [facility] [id number] [place] [address] 25301- 0865 Aug, Epigastric pain R10.13 ; Nausea R11.0 and Other constipation K59.09 [facility] [address] 48637- 3896 Aug, [facility] [id number] [place] [address] 85572- 4318 Aug, [facility] [id number] [place] [address] 97967- 2425 Jul, [facility] [id number] [place] [address] 13662- 5606 Jul, [facility] [id number] [place] [address] 28165- 4845 Jun, Dysuria R30.0 ; Irritable bowel K58.9 ; Adverse effect of other opioids, initial encounter T40.2X5A ; Other constipation K59.09 and Acute cystitis without hematuria N30.00 [facility] [id number] [place] [address] 29425- 6726 Jun, [facility] [id number] [place] [address] 86703 -9967 Jun, Left upper quadrant pain R10.12 [facility] [id number] [place] [address] 97362- 4980 Jun, Major depressive disorder, recurrent episode, moderate F33.1 ; Anxiety state F41.1 and Insomnia G47.00 [facility] [id number] [place] [address] 34534- 7583 May, [facility] [id number] [place] [address] 75933- 7663 May, [place] [id number] [place] [address] 07974- 9756 May, Depression F32.9 ; Major depressive disorder, recurrent episode, moderate F33.1 ; Multiple sclerosis G35 and Chronic pain G89.29 [place] [id number] [place] [address] 98758- 9771 May, [place] [address] 92219- 7551 Apr, Right shoulder pain M25.511 [place] [id number] [place] [address] 73215- 4002 Apr, [place] [id number] [place] [address] 59999- 0100 Apr, Fatigue R53.83 ; Multiple sclerosis G35 ; Depression F32.9 ; Anxiety state F41.1 ; Degenerative disc disease, lumbar M51.36 ; GERD ( gastroesophageal reflux disease) K21.9 ; Insomnia G47.00 ; Environmental allergies Z91.09 and Thrush B37.0 [place] [id number] [place] [address] 32851- 1069 Apr, [place] [id number] [place] [address] 32842- 9384 Apr, Mixed hyperlipidemia E78.2 [place] [address] [place] [address] 36675- 4919 Apr, [place] [id number] [place] [address] 34557- 6335 Apr, [place] [address] [place] [address] 01045- 1186 March, Degenerative disc disease, lumbar M51.36 [place] [id number] [place] [address] 01506- 9254 March, Major depressive disorder, recurrent episode, moderate F33.1 ; Mass in neck R22.1 and Fatigue R53.83 [place] [address] [place] [address] 68234- 7381 March, Major depressive disorder, recurrent episode, moderate F33.1 ; Anxiety F41.9 ; Insomnia G47.00 and Other mcc (current) drug therapy Z79.899 [place] [address] [place] [address] 78490- 6468 March, GERD (gastroesophageal reflux disease) K21.9 and Degenerative disc disease, lumbar M51.[address] 15332- 5917 March, GERD (gastroesophageal reflux disease) K21.9 ; Fatigue R53.83 ; Multiple sclerosis G35 ; Depression F32.9 ; Degenerative disc disease, lumbar M51.36 ; Anxiety F41.9 ; Right shoulder pain M25.511 ; Major depressive disorder, recurrent episode, moderate F33.1 and Insomnia G47.[address] 83522- 3588 March, Multiple sclerosis G35 [address] 39729- 5446 Feb, [address] 83190- 2853 Feb, [address] [id number] [place] [address] 28973- 2527 Feb, Chronic pain G89.29 ; Fatigue R53.83 ; Depression F32.9 ; Degenerative disc disease, lumbar M51.36 ; Irritable bowel K58.9 ; Anxiety F41.9 ; Insomnia G47.00 and GERD (gastroesophageal reflux disease) K21.[address] 58640- 5317 Feb, Anxiety F41.9 and Major depressive disorder, recurrent episode, moderate F33.1 [address] [id number] [place] [address] 10256- 1452 Feb, [address] [id number] [address]- 2206 30 Jan, 2016 [facility] [address] [address]- 7264 Jan, Degenerative disc disease, lumbar M51.36 ; Multiple sclerosis G35 ; Fatigue R53.83 ; Depression F32.9 ; Irritable bowel K58.9 ; GERD (gastroesophageal reflux disease) K21.9 and 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 [facility] [address], [place] [address]- 8593 16 Jan, 2016 [facility] [address]- 3944 16 Jan, 2016 [facility] [address]- 3859 14 Jan, 2016 [facility] [address], [place] [address]- 4834 Jan, [facility] [address], [place] [address]- 1795 14 Jan, 2016 [facility] [address] 1697 Jan, [facility] [address]- 6797 Jan, [facility] [address], [place] [address]- 5786 Jan, [facility] [address], [place] [address]- 6147 08 Jan, 2016 [facility] [address], [place] [address]- 9287 Jan, [facility] [address]- 4295 Dec, [facility] [address], [place] [address]- 4096 Dec, Major depressive disorder, recurrent episode, moderate F33.1 ; Anxiety F41.9 and Insomnia G47.00 [place] [address] 64319- 1631 Dec, Lymphadenitis I88.9 ; GERD (gastroesophageal reflux disease ) K21.9 ; Multiple sclerosis G35 ; Depression F32.9 ; Degenerative disc disease , lumbar M51.36 ; Irritable bowel K58.9 ; Anxiety F41.9 ; Major depressive disorder, recurrent episode, moderate F33.1 and Insomnia G47.00 [place] [address] 40580- 4210 Dec, Major depressive disorder, recurrent episode, moderate F33.1 and Anxiety state F41.[address] 73814- 2983 16 Dec, 2015 Screening breast examination Z12.[address] 22308- 6124 10 Dec, 2015 Mass in neck R22.1 ; Chronic pain G89.29 ; GERD ( gastroesophageal reflux disease) K21.9 ; Fatigue R53.83 ; Anxiety F41.9 ; Major depressive disorder, recurrent episode, moderate F33.1 ; Encounter for screening mammogram for breast cancer Z12.31 and Thrush B37.0 [place] [id number] [place] [address] 65555- 2659 09 Dec, 2015 [place] [id number] [place] [address] 06192- 8806 04 Dec, 2015 [place] [address] 40755- 4783 Nov, Major depressive disorder, recurrent episode, moderate F33.1 and Anxiety state F41.1 [place] [id number] [place] [address] 42077- 4826 Nov, Insomnia G47.[address] 31452- 8732 Nov, Major depressive disorder, recurrent episode, moderate F33.1 and Anxiety state F41.1 [place] [id number] [place] [address] 34562- 8560 Nov, [place] [id number] [place] [address] 72629- 0690 Nov, [place] [address] 26822- 4253 Oct, GERD (gastroesophageal reflux disease) K21.9 ; Depression F32.9 and Degenerative disc disease, lumbar M51.36 [place] [address] 56095- 6239 Oct, Right shoulder pain M25.511 ; Degenerative disc disease, lumbar M51.36 ; Multiple sclerosis G35 ; Fatigue R53.83 ; GERD ( gastroesophageal reflux disease) K21.9 ; Major depressive disorder, recurrent episode, moderate F33.1 ; Anxiety state F41.1 and Constipation K59.00 [place] [address] [place] [address] 61897- 8420 15 Oct, 2015 Hypoglycemia E16.2 [place] [address] 76096- 1466 Oct, Unspecified fall, initial encounter W19.XXXA [place] [id number] [place] [address] 99521- 6769 Oct, [place] [id number] [place] [address] 84926- 9931 Oct, Major depressive disorder, recurrent episode, moderate F33.1 and Anxiety state F41.1 [place] [id number] [place] [address] 88370- 5297 Oct, [place] [id number] [place] [address] 46891- 8656 Oct, [place] [id number] [place] [address] 95866- 4447 Oct, GERD (gastroesophageal reflux disease) K21.9 ; Degenerative disc disease, lumbar M51.36 ; Right shoulder pain M25.511 and Candidal vaginitis B37.3 [place] [address] [facility] [id number]- 5047 Sep, [facility] [id number] [address]- 0201 Sep, GERD (gastroesophageal reflux disease) K21.9 ; Fatigue R53.83 ; Multiple sclerosis G35 ; Depression F32.9 ; Degenerative disc disease, lumbar M51.36 ; Irritable bowel K58.9 ; Anxiety F41.9 ; Right shoulder pain M25.511 and USP use of drug Z79.899 [place] [address] [facility] [id number] [place] [address]- 4940 Sep, GERD (gastroesophageal reflux disease) K21.9 ; Fatigue R53.83 ; Multiple sclerosis G35 ; Depression F32.9 ; Degenerative disc disease, lumbar M51.36 ; Irritable bowel K58.9 ; Anxiety F41.9 and Bronchitis J40 IMMUNIZATIONS No Known Immunizations SOCIAL HISTORY Never Assessed REASON FOR VISIT Adderall PLAN OF CARE VITAL SIGNS MEDICATIONS Medication Instructions Dosage Frequency Start Date End Date Duration Status Amphetamine-Dextroamphetamine 10 mg orally once a day 1 tablet in the morning 24h 30 Active RESULTS No Results PROCEDURES No Known [...] Hospitalization History Low potassium Hospitalization History [facility] Unit for depression Hospitalization History ER visit for possible pancreatitis
--- OUTSIDE RECORDS SUMMARY | 2018-04-05 21:21 | XMS REPORT ---
Author GLADYS Romano [facility] eClinicalWorks Address Unknown Phone Unavailable Care Team Providers Care Machine Taper Name Role Phone GLADYS PATRICK Unavailable Allergies [...] Instructions Start Date End Date Status Dosage Protonix [facility] [place][NOTE 2] [address]-19 40 MG Orally Once a day Nov 05, 2015 1 tablet Results No Known Results Summary Purpose eClinicalWorks Submission
--- OUTSIDE RECORDS SUMMARY | 2018-04-05 21:21 | XMS REPORT ---
Author Author MIC DOUGHERTY Organization eClinicalWorks Address Unknown Phone Unavailable Care Team Providers Care Cinder Snapper Name Role Phone MIC DOUGHERTY CP Unavailable [...] M51.36 Active Problem Depression F32.9 Active Medications Medication Code System Code Instructions Start Date End Date Status Dosage Latuda [facility] [address]-03 60 MG Orally Once a day February 19, 2016 1 tablet with food Results No Known Results Summary Purpose eClinicalWorks Submission
--- OUTSIDE RECORDS SUMMARY | 2018-04-05 21:21 | XMS REPORT ---
Author GLADYS Romano [facility] eClinicalWorks Address Unknown Phone Unavailable Care Team Providers Care Handicraft Or Hobby Shop Manager Name Role Phone GLADYS PATRICK CP Unavailable Allergies No Known Allergies Problems Problem Type Condition Code Onset Dates Condition Status Problem Insomnia G47.00 Active Problem Chronic pain G89.29 Active Problem Thrush B37.0 Active Problem Dysuria R30.0 Active Problem Family history of hypercholesterolemia Z83.49 Active Problem Adverse effect of other opioids, initial encounter T40.2X5A Active Assessment Fatigue R53.83 Active Problem Fibromyalgia M79.7 Active Problem Mixed [...] Instructions Start Date End Date Status Dosage Lyrica [facility] [id number] 150 MG TAKE ONE CAPSULE BY MOUTH TWICE DAILY Results No Known Results Summary Purpose eClinicalWorks Submission
--- OUTSIDE RECORDS SUMMARY | 2018-04-05 21:21 | XMS REPORT ---
Author Author GLADYS PATRICK Organization [facility] Address [address] [place] [address] Care Team Providers Care Cylinder Honer Name Role Phone GIANFRANCO PATRICKNETTE Unavailable PROBLEMS Type Condition ICD9-CM Code [id number] Code Onset Dates Condition Status SNOMED Code Problem Major depressive disorder, recurrent episode, moderate F33.1 Active 309109928 Problem Thrush B37.0 Active 26135375 Problem Insomnia G47.00 Active 812200305 Problem Acute left-sided low back pain with left-sided sciatica M54.42 Active 983043152 Problem Fibromyalgia M79.7 Active 985743960 Problem Mixed hyperlipidemia E78.2 Active 749087123 Problem Chronic pain G89.29 Active 95917220 Problem Acute cystitis without hematuria N30.00 Active 86529142 Problem Other constipation K59.09 Active 204352310258414 Problem Depression F32.9 Active 14005086 Problem Degenerative disc disease, lumbar M51.36 Active 09230459 Problem Fatigue R53.83 Active 37713401 Problem GERD (gastroesophageal reflux disease) K21.9 Active 292654742 Problem Irritable bowel K58.9 Active 50505737 Problem Multiple sclerosis G35 Active 90464548 Problem Anxiety state F41.1 Active 678016306 ALLERGIES Unknown Allergies SOCIAL HISTORY No smoking Hx information available PLAN OF CARE VITAL SIGNS MEDICATIONS Unknown Medications RESULTS No Results PROCEDURES No Known procedures IMMUNIZATIONS No Known Immunizations
--- OUTSIDE RECORDS SUMMARY | 2018-04-05 21:21 | XMS REPORT ---
Author GLADYS Romano [facility] eClinicalWorks Address Unknown Phone Unavailable Care Team Providers Care Controlled Area Checker Name Role Phone GLADYS PATRICK CP Unavailable [...] Instructions Start Date End Date Status Dosage ProAir HFA [facility] [address]-06 108 (90 Base) MCG/ACT Inhalation every 4 hrs 2 puffs as needed Results No Known Results Summary Purpose eClinicalWorks Submission
--- OUTSIDE RECORDS SUMMARY | 2018-04-05 21:21 | XMS REPORT ---
Author GLADYS Romano [facility] eClinicalWorks Address Unknown Phone Unavailable Care Team Providers Care Radiologic Technology Program Director Name Role Phone GLADYS PATRICK CP Unavailable [...] Start Date End Date Status Dosage Cymbalta [facility] [address]-42 60 MG Orally Once a day 1 capsule Linzess [facility] [address]-86 145 MCG Orally Once a day Jan 27, 2016 1 capsule Tizanidine HCl [facility] [address]-62 4 MG Orally 3 times a day PRN Dec 28, 2015 1 tablet as needed Results No Known Results Summary Purpose eClinicalWorks Submission
--- OUTSIDE RECORDS SUMMARY | 2018-04-05 21:21 | XMS REPORT ---
Author Author MAHAD DIXON [facility] Address [address] [place] [address] Care Team Providers Care Supervisor Cytology Name Role Phone MAHAD DIXON Unavailable PROBLEMS Type Condition ICD9-CM Code [id number] Code Onset Dates Condition Status SNOMED Code Problem Major depressive disorder, recurrent episode, moderate F33.1 Active 868475953 Problem Thrush B37.0 Active 15454422 Problem Insomnia G47.00 Active 480900130 Problem Acute left-sided low back pain with left-sided sciatica M54.42 Active 171691884 Problem Fibromyalgia M79.7 Active 874184305 Problem Mixed hyperlipidemia E78.2 Active 065212524 Problem Chronic pain G89.29 Active 04959970 Problem Acute cystitis without hematuria N30.00 Active 12352321 Problem Other constipation K59.09 Active 687064265354075 Problem Depression F32.9 Active 19476857 Problem Degenerative disc disease, lumbar M51.36 Active 25724971 Problem Fatigue R53.83 Active 11654558 Problem GERD (gastroesophageal reflux disease) K21.9 Active 652887583 Problem Irritable bowel K58.9 Active 49274278 Problem Multiple sclerosis G35 Active 73302492 Problem Anxiety state F41.1 Active 951363580 ALLERGIES No Information SOCIAL HISTORY Never Assessed PLAN OF CARE VITAL SIGNS MEDICATIONS Medication Instructions Dosage Frequency Start Date End Date Duration Status Morphine Sulfate ER 30 MG Orally every 12 hrs 1 tablet 12h Jan, 28 days Active Morphine Sulfate 15 MG Orally 2 times a day prn break throught pain 1 tablet as needed Jan, 28 days Active Amphetamine-Dextroamphetamine 10 mg orally once a day 1 tablet in the morning 24h Jan, 28 days Active RESULTS No Results PROCEDURES [...] times Hospitalization History Low potassium Hospitalization History [facility] for depression Hospitalization History ER visit for possible pancreatitis
--- OUTSIDE RECORDS SUMMARY | 2018-04-05 21:21 | XMS REPORT ---
Author Author CELINA GLADYS Organization [facility] Address [address] [place] [address] Care Team Providers Care Seo Analyst Name Role Phone GLADYS PATRICK Unavailable PROBLEMS Type Condition ICD9-CM Code TWG59-CW Code Onset Dates Condition Status SNOMED Code Problem Major depressive disorder, recurrent episode, moderate F33.1 Active 978528703 Problem Thrush B37.0 Active 91306886 Problem Insomnia G47.00 Active 383608293 Problem Acute left-sided low back pain with left-sided sciatica M54.42 Active 491874116 Problem Fibromyalgia M79.7 Active 818940865 Problem Mixed hyperlipidemia E78.2 Active 553036414 Problem Chronic pain G89.29 Active 49595253 Problem Acute cystitis without hematuria N30.00 Active 39946354 Problem Other constipation K59.09 Active 604892409431162 Problem Depression F32.9 Active 56795927 Problem Degenerative disc disease, lumbar M51.36 Active 01676501 Problem Fatigue R53.83 Active 22092580 Problem GERD (gastroesophageal reflux disease) K21.9 Active 715490233 Problem Irritable bowel K58.9 Active 54481578 Problem Multiple sclerosis G35 Active 45724938 Problem Anxiety state F41.1 Active 484196497 ALLERGIES Substance Reaction Event Type Date Status Sulfamethoxazole Unknown Drug Allergy Oct, Active Remeron Unknown Drug Allergy Oct, Active [place] Unknown Drug Allergy Oct, Active Naproxen Unknown Drug Allergy Oct, Active Levaquin Unknown Drug Allergy Oct, Active Abilify Unknown Drug Allergy Oct, Active Adhesives, tapes, bandages Unknown Non Drug Allergy Oct, Active SOCIAL HISTORY No smoking Hx information available PLAN OF CARE Activity Details Follow Up 4 Weeks Reason:chronic pain VITAL SIGNS Height 64.0 in 2016-11-28 Weight 128.5 lbs 2016-11-28 Temperature 98.1 degrees Fahrenheit 2016-11-28 Heart Rate 72 bpm 2016-11-28 Respiratory Rate 18 2016-11-28 BMI 22.05 kg/m2 2016-11-28 Blood pressure systolic 86 mmHg 2016-11-28 Blood pressure diastolic 60 mmHg 2016-11-28 MEDICATIONS Medication Instructions Dosage Frequency Start Date End Date Duration Status Nucynta ER 100 MG Orally every 12 hrs 1 tablet 12h Oct, Nov, 30 days Active Duloxetine HCl 60 mg Orally twice a day 1 capsule 12h 30 days Active Topamax 50 mg Orally Twice a day 1 tablet 12h Active Alprazolam 0.5 MG Orally Three times a day 1 tablet 8h Active Trazodone HCl 50 mg Orally Once a day 1 tablet at bedtime 24h Active Nexium 40 mg Orally Once a day 1 capsule 24h Active Ibuprofen 800 MG Orally Three times a day 1 tablet 8h Active Lyrica 150 MG TAKE ONE CAPSULE BY MOUTH TWICE DAILY 30 Active Cymbalta 30 MG Orally Twice a day 1 capsule 12h Active Amphetamine-Dextroamphetamine 10 mg orally once a day 1 tablet in the morning 24h Oct, 30 days Active Linzess 145 MCG Orally Once a day 1 capsule 24h Active Latuda 60 MG Orally Once a day 1 tablet with food 24h 30 Active Nucynta 50 mg Orally 2 times a day 1 tablet 12h Oct, Nov, 30 days Active Zofran 4 MG Orally 4 times a day 1 tablets 6h Aug, Active Dulcolax Stool Softener 100 MG Orally twice a day 1 capsule 12h Active RESULTS No Results PROCEDURES Procedure Date Ordered Related Diagnosis Body Site FQ VISIT ESTABLISHED PATIENT Nov 28, 2016 Office Visit, Est Pt., Level 4 Nov 28, 2016 IMMUNIZATIONS No Known Immunizations
--- OUTSIDE RECORDS SUMMARY | 2018-04-05 21:22 | XMS REPORT ---
Author GLADYS Romano [facility] eClinicalWorks Address Unknown Phone Unavailable Care Team Providers Care Photographic Press Screwmaker Name Role Phone GLADYS PATRICK CP Unavailable Allergies, Adverse Reactions, Alerts Substance Reaction Event Type Sulfamethoxazole Info Not Available Drug Allergy Remeron Info Not Available Drug Allergy Foley Info Not Available Drug Allergy Naproxen Info [...] B37.0 Active Problem Insomnia G47.00 Active Assessment Major depressive disorder, recurrent episode, moderate F33.1 Active Assessment Depression F32.9 Active Assessment Chronic pain G89.29 Active Assessment Multiple sclerosis G35 Active Problem Irritable bowel K58.9 Active Problem Degenerative disc disease, lumbar M51.36 Active Problem Family history of hypercholesterolemia Z83.49 Active Problem Depression F32.9 Active Problem Anxiety F41.9 Active Problem Multiple sclerosis G35 Active Medications Medication Code System Code Instructions Start Date End Date Status Dosage Nexium [facility] [address]-97 40 mg Orally Once a day February 19, 2016 1 capsule Duloxetine HCl [facility] [address]-09 30 MG Orally Once a day (with 60mg cap) April 24, 2016 1 capsule Promethazine HCl [facility] [address]-69 25 MG Orally every 6 hrs PRN 1 tablet as needed Latuda [facility] [address]-45 80 Orally Once a day February 19, 2016 1 tablet with food Morphine Sulfate [facility] [address]-14 15 MG Orally 3 times a day March 04, 2016 1 tablet as needed Ibuprofen [facility] [address]-85 800 MG Orally Three times a day April 14, 2016 1 tablet Alprazolam [facility] [address]-07 0.5 MG Orally Three times a day 1 tablet Lyrica [facility] [address]-06 150 MG Orally Twice a day 1 capsule Topamax [facility] 83751728766 50 mg Orally Twice a day 1 tablet Morphine Sulfate ER [facility] [address]-84 30 MG Orally one daily one hour before bed March 04, 2016 1 tablet ProAir HFA [facility] [address]-32 108 (90 Base) MCG/ACT Inhalation every 4 hrs 2 puffs as needed Duloxetine HCl [facility] [address]-88 60 MG Orally Once a day (with 30mg cap) March 04, 2016 1 capsule Linzess [facility] 39640772485 145 Orally Once a day 1 capsule Trazodone HCl [facility] [address]-27 50 mg Orally Once a day Dec 14, 2015 1 tablet at bedtime as needed Amphetamine Sulfate [facility] [address]-36 5 MG Orally Once a day 1 Acyclovir [facility] [address]-26 5 % Externally every 3 hrs February 19, 2016 1 application to affected area Trilipix [facility] [address]-44 135 MG Orally Once a day May 02, 2016 1 capsule Nystatin [facility] [address]-33 484829 UNIT/ML Mouth/Throat Four times a day swish 5mL Procedures Procedure Coding System Code Date Office Visit, Est Pt., Level 4 CPT-4 90492 June 18, 2016 [facility] VISIT ESTABLISHED PATIENT CPT-4 G0467 June 18, 2016 Vital Signs Date/Time: June 18, 2016 Cardiac Monitoring Heart Rate 70 bpm Weight 119 lbs Height 64.0 in Blood Pressure Diastolic 56 mmHg Blood Pressure Systolic 84 mmHg Results No Known Results Summary Purpose eClinicalWorks Submission
--- OUTSIDE RECORDS SUMMARY | 2018-04-05 21:22 | XMS REPORT | Continuity of Care Document ---
Author Author [facility] Organization [facility] Address Unknown Phone Unavailable Allergies Active Description Code Type Severity Reaction Onset Reported/Identified Relationship to Patient Clinical Status Yes aripiprazole [id number] Drug Allergy Moderate AGITATION 04/04/2012 Yes levofloxacin [id number] Drug Allergy Moderate RASH, VOMITING 04/04/2012 Yes mirtazapine [id number] Drug Allergy Moderate AGITATION 04/04/2012 Yes naproxen C374545356 Drug Allergy Mild RASH 04/04/2012 Yes Sulfa (Sulfonamide Antibiotics) [id number] Drug Allergy Mild RASH 2011 Yes acetaminophen Q583612327 Drug Allergy Unknown N/A 10/08/2015 Yes hydrocodone [id number] Drug Allergy Unknown N/A 10/08/2015 Yes plastic tape/bandaids/adhesive plastic tape/bandaids/ adhesive Unknown N/A 10/08/2015 Medications There is no data. Problems Date Dx Coded Attending Type Code Diagnosis Diagnosed By 10/29/1505 GLADYS PATRICK [facility] Ot 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 DISC DEGENERATION, 10/29/1505 GLADYS PATRICK [facility] Ot M54.6 PAIN IN THORACIC SPINE 10/29/1505 GLADYS PATRICK [facility] Ot S29.012D STRAIN OF MUSCLE AND TENDON OF BACK WALL 04/05/2012 Ot 338.18 OTHER ACUTE POSTOPERATIVE PAIN 04/05/2012 Ot 729.5 PAIN IN LIMB 10/09/2015 OLAYINKA GA MD Ot F41.9 ANXIETY DISORDER, UNSPECIFIED 10/09/2015 OLAYINKA GA MD Ot G35 MULTIPLE SCLEROSIS 10/09/2015 OLAYINKA GA MD Ot K59.09 OTHER CONSTIPATION 10/09/2015 OLAYINKA GA MD Ot M54.9 DORSALGIA, UNSPECIFIED 10/09/2015 OLAYINKA GA MD Ot R50.2 DRUG INDUCED FEVER 10/09/2015 OLAYINKA GA MD Ot T37.5X5A ADVERSE EFFECT OF ANTIVIRAL DRUGS, INITI 10/09/2015 OLAYINKA GA MD Ot T40.605A ADVERSE EFFECT OF UNSPECIFIED NARCOTICS, 10/22/2015 MAHAD MENDOZA DO Ot D64.9 ANEMIA, UNSPECIFIED 10/22/2015 MAHAD MENDOZA DO Ot E16.2 HYPOGLYCEMIA, UNSPECIFIED 10/22/2015 MAHAD MENDOZA DO Ot E46 UNSPECIFIED PROTEIN-CALORIE MALNUTRITION 10/22/2015 MAHAD MENDOZA DO Ot E87.2 ACIDOSIS 10/22/2015 MAHAD MENDOZA DO, Ot E87.6 HYPOKALEMIA 10/22/2015 MAHAD MENDOZA DO Ot F32.9 MAJOR DEPRESSIVE DISORDER, SINGLE EPISOD 10/22/2015 MAHAD MENDOZA DO Ot G35 MULTIPLE SCLEROSIS 10/22/2015 MAHAD MENDOZA DO, Ot K21.9 GASTRO-ESOPHAGEAL REFLUX DISEASE WITHOUT 10/22/2015 MAHDA MENDOZA DO, Ot K85.0 IDIOPATHIC ACUTE PANCREATITIS 10/22/2015 MAHAD MENDOZA DO, Ot K86.1 OTHER CHRONIC PANCREATITIS 10/22/2015 MAHAD MENDOZA DO, Ot Z98.1 ARTHRODESIS STATUS 12/20/2015 GLADYS PATRICKP Ot M25.511 12/28/2015 GLADYS PATRICKP Ot M25.511 01/15/2016 GLADYS PATRICKP Ot M25.511 01/17/2016 GLADYS PATRICKP Ot R22.1 01/17/2016 GLADYS PATRICK MULESER Ot Z12.31 02/03/2016 HERMELINDA DE LA GARZA MD Ot F17.210 NICOTINE DEPENDENCE, CIGARETTES, UNCOMPL 02/03/2016 HERMELINDA DE LA GARZA MD Ot G35 MULTIPLE SCLEROSIS 02/03/2016 HERMELINDA DE LA GARZA MD Ot R10.33 PERIUMBILICAL PAIN 02/03/2016 HERMELINDA DE LA GARZA MD Ot Z87.19 PERSONAL HISTORY OF OTHER DISEASES OF TH 02/11/2016 GLADYS PATRICK MULESER Ot R22.1 02/11/2016 GLADYS PATRICKP Ot Z12.31 02/12/2016 GLADYS PATRICK MULESER Ot R22.1 02/12/2016 GLADYS PATRICK MULESER Ot Z12.31 04/07/2016 GLADYS PATRICK MULESER Ot 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 DISC DEGENERATION, 04/24/2016 GLADYS PATRICK MULESER Ot 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 DISC DEGENERATION, 05/14/2016 GLADYS PATRICK MULESER Ot M25.511 PAIN IN RIGHT SHOULDER 05/14/2016 GLADYS PATRICK MULESER Ot R22.1 LOCALIZED SWELLING, MASS AND LUMP, NECK 05/14/2016 GLADYS PATRICK MULESER Ot Z12.31 ENCNTR SCREEN MAMMOGRAM FOR MALIGNANT NE 05/14/2016 GLADYS PATRICK MULESER Ot 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 DISC DEGENERATION, 05/15/2016 GLADYS PATRICK MULESER Ot 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 DISC DEGENERATION, 06/04/2016 GLADYS PATRICK MULESER Ot 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 DISC DEGENERATION, 06/04/2016 GLADYS PATRICK MULESER Ot M54.6 PAIN IN THORACIC SPINE 06/04/2016 GLADYS PATRICK MULESER Ot S29.012D STRAIN OF MUSCLE AND TENDON OF BACK WALL 06/06/2016 GLADYS PATRICK MULESER Ot 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 DISC DEGENERATION, 06/06/2016 GLADYS PATRICK MULESER Ot M54.6 PAIN IN THORACIC SPINE 06/06/2016 PATRICE PATRICKE Jodie MULESER Ot S29.012D STRAIN OF MUSCLE AND TENDON OF BACK WALL 06/17/2016 GLADYS PATRICK MULESER Ot 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 DISC DEGENERATION, 06/17/2016 GLADYS PATRICK MULESER Ot M54.6 PAIN IN THORACIC SPINE 06/17/2016 GLADYS PATRICK MULESER Ot S29.012D STRAIN OF MUSCLE AND TENDON OF BACK WALL Procedures There is no data. Results Test Result Range CBC With Differential/Platelet - 12/29/16 12:19 WBC 10.4 x10E3/uL 3.4-10.8 RBC 4.40 x10E6/uL 3.77-5.28 Hemoglobin 13.3 g/dL 11.1-15.9 Hematocrit 39.2 % 34.0-46.6 MCV 89 fL 79-97 MCH 30.2 pg 26.6-33.0 MCHC 33.9 g/dL 31.5-35.7 RDW 14.5 % 12.3-15.4 Platelets 279 x10E3/uL 150-379 Neutrophils 66 % Lymphs 26 % Monocytes 7 % Eos 1 % Basos 0 % Neutrophils (Absolute) 6.8 x10E3/uL 1.4-7.0 Lymphs (Absolute) 2.7 x10E3/uL 0.7-3.1 Monocytes(Absolute) 0.8 x10E3/uL 0.1-0.9 Eos (Absolute) 0.1 x10E3/uL 0.0-0.4 Baso (Absolute) 0.0 x10E3/uL 0.0-0.2 Immature Granulocytes 0 % Immature Grans (Abs) 0.0 x10E3/uL 0.0-0.1 Comp. Metabolic Panel (14) - 12/29/16 12:19 Glucose, Serum 88 mg/dL 65-99 BUN 6 mg/dL 6-24 Creatinine, Serum 0.81 mg/dL 0.57-1.00 eGFR If NonAfricn Am 90 mL/min/1.73 >59 eGFR If Africn Am 104 mL/min/1.73 >59 BUN/Creatinine Ratio 7 9-23 Sodium, Serum 141 mmol/L 134-144 Potassium, Serum 3.0 mmol/L 3.5-5.2 Chloride, Serum 102 mmol/L 96-106 Carbon Dioxide, Total 20 mmol/L 18-29 Calcium, Serum 9.3 mg/dL 8.7-10.2 Protein, Total, Serum 6.3 g/dL 6.0-8.5 Albumin, Serum 4.3 g/dL 3.5-5.5 Globulin, Total 2.0 g/dL 1.5-4.5 A/G Ratio 2.2 1.1-2.5 Bilirubin, Total 0.2 mg/dL 0.0-1.2 Alkaline Phosphatase, S 112 IU/L 39-117 AST (SGOT) 22 IU/L 0-40 ALT (SGPT) 9 IU/L 0-32 Lipid Panel - 12/29/16 12:19 Cholesterol, Total 206 mg/dL 100-199 Triglycerides 305 mg/dL 0-149 HDL Cholesterol 23 mg/dL >39 VLDL Cholesterol Wilberto 61 mg/dL 5-40 LDL Cholesterol Calc 122 mg/dL 0-99 TSH - 12/29/16 12:19 TSH 1.690 uIU/mL 0.450-4.500 Comp. Metabolic Panel (14) - 02/16/17 17:00 Glucose, Serum 84 mg/dL 65-99 BUN 3 mg/dL 6-24 Creatinine, Serum 0.84 mg/dL 0.57-1.00 eGFR If NonAfricn Am 87 mL/min/1.73 >59 eGFR If Africn Am 100 mL/min/1.73 >59 BUN/Creatinine Ratio 4 9-23 Sodium, Serum 141 mmol/L 134-144 Potassium, Serum 3.2 mmol/L 3.5-5.2 Chloride, Serum 106 mmol/L 96-106 Carbon Dioxide, Total 20 mmol/L 18-29 Calcium, Serum 8.7 mg/dL 8.7-10.2 Protein, Total, Serum 5.6 g/dL 6.0-8.5 Albumin, Serum 3.9 g/dL 3.5-5.5 Globulin, Total 1.7 g/dL 1.5-4.5 A/G Ratio 2.3 1.2-2.2 Bilirubin, Total <0.2 mg/dL 0.0-1.2 Alkaline Phosphatase, S 101 IU/L 39-117 AST (SGOT) 21 IU/L 0-40 ALT (SGPT) 9 IU/L 0-32 CBC - 09/30/17 18:26 WHITE BLOOD CELL COUNT 10.5 Thousand/uL 3.8-10.8 RED BLOOD CELL COUNT 4.58 Million/uL 3.80-5.10 HEMOGLOBIN 13.2 g/dL 11.7-15.5 HEMATOCRIT 40.1 % 35.0-45.0 MCV 87.6 fL 80.0-100.0 MCH 28.8 pg 27.0-33.0 MCHC 32.9 g/dL 32.0-36.0 RDW 12.8 % 11.0-15.0 PLATELET COUNT 235 Thousand/uL 140-400 MPV 11.4 fL 7.5-12.5 ABSOLUTE NEUTROPHILS 6647 cells/uL 3311-7408 ABSOLUTE LYMPHOCYTES 2835 cells/uL 850-3900 ABSOLUTE MONOCYTES 746 cells/uL 200-950 ABSOLUTE EOSINOPHILS 231 cells/uL 15-500 ABSOLUTE BASOPHILS 42 cells/uL 0-200 NEUTROPHILS 63.3 % NRG LYMPHOCYTES 27.0 % NRG MONOCYTES 7.1 % NRG EOSINOPHILS 2.2 % NRG BASOPHILS 0.4 % NRG PDM - AMPHETAMINES W/ REFLEX d/l ISOMERS - 02/23/18 08:44 Prescribed Drug 1 Amphetamine NRG COMMENT NRG Amphetamine 4611 ng/mL <250 medMATCH Amphetamine CONSISTENT NRG Methamphetamine NEGATIVE ng/mL <250 medMATCH Methamphetamine CONSISTENT NRG Encounters ACCT No. Visit Date/Time Discharge Status Pt. Type Provider Facility Loc./Unit Complaint [id number] 06/06/2016 15:02:00 06/17/2016 15:06:00 DIS Outpatient GLADYS PATRICK [facility] REHAB DDD, LUMBAR; UPPER BACK PAIN;UPPER BACK STRAIN [id number] 05/07/2016 10:48:00 05/15/2016 12:37:00 DIS Outpatient GLADYS PATRICK [facility] RE[facility]AB [id number] 02/03/2016 09:14:00 02/03/2016 13:17:00 DIS Emergency FREDERIC MELENDEZ, HERMELINDA Mena [facility] ER [id number] 01/15/2016 11:07:00 01/15/2016 23:59:59 CLS Outpatient GLADYS PATRICK [facility] RAD [id number] 11/27/2015 10:22:00 11/27/2015 23:59:59 CLS Outpatient GLADYS PATRICK [facility] RAD [id number] 10/18/2015 14:44:00 10/22/2015 14:30:00 DIS Inpatient MAHAD MENDOZA DO [facility] [address] [id number] 10/08/2015 00:31:00 10/09/2015 10:15:00 DIS Inpatient OLAYINKA GA MD [facility] [address] [id number] 04/04/2012 22:38:00 Document Registration [id number] 12/30/2016 08:40:00 Document Registration [id number] 02/17/2017 08:35:00 Document Registration [id number] 03/31/2018 14:30:00 03/31/2018 23:59:59 [facility] Mary VERDUGO [facility] [id number] 02/23/2018 09:00:00 Document Registration [id number] 09/30/2017 17:45:00 Document Registration
[2018-04-05] MEDS ORDERED: LACTATED RINGERS 1,000 ML IV ONE (21:30)
[2018-04-05] MEDS ORDERED: ONDANSETRON 4 MG/2 ML (SDV) Z0FRAN IVP ONE ×2 (21:30→23:30)
--- NOTE | 2018-04-05 21:36 | ED GI ---
General Stated Complaint: N/V/ FOR 5 DAYS Source of Information: Patient, Family Exam Limitations: No Limitations History of Present Illness Date Seen by Provider: April 05, 2018 Time Seen by Provider: 21:20 Initial Comments The patient is a difficult historian but rather pleasant. She presents to the ER by POV describing a chief complaint of 5 days now nausea and vomiting. She called her doctor today and apparently some scripts were call out to the pharmacy for her since they couldn't see her but she has not gone to get them. She does have an appointment to see her primary care provider sometime this week to further discuss weaning of medications. She has recently switched to a new provider in the clinic and they are helping her weaning off some of her medications to include her opiates and psychoactive medications. She describes no pain except when she is vomiting. She's been having several vomit several times a day and because of that she's not been him to keep down most of her medicines. She denies any fevers but says she has had some night sweats. She is not sure if the night sweats or because of infection or if because she recently had to turn on her air conditioner because it is getting hot in the house at night. She is not been traveling outside the [facility] nor has she been drinking any suspect water or camping. No one else around her is having any similar illness. She is not having any chills, rash, cough, shortness of breath. She denies a history of irritable bowel syndrome but she says she routinely has loose soft stools so this is not new. She has a history of multiple abdominal surgeries to include appendectomy, cholecystectomy, hysterectomy 2, multiple maybe up to 5 surgeries to remove ovarian cysts, C- section. She has had a bowel movement today. She is not noting any blood in her vomitus or bowel movements. She says she's had 2 colonoscopies in the past but she's not sure why they were done and she says that they did not find polyps and does not have any mention of diverticulosis however they found a strange flap-like thing between her stomach and intestine. Allergies and Home Medications Allergies Coded Allergies: acetaminophen (Verified Allergy, Unknown, 10/08/15) hydrocodone (Verified Allergy, Unknown, 10/08/15) aripiprazole (Unverified Adverse Reaction, Intermediate, AGITATION, 04/04/12 ) levofloxacin (Unverified Adverse Reaction, Intermediate, RASH, VOMITING, ) mirtazapine (Unverified Adverse Reaction, Intermediate, AGITATION, 04/04/12) Sulfa (Sulfonamide Antibiotics) (Unverified Adverse Reaction, Mild, RASH, 04/04/12) naproxen (Unverified Adverse Reaction, Mild, RASH, 04/04/12) peginterferon beta-1a (Verified Adverse Reaction, Unknown, 04/05/18) Uncoded Allergies: plastic tape/bandaids/adhesive (Allergy, Unknown, 10/08/15) Home Medications Albuterol Sulfate 8.5 Gm Hfa.aer.ad, 8.5 GM IH Q4H Prescribed by: JHONY VERDUGO on 10/09/15 0930 Albuterol Sulfate 1 Puff Puff, 2 PUFF IH Q4H, (Reported) 1 PUFF = 90 MCG Alprazolam 0.5 Mg Tablet, 0.5 MG PO Q8H PRN for ANXIETY, (Reported) LAST FILLED 09/24/15 [facility] #30 Atorvastatin Calcium 20 Mg Tablet, 20 MG PO HS, (Reported) Dextroamphetamine/Amphetamine 10 Mg Tablet, 10 MG PO DAILY, (Reported) Duloxetine HCl 60 Mg Capsule.dr, 60 MG PO BID, (Reported) Esomeprazole Mag Trihydrate 40 Mg Capsule.dr, 40 MG PO DAILY, (Reported) Linaclotide 290 Mcg Capsule, 290 MCG PO DAILY, (Reported) Lurasidone HCl 60 Mg Tablet, 60 MG PO DAILY, (Reported) Ondansetron HCl 4 Mg Tab, 4 MG PO QID PRN for NAUSEA/VOMITING-1ST LINE, ( Reported) Oxycodone HCl 20 Mg Tab.er.12h, 20 MG PO BID, (Reported) Oxycodone HCl/Acetaminophen 1 Each Tablet, 1 TAB PO TID PRN for PAIN-MILD TO MODERATE, (Reported) Pregabalin 150 Mg Capsule, 150 MG PO Q12H, (Reported) Promethazine HCl 25 Mg Tablet, 25 MG PO Q6H PRN for NAUSEA/VOMITING, (Reported) Solifenacin Succinate 10 Mg Tablet, 10 MG PO DAILY, (Reported) Topiramate 50 Mg Tablet, 50 MG PO BID, (Reported) Trazodone HCl 50 Mg Tablet, 25 MG PO HS, (Reported) [Docqiace] , 100 MG PO BID, (Reported) Patient Home Medication List Home Medication List Reviewed: Yes Review of Systems Constitutional: No chills; diaphoresis (nocturnal); No fever, No malaise EENTM: No Blurred Vision, No Double Vision Respiratory: Denies Cough, Denies Shortness of Air Cardiovascular: Denies Chest Pain, Denies Edema, Denies Syncope Gastrointestinal: Denies Abdomen Distended; Abdominal Pain; Denies Blood Streaked Stools, Denies Constipated; Diarrhea, Nausea, Poor Appetite, Poor Fluid Intake; Denies Rectal Bleeding; Vomiting Genitourinary: Burning; Denies Discharge Musculoskeletal: No back pain, No joint pain Skin: No pruritus, No rash Psychiatric/Neurological: Denies Headache, Denies Numbness, Denies Paresthesia Past [place]nyjo-Ldpyyx Hx Patient Social History Alcohol Use: Denies Use Recreational Drug Use: No Smoking Status: Current Everyday Smoker Type Used: Cigarettes (one pack per day) Recent Foreign Travel: No Contact w/Someone Who Travel: No Immunizations Up To Date Date of Pneumonia Vaccine: Jul 31, 2010 Past Medical History Appendectomy, Section, Gallbladder, Hysterectomy, Orthopedic, Pancreatic Pneumonia, Chronic Bronchitis Currently Using CPAP: No Currently Using BIPAP: No Multiple Sclerosis Reproductive Disorders: No [employer]CH[employer]GER [employer] History: Hysterectomy Gastroesophageal Reflux, Pancreatitis Arthritis Family Medical History Alcoholism Arthritis Cardiovascular disease Colon cancer Completed stroke Coronary thrombosis Diabetes mellitus Hypertension Respiratory disorder Severe allergy Thyroid disease Visual disorder No Pertinent Family Hx Physical Exam Vital Signs Vital Signs - First Documented 04/05/18 21:15 Temp 97.6 Pulse 104 Resp 20 B/P (MAP) 108/78 (88) Pulse Ox 100 O2 Delivery Room Air Capillary Refill : General Appearance: WD/WN, no apparent distress HEENT: PERRL/EOMI, normal ENT inspection, pharynx normal Neck: non-tender, supple, normal inspection Respiratory: chest non-tender, lungs clear, normal breath sounds, no respiratory distress, no accessory muscle use Cardiovascular: normal peripheral pulses, regular rate, rhythm, no edema Peripheral Pulses: 2+ Dorsalis Pedis (R), 2+ Left Dors-Pedis (L), 2+ Radial Pulses (R), 2+ Radial Pulses (L) Gastrointestinal: normal bowel sounds, soft, no organomegaly, tenderness ( epigastric) Extremities: normal inspection, no pedal edema, no calf tenderness, normal capillary refill Back: normal inspection, no CVA tenderness, no vertebral tenderness Neurologic/Psychiatric: alert, oriented x 3, depressed affect (flat) Skin: normal color, warm/dry Progress/Results/Core Measures Results/Orders Lab Results Laboratory Tests Test 04/05/18 21:35 04/05/18 22:41 Range/Units White Blood Count 15.7 H 4.3-11.0 10^3/uL Red Blood Count 4.58 4.35-5.85 10^6/uL Hemoglobin 14.2 11.5-16.0 G/DL Hematocrit 36 35-52 % Mean Corpuscular Volume 79 L 80-99 FL Mean Corpuscular Hemoglobin 31 25-34 PG Mean Corpuscular Hemoglobin Concent 39 H 32-36 G/DL Red Cell Distribution Width 15.2 H 10.0-14.5 % Platelet Count 286 130-400 10^3/uL Mean Platelet Volume 10.8 H 7.4-10.4 FL Neutrophils (%) (Auto) 72 42-75 % Lymphocytes (%) (Auto) 20 12-44 % Monocytes (%) (Auto) 7 0-12 % Eosinophils (%) (Auto) 1 0-10 % Basophils (%) (Auto) 0 0-10 % Neutrophils # (Auto) 11.2 H 1.8-7.8 X 10^3 Lymphocytes # (Auto) 3.2 1.0-4.0 X 10^3 Monocytes # (Auto) 1.1 H 0.0-1.0 X 10^3 Eosinophils # (Auto) 0.2 0.0-0.3 10^3/uL Basophils # (Auto) 0.0 0.0-0.1 10^3/uL Neutrophils % (Manual) 73 % Lymphocytes % (Manual) 23 % Monocytes % (Manual) 2 % Eosinophils % (Manual) 1 % Basophils % (Manual) 1 % Band Neutrophils 0 % Nucleated Red Blood Cells 1 Blood Morphology Comment NORMAL Sodium Level 139 135-145 MMOL/L Potassium Level 1.7 *L 3.6-5.0 MMOL/L Chloride Level 97 L 98-107 MMOL/L Carbon Dioxide Level 27 21-32 MMOL/L Anion Gap 15 H 5-14 MMOL/L Blood Urea Nitrogen 2 L 7-18 MG/DL Creatinine 0.75 0.60-1.30 MG/DL Estimat Glomerular Filtration Rate > 60 BUN/Creatinine Ratio 3 Glucose Level 106 H 70-105 MG/DL Calcium Level 8.9 8.5-10.1 MG/DL Magnesium Level 1.4 L 1.8-2.4 MG/DL Total Bilirubin 0.5 0.1-1.0 MG/DL Aspartate Amino Transf (AST/SGOT) 69 H 5-34 U/L Alanine Aminotransferase (ALT/SGPT) 36 0-55 U/L Alkaline Phosphatase 111 40-136 U/L Troponin I < 0.30 <0.30 NG/ML C-Reactive Protein High Sensitivity 3.06 H 0.00-0.50 MG/DL Total Protein 6.4 6.4-8.2 GM/DL Albumin 3.7 3.2-4.5 GM/DL Lipase 402 H 8-78 U/L Urine Color YELLOW Urine Clarity CLEAR Urine pH 7 5-9 Urine Specific [place] 1.005 L 1.016-1.022 Urine Protein NEGATIVE NEGATIVE Urine Glucose (UA) NEGATIVE NEGATIVE Urine Ketones NEGATIVE NEGATIVE Urine Nitrite NEGATIVE NEGATIVE Urine Bilirubin NEGATIVE NEGATIVE Urine Urobilinogen NORMAL NORMAL MG/DL Urine Leukocyte Esterase NEGATIVE NEGATIVE Urine RBC (Auto) NEGATIVE NEGATIVE Urine RBC NONE /HPF Urine WBC NONE /HPF Urine Squamous Epithelial Cells 0-2 /HPF Urine Crystals NONE /LPF Urine Bacteria NONE /HPF Urine Casts NONE /LPF Urine Mucus NEGATIVE /LPF Urine Culture Indicated NO Urine Opiates Screen NEGATIVE NEGATIVE Urine Oxycodone Screen NEGATIVE NEGATIVE Urine Methadone Screen NEGATIVE NEGATIVE Urine Propoxyphene Screen NEGATIVE NEGATIVE Urine Barbiturates Screen NEGATIVE NEGATIVE Ur Tricyclic Antidepressants Screen NEGATIVE NEGATIVE Urine Phencyclidine Screen NEGATIVE NEGATIVE Urine Amphetamines Screen NEGATIVE NEGATIVE Urine Methamphetamines Screen NEGATIVE NEGATIVE Urine Benzodiazepines Screen NEGATIVE NEGATIVE Urine Cocaine Screen NEGATIVE NEGATIVE Urine Cannabinoids Screen NEGATIVE NEGATIVE My Orders Orders - MELODY QUILES Ct Abdomen/Pelvis W (04/05/18 21:26) Cbc With Automated Diff (04/05/18 21:26) Comprehensive Metabolic Panel (04/05/18 21:26) Hs C Reactive Protein (04/05/18 21:26) Drug Screen Stat (Urine) (04/05/18 21:26) Lipase (04/05/18 21:26) Magnesium (04/05/18 21:26) Troponin I (04/05/18 21:26) Ua Culture If Indicated (04/05/18 21:26) Saline Lock/Iv-Start (04/05/18 21:26) Lactated Ringers (Lr 1000 Ml Iv Solution (04/05/18 21:30) Ondansetron Injection (Zofran Injectio (04/05/18 21:30) Manual Differential (04/05/18 21:35) Iohexol Injection (Omnipaque 350 Mg/Ml 1 (04/05/18 22:30) Ns (Ivpb) (Sodium Chloride 0.9%) (04/05/18 22:30) Ondansetron Injection (Zofran Injectio (04/05/18 23:30) Potassium Cl 10meq/50ml Ivpb (Kcl 10 Meq (04/05/18 23:30) Magnesium 1 Gm/100 Ml Ivpb (Magnesium Avelar (04/05/18 23:30) Promethazine Injection (Phenergan Injec (04/05/18 23:45) Ns Iv 1000 Ml (Sodi... W/Potassium Chlor (04/05/18 23:45) Ekg Tracing (04/05/18 23:50) Saline Lock/Iv-Start (04/06/18 00:23) Ns Iv 500 Ml (Sodium Chloride 0.9%) (04/06/18 00:23) Ns Iv 500 Ml (Sodium Chloride 0.9%) (04/06/18 00:20) Ns W/Kcl 40 Meq/L (Ns Iv W/Kcl 40 Meq/L) (04/06/18 00:55) Ketorolac Injection (Toradol Injection) (04/06/18 01:30) Trazodone Tablet (Desyrel Tablet) (04/06/18 02:15) Medications Given in ED Current Medications Medications Dose Ordered Sig/Sophia Route Start Time Stop Time Status Last Admin Dose Admin Iohexol 100 ml ONCE ONCE IV 04/05/18 22:30 04/05/18 22:31 DC 04/05/18 22:30 100 ML Ketorolac Tromethamine 15 mg ONCE ONCE IVP 04/06/18 01:30 04/06/18 01:31 DC 04/06/18 01:33 15 MG Lactated Ringer's 1,000 ml @ 1,000 mls/hr ONCE ONCE IV 04/05/18 21:30 04/05/18 22:29 DC 04/05/18 21:50 1,000 MLS/HR Magnesium Sulfate/ Dextrose 100 ml @ 100 mls/hr ONCE ONCE IV 04/05/18 23:30 04/06/18 00:29 DC 04/06/18 01:38 100 MLS/HR Ondansetron HCl 4 mg ONCE ONCE IVP 04/05/18 21:30 04/05/18 21:31 DC 04/05/18 21:50 4 MG Ondansetron HCl 4 mg ONCE ONCE IVP 04/05/18 23:30 04/05/18 23:31 DC 04/05/18 23:27 4 MG Potassium Chloride/Sodium Chloride 1,000 ml @ ud STK-MED ONCE IV 04/06/18 00:55 04/06/18 00:59 DC 04/06/18 01:23 250 MLS/HR Potassium Chloride 50 ml @ 50 mls/hr ONCE ONCE IV 04/05/18 23:30 04/06/18 00:29 DC 04/06/18 00:30 50 MLS/HR Promethazine HCl 25 mg ONCE ONCE IVP 04/05/18 23:45 04/05/18 23:48 DC 04/06/18 01:24 25 MG Sodium Chloride 80 ml ONCE ONCE IV 04/05/18 22:30 04/05/18 22:31 DC 04/05/18 22:30 80 ML Sodium Chloride 500 ml @ 0 mls/hr Q0M ONCE IV 04/06/18 00:23 04/06/18 00:24 DC 04/06/18 00:40 250 MLS/HR Trazodone HCl 50 mg ONCE ONCE PO 04/06/18 02:15 04/06/18 02:16 DC 04/06/18 02:17 50 MG Vital Signs/I&O 04/05/18 04/06/18 21:15 01:33 Temp 97.6 97.6 Pulse 104 Resp 20 B/P (MAP) 108/78 (88) Pulse Ox 100 O2 Delivery Room Air 04/06/18 00:00 Intake Total 1000 ml Balance 1000 ml Progress Progress Note #1: Time: 21:38 Progress Note Medication list reveals OxyContin twice a day as well as 3 times a day oxycodone when necessary which she says she doesn't use every day but sometimes 2-3 times a day. This is one the medication she says has been weaned. No mention of a laxative. She does have a history of a mention of pancreatitis, GERD and PUD is also in the differential. Diverticulitis or bowel obstruction could also be part of the problem. Because of her difficult history and fluid answers it's hard to know whether she's obstructed with some small amount of loose stools or regular but she does not seem to describe copious amounts of watery diarrhea. We will obtain CT with contrast and give her some nausea medicine. We'll give her some IV fluids 20 mL/kg which would be 1 L. We will obtain lab work looking for inflammation or infection. Progress Note #2: Time: 23:38 Progress Note Persistent nausea without abdominal pain. This responded to Zofran but not lasting very long. Her lipase is elevated which we consistent with her history of pancreatitis. The CT doesn't show any abscess or inflammatory changes. She would probably do well with an overnight stay for some IV fluids and Zofran. I have addressed her potassium with 10 mEq of KCl IV 1. We'll give her some magnesium and more potassium on the floor. EKG obtained was unremarkable. Progress Note #3: Time: 01:27 Progress Note The patient is not having any abdominal pain but she was describing some pain in her legs and low back that is her chronic pain. We will give her some Toradol by IV. Patient was unable to give a very clear answer as to how much of the oxycodone she is using. She says she does take the OxyContin twice daily. She also has benzos prescribed to her but she has neither benzodiazepines nor opiates seen on her urine drug screen. She's had some low blood pressures documented with the patient is wiggling around complaining that the blood pressure cuff hurts when it inflates. We'll have nursing repeat a blood pressure on her leg. Her potassium is low but her calcium seems to be normal. She is mentating at baseline. She is complaining of having a difficult time sleeping without her trazodone so we have allowed her 50 mg 1. Repeat blood pressures on her leg and arm are both still looking low in the 80 systolic range. We'll start a second IV and gave her a liter bolus of saline and reevaluate. Initial ECG Impression Date: April 05, 2018 Initial ECG Impression Time: 23:56 Initial ECG Rate: 105 Initial ECG Rhythm: S.Tach Initial ECG Intervals: QT (503) Initial ECG Impression: Normal (sinus tach), Nonspecific Changes Comment Little movement artifact but the patient is not having any ST segment elevation or depression. The T waves are not very tall or tented. Diagnostic Imaging Diagonstic Imaging: CT (with IV contrast) Plain Films/CT/US/NM/MRI: abdomen, pelvis Comments No acute abnormality in the abdomen or pelvis. Compared to prior CT of September 2015 there is resolution of the peripancreatic inflammatory changes. Hepatic steatosis Status post cholecystectomy. Reviewed: Reviewed [place] Study (stat Rad), Reviewed by Me Departure Communication (Admissions) Time/Spoke to Admitting Phy: 23:55 Dr Lowe: Discussed case lab imaging findings and hypokalemia. She agrees with the plan of normal saline with 40 potassium ran in at 250 mL an hour with first bag having a 25 mg of Phenergan placed in it. Impression Primary Impression: Pancreatitis Qualified Codes: K85.90 - Acute pancreatitis without necrosis or infection, unspecified Additional Impressions: Hypokalemia Hypomagnesemia Disposition: ADMITTED INPATIENT Condition: Stable Admissions Decision to Admit Reason: Admit from ER (General) Decision to Admit/Date: April 05, 2018 Time/Decision to Admit Time: 23:55 Departure-Patient Inst. Referrals: [facility] (PCP/Family) Primary Care Physician Copy Copies To 1: SAM MARTINEZ TITUS J April 05, 2018 21:36
[2018-04-05 21:48] LABS: BASOPHILS % (AUTO) 0 % (0-10); EOSINOPHILS # (AUTO) 0.2 10^3/uL (0.0-0.3); EOSINOPHILS % (AUTO) 1 % (0-10); HEMATOCRIT 36 % (35-52); HEMOGLOBIN 14.2 G/DL (11.5-16.0); LYMPHOCYTES # (AUTO) 3.2 X 10^3 (1.0-4.0); LYMPHOCYTES % (AUTO) 20 % (12-44); MEAN CORPUSCULAR HEMOGLOBIN 31 PG (25-34); MEAN CORPUSCULAR HGB CONC 39 G/DL (32-36); MEAN CORPUSCULAR VOLUME 79 FL (80-99); MEAN PLATELET VOLUME 10.8 FL (7.4-10.4); MONOCYTES # (AUTO) 1.1 X 10^3 (0.0-1.0); MONOCYTES % (AUTO) 7 % (0-12); NEUTROPHILS # (AUTO) 11.2 X 10^3 (1.8-7.8); NEUTROPHILS % (AUTO) 72 % (42-75); PLATELET COUNT 286 10^3/uL (130-400); RED BLOOD COUNT 4.58 10^6/uL (4.35-5.85); RED CELL DISTRIBUTION WIDTH 15.2 % (10.0-14.5); WHITE BLOOD COUNT 15.7 10^3/uL (4.3-11.0)
[2018-04-05 22:11] LABS: ALANINE AMINOTRANSFERASE 36 U/L (0-55); ALBUMIN 3.7 GM/DL (3.2-4.5); ALKALINE PHOSPHATASE 111 U/L (40-136); BAND NEUTROPHILS 0 %; BASOPHILS % (MANUAL) 1 %; BILIRUBIN,TOTAL 0.5 MG/DL (0.1-1.0); BUN/CREATININE RATIO 3; CALCIUM 8.9 MG/DL (8.5-10.1); CARBON DIOXIDE 27 MMOL/L (21-32); CHLORIDE 97 MMOL/L (98-107); CREATININE SERUM 0.75 MG/DL (0.60-1.30); EOSINOPHILS % (MANUAL) 1 %; GFR ESTIMATED > 60; GLUCOSE 106 MG/DL (70-105); LIPASE 402 U/L (8-78); LYMPHOCYTES % (MANUAL) 23 %; MAGNESIUM 1.4 MG/DL (1.8-2.4); MONOCYTES % (MANUAL) 2 %; NEUTROPHILS % (MANUAL) 73 %; NUCLEATED RED BLOOD CELLS 1; RBC MORPH NORMAL; SODIUM 139 MMOL/L (135-145); TOTAL PROTEIN 6.4 GM/DL (6.4-8.2)
[2018-04-05] MEDS ORDERED: IOHEXOL 350 MG/ML 100 ML (OMNIPAQUE 350) VIAL IV ONE (22:30)
[2018-04-05] MEDS ORDERED: RT-ALBUINH IH (22:30)
[2018-04-05] MEDS ORDERED: LURA60TA2 PO (22:30)
[2018-04-05] MEDS ORDERED: [UNRECOGNIZED DRUG - OTHER] PO (22:30)
[2018-04-05] MEDS ORDERED: OXYC-465 PO (22:30)
[2018-04-05] MEDS ORDERED: ATOR20TA66 PO (22:30)
[2018-04-05] MEDS ORDERED: DEXT10TA9 PO (22:30)
[2018-04-05] MEDS ORDERED: SOLI10TA2 PO (22:30)
[2018-04-05] MEDS ORDERED: OXYC20TA54 PO (22:30)
[2018-04-05] MEDS ORDERED: TRAZ-28 PO (22:30)
[2018-04-05] MEDS ORDERED: DULO60CA58 PO (22:30)
[2018-04-05] MEDS ORDERED: NS 250 ML (IVPB) BAG IV ONE (22:30)
[2018-04-05] MEDS ORDERED: ONDN4T PO (22:30)
[2018-04-05] MEDS ORDERED: TOPI50TA13 PO (22:30)
[2018-04-05] MEDS ORDERED: LINA290C PO (22:30)
[2018-04-05 22:49] LABS: POTASSIUM 1.7 MMOL/L (3.6-5.0)
[2018-04-05 22:50] LABS: BILIRUBIN,URINE NEGATIVE (NEGATIVE); CLARITY,URINE CLEAR; COLOR,URINE YELLOW; GLUCOSE, URINE (UA) NEGATIVE (NEGATIVE); KETONES,URINE NEGATIVE (NEGATIVE); LEUKOCYTE ESTERASE ,URINE NEGATIVE (NEGATIVE); NITRITE,URINE NEGATIVE (NEGATIVE); PH,URINE 7 (5-9); PROTEIN,URINE NEGATIVE (NEGATIVE); UROBILINOGEN,URINE NORMAL (NORMAL)
[2018-04-05 22:57] LABS: SQUAMOUS EPITHELIAL CELL,UR 0-2 /HPF
[2018-04-05 23:06] LABS: AMPHETAMINE SCREEN, URINE NEGATIVE (NEGATIVE); BARBITURATE SCREEN URINE NEGATIVE (NEGATIVE); BENZODIAZEPINES SCREEN URINE NEGATIVE (NEGATIVE); CANNABINOID SCREEN, URINE NEGATIVE (NEGATIVE); COCAINE SCREEN URINE NEGATIVE (NEGATIVE); METHADONE STAT NEGATIVE (NEGATIVE); METHAMPHETAMINE SCREEN URINE S NEGATIVE (NEGATIVE); OPIATE SCREEN URINE NEGATIVE (NEGATIVE); OXYCODONE STAT NEGATIVE (NEGATIVE); PROPOXYPHENE STAT NEGATIVE (NEGATIVE); TRICYCLIC ANTIDEPRESSANTS SCRE NEGATIVE (NEGATIVE)
[2018-04-05] MEDS ORDERED: MAGNESIUM 1 GM/100 ML IVPB 100 ML IV ONE (23:30)
[2018-04-05] MEDS ORDERED: PROMETHAZINE INJ 25 MG/ML (PHENERGAN) AMP IVP ONE (23:45)
[2018-04-05] MEDS ORDERED: POTASSIUM CHLORIDE INJ 40 MEQ in NS IV 1000 ML 1,000 ML IV SCH (23:45)
[2018-04-06] MEDS: POTASSIUM CL 10MEQ/50ML IVPB 50 ML IV ONE ×2 (00:03→00:30)
[2018-04-06] MEDS ORDERED: NS IV 500 ML 500 ML ONE (00:20)
[2018-04-06] MEDS ORDERED: NS IV 500 ML 500 ML IV ONE (00:23)
[2018-04-06] MEDS: NS W/KCL 40 MEQ/L 1,000 ML IV ONE ×4 (01:23→05:18)
[2018-04-06] MEDS ORDERED: KETOROLAC 30 MG/ML VIAL IVP ONE (01:30)
[2018-04-06] MEDS ORDERED: traZODone 50 MG (DESYREL) TAB PO ONE (02:15)
[2018-04-06] MEDS ORDERED: NS IV 1000 ML 1,000 ML IV SCH (02:45)
[2018-04-06] MEDS ORDERED: fentaNYL INJECTION 100 MCG/2 ML AMP ONE (02:57)
[2018-04-06] MEDS ORDERED: fentaNYL INJECTION 100 MCG/2 ML AMP IVP ONE (03:15)
[2018-04-06] MEDS ORDERED: POTASSIUM CHLORIDE INJ 40 MEQ in NS IV 1000 ML 1,000 ML IV SCH (05:15)
--- OUTSIDE RECORDS SUMMARY | 2018-04-06 05:22 | XMS REPORT | Continuity of Care Document ---
Author Author [facility] Organization [facility] Address Unknown Phone Unavailable Allergies Active Description Code Type Severity Reaction Onset Reported/Identified Relationship to Patient Clinical Status Yes aripiprazole [id number] Drug Allergy Moderate AGITATION 04/04/2012 Yes levofloxacin [id number] Drug Allergy Moderate RASH, VOMITING 04/04/2012 Yes mirtazapine [id number] Drug Allergy Moderate AGITATION 04/04/2012 Yes naproxen [id number] Drug Allergy Mild RASH 04/04/2012 Yes Sulfa (Sulfonamide Antibiotics) [id number] Drug Allergy Mild RASH 2011 Yes acetaminophen [id number] Drug Allergy Unknown N/A 10/08/2015 Yes hydrocodone [id number] Drug Allergy Unknown N/A 10/08/2015 Yes plastic tape/bandaids/adhesive plastic tape/bandaids/ adhesive Unknown N/A 10/08/2015 Medications There is no data. Problems Date Dx Coded Attending Type Code Diagnosis Diagnosed By 10/29/1505 GLADYS PATRICK [facility] Ot 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 DISC DEGENERATION, 10/29/1505 GLADYS PATRICK [facility] Ot M54.6 PAIN IN THORACIC SPINE 10/29/1505 GLADYS PATRICK [facility] Ot S29.012D STRAIN OF MUSCLE AND [...] Ot K21.9 GASTRO-ESOPHAGEAL REFLUX DISEASE WITHOUT 10/22/2015 MAHAD MENDOZA DO, Ot K85.0 IDIOPATHIC ACUTE PANCREATITIS 10/22/2015 MAHAD MENDOZA DO, Ot K86.1 OTHER CHRONIC PANCREATITIS 10/22/2015 MAHAD MENDOZA DO, Ot Z98.1 ARTHRODESIS STATUS 12/20/2015 GLADYS PATRICKP Ot M25.511 12/28/2015 GLADYS PATRICKP Ot M25.511 01/15/2016 GLADYS PATRICKP Ot M25.511 01/17/2016 GLADYS PATRICKP Ot R22.1 01/17/2016 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 PATRICK 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 ROOM 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 Ot Z12.31 02/03/2016 HERMELINDA DE LA GARZA MD Ot F17.210 NICOTINE DEPENDENCE, CIGARETTES, UNCOMPL 02/03/2016 HERMELINDA DE LA GARZA MD Ot G35 MULTIPLE SCLEROSIS 02/03/2016 HERMELINDA DE LA GARZA MD Ot R10.33 PERIUMBILICAL PAIN 02/03/2016 HERMELINDA DE LA GARZA MD Ot Z87.19 PERSONAL HISTORY OF OTHER DISEASES OF TH 02/11/2016 GLADYS PATRICK DRY ROOM OPERATOR Ot R22.1 02/11/2016 GLADYS PATRICKP Ot Z12.31 02/12/2016 GLADYS PATRICK DRY ROOM OPERATOR Ot R22.1 02/12/2016 GLADYS PATRICK DRY ROOM OPERATOR Ot Z12.31 04/07/2016 GLADYS PATRICK DRY ROOM OPERATOR Ot 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 DISC DEGENERATION, 04/24/2016 GLADYS PATRICK DRY ROOM OPERATOR Ot 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 DISC DEGENERATION, 05/14/2016 GLADYS PATRICK DRY ROOM OPERATOR Ot M25.511 PAIN IN RIGHT SHOULDER 05/14/2016 GLADYS PATRICK DRY ROOM OPERATOR Ot R22.1 LOCALIZED SWELLING, MASS AND LUMP, NECK 05/14/2016 GLADYS PATRICK DRY ROOM OPERATOR Ot Z12.31 ENCNTR SCREEN MAMMOGRAM FOR MALIGNANT NE 05/14/2016 GLADYS PATRICK DRY ROOM OPERATOR Ot 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 DISC DEGENERATION, 05/15/2016 GLADYS PATRICK DRY ROOM OPERATOR Ot 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 DISC DEGENERATION, 06/04/2016 GLADYS PATRICK DRY ROOM OPERATOR Ot 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 DISC DEGENERATION, 06/04/2016 GLADYS PATRICK DRY ROOM OPERATOR Ot M54.6 PAIN IN THORACIC SPINE 06/04/2016 GLADYS PATRICK DRY ROOM OPERATOR Ot S29.012D STRAIN OF MUSCLE AND TENDON OF BACK WALL 06/06/2016 GLADYS PATRICK DRY ROOM OPERATOR Ot 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 DISC DEGENERATION, 06/06/2016 GLADYS PATRICK DRY ROOM OPERATOR Ot M54.6 PAIN IN THORACIC SPINE 06/06/2016 PATRICE PATRICKE Jodie DRY ROOM OPERATOR Ot S29.012D STRAIN OF MUSCLE AND TENDON OF BACK WALL 06/17/2016 GLADYS PATRICK DRY ROOM OPERATOR Ot 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 Type Provider Facility Loc./Unit Complaint [id number] 06/06/2016 15:02:00 06/17/2016 15:06:00 DIS Outpatient GLADYS PATRICK [facility] DDD, LUMBAR; UPPER BACK PAIN;UPPER BACK STRAIN [id number] 05/07/2016 10:48:00 05/15/2016 12:37:00 DIS Outpatient GLADYS PATRICK [facility] [id number] 02/03/2016 09:14:00 02/03/2016 13:17:00 DIS Emergency FREDERIC MELENDEZ, HERMELINDA Mena [facility] ER [id number] 01/15/2016 11:07:00 01/15/2016 23:59:59 CLS Outpatient GLADYS PATRICK [facility] RAD [id number] 11/27/2015 10:22:00 11/27/2015 23:59:59 CLS Outpatient GLADYS PATRICK [facility] [id number] 10/18/2015 14:44:00 10/22/2015 14:30:00 DIS Inpatient MAHAD MENDOZA DO [facility] [address] [id number] 10/08/2015 00:31:00 10/09/2015 10:15:00 DIS Inpatient OLAYINKA GA MD [facility] [address] [id number] 04/04/2012 22:38:00 Document Registration [id number] 12/30/2016 08:40:00 Document Registration [id number] 02/17/2017 08:35:00 Document Registration [id number] 03/31/2018 14:30:00 03/31/2018 23:59:59 [facility] Mary VERDUGO MD[facility] [id number] 02/23/2018 09:00:00 Document Registration [id number] 09/30/2017 17:45:00 Document Registration
[2018-04-06 05:49] LABS: BASOPHILS % (AUTO) 0 % (0-10); EOSINOPHILS # (AUTO) 0.2 10^3/uL (0.0-0.3); EOSINOPHILS % (AUTO) 2 % (0-10); HEMATOCRIT 29 % (35-52); HEMOGLOBIN 11.2 G/DL (11.5-16.0); LYMPHOCYTES # (AUTO) 3.1 X 10^3 (1.0-4.0); LYMPHOCYTES % (AUTO) 29 % (12-44); MEAN CORPUSCULAR HEMOGLOBIN 31 PG (25-34); MEAN CORPUSCULAR HGB CONC 38 G/DL (32-36); MEAN CORPUSCULAR VOLUME 81 FL (80-99); MEAN PLATELET VOLUME 10.8 FL (7.4-10.4); MONOCYTES # (AUTO) 0.7 X 10^3 (0.0-1.0); MONOCYTES % (AUTO) 6 % (0-12); NEUTROPHILS # (AUTO) 6.7 X 10^3 (1.8-7.8); NEUTROPHILS % (AUTO) 63 % (42-75); PLATELET COUNT 217 10^3/uL (130-400); RED BLOOD COUNT 3.64 10^6/uL (4.35-5.85); RED CELL DISTRIBUTION WIDTH 15.3 % (10.0-14.5); WHITE BLOOD COUNT 10.6 10^3/uL (4.3-11.0)
[2018-04-06 06:01] LABS: BUN/CREATININE RATIO 3; CALCIUM 7.1 MG/DL (8.5-10.1); CARBON DIOXIDE 23 MMOL/L (21-32); CHLORIDE 112 MMOL/L (98-107); CREATININE SERUM 0.63 MG/DL (0.60-1.30); GFR ESTIMATED > 60; GLUCOSE 100 MG/DL (70-105); MAGNESIUM 1.7 MG/DL (1.8-2.4); SODIUM 144 MMOL/L (135-145)
--- NOTE | 2018-04-06 06:13 | Diagnostic Imaging Report ---
PROCEDURE: CT abdomen and pelvis with contrast. TECHNIQUE: Multiple contiguous axial images were obtained through the abdomen and pelvis after administration of intravenous contrast. INDICATION: Abdominal pain. COMPARISON: CT abdomen and pelvis IV contrast 02/03/2016. FINDINGS: Lung bases are clear. Cholecystectomy. Reported appendectomy. The liver, pancreas, spleen, adrenals, kidneys and collecting systems are negative. The unopacified bladder is unremarkable. Hysterectomy. No free intraperitoneal air or fluid. No lymphadenopathy. No evidence of bowel obstruction. Postoperative changes in the lower lumbar spine. No acute osseous findings. IMPRESSION: No acute CT findings in the abdomen or pelvis. Dictated by: Dictated on workstation # [id number]
[2018-04-06 07:25] VITALS: BP 102/68
[2018-04-06] MEDS ORDERED: MAGNESIUM 1 GM/D5W 100 ML IVPB IV NR (07:42)
[2018-04-06] MEDS ORDERED: CATHETER FLUSH 10 ML SYR IV PRN (07:45)
[2018-04-06] MEDS ORDERED: fentaNYL INJECTION 100 MCG/2 ML AMP IV PRN (07:45)
[2018-04-06] MEDS ORDERED: POTASSIUM CL 10MEQ/50ML IVPB 50 ML IV ONE (08:09)
[2018-04-06] MEDS ORDERED: MAGNESIUM 1 GM/100 ML IVPB 100 ML IV NR (08:15)
[2018-04-06] MEDS: fentaNYL INJECTION 100 MCG/2 ML AMP IV PRN ×6 (08:19→22:42)
[2018-04-06] MEDS: POTASSIUM CL 10MEQ/50ML IVPB 50 ML IV SCH ×6 (08:20→20:15)
[2018-04-06] MEDS: KCL 20 MEQ TAB (K-DUR) PO SCH (08:26)
[2018-04-06] MEDS ORDERED: DOCU-143 PO (08:45)
[2018-04-06] MEDS ORDERED: DEXT10TA24 PO (08:45)
[2018-04-06] MEDS ORDERED: ONDA4TAB10 PO (08:45)
[2018-04-06] MEDS ORDERED: ESOM40CA52 PO (08:45)
[2018-04-06] MEDS ORDERED: ALPR0.5T7 PO (08:45)
[2018-04-06] MEDS: NS W/KCL 40 MEQ/L 1,000 ML IV SCH ×3 (10:17→18:13)
[2018-04-06] MEDS: NICOTINE 21 MG (NICODERM) PATCH TD SCH (10:54)
--- NOTE | 2018-04-06 11:28 | History & Physicial (CHS) ---
HPI History of Present Illness: 42 yo F that presented to ER with N/V x 5 days. States that she started to have some nausea 6-7 days ago. States that she had a lot of nasal drainage and feels like that it what started her vomiting. She is currently in a weaning process from her pain medications with Dr Gross. Denies any abdominal pain. Denies any blood in vomit or stool. States that she has had decreased appetite for the last couple of weeks. No sick contacts. No recent travel. Source: patient, old records Exam Limitations: no limitations Date seen by provider: April 06, 2018 Time Seen by Provider: 09:45 Attending Physician Siomara Lowe MD [facility] [place] Consult Date of Admission April 05, 2018 at 23:55 Home Medications Home Medications Reviewed patient Home Medication Reconciliation performed by pharmacy medication reconciliations supply chain technician and/or nursing. Patients Allergies have been reviewed. Allergies Coded Allergies: acetaminophen (Verified Allergy, Unknown, 10/08/15) hydrocodone (Verified Allergy, Unknown, 10/08/15) aripiprazole (Unverified Adverse Reaction, Intermediate, AGITATION, 04/04/12 ) levofloxacin (Unverified Adverse Reaction, Intermediate, RASH, VOMITING, ) mirtazapine (Unverified Adverse Reaction, Intermediate, AGITATION, 04/04/12) Sulfa (Sulfonamide Antibiotics) (Unverified Adverse Reaction, Mild, RASH, 04/04/12) naproxen (Unverified Adverse Reaction, Mild, RASH, 04/04/12) peginterferon beta-1a (Verified Adverse Reaction, Unknown, 04/05/18) Uncoded Allergies: plastic tape/bandaids/adhesive (Allergy, Unknown, 10/08/15) [facility]-Svqqts-Aenrjh Hx Patient Social History Alcohol Use: Denies Use Recreational Drug Use: No Smoking Status: Current Everyday Smoker Type Used: Cigarettes (one pack per day) 2nd Hand Smoke Exposure: Yes Recent Foreign Travel: No Contact w/other who traveled: No Recent Hopitalizations: No Recent Infectious Disease Expo: No Immunizations Up To Date Date of Pneumonia Vaccine: Jul 31, 2010 Past Medical History Past medical history 1. Multiple sclerosis treated by Dr. Bay at [facility] in [place] 2. Lumbar disc disease 3. Chronic pancreatitis 4. Depression and anxiety Past surgical history 1. Back surgery 2 with lumbar fusion in [place] [address] Aguirre 2. Hysterectomy 3. Cholecystectomy with reported "pancreatic surgery" 4. Appendectomy 5. Family Medical History Significant Family History: No Pertinent Family Hx Family History: Alcoholism Arthritis Cardiovascular disease Colon cancer Completed stroke Coronary thrombosis Diabetes mellitus Hypertension Respiratory disorder Severe allergy Thyroid disease Visual disorder Review of Systems ([facility]) Constitutional: No chills, No fever; malaise, weakness EENTM: no symptoms reported, nose congestion Respiratory: no symptoms reported; No cough, No dyspnea on exertion, No short of breath Cardiovascular: no symptoms reported; No chest pain, No edema, No palpitations Gastrointestinal: abdominal pain; No constipation, No diarrhea, No dysphagia, No hematemesis; loss of appetite, nausea, vomiting Genitourinary: no symptoms reported; No dysuria, No frequency, No hematuria : No Musculoskeletal: back pain (chronic back pain); No joint pain, No joint swelling Skin: no symptoms reported; No lesions, No rash Psychiatric/Neurological: Anxiety, Depressed, Weakness Reviewed Test Results Reviewed Test Results Lab Laboratory Tests Test 04/05/18 21:35 04/05/18 22:41 04/06/18 05:30 Range/Units White Blood Count 15.7 H 10.6 4.3-11.0 10^3/uL Red Blood Count 4.58 3.64 L 4.35-5.85 10^6/uL Hemoglobin 14.2 11.2 #L 11.5-16.0 G/DL Hematocrit 36 29 L 35-52 % Mean Corpuscular Volume 79 L 81 80-99 FL Mean Corpuscular Hemoglobin 31 31 25-34 PG Mean Corpuscular Hemoglobin Concent 39 H 38 H 32-36 G/DL Red Cell Distribution Width 15.2 H 15.3 H 10.0-14.5 % Platelet Count 286 217 130-400 10^3/uL Mean Platelet Volume 10.8 H 10.8 H 7.4-10.4 FL Neutrophils (%) (Auto) 72 63 42-75 % Lymphocytes (%) (Auto) 20 29 12-44 % Monocytes (%) (Auto) 7 6 0-12 % Eosinophils (%) (Auto) 1 2 0-10 % Basophils (%) (Auto) 0 0 0-10 % Neutrophils # (Auto) 11.2 H 6.7 1.8-7.8 X 10^3 Lymphocytes # (Auto) 3.2 3.1 1.0-4.0 X 10^3 Monocytes # (Auto) 1.1 H 0.7 0.0-1.0 X 10^3 Eosinophils # (Auto) 0.2 0.2 0.0-0.3 10^3/uL Basophils # (Auto) 0.0 0.0 0.0-0.1 10^3/uL Neutrophils % (Manual) 73 % Lymphocytes % (Manual) 23 % Monocytes % (Manual) 2 % Eosinophils % (Manual) 1 % Basophils % (Manual) 1 % Band Neutrophils 0 % Nucleated Red Blood Cells 1 Blood Morphology Comment NORMAL Sodium Level 139 144 135-145 MMOL/L Potassium Level 1.7 *L 2.0 *L 3.6-5.0 MMOL/L Chloride Level 97 L 112 #H 98-107 MMOL/L Carbon Dioxide Level 27 23 21-32 MMOL/L Anion Gap 15 H 9 5-14 MMOL/L Blood Urea Nitrogen 2 L 2 L 7-18 MG/DL Creatinine 0.75 0.63 0.60-1.30 MG/DL Estimat Glomerular Filtration Rate > 60 > 60 BUN/Creatinine Ratio 3 3 Glucose Level 106 H 100 70-105 MG/DL Calcium Level 8.9 7.1 L 8.5-10.1 MG/DL Magnesium Level 1.4 L 1.7 L 1.8-2.4 MG/DL Total Bilirubin 0.5 0.1-1.0 MG/DL Aspartate Amino Transf (AST/SGOT) 69 H 5-34 U/L Alanine Aminotransferase (ALT/SGPT) 36 0-55 U/L Alkaline Phosphatase 111 40-136 U/L Troponin I < 0.30 <0.30 NG/ML C-Reactive Protein High Sensitivity 3.06 H 0.00-0.50 MG/DL Total Protein 6.4 6.4-8.2 GM/DL Albumin 3.7 3.2-4.5 GM/DL Lipase 402 H 8-78 U/L Urine Color YELLOW Urine Clarity CLEAR Urine pH 7 5-9 Urine Specific Rake 1.005 L 1.016-1.022 Urine Protein NEGATIVE NEGATIVE Urine Glucose (UA) NEGATIVE NEGATIVE Urine Ketones NEGATIVE NEGATIVE Urine Nitrite NEGATIVE NEGATIVE Urine Bilirubin NEGATIVE NEGATIVE Urine Urobilinogen NORMAL NORMAL MG/DL Urine Leukocyte Esterase NEGATIVE NEGATIVE Urine RBC (Auto) NEGATIVE NEGATIVE Urine RBC NONE /HPF Urine WBC NONE /HPF Urine Squamous Epithelial Cells 0-2 /HPF Urine Crystals NONE /LPF Urine Bacteria NONE /HPF Urine Casts NONE /LPF Urine Mucus NEGATIVE /LPF Urine Culture Indicated NO Urine Opiates Screen NEGATIVE NEGATIVE Urine Oxycodone Screen NEGATIVE NEGATIVE Urine Methadone Screen NEGATIVE NEGATIVE Urine Propoxyphene Screen NEGATIVE NEGATIVE Urine Barbiturates Screen NEGATIVE NEGATIVE Ur Tricyclic Antidepressants Screen NEGATIVE NEGATIVE Urine Phencyclidine Screen NEGATIVE NEGATIVE Urine Amphetamines Screen NEGATIVE NEGATIVE Urine Methamphetamines Screen NEGATIVE NEGATIVE Urine Benzodiazepines Screen NEGATIVE NEGATIVE Urine Cocaine Screen NEGATIVE NEGATIVE Urine Cannabinoids Screen NEGATIVE NEGATIVE Radiology Date of Exam:04/05/18 CT ABDOMEN/PELVIS W PROCEDURE: CT abdomen and pelvis with contrast. TECHNIQUE: Multiple contiguous axial images were obtained through the abdomen and pelvis after administration of intravenous contrast. INDICATION: Abdominal pain. COMPARISON: CT abdomen and pelvis IV contrast 02/03/2016. FINDINGS: Lung bases are clear. Cholecystectomy. Reported appendectomy. The liver, pancreas, spleen, adrenals, kidneys and collecting systems are negative. The unopacified bladder is unremarkable. Hysterectomy. No free intraperitoneal air or fluid. No lymphadenopathy. No evidence of bowel obstruction. Postoperative changes in the lower lumbar spine. No acute osseous findings. IMPRESSION: No acute CT findings in the abdomen or pelvis. Physical Exam-([facility]) Physical Exam Vital Signs VS - Last 72 Hours, by Label 04/05/18 04/06/18 04/06/18 04/06/18 21:15 01:33 07:20 07:56 Temp 97.6 97.6 Pulse 104 102 101 Resp 20 18 B/P (MAP) 108/78 (88) 92/56 Pulse Ox 100 98 O2 Delivery Room Air Room Air Capillary Refill : Less Than 3 Seconds General Appearance: WD/WN, no apparent distress HEENT: PERRL/EOMI Neck: non-tender, full range of motion, supple Respiratory: chest non-tender, lungs clear, normal breath sounds, no respiratory distress, no accessory muscle use Cardiovascular: normal peripheral pulses, regular rate, rhythm, no murmur Gastrointestinal: normal bowel sounds, soft, no organomegaly; No distended, No guarding; tenderness (mild tenderness in epigastric region) Extremities: normal range of motion, non-tender, no pedal edema, no calf tenderness Neurologic/Psychiatric: futures trader II-XII nml as tested, no motor/sensory deficits, alert, normal mood/affect, oriented x 3 Skin: normal color, warm/dry Lymphatic: no adenopathy Assessment/Plan Assessment/Plan Admission Status: Inpatient Order (span 2 midnights) Reason for Inpatient Admission: NPO requiring IVFs (1) Acute on chronic pancreatitis Status: Acute Assessment & Plan: - Patient denies EtOH use and has had Cholecystectomy, will get lipid panel to look for causes of pancreatitis - NPO, IVFs decreased to 125 this AM - Repeat labs in AM (2) Hypokalemia, gastrointestinal losses Status: Acute Assessment & Plan: - High dose replacement, repeat BMP 1 hr after infusion given - Continue Tele - Discussed the risk of arrhythmia and when to report symptoms to nurse (3) Hypomagnesemia Status: Acute Assessment & Plan: - Replaced will repeat level this afternoon (4) Nausea & vomiting Status: Acute Assessment & Plan: - Improved since arriving Qualifiers: (5) Chronic pain Status: Chronic Assessment & Plan: - Currently undergoing titration with Dr Gross @ [facility] Qualifiers: Qualified Codes: G89.4 - Chronic pain syndrome (6) Multiple sclerosis Status: Chronic Copy Copies To 1: LUIZ GROSS MD, HOLLY R MD April 06, 2018 11:28
[2018-04-06 12:30] VITALS: BP 97/59
[2018-04-06 15:50] VITALS: BP 100/67
[2018-04-06] MEDS: ONDANSETRON 4 MG/2 ML (SDV) Z0FRAN IV PRN (15:56)
[2018-04-06] MEDS: KETOROLAC 15 MG/ML VIAL IV PRN (15:56)
[2018-04-06] MEDS ORDERED: KCL 20 MEQ TAB (K-DUR) PO ONE (18:45)
[2018-04-06 20:00] VITALS: BP 103/71
[2018-04-07] VITALS: BP 113/76
[2018-04-07] MEDS: KETOROLAC 15 MG/ML VIAL IV PRN ×2 (00:04→14:41)
[2018-04-07 00:11] LABS: ALANINE AMINOTRANSFERASE 49 U/L (0-55); ALBUMIN 2.9 GM/DL (3.2-4.5); ALKALINE PHOSPHATASE 82 U/L (40-136); BILIRUBIN,TOTAL 0.6 MG/DL (0.1-1.0); BUN/CREATININE RATIO 3; CALCIUM 7.1 MG/DL (8.5-10.1); CARBON DIOXIDE 18 MMOL/L (21-32); CHLORIDE 119 MMOL/L (98-107); GFR ESTIMATED > 60; GLUCOSE 92 MG/DL (70-105); SODIUM 148 MMOL/L (135-145); TOTAL PROTEIN 4.5 GM/DL (6.4-8.2)
[2018-04-07 00:19] LABS: POTASSIUM 2.5 MMOL/L (3.6-5.0)
[2018-04-07] MEDS: KCL 20 MEQ TAB (K-DUR) PO ONE ×2 (00:30→00:33)
[2018-04-07] MEDS: ONDANSETRON 4 MG/2 ML (SDV) Z0FRAN IV PRN (00:33)
[2018-04-07] MEDS ORDERED: 1/2 NS IV SOLUTION 0 ML IV ONE (00:52)
[2018-04-07] MEDS: POTASSIUM CL 10MEQ/50ML IVPB 50 ML IV SCH ×8 (01:19→05:52)
[2018-04-07] MEDS: fentaNYL INJECTION 100 MCG/2 ML AMP IV PRN ×6 (02:21→13:13)
[2018-04-07] MEDS ORDERED: KCL 20 MEQ TAB (K-DUR) PO ONE ×2 (03:00)
[2018-04-07] MEDS: KCL 20 MEQ TAB (K-DUR) PO SCH (03:25)
[2018-04-07 04:00] VITALS: BP 101/71
[2018-04-07] MEDS: NS W/KCL 40 MEQ/L 1,000 ML IV SCH ×2 (06:24→10:21)
[2018-04-07 07:53] LABS: BASOPHILS % (AUTO) 0 % (0-10); EOSINOPHILS # (AUTO) 0.2 10^3/uL (0.0-0.3); EOSINOPHILS % (AUTO) 3 % (0-10); HEMATOCRIT 27 % (35-52); HEMOGLOBIN 9.7 G/DL (11.5-16.0); LYMPHOCYTES # (AUTO) 2.1 X 10^3 (1.0-4.0); LYMPHOCYTES % (AUTO) 28 % (12-44); MEAN CORPUSCULAR HEMOGLOBIN 31 PG (25-34); MEAN CORPUSCULAR HGB CONC 36 G/DL (32-36); MEAN CORPUSCULAR VOLUME 84 FL (80-99); MEAN PLATELET VOLUME 10.5 FL (7.4-10.4); MONOCYTES # (AUTO) 0.5 X 10^3 (0.0-1.0); MONOCYTES % (AUTO) 6 % (0-12); NEUTROPHILS # (AUTO) 4.8 X 10^3 (1.8-7.8); NEUTROPHILS % (AUTO) 63 % (42-75); PLATELET COUNT 187 10^3/uL (130-400); RED BLOOD COUNT 3.18 10^6/uL (4.35-5.85); RED CELL DISTRIBUTION WIDTH 15.8 % (10.0-14.5); WHITE BLOOD COUNT 7.7 10^3/uL (4.3-11.0)
[2018-04-07 08:05] LABS: BUN/CREATININE RATIO 3; CALCIUM 6.7 MG/DL (8.5-10.1); CARBON DIOXIDE 19 MMOL/L (21-32); CHLORIDE 121 MMOL/L (98-107); CREATININE SERUM 0.58 MG/DL (0.60-1.30); GFR ESTIMATED > 60; GLUCOSE 92 MG/DL (70-105); MAGNESIUM 1.8 MG/DL (1.8-2.4); PHOSPHORUS 1.5 MG/DL (2.3-4.7); POTASSIUM 3.5 MMOL/L (3.6-5.0); SODIUM 148 MMOL/L (135-145)
[2018-04-07] MEDS: NICOTINE 21 MG (NICODERM) PATCH TD SCH (08:06)
[2018-04-07 08:09] VITALS: BP 102/72
[2018-04-07] MEDS ORDERED: NICOTINE PATCH REMOVAL TP SCH (08:59)
[2018-04-07] MEDS ORDERED: KCL 20 MEQ TAB (K-DUR) PO NR (10:00)
[2018-04-07 14:09] VITALS: BP 108/76
--- NOTE | 2018-04-07 15:02 | Progress Note (SOAP) ---
Subjective Subjective/Events-last exam Patient states that she is feeling better this AM and would like to try CLD. Potassium has improved. She tolerated PO potassium replacement overnight due to IV burning. States that she would like to go home today. Review of Systems Date Seen by Provider: April 07, 2018 Time Seen by Provider: 10:45 Pulmonary: No Dyspnea, No Cough Cardiovascular: No: Chest Pain, Palpitations Gastrointestinal: Nausea; No: Vomiting, Abdominal Pain Genitourinary: No Dysuria, No Incontinence Neurological: Other (+ anxiety) Objective Exam Last Set of Vital Signs Vital Signs Date Time Temp Pulse Resp B/P (MAP) Pulse Ox O2 Delivery O2 Flow Rate FiO2 04/07/18 14:09 98.6 99 22 108/76 (87) 99 Room Air Capillary Refill : Less Than 3 Seconds I&O Intake and Output 04/07/18 00:00 Intake Total 5200 ml Balance 5200 ml Intake Oral 200 ml IV Total 5000 ml # Voids 6 # Bowel Movements 4 Daily Weight Change No General: Alert, Oriented X3, Cooperative, No Acute Distress Lungs: Clear to Auscultation, Normal Air Movement Heart: Regular Rate, No Murmurs Abdomen: Normal Bowel Sounds, Soft, No Tenderness, No Hepatosplenomegaly, No Masses Extremities: No Edema, No Tenderness/Swelling Results/Procedures Lab Laboratory Tests 04/06/18 23:42: Sodium Level 148H, Potassium Level 2.5*L, Chloride Level 119H, Carbon Dioxide Level 18L, Anion Gap 11, Blood Urea Nitrogen 2L, Creatinine 0.60, Estimat Glomerular Filtration Rate > 60, BUN/Creatinine Ratio 3, Glucose Level 92, Calcium Level 7.1L, Total Bilirubin 0.6, Aspartate Amino Transf (AST/SGOT) 184H , Alanine Aminotransferase (ALT/SGPT) 49, Alkaline Phosphatase 82, Total Protein 4.5L, Albumin 2.9L 04/07/18 07:35: Sodium Level 148H, Potassium Level 3.5L, Chloride Level 121H, Carbon Dioxide Level 19L, Anion Gap 8, Blood Urea Nitrogen 2L, Creatinine 0.58L, Estimat Glomerular Filtration Rate > 60, BUN/Creatinine Ratio 3, Glucose Level 92, Calcium Level 6.7L, White Blood Count 7.7, Red Blood Count 3.18L, Hemoglobin 9.7L, Hematocrit 27L, Mean Corpuscular Volume 84, Mean Corpuscular Hemoglobin 31 , Mean Corpuscular Hemoglobin Concent 36, Red Cell Distribution Width 15.8H, Platelet Count 187, Mean Platelet Volume 10.5H, Neutrophils (%) (Auto) 63, Lymphocytes (%) (Auto) 28, Monocytes (%) (Auto) 6, Eosinophils (%) (Auto) 3, Basophils (%) (Auto) 0, Neutrophils # (Auto) 4.8, Lymphocytes # (Auto) 2.1, Monocytes # (Auto) 0.5, Eosinophils # (Auto) 0.2, Basophils # (Auto) 0.0, Phosphorus Level 1.5L, Magnesium Level 1.8 Radiology Date of Exam:04/05/18 CT ABDOMEN/PELVIS W PROCEDURE: CT abdomen and pelvis with contrast. TECHNIQUE: Multiple contiguous axial images were obtained through the abdomen and pelvis after administration of intravenous contrast. INDICATION: Abdominal pain. COMPARISON: CT abdomen and pelvis IV contrast 02/03/2016. FINDINGS: Lung bases are clear. Cholecystectomy. Reported appendectomy. The liver, pancreas, spleen, adrenals, kidneys and collecting systems are negative. The unopacified bladder is unremarkable. Hysterectomy. No free intraperitoneal air or fluid. No lymphadenopathy. No evidence of bowel obstruction. Postoperative changes in the lower lumbar spine. No acute osseous findings. IMPRESSION: No acute CT findings in the abdomen or pelvis. Assessment/Plan Assessment/Plan Admission Status: Inpatient Order (span 2 midnights) (1) Acute on chronic pancreatitis Status: Acute Assessment & Plan: - Patient denies EtOH use and has had Cholecystectomy, will get lipid panel to look for causes of pancreatitis - NPO, IVFs decreased to 125 this AM - Repeat labs in AM 04/07: Will advance diet as tolerated, if patient does well will send home. She will benefit from outpatient EGD (2) Hypokalemia, gastrointestinal losses Status: Acute Assessment & Plan: - High dose replacement, repeat BMP 1 hr after infusion given - Continue Tele - Discussed the risk of arrhythmia and when to report symptoms to nurse 04/07: 3.5 today, PO replacement, no further vomiting (3) Hypomagnesemia Status: Acute Assessment & Plan: - Replaced will repeat level this afternoon 04/07: Resolved (4) Nausea & vomiting Status: Resolved Qualifiers: (5) Chronic pain Status: Chronic Assessment & Plan: - Currently undergoing titration with Dr Munoz @ [facility], will not prescribe narcotics for home use Qualifiers: Qualified Codes: G89.4 - Chronic pain syndrome (6) Multiple sclerosis Status: Chronic Clinical Quality Measures DVT/VTE Risk/Contraindication: Risk Factor Score Per Nursin RFS Level Per Nursing on Admit: 3=High ASHANTI BONE MD April 07, 2018 15:02
[2018-04-07 16:00] VITALS: BP 101/64
--- OUTSIDE RECORDS SUMMARY | 2018-04-15 08:40 | XMS REPORT | Continuity of Care Document ---
Author Author [facility] Organization [facility] Address Unknown Phone Unavailable Allergies Active Description Code Type Severity Reaction Onset Reported/Identified Relationship to Patient Clinical Status Yes aripiprazole [id number] Drug Allergy Moderate AGITATION 04/04/2012 Yes levofloxacin [id number] Drug Allergy Moderate RASH, VOMITING 04/04/2012 Yes mirtazapine [id number] Drug Allergy Moderate AGITATION 04/04/2012 Yes naproxen [id number] Drug Allergy Mild RASH 04/04/2012 Yes Sulfa (Sulfonamide Antibiotics) [id number] Drug Allergy Mild RASH 2011 Yes acetaminophen [id number] Drug Allergy Unknown N/A 10/08/2015 Yes hydrocodone [id number] Drug Allergy Unknown N/A 10/08/2015 Yes plastic tape/bandaids/adhesive plastic tape/bandaids/ adhesive Unknown N/A 10/08/2015 Yes peginterferon beta-1a [id number] Drug Allergy Unknown N/A 04/05/2018 Medications There is no data. Problems Date Dx Coded Attending Type Code Diagnosis Diagnosed By 10/29/1505 GLADYS PATRICK [facility] Ot 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 DISC DEGENERATION, 10/29/1505 GLADYS PATRICK [facility] Ot M54.6 PAIN IN THORACIC SPINE 10/29/1505 GLADYS PATRICK [facility] Ot S29.012D STRAIN OF MUSCLE AND [...] GLADYS PATRICKP Ot M25.511 12/28/2015 GLADYS PATRICK [employer] Ot M25.511 01/15/2016 GLADYS PATRICKP Ot M25.511 01/17/2016 GLADYS PATRICK [employer] Ot R22.1 01/17/2016 GLADYS PATRICKP Ot Z12.31 02/03/2016 HERMELINDA DE LA GARZA MD Ot F17.210 NICOTINE DEPENDENCE, CIGARETTES, UNCOMPL 02/03/2016 HERMELINDA DE LA GARZA MD Ot G35 MULTIPLE SCLEROSIS 02/03/2016 HERMELINDA DE LA GARZA MD Ot R10.33 PERIUMBILICAL PAIN 02/03/2016 HERMELINDA DE LA GARZA MD Ot Z87.19 PERSONAL HISTORY OF OTHER DISEASES OF TH 02/11/2016 GLADYS PATRICK [employer] Ot R22.1 02/11/2016 GLADYS PATRICK [employer] Ot Z12.31 02/12/2016 GLADYS PATRICK [employer] Ot R22.1 02/12/2016 GLADYS PATRICK [employer] Ot Z12.31 04/07/2016 GLADYS PATRICK [employer] Ot 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 DISC DEGENERATION, 04/24/2016 GLADYS PATRICK [employer] Ot 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 DISC DEGENERATION, 05/14/2016 GLADYS PATRICK [employer] Ot M25.511 PAIN IN RIGHT SHOULDER 05/14/2016 GLADYS PATRICK [employer] Ot R22.1 LOCALIZED SWELLING, MASS AND LUMP, NECK 05/14/2016 GLADYS PATRICK [employer] Ot Z12.31 ENCNTR SCREEN MAMMOGRAM FOR MALIGNANT NE 05/14/2016 GLADYS PATRICK [employer] Ot 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 DISC DEGENERATION, 05/15/2016 GLADYS PATRICK [employer] Ot 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 DISC DEGENERATION, 06/04/2016 GLADYS PATRICK [employer] Ot 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 DISC DEGENERATION, 06/04/2016 GLADYS PATRICK [employer] Ot M54.6 PAIN IN THORACIC SPINE 06/04/2016 GLADYS PATRICK A [employer] Ot S29.012D STRAIN OF MUSCLE AND TENDON OF BACK WALL 06/06/2016 PATRICE PATRICKE A [employer] Ot 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 DISC DEGENERATION, 06/06/2016 PATRICE PATRICKE A [employer] Ot M54.6 PAIN IN THORACIC SPINE 06/06/2016 GLADYS PATRICK A [employer] Ot S29.012D STRAIN OF MUSCLE AND TENDON OF BACK WALL 06/17/2016 PATRICE PATRICKE A [employer] Ot 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 DISC DEGENERATION, 06/17/2016 PATRICE PATRICKE A [employer] Ot M54.6 PAIN IN THORACIC SPINE 06/17/2016 PATRICE PATRICKE A [employer] Ot S29.012D STRAIN OF MUSCLE AND TENDON OF BACK WALL 04/05/2018 GLADYS PATRICK [employer] Ot M25.511 PAIN IN RIGHT SHOULDER 04/05/2018 GLADYS PATRICK [employer] Ot R22.1 LOCALIZED SWELLING, MASS AND LUMP, NECK 04/05/2018 GLADYS PATRICK [employer] Ot Z12.31 ENCNTR SCREEN MAMMOGRAM FOR MALIGNANT NE 04/06/2018 GLADYS PATRICK [employer] Ot M25.511 PAIN IN RIGHT SHOULDER 04/06/2018 GLADYS PATRICK [employer] Ot R22.1 LOCALIZED SWELLING, MASS AND LUMP, NECK 04/06/2018 GLADYS PATRICK [employer] Ot Z12.31 ENCNTR SCREEN MAMMOGRAM FOR MALIGNANT [...] 11.4 fL 7.5-12.5 ABSOLUTE NEUTROPHILS 6647 cells/uL 1790-2289 ABSOLUTE LYMPHOCYTES 2835 cells/uL 850-3900 ABSOLUTE MONOCYTES [...] NR Manual blood basophils/100 leukocytes 1 % [facility] Blood erythrocyte morphology finding identification NORMAL [facility] Manual blood nucleated erythrocytes/100 leukocytes ratio [address] [facility] Comprehensive metabolic panel - 04/05/18 [...] or plasma urea nitrogen/creatinine mass ratio [address] [facility] Serum or plasma creatinine measurement with calculation of estimated glomerular filtration rate > [facility] Serum or plasma glucose measurement [...] urine sediment by light microscopy NONE NRG Bacterial urine culture - 04/10/18 22:20 Bacterial urine culture [id number] NRG COLONY COUNT 10,000/ML - 100,000/ML NRG FREE TEXT ENTRY 2 MIXED GRAM POSITIVE JOCELYNE <10,000/ML NRG Acute hepatitis panel - 04/11/18 00:00 Confirmatory quantitative serum or plasma hepatitis B virus surface antigen measurement Non-Reactive Non-Reactive Hepatitis A virus IgM antibody assay Non-Reactive Non- Reactive Hepatitis B virus core IgM antibody assay Non-Reactive Non-Reactive Serum hepatitis C virus antibody detection Non-Reactive Non-Reactive Complete blood count (CBC) with automated white blood cell (WBC) differential - 04/11/18 06:30 Blood leukocytes automated count (number/volume) 7.3 10*3/uL 4.3-11.0 Blood erythrocytes automated count (number/volume) 3.17 10*6/uL 4.35-5.85 Venous blood hemoglobin measurement (mass/volume) 9.9 g/dL 11.5-16.0 Blood hematocrit (volume fraction) 28 % 35-52 Automated erythrocyte mean corpuscular volume 87 [foz_us] 80-99 Automated erythrocyte mean corpuscular hemoglobin (mass per erythrocyte) 31 pg 25-34 Automated erythrocyte mean corpuscular hemoglobin concentration measurement ( mass/volume) 36 g/dL 32-36 Automated erythrocyte distribution width ratio 16.1 % 10.0-14.5 Automated blood platelet count (count/volume) 191 10*3/uL 130-400 Automated blood platelet mean volume measurement 9.7 [foz_us] 7.4-10.4 Automated blood neutrophils/100 leukocytes 58 % 42-75 Automated blood lymphocytes/100 leukocytes 31 % 12-44 Blood monocytes/100 leukocytes 7 % 0-12 Automated blood eosinophils/100 leukocytes 5 % 0-10 Automated blood basophils/100 leukocytes 0 % 0-10 Blood neutrophils automated count (number/volume) 4.2 10*3 1.8-7.8 Blood lymphocytes automated count (number/volume) 2.3 10*3 1.0-4.0 Blood monocytes automated count (number/volume) 0.5 10*3 0.0-1.0 Automated eosinophil count 0.4 10*3/uL 0.0-0.3 Automated blood basophil count (count/volume) 0.0 10*3/uL 0.0-0.1 Comprehensive metabolic panel - 04/11/18 06:30 Serum or plasma sodium measurement (moles/volume) 142 mmol/L 135-145 Serum or plasma potassium measurement (moles/volume) 2.9 mmol/L 3.6-5.0 Serum or plasma chloride measurement (moles/volume) 113 mmol/L 98-107 Carbon dioxide 20 mmol/L 21-32 Serum or plasma anion gap determination (moles/volume) 9 mmol/L 5-14 Serum or plasma urea nitrogen measurement (mass/volume) 2 mg/dL 7-18 Serum or plasma creatinine measurement (mass/volume) 0.57 mg/dL 0.60-1.30 Serum or plasma urea nitrogen/creatinine mass ratio 4 NRG Serum or plasma creatinine measurement with calculation of estimated glomerular filtration rate > NRG Serum or plasma glucose measurement (mass/volume) 86 mg/dL 70-105 Serum or plasma calcium measurement (mass/volume) 7.4 mg/dL 8.5-10.1 Serum or plasma total bilirubin measurement (mass/volume) 0.4 mg/dL 0.1-1.0 Serum or plasma alkaline phosphatase measurement (enzymatic activity/volume) 73 U/L 40-136 Serum or plasma aspartate aminotransferase measurement (enzymatic activity/ volume) 113 U/L 5-34 Serum or plasma alanine aminotransferase measurement (enzymatic activity/volume ) 88 U/L 0-55 Serum or plasma protein measurement (mass/volume) 4.2 g/dL 6.4-8.2 Serum or plasma albumin measurement (mass/volume) 2.7 g/dL 3.2-4.5 Magnesium - 04/11/18 06:30 Magnesium 2.4 mg/dL 1.8-2.4 Stool bacteria identification by culture - 04/11/18 12:00 Stool bacteria identification by culture N2 [facility] [id number] - 04/11/18 12:00 OP FREE TEXT REPORTABLE SENT TO [facility] 04/12/[address] [facility] C DIFFICILE AG + TOXIN A/B. - 04/11/18 13:16 RESULTS NEGATIVE FOR ANTIGEN AND TOXIN A/B [facility] Serum or plasma potassium measurement (moles/volume) - 04/11/18 17:48 Serum or plasma potassium measurement (moles/volume) 2.9 mmol/L 3.6-5.0 Complete blood count (CBC) with automated white blood cell (WBC) differential - 04/12/18 09:00 Blood leukocytes automated count (number/volume) 6.0 10*3/uL 4.3-11.0 Blood erythrocytes automated count (number/volume) 3.18 10*6/uL 4.35-5.85 Venous blood hemoglobin measurement (mass/volume) 9.9 g/dL 11.5-16.0 Blood hematocrit (volume fraction) 28 % 35-52 Automated erythrocyte mean corpuscular volume 89 [foz_us] 80-99 Automated erythrocyte mean corpuscular hemoglobin (mass per erythrocyte) 31 pg 25-34 Automated erythrocyte mean corpuscular hemoglobin concentration measurement ( mass/volume) 35 g/dL 32-36 Automated erythrocyte distribution width ratio 16.5 % 10.0-14.5 Automated blood platelet count (count/volume) 173 10*3/uL 130-400 Automated blood platelet mean volume measurement 10.0 [foz_us] 7.4-10.4 Automated blood neutrophils/100 leukocytes 63 % 42-75 Automated blood lymphocytes/100 leukocytes 27 % 12-44 Blood monocytes/100 leukocytes 7 % 0-12 Automated blood eosinophils/100 leukocytes 4 % 0-10 Automated blood basophils/100 leukocytes 0 % 0-10 Blood neutrophils automated count (number/volume) 3.7 10*3 1.8-7.8 Blood lymphocytes automated count (number/volume) 1.6 10*3 1.0-4.0 Blood monocytes automated count (number/volume) 0.4 10*3 0.0-1.0 Automated eosinophil count 0.2 10*3/uL 0.0-0.3 Automated blood basophil count (count/volume) 0.0 10*3/uL 0.0-0.1 Whole blood basic metabolic panel - 04/12/18 09:00 Serum or plasma sodium measurement (moles/volume) 141 mmol/L 135-145 Serum or plasma potassium measurement (moles/volume) 3.4 mmol/L 3.6-5.0 Serum or plasma chloride measurement (moles/volume) 114 mmol/L 98-107 Carbon dioxide 18 mmol/L 21-32 Serum or plasma anion gap determination (moles/volume) 9 mmol/L 5-14 Serum or plasma urea nitrogen measurement (mass/volume) < mg/dL 7-18 Serum or plasma creatinine measurement (mass/volume) 0.57 mg/dL 0.60-1.30 Serum or plasma urea nitrogen/creatinine mass ratio 4 NRG Serum or plasma creatinine measurement with calculation of estimated glomerular filtration rate > NRG Serum or plasma glucose measurement (mass/volume) 78 mg/dL 70-105 Serum or plasma calcium measurement (mass/volume) 7.7 mg/dL 8.5-10.1 Magnesium - 04/12/18 09:00 Magnesium 1.8 mg/dL 1.8-2.4 Encounters ACCT No. Visit Date/Time Discharge Status Pt. Type Provider Facility Loc./Unit Complaint [id number] 04/10/2018 23:12:00 04/12/2018 11:20:00 DIS Inpatient MIAN MELENDEZ, LUIZ Feliciano [facility] 4TH NAUSEA,VOMITING,DIARRHEA, HYPOKALEMIA [id number] 04/05/2018 23:55:00 04/07/2018 18:32:00 DIS Outpatient SMITHA MELENDEZ, ASHANTI Muse [facility] 4TH PANCREATITIS,HYPOVOLEMIA, HYPOMAGNESEMIA [id number] 06/06/2016 15:02:00 06/17/2016 15:06:00 DIS Outpatient GLADYS PATRICK [facility] REHAB DDD, LUMBAR; UPPER BACK PAIN;UPPER BACK STRAIN [id number] 05/07/2016 10:48:00 05/15/2016 12:37:00 DIS Outpatient GLADYS PATRICK [facility] REHAB DDD LUMBAR SPINE [id number] 02/03/2016 09:14:00 02/03/2016 13:17:00 DIS Emergency FREDERIC MELENDEZ, HERMELINDA Mena [facility] ER ABD PAIN [id number] 01/15/2016 11:07:00 01/15/2016 23:59:59 CLS Outpatient GLADYS PATRICK [employer] [facility] RAD NECK MASS, SCREENING [id number] 11/27/2015 10:22:00 11/27/2015 23:59:59 CLS Outpatient GLADYS PATRICK [employer] [facility] RAD RT SHOULDER PAIN [id number] 10/18/2015 14:44:00 10/22/2015 14:30:00 DIS Inpatient MAHAD MENDOZA DO [facility] 4TH ACUTE PANCREATITIS POSS PANCREATIC PSEUDOCYST [id number] 10/08/2015 00:31:00 10/09/2015 10:15:00 DIS Inpatient SURY MELENDEZ, OLAYINKA Calabrese [facility] 4TH FEVER,R/O SEPSIS [id number] 04/04/2012 22:38:00 Document Registration [id number] 12/30/2016 08:40:00 Document Registration [id number] 02/17/2017 08:35:00 Document Registration [id number] 03/31/2018 14:30:00 03/31/2018 23:59:59 CLS Outpatient KARTIK MELENDEZ[facility] [id number] 02/23/2018 09:00:00 Document Registration [id number] 09/30/2017 17:45:00 Document Registration
== END 2018-04-07 18:32 | disposition home or self-care (01) | DRG 440 ==
LOC: EDUNIT# 21:03 → ER 21:05 → 4TH 23:55 → UNDOADMIN 23:55 → ICU 04-06 06:53 → 4TH 04-06 06:53 → ICU 04-06 12:52 → 4TH 04-07 14:10 → ICU 04-07 14:10 → UNDODISIN 04-07 18:32
PROVIDERS: ADMIT Family Medicine; ATTEND Family Medicine
DX: K85.90 Acute pancreatitis without necrosis or infection, unspecified (principal); K86.1 Other chronic pancreatitis; E87.6 Hypokalemia; E83.42 Hypomagnesemia; K76.0 Fatty (change of) liver, not elsewhere classified; F17.210 Nicotine dependence, cigarettes, uncomplicated; G35 Multiple sclerosis; K21.9 Gastro-esophageal reflux disease without esophagitis; M19.91 Primary osteoarthritis, unspecified site; G89.4 Chronic pain syndrome; F32.9 Major depressive disorder, single episode, unspecified; F41.9 Anxiety disorder, unspecified; Z98.1 Arthrodesis status
CPT/HCPCS: 36415; 74177; 80048; 80053; 80306; 81000; 83690; 83735; 84100; 84484; 85007; 85025; 85027; 86141; 93005; 96361; 96365; 96367; 96375; 96376

== ENCOUNTER 2018-04-10 20:24 | Observation (INO) | payer MEDICARE, MEDICAID ==
[~2018-04-10] VITALS: Ht 162.6 cm; Wt 65.8 kg
[~2018-04-10 20:24] MED LIST changes: +ALPR0.5T7 PO; +ATOR20TA66 PO; +DEXT10TA24 PO; +DEXT10TA9 PO; +DOCU-143 PO; +DULO60CA58 PO; +ESOM40CA52 PO; +LINA290C PO; +LURA60TA2 PO; +ONDA4TAB10 PO; +ONDN4T PO; +OXYC-465 PO; +OXYC20TA54 PO; +SOLI10TA2 PO; +TOPI50TA13 PO; +TRAZ-28 PO; +[UNRECOGNIZED DRUG - OTHER] PO
--- NOTE | 2018-04-10 21:12 | ED GI ---
General Chief Complaint: Abdominal/GI Problems Stated Complaint: VOMITING,DIAHRREA Nursing Triage Note: patient reports n/v/d. patient reports was admitted earlier this week for the same Sepsis Screen: No Definite Risk Source of Information: Patient Exam Limitations: No Limitations History of Present Illness Date Seen by Provider: April 10, 2018 Time Seen by Provider: 21:10 Initial Comments to ER with nausea vomiting diarrhea. Patient was admitted earlier this week for the same, diagnosed with pancreatitis (previously described as idiopathic and recurrent. She's had a cholecystectomy and denies alcohol use).she states she was not sent home with any nausea medication but she did have some leftover Zofran tablets (not ODT).. She states those will not stay down due to vomitingand she still has too numerous to count episodes of watery diarrhea without blood or mucus per day. Chills but no fevers. Minimal epigastric tenderness and cramping. Timing/Duration: 1-2 Days Severity/Quality: Moderate Location: Generalized Abdomen Radiation: No Radiation Associated Symptoms: Fever/Chills, Nausea/Vomiting Allergies and Home Medications Allergies Coded Allergies: acetaminophen (Verified Allergy, Unknown, 10/08/15) hydrocodone (Verified Allergy, Unknown, 10/08/15) aripiprazole (Unverified Adverse Reaction, Intermediate, AGITATION, 04/04/12 ) levofloxacin (Unverified Adverse Reaction, Intermediate, RASH, VOMITING, ) mirtazapine (Unverified Adverse Reaction, Intermediate, AGITATION, 04/04/12) Sulfa (Sulfonamide Antibiotics) (Unverified Adverse Reaction, Mild, RASH, 04/04/12) naproxen (Unverified Adverse Reaction, Mild, RASH, 04/04/12) peginterferon beta-1a (Verified Adverse Reaction, Unknown, 04/05/18) Uncoded Allergies: plastic tape/bandaids/adhesive (Allergy, Unknown, 10/08/15) Home Medications Albuterol Sulfate 1 Puff Puff, 2 PUFF IH QID PRN for SHORTNESS OF BREATH, ( Reported) Alprazolam 0.5 Mg Tablet, 0.5 MG PO TID PRN for ANXIETY, (Reported) Atorvastatin Calcium 20 Mg Tablet, 20 MG PO HS, (Reported) Dextroamphetamine/Amphetamine 10 Mg Tablet, 10 MG PO DAILY, (Reported) LAST FILLED #28 03-08-18 Docusate Sodium 100 Mg Capsule, 100 MG PO BID, (Reported) Duloxetine HCl 60 Mg Capsule.dr, 60 MG PO BID, (Reported) Esomeprazole Magnesium 40 Mg Capsule.dr, 40 MG PO DAILY, (Reported) Linaclotide 290 Mcg Capsule, 290 MCG PO DAILY, (Reported) Lurasidone HCl 60 Mg Tablet, 60 MG PO DAILY, (Reported) Ondansetron HCl 4 Mg Tablet, 4 MG PO TID PRN for NAUSEA/VOMITING-1ST LINE, ( Reported) Oxycodone HCl 20 Mg Tab.er.12h, 20 MG PO BID, (Reported) LAST FILLED #56 18 Oxycodone HCl/Acetaminophen 1 Each Tablet, 1 TAB PO TID PRN for PAIN-MODERATE, ( Reported) Pregabalin 150 Mg Capsule, 150 MG PO BID, (Reported) LAST FILLED #56 18 Solifenacin Succinate 10 Mg Tablet, 10 MG PO DAILY, (Reported) Topiramate 50 Mg Tablet, 50 MG PO BID, (Reported) Trazodone HCl 50 Mg Tablet, 25 MG PO HS, (Reported) TAKES 1/2 (50MG) TABLET Patient Home Medication List Home Medication List Reviewed: Yes Review of Systems Constitutional: see HPI EENTM: No Symptoms Reported Respiratory: No Symptoms Reported Cardiovascular: No Symptoms Reported Gastrointestinal: See HPI, Abdominal Pain, Diarrhea, Nausea Genitourinary: No Symptoms Reported Musculoskeletal: no symptoms reported Skin: no symptoms reported Psychiatric/Neurological: No Symptoms Reported Endocrine: No Symptoms Reported Hematologic/Lymphatic: No Symptoms Reported Past Itlvanb-Plejmi-Rpeuut Hx Patient Social History Alcohol Use: Denies Use Recreational Drug Use: No Type Used: Cigarettes 2nd Hand Smoke Exposure: Yes Recent Foreign Travel: No Contact w/Someone Who Travel: No Recent Infectious Disease Expo: No Recent Hopitalizations: Yes Physical Abuse: No Sexual Abuse: No Immunizations Up To Date Date of Pneumonia Vaccine: Jul 31, 2010 Seasonal Allergies Seasonal Allergies: Yes Past Medical History Surgeries: Yes (BACK PINS AND RODS, BACK W/DISKECTOMY COLONOSCOPY, OVARIAN CYSTS) Appendectomy, Section, Gallbladder, Hysterectomy, Orthopedic, Pancreatic Respiratory: Yes Pneumonia, Chronic Bronchitis Currently Using CPAP: No Currently Using BIPAP: No Cardiac: Yes Neurological: Yes Multiple Sclerosis Reproductive Disorders: No 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 Genitourinary: No Gastrointestinal: Yes Gastroesophageal Reflux, Pancreatitis, Esophagitis, Irritable Bowel Musculoskeletal: Yes (DDD OF L/S) Degenerate Disk Disease, Arthritis, Fibromyalgia Endocrine: No HEENT: No Cancer: No Psychosocial: Yes (PSYCHOSIS) Anxiety, Depression Nursing Suicide Risk Score: 0 Integumentary: No Blood Disorders: No Adverse Reaction/Blood Tranf: No Family Medical History Alcoholism Arthritis Cardiovascular disease Colon cancer Completed stroke Coronary thrombosis Diabetes mellitus Hypertension Respiratory disorder Severe allergy Thyroid disease Visual disorder No Pertinent Family Hx Physical Exam Vital Signs Vital Signs - First Documented 04/10/18 20:58 Temp 98.2 Pulse 70 Resp 18 B/P (MAP) 115/76 (89) Pulse Ox 98 Capillary Refill : Less Than 3 Seconds General Appearance: WD/WN, no apparent distress HEENT: PERRL/EOMI, normal ENT inspection Neck: non-tender, full range of motion Respiratory: no respiratory distress, no accessory muscle use Cardiovascular: regular rate, rhythm, no murmur Gastrointestinal: normal bowel sounds, non tender, soft Extremities: normal range of motion, non-tender Neurologic/Psychiatric: alert, normal mood/affect, oriented x 3 Skin: normal color, warm/dry Progress/Results/Core Measures Results/Orders Lab Results Laboratory Tests Test 04/10/18 21:20 04/10/18 21:25 04/10/18 22:20 Range/Units White Blood Count 7.7 4.3-11.0 10^3/uL Red Blood Count 3.21 L 4.35-5.85 10^6/uL Hemoglobin 10.0 L 11.5-16.0 G/DL Hematocrit 28 L 35-52 % Mean Corpuscular Volume 86 80-99 FL Mean Corpuscular Hemoglobin 31 25-34 PG Mean Corpuscular Hemoglobin Concent 36 32-36 G/DL Red Cell Distribution Width 16.2 H 10.0-14.5 % Platelet Count 218 130-400 10^3/uL Mean Platelet Volume 10.0 7.4-10.4 FL Neutrophils (%) (Auto) 59 42-75 % Lymphocytes (%) (Auto) 31 12-44 % Monocytes (%) (Auto) 6 0-12 % Eosinophils (%) (Auto) 4 0-10 % Basophils (%) (Auto) 0 0-10 % Neutrophils # (Auto) 4.6 1.8-7.8 X 10^3 Lymphocytes # (Auto) 2.4 1.0-4.0 X 10^3 Monocytes # (Auto) 0.5 0.0-1.0 X 10^3 Eosinophils # (Auto) 0.3 0.0-0.3 10^3/uL Basophils # (Auto) 0.0 0.0-0.1 10^3/uL Sodium Level 143 135-145 MMOL/L Potassium Level 2.3 *L 3.6-5.0 MMOL/L Chloride Level 111 H 98-107 MMOL/L Carbon Dioxide Level 19 L 21-32 MMOL/L Anion Gap 13 5-14 MMOL/L Blood Urea Nitrogen 2 L 7-18 MG/DL Creatinine 0.60 0.60-1.30 MG/DL Estimat Glomerular Filtration Rate > 60 BUN/Creatinine Ratio 3 Glucose Level 89 70-105 MG/DL Calcium Level 7.8 L 8.5-10.1 MG/DL Magnesium Level 1.6 L 1.8-2.4 MG/DL Total Bilirubin 0.5 0.1-1.0 MG/DL Aspartate Amino Transf (AST/SGOT) 151 H 5-34 U/L Alanine Aminotransferase (ALT/SGPT) 102 H 0-55 U/L Alkaline Phosphatase 77 40-136 U/L Total Protein 4.5 L 6.4-8.2 GM/DL Albumin 2.8 L 3.2-4.5 GM/DL Lipase 193 H 8-78 U/L Urine Color YELLOW Urine Clarity CLEAR Urine pH 7 5-9 Urine Specific Boaz 1.010 L 1.016-1.022 Urine Protein NEGATIVE NEGATIVE Urine Glucose (UA) NEGATIVE NEGATIVE Urine Ketones 2+ H NEGATIVE Urine Nitrite NEGATIVE NEGATIVE Urine Bilirubin NEGATIVE NEGATIVE Urine Urobilinogen NORMAL NORMAL MG/DL Urine Leukocyte Esterase 1+ H NEGATIVE Urine RBC (Auto) NEGATIVE NEGATIVE Urine RBC NONE /HPF Urine WBC 5-10 H /HPF Urine Squamous Epithelial Cells 2-5 /HPF Urine Renal Epithelial Cells NONE /HPF Urine Crystals NONE /LPF Urine Bacteria TRACE /HPF Urine Casts PRESENT /LPF Urine Hyaline Casts 0-2 H /LPF Urine Mucus MODERATE H /LPF Urine Culture Indicated YES My Orders Orders - JESSICA ARSHAD COORDINATE MEASURING MACHINE OPERATOR Cbc With Automated Diff (04/10/18 21:08) Comprehensive Metabolic Panel (04/10/18 21:08) Lipase (04/10/18 21:08) Ua Culture If Indicated (04/10/18 21:08) Iv Heplock-Insert (Order) (04/10/18 21:08) Hyoscyamine Sl Tablet (Levsin Sl Tablet) (04/10/18 21:15) Ondansetron Injection (Zofran Injectio (04/10/18 21:15) Magnesium (04/10/18 22:08) Potassium Cl 10meq/50ml Ivpb (Kcl 10 Meq (04/10/18 22:15) Promethazine Injection (Phenergan Injec (04/10/18 22:45) Urine Culture (04/10/18 22:20) Lipid Panel (04/10/18 23:14) Medications Given in ED Current Medications Medications Dose Ordered Sig/Sophia Route Start Time Stop Time Status Last Admin Dose Admin Hyoscyamine Sulfate 0.25 mg ONCE ONCE PO 04/10/18 21:15 04/10/18 21:16 DC 04/10/18 21:26 0.25 MG Ondansetron HCl 8 mg ONCE ONCE IVP 04/10/18 21:15 04/10/18 21:16 DC 04/10/18 21:27 8 MG Promethazine HCl 25 mg ONCE ONCE IVP 04/10/18 22:45 04/10/18 22:46 DC 04/10/18 22:46 25 MG Vital Signs/I&O 04/10/18 20:58 Temp 98.2 Pulse 70 Resp 18 B/P (MAP) 115/76 (89) Pulse Ox 98 Blood Pressure Mean: 89 Departure Communication (Admissions) Time/Spoke to Admitting Phy: 23:[address] Gutierrez who is on-call for Dr. Marnie Gross.she agrees with magnesium sulfate 3 g IV over 3 hours and potassium chloride 80 mEq IV over 8 hoursiin addition to IV fluids. Impression Primary Impression: Hypokalemia, gastrointestinal losses Additional Impression: Nausea & vomiting Disposition: 09 ADMITTED INPATIENT Condition: Stable Admissions Decision to Admit Reason: Admit from ER (General) Decision to Admit/Date: April 10, 2018 Time/Decision to Admit Time: 22:10 Departure-Patient Inst. Referrals: ANALISA GROSS MD (PCP/Family) Primary Care Physician JESSICA ARSHAD APRN April 10, 2018 21:12
[2018-04-10] MEDS ORDERED: ONDANSETRON 4 MG/2 ML (SDV) Z0FRAN IVP ONE (21:15)
[2018-04-10] MEDS ORDERED: HYOSCYAMINE 0.125 MG (LEVSIN) TAB PO ONE (21:15)
[2018-04-10 21:43] LABS: BASOPHILS % (AUTO) 0 % (0-10); EOSINOPHILS # (AUTO) 0.3 10^3/uL (0.0-0.3); EOSINOPHILS % (AUTO) 4 % (0-10); HEMATOCRIT 28 % (35-52); LYMPHOCYTES # (AUTO) 2.4 X 10^3 (1.0-4.0); LYMPHOCYTES % (AUTO) 31 % (12-44); MEAN CORPUSCULAR HEMOGLOBIN 31 PG (25-34); MEAN CORPUSCULAR HGB CONC 36 G/DL (32-36); MEAN CORPUSCULAR VOLUME 86 FL (80-99); MONOCYTES # (AUTO) 0.5 X 10^3 (0.0-1.0); MONOCYTES % (AUTO) 6 % (0-12); NEUTROPHILS # (AUTO) 4.6 X 10^3 (1.8-7.8); NEUTROPHILS % (AUTO) 59 % (42-75); PLATELET COUNT 218 10^3/uL (130-400); RED BLOOD COUNT 3.21 10^6/uL (4.35-5.85); RED CELL DISTRIBUTION WIDTH 16.2 % (10.0-14.5); WHITE BLOOD COUNT 7.7 10^3/uL (4.3-11.0)
[2018-04-10 22:05] LABS: ALANINE AMINOTRANSFERASE 102 U/L (0-55); ALBUMIN 2.8 GM/DL (3.2-4.5); ALKALINE PHOSPHATASE 77 U/L (40-136); BILIRUBIN,TOTAL 0.5 MG/DL (0.1-1.0); BUN/CREATININE RATIO 3; CALCIUM 7.8 MG/DL (8.5-10.1); CARBON DIOXIDE 19 MMOL/L (21-32); CHLORIDE 111 MMOL/L (98-107); GFR ESTIMATED > 60; GLUCOSE 89 MG/DL (70-105); LIPASE 193 U/L (8-78); SODIUM 143 MMOL/L (135-145); TOTAL PROTEIN 4.5 GM/DL (6.4-8.2)
[2018-04-10 22:07] LABS: POTASSIUM 2.3 MMOL/L (3.6-5.0)
[2018-04-10] MEDS: POTASSIUM CL 10MEQ/50ML IVPB 50 ML IV SCH ×2 (22:24→23:26)
[2018-04-10 22:30] LABS: BILIRUBIN,URINE NEGATIVE (NEGATIVE); CLARITY,URINE CLEAR; COLOR,URINE YELLOW; GLUCOSE, URINE (UA) NEGATIVE (NEGATIVE); KETONES,URINE 2+ (NEGATIVE); LEUKOCYTE ESTERASE ,URINE 1+ (NEGATIVE); NITRITE,URINE NEGATIVE (NEGATIVE); PH,URINE 7 (5-9); PROTEIN,URINE NEGATIVE (NEGATIVE); UROBILINOGEN,URINE NORMAL (NORMAL)
--- OUTSIDE RECORDS SUMMARY | 2018-04-10 22:37 | XMS REPORT | Continuity of Care Document ---
Author Author [facility] Organization [facility] Address Unknown Phone Unavailable Allergies Active Description Code Type Severity Reaction Onset Reported/Identified Relationship to Patient Clinical Status Yes aripiprazole [id number] Drug Allergy Moderate AGITATION 04/04/2012 Yes levofloxacin [id number] Drug Allergy Moderate RASH, VOMITING 04/04/2012 Yes mirtazapine [id number] Drug Allergy Moderate AGITATION 04/04/2012 Yes naproxen [id number] Drug Allergy Mild RASH 04/04/2012 Yes Sulfa (Sulfonamide Antibiotics) [id number] Drug Allergy Mild RASH 2011 Yes acetaminophen [id number] Drug Allergy Unknown N/A 10/08/2015 Yes hydrocodone [id number] Drug Allergy Unknown N/A 10/08/2015 Yes plastic tape/bandaids/adhesive plastic tape/bandaids/ adhesive Unknown N/A 10/08/2015 Yes peginterferon beta-1a [id number] Drug Allergy Unknown N/A 04/05/2018 Medications There is no data. Problems Date Dx Coded Attending Type Code Diagnosis Diagnosed By 10/29/1505 GLADYS PATRICK [facility] Ot 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 DISC DEGENERATION, 10/29/1505 GLADYS PATRICK [facility] Ot M54.6 PAIN IN THORACIC SPINE 10/29/1505 GLADYS PATRICK [facility] Ot S29.012D STRAIN OF MUSCLE AND [...] Ot G35 MULTIPLE SCLEROSIS 10/22/2015 MAHAD MENDOZA DO Ot K21.9 GASTRO-ESOPHAGEAL REFLUX DISEASE WITHOUT 10/22/2015 MAHAD MENDOZA DO Ot K85.0 IDIOPATHIC ACUTE PANCREATITIS 10/22/2015 MAHAD MENDOZA DO Ot K86.1 OTHER CHRONIC PANCREATITIS 10/22/2015 MAHAD MENDOZA DO Ot Z98.1 ARTHRODESIS STATUS 12/20/2015 GLADYS PATRICKP Ot M25.511 12/28/2015 GLADYS PATRICK [employer] Ot M25.511 01/15/2016 GLADYS PATRICKP Ot M25.511 01/17/2016 GLADYS PATRICK [employer] O[employer] Ot R22.1 01/17/2016 GLADYS PATRICKP Ot Z12.31 02/03/2016 HERMELINDA DE LA GARZA MD Ot F17.210 NICOTINE DEPENDENCE, CIGARETTES, UNCOMPL 02/03/2016 HERMELINDA DE LA GARZA MD Ot G35 MULTIPLE SCLEROSIS 02/03/2016 HERMELINDA DE LA GARZA MD Ot R10.33 PERIUMBILICAL PAIN 02/03/2016 HERMELINDA DE LA GARZA MD Ot Z87.19 PERSONAL HISTORY OF OTHER DISEASES OF TH 02/11/2016 GLADYS PATRICK [employer] OPERATOR Ot R22.1 02/11/2016 GLADYS PATRCIK [employer] OPERATOR Ot Z12.31 02/12/2016 GLADYS PATRICK [employer] OPERATOR Ot R22.1 02/12/2016 GLADYS PATRICK [employer] OPERATOR Ot Z12.31 04/07/2016 GLADYS PATRICK [employer] OPERATOR Ot 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 DISC DEGENERATION, 04/24/2016 GLADYS PATRICK [employer] O[employer] Ot 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 DISC DEGENERATION, 05/14/2016 GLADYS PATRICK [employer] Ot M25.511 PAIN IN RIGHT SHOULDER 05/14/2016 GLADYS PATRICK [employer] OPER[employer] Ot R22.1 LOCALIZED SWELLING, MASS AND LUMP, NECK 05/14/2016 GLADYS PATRICK [employer] OPER[employer] Ot Z12.31 ENCNTR SCREEN MAMMOGRAM FOR MALIGNANT NE 05/14/2016 GLADYS PATRICK [employer] OPER[employer] Ot 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 DISC DEGENERATION, 05/15/2016 GLADYS PATRICK [employer] OPER[employer] Ot 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 DISC DEGENERATION, 06/04/2016 GLADYS PATRICK [employer] OPERATOR Ot 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 DISC DEGENERATION, 06/04/2016 GLADYS PATRICK [employer] OPER[employer] Ot M54.6 PAIN IN THORACIC SPINE 06/04/2016 GLADYS PATRICK A [employer] OPERATOR Ot S29.012D STRAIN OF MUSCLE AND TENDON OF BACK WALL 06/06/2016 PATRICE PATRICKE A [employer] OPERATOR Ot 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 DISC DEGENERATION, 06/06/2016 PATRICE PATRICKE A [employer] OPERATOR Ot M54.6 PAIN IN THORACIC SPINE 06/06/2016 GLADYS PATRICK A [employer] OPERATOR Ot S29.012D STRAIN OF MUSCLE AND TENDON OF BACK WALL 06/17/2016 PATRICE PATRICKE A [employer] OPERATOR Ot 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 DISC DEGENERATION, 06/17/2016 PATRICE PATRICKE A [employer] OPERATOR Ot M54.6 PAIN IN THORACIC SPINE 06/17/2016 PATRICE PATRICKE A [employer] OPERATOR Ot S29.012D STRAIN OF MUSCLE AND TENDON OF BACK WALL 04/05/2018 GLADYS PATRICK [employer] OPERATOR Ot M25.511 PAIN IN RIGHT SHOULDER 04/05/2018 GLADYS PATRICK [employer] OPERATOR Ot R22.1 LOCALIZED SWELLING, MASS AND LUMP, NECK 04/05/2018 GLADYS PATRICK [employer] OPERATOR Ot Z12.31 ENCNTR SCREEN MAMMOGRAM FOR MALIGNANT NE 04/06/2018 GLADYS PATRICK [employer] OPERATOR Ot M25.511 PAIN IN RIGHT SHOULDER 04/06/2018 GLADYS PATRICK [employer] CAP OPERATOR Ot R22.1 LOCALIZED SWELLING, MASS AND LUMP, NECK 04/06/2018 GLADYS PATRICK [employer] OPERATOR Ot Z12.31 ENCNTR SCREEN MAMMOGRAM FOR MALIGNANT NE 04/07/2018 ASHANTI BONE MD Ot E83.42 HYPOMAGNESEMIA 04/07/2018 ASHANTI BONE MD Ot E87.6 HYPOKALEMIA 04/07/2018 ASHANTI BONE MD Ot F17.210 NICOTINE DEPENDENCE, CIGARETTES, UNCOMPL 04/07/2018 ASHANTI BONE MD Ot F32.9 MAJOR DEPRESSIVE DISORDER, SINGLE EPISOD 04/07/2018 ASHANTI BONE MD, Ot F41.9 ANXIETY DISORDER, UNSPECIFIED 04/07/2018 ASHANTI BONE MD Ot G35 MULTIPLE SCLEROSIS 04/07/2018 ASHANTI BONE MD Ot G89.4 CHRONIC PAIN SYNDROME 04/07/2018 ASHANTI BONE MD Ot K21.9 GASTRO-ESOPHAGEAL REFLUX DISEASE WITHOUT 04/07/2018 ASHANTI BONE MD Ot K76.0 FATTY (CHANGE OF) LIVER, NOT ELSEWHERE C 04/07/2018 ASHANTI BONE MD, Ot K85.90 ACUTE PANCREATITIS WITHOUT NECROSIS OR I 04/07/2018 ASHANTI BONE MD, Ot K86.1 OTHER CHRONIC PANCREATITIS 04/07/2018 ASHANTI BONE MD Ot M19.91 PRIMARY OSTEOARTHRITIS, UNSPECIFIED SITE 04/07/2018 ASHANTI BONE MD, Ot Z98.1 ARTHRODESIS STATUS Procedures There is no data. Results Test [...] 11.4 fL 7.5-12.5 ABSOLUTE NEUTROPHILS 6647 cells/uL [id number] ABSOLUTE LYMPHOCYTES 2835 cells/uL 850-3900 ABSOLUTE MONOCYTES [...] NEGATIVE ng/mL <250 medMATCH Methamphetamine CONSISTENT NRG Complete blood count (CBC) with automated white blood cell (WBC) differential - 04/05/18 21:35 Blood leukocytes automated count (number/volume) 15.7 10*3/uL 4.3-11.0 Blood erythrocytes automated count (number/volume) 4.58 10*6/uL 4.35-5.85 Venous blood hemoglobin measurement (mass/volume) 14.2 g/dL 11.5-16.0 Blood hematocrit (volume fraction) 36 % 35-52 Automated erythrocyte mean corpuscular volume 79 [foz_us] 80-99 Automated erythrocyte mean corpuscular hemoglobin (mass per erythrocyte) 31 pg 25-34 Automated erythrocyte mean corpuscular hemoglobin concentration measurement ( mass/volume) 39 g/dL 32-36 Automated erythrocyte distribution width ratio 15.2 % 10.0-14.5 Automated blood platelet count (count/volume) 286 10*3/uL 130-400 Automated blood platelet mean volume measurement 10.8 [foz_us] 7.4-10.4 Automated blood neutrophils/100 leukocytes 72 % 42-75 Automated blood lymphocytes/100 leukocytes 20 % 12-44 Blood monocytes/100 leukocytes 7 % 0-12 Automated blood eosinophils/100 leukocytes 1 % 0-10 Automated blood basophils/100 leukocytes 0 % 0-10 Blood neutrophils automated count (number/volume) 11.2 10*3 1.8-7.8 Blood lymphocytes automated count (number/volume) 3.2 10*3 1.0-4.0 Blood monocytes automated count (number/volume) 1.1 10*3 0.0-1.0 Automated eosinophil count 0.2 10*3/uL 0.0-0.3 Automated blood basophil count (count/volume) 0.0 10*3/uL 0.0-0.1 Blood manual differential performed detection - 04/05/18 21:35 Blood monocytes/100 leukocytes 2 % NRG Manual blood segmented neutrophils/100 leukocytes 73 % NRG Blood band neutrophils/100 leukocytes 0 % NRG Manual blood lymphocytes/100 leukocytes 23 % NR Manual eosinophils/100 leukocytes in nose 1 % NR Manual blood basophils/100 leukocytes 1 % [facility] Blood erythrocyte morphology finding identification NORMAL [facility] Manual blood nucleated erythrocytes/100 leukocytes ratio 1 [facility] Comprehensive metabolic panel - 04/05/18 21:35 Serum or plasma sodium measurement (moles/volume) 139 mmol/L 135-145 Serum or plasma potassium measurement (moles/volume) 1.7 mmol/L 3.6-5.0 Serum or plasma chloride measurement (moles/volume) 97 mmol/L 98-107 Carbon dioxide 27 mmol/L 21-32 Serum or plasma anion gap determination (moles/volume) 15 mmol/L 5-14 Serum or plasma urea nitrogen measurement (mass/volume) 2 mg/dL 7-18 Serum or plasma creatinine measurement (mass/volume) 0.75 mg/dL 0.60-1.30 Serum or plasma urea nitrogen/creatinine mass ratio 3 [facility] Serum or plasma creatinine measurement with calculation of estimated glomerular filtration rate > [facility] Serum or plasma glucose measurement (mass/volume) 106 mg/dL 70-105 Serum or plasma calcium measurement (mass/volume) 8.9 mg/dL 8.5-10.1 Serum or plasma total bilirubin measurement (mass/volume) 0.5 mg/dL 0.1-1.0 Serum or plasma alkaline phosphatase measurement (enzymatic activity/volume) 111 U/L 40-136 Serum or plasma aspartate aminotransferase measurement (enzymatic activity/ volume) 69 U/L 5-34 Serum or plasma alanine aminotransferase measurement (enzymatic activity/volume ) 36 U/L 0-55 Serum or plasma protein measurement (mass/volume) 6.4 g/dL 6.4-8.2 Serum or plasma albumin measurement (mass/volume) 3.7 g/dL 3.2-4.5 Magnesium - 04/05/18 21:35 Magnesium 1.4 mg/dL 1.8-2.4 Serum or plasma troponin i.cardiac measurement (mass/volume) - 04/05/18 21:35 Serum or plasma troponin i.cardiac measurement (mass/volume) < ng/ mL <0.30 Lipase - 04/05/18 21:35 Lipase 402 U/L 8-78 Serum or plasma C reactive protein measurement (mass/volume) - 04/05/18 21:35 Serum or plasma C reactive protein measurement (mass/volume) 3.06 mg /dL 0.00-0.50 Complete urinalysis with reflex to culture - 04/05/18 22:41 Urine color determination YELLOW NRG Urine clarity determination CLEAR NRG Urine pH measurement by test strip 7 5-9 Specific gravity of urine by test strip 1.005 1.016- 1.022 Urine protein assay by test strip, semi-quantitative NEGATIVE NEGATIVE Urine glucose detection by automated test strip NEGATIVE NEGATIVE Erythrocytes detection in urine sediment by light microscopy NEGATIVE NEGATIVE Urine ketones detection by automated test strip NEGATIVE NEGATIVE Urine nitrite detection by test strip NEGATIVE NEGATIVE Urine total bilirubin detection by test strip NEGATIVE NEGATIVE Urine urobilinogen measurement by automated test strip (mass/volume) NORMAL NORMAL Urine leukocyte esterase detection by dipstick NEGATIVE NEGATIVE Automated urine sediment erythrocyte count by microscopy (number/high power field) NONE NRG Automated urine sediment leukocyte count by microscopy (number/high power field ) NONE NRG Bacteria detection in urine sediment by light microscopy NONE NRG Squamous epithelial cells detection in urine sediment by light microscopy 0-2 NRG Crystals detection in urine sediment by light microscopy NONE NRG Casts detection in urine sediment by light microscopy NONE NRG Mucus detection in urine sediment by light microscopy NEGATIVE NRG Complete urinalysis with reflex to culture NO NRG Urine drug screening test - 04/05/18 22:41 Urine phencyclidine detection by screening method NEGATIVE NEGATIVE Urine benzodiazepines detection by screening method NEGATIVE NEGATIVE Urine cocaine detection NEGATIVE NEGATIVE Urine amphetamines detection by screening method NEGATIVE NEGATIVE Urine methamphetamine detection by screening method NEGATIVE NEGATIVE Urine cannabinoids detection by screening method NEGATIVE NEGATIVE Urine opiates detection by screening method NEGATIVE NEGATIVE Urine barbiturates detection NEGATIVE NEGATIVE Screening urine tricyclic antidepressants detection NEGATIVE NEGATIVE Urine methadone detection by screening method NEGATIVE NEGATIVE Urine oxycodone detection NEGATIVE NEGATIVE Urine propoxyphene detection NEGATIVE NEGATIVE Complete blood count (CBC) with automated white blood cell (WBC) differential - 04/06/18 05:30 Blood leukocytes automated count (number/volume) 10.6 10*3/uL 4.3-11.0 Blood erythrocytes automated count (number/volume) 3.64 10*6/uL 4.35-5.85 Venous blood hemoglobin measurement (mass/volume) 11.2 g/dL 11.5-16.0 Blood hematocrit (volume fraction) 29 % 35-52 Automated erythrocyte mean corpuscular volume 81 [foz_us] 80-99 Automated erythrocyte mean corpuscular hemoglobin (mass per erythrocyte) 31 pg 25-34 Automated erythrocyte mean corpuscular hemoglobin concentration measurement ( mass/volume) 38 g/dL 32-36 Automated erythrocyte distribution width ratio 15.3 % 10.0-14.5 Automated blood platelet count (count/volume) 217 10*3/uL 130-400 Automated blood platelet mean volume measurement 10.8 [foz_us] 7.4-10.4 Automated blood neutrophils/100 leukocytes 63 % 42-75 Automated blood lymphocytes/100 leukocytes 29 % 12-44 Blood monocytes/100 leukocytes 6 % 0-12 Automated blood eosinophils/100 leukocytes 2 % 0-10 Automated blood basophils/100 leukocytes 0 % 0-10 Blood neutrophils automated count (number/volume) 6.7 10*3 1.8-7.8 Blood lymphocytes automated count (number/volume) 3.1 10*3 1.0-4.0 Blood monocytes automated count (number/volume) 0.7 10*3 0.0-1.0 Automated eosinophil count 0.2 10*3/uL 0.0-0.3 Automated blood basophil count (count/volume) 0.0 10*3/uL 0.0-0.1 Whole blood basic metabolic panel - 04/06/18 05:30 Serum or plasma sodium measurement (moles/volume) 144 mmol/L 135-145 Serum or plasma potassium measurement (moles/volume) 2.0 mmol/L 3.6-5.0 Serum or plasma chloride measurement (moles/volume) 112 mmol/L 98-107 Carbon dioxide 23 mmol/L 21-32 Serum or plasma anion gap determination (moles/volume) 9 mmol/L 5-14 Serum or plasma urea nitrogen measurement (mass/volume) 2 mg/dL 7-18 Serum or plasma creatinine measurement (mass/volume) 0.63 mg/dL 0.60-1.30 Serum or plasma urea nitrogen/creatinine mass ratio 3 NRG Serum or plasma creatinine measurement with calculation of estimated glomerular filtration rate > NRG Serum or plasma glucose measurement (mass/volume) 100 mg/dL 70-105 Serum or plasma calcium measurement (mass/volume) 7.1 mg/dL 8.5-10.1 Magnesium - 04/06/18 05:30 Magnesium 1.7 mg/dL 1.8-2.4 Comprehensive metabolic panel - 04/06/18 23:42 Serum or plasma sodium measurement (moles/volume) 148 mmol/L 135-145 Serum or plasma potassium measurement (moles/volume) 2.5 mmol/L 3.6-5.0 Serum or plasma chloride measurement (moles/volume) 119 mmol/L 98-107 Carbon dioxide 18 mmol/L 21-32 Serum or plasma anion gap determination (moles/volume) 11 mmol/L 5-14 Serum or plasma urea nitrogen measurement (mass/volume) 2 mg/dL 7-18 Serum or plasma creatinine measurement (mass/volume) 0.60 mg/dL 0.60-1.30 Serum or plasma urea nitrogen/creatinine mass ratio 3 NRG Serum or plasma creatinine measurement with calculation of estimated glomerular filtration rate > NRG Serum or plasma glucose measurement (mass/volume) 92 mg/dL 70-105 Serum or plasma calcium measurement (mass/volume) 7.1 mg/dL 8.5-10.1 Serum or plasma total bilirubin measurement (mass/volume) 0.6 mg/dL 0.1-1.0 Serum or plasma alkaline phosphatase measurement (enzymatic activity/volume) 82 U/L 40-136 Serum or plasma aspartate aminotransferase measurement (enzymatic activity/ volume) 184 U/L 5-34 Serum or plasma alanine aminotransferase measurement (enzymatic activity/volume ) 49 U/L 0-55 Serum or plasma protein measurement (mass/volume) 4.5 g/dL 6.4-8.2 Serum or plasma albumin measurement (mass/volume) 2.9 g/dL 3.2-4.5 Complete blood count (CBC) with automated white blood cell (WBC) differential - 04/07/18 07:35 Blood leukocytes automated count (number/volume) 7.7 10*3/uL 4.3-11.0 Blood erythrocytes automated count (number/volume) 3.18 10*6/uL 4.35-5.85 Venous blood hemoglobin measurement (mass/volume) 9.7 g/dL 11.5-16.0 Blood hematocrit (volume fraction) 27 % 35-52 Automated erythrocyte mean corpuscular volume 84 [foz_us] 80-99 Automated erythrocyte mean corpuscular hemoglobin (mass per erythrocyte) 31 pg 25-34 Automated erythrocyte mean corpuscular hemoglobin concentration measurement ( mass/volume) 36 g/dL 32-36 Automated erythrocyte distribution width ratio 15.8 % 10.0-14.5 Automated blood platelet count (count/volume) 187 10*3/uL 130-400 Automated blood platelet mean volume measurement 10.5 [foz_us] 7.4-10.4 Automated blood neutrophils/100 leukocytes 63 % 42-75 Automated blood lymphocytes/100 leukocytes 28 % 12-44 Blood monocytes/100 leukocytes 6 % 0-12 Automated blood eosinophils/100 leukocytes 3 % 0-10 Automated blood basophils/100 leukocytes 0 % 0-10 Blood neutrophils automated count (number/volume) 4.8 10*3 1.8-7.8 Blood lymphocytes automated count (number/volume) 2.1 10*3 1.0-4.0 Blood monocytes automated count (number/volume) 0.5 10*3 0.0-1.0 Automated eosinophil count 0.2 10*3/uL 0.0-0.3 Automated blood basophil count (count/volume) 0.0 10*3/uL 0.0-0.1 Whole blood basic metabolic panel - 04/07/18 07:35 Serum or plasma sodium measurement (moles/volume) 148 mmol/L 135-145 Serum or plasma potassium measurement (moles/volume) 3.5 mmol/L 3.6-5.0 Serum or plasma chloride measurement (moles/volume) 121 mmol/L 98-107 Carbon dioxide 19 mmol/L 21-32 Serum or plasma anion gap determination (moles/volume) 8 mmol/L 5-14 Serum or plasma urea nitrogen measurement (mass/volume) 2 mg/dL 7-18 Serum or plasma creatinine measurement (mass/volume) 0.58 mg/dL 0.60-1.30 Serum or plasma urea nitrogen/creatinine mass ratio 3 NRG Serum or plasma creatinine measurement with calculation of estimated glomerular filtration rate > NRG Serum or plasma glucose measurement (mass/volume) 92 mg/dL 70-105 Serum or plasma calcium measurement (mass/volume) 6.7 mg/dL 8.5-10.1 Serum or plasma phosphate measurement (mass/volume) - 04/07/18 07:35 Serum or plasma phosphate measurement (mass/volume) 1.5 mg/dL 2.3-4.7 Magnesium - 04/07/18 07:35 Magnesium 1.8 mg/dL 1.8-2.4 Complete blood count (CBC) with automated white blood cell (WBC) differential - 04/10/18 21:25 Blood leukocytes automated count (number/volume) 7.7 10*3/uL 4.3-11.0 Blood erythrocytes automated count (number/volume) 3.21 10*6/uL 4.35-5.85 Venous blood hemoglobin measurement (mass/volume) 10.0 g/dL 11.5-16.0 Blood hematocrit (volume fraction) 28 % 35-52 Automated erythrocyte mean corpuscular volume 86 [foz_us] 80-99 Automated erythrocyte mean corpuscular hemoglobin (mass per erythrocyte) 31 pg 25-34 Automated erythrocyte mean corpuscular hemoglobin concentration measurement ( mass/volume) 36 g/dL 32-36 Automated erythrocyte distribution width ratio 16.2 % 10.0-14.5 Automated blood platelet count (count/volume) 218 10*3/uL 130-400 Automated blood platelet mean volume measurement 10.0 [foz_us] 7.4-10.4 Automated blood neutrophils/100 leukocytes 59 % 42-75 Automated blood lymphocytes/100 leukocytes 31 % 12-44 Blood monocytes/100 leukocytes 6 % 0-12 Automated blood eosinophils/100 leukocytes 4 % 0-10 Automated blood basophils/100 leukocytes 0 % 0-10 Blood neutrophils automated count (number/volume) 4.6 10*3 1.8-7.8 Blood lymphocytes automated count (number/volume) 2.4 10*3 1.0-4.0 Blood monocytes automated count (number/volume) 0.5 10*3 0.0-1.0 Automated eosinophil count 0.3 10*3/uL 0.0-0.3 Automated blood basophil count (count/volume) 0.0 10*3/uL 0.0-0.1 Encounters ACCT No. Visit Date/Time Discharge Status Pt. Type Provider Facility Loc./Unit Complaint [id number] 04/05/2018 23:55:00 04/07/2018 18:32:00 DIS Outpatient ASHANTI BONE MD [facility] 4TH PANCREATITIS,HYPOVOLEMIA, HYPOMAGNESEMIA [id number] 06/06/2016 15:02:00 06/17/2016 15:06:00 DIS Outpatient GLADYS PATRICK [facility] REHAB DDD, LUMBAR; UPPER BACK PAIN;UPPER BACK STRAIN [id number] 05/07/2016 10:48:00 05/15/2016 12:37:00 DIS Outpatient GLADYS PATRICK [employer]PER[employer] [facility] REHAB DDD LUMBAR SPINE [id number] 02/03/2016 09:14:00 02/03/2016 13:17:00 DIS Emergency FREDERIC MELENDEZ, HERMELINDA Mena [facility] ER ABD PAIN [id number] 01/15/2016 11:07:00 01/15/2016 23:59:59 CLS Outpatient GLADYS PATRICK [employer]PER[employer] [facility] RAD NECK MASS, SCREENING [id number] 11/27/2015 10:22:00 11/27/2015 23:59:59 CLS Outpatient GLADYS PATRICK [employer] OPERATOR [facility] RAD RT SHOULDER PAIN [id number] 10/18/2015 14:44:00 10/22/2015 14:30:00 DIS Inpatient MAHAD MENDOZA DO [facility] 4TH ACUTE PANCREATITIS POSS PANCREATIC PSEUDOCYST [id number] 10/08/2015 00:31:00 10/09/2015 10:15:00 DIS Inpatient SURY MELENDEZ, OLAYINKA Calabrese [facility] 4TH FEVER,R/O SEPSIS [id number] 04/10/2018 21:44:00 Document Registration [id number] 04/04/2012 22:38:00 Document Registration [id number] 12/30/2016 08:40:00 Document Registration [id number] 02/17/2017 08:35:00 Document Registration [id number] 03/31/2018 14:30:00 03/31/2018 23:59:59 CLS Outpatient KARTIK MELENDEZ, [facility] [id number] 02/23/2018 09:00:00 Document Registration [id number] 09/30/2017 17:45:00 Document Registration
[2018-04-10 22:44] LABS: BACTERIA,URINE TRACE /HPF; HYALINE CASTS, URINE 0-2 /LPF
[2018-04-10] MEDS ORDERED: PROMETHAZINE INJ 25 MG/ML (PHENERGAN) AMP IVP ONE (22:45)
[2018-04-10 23:38] LABS: CHOLESTEROL 115 MG/DL (< 200); HDL CHOLESTEROL 35 MG/DL (40-60); TRIGLYCERIDES 105 MG/DL (<150); VLDL CHOLESTEROL 21 MG/DL (5-40)
[2018-04-11 00:05] VITALS: BP 116/82
[2018-04-11] MEDS ORDERED: MAGNESIUM 1 GM/100 ML IVPB 300 ML IV ONE (00:08)
[2018-04-11] MEDS ORDERED: NS IV 1000 ML 1,000 ML ONE (00:08)
[2018-04-11] MEDS ORDERED: traZODone 50 MG (DESYREL) TAB ONE (00:38)
[2018-04-11] MEDS ORDERED: traZODone 50 MG (DESYREL) TAB PO ONE (00:45)
[2018-04-11] MEDS ORDERED: oxyCODONE/APAP 10/325MG (PERCOCET 10) TABLET PO PRN (00:45)
[2018-04-11] MEDS ORDERED: ALPRAZolam 0.5 MG (XANAX) TAB PO PRN (00:45)
[2018-04-11] MEDS ORDERED: fentaNYL INJECTION 100 MCG/2 ML AMP ONE (00:50)
[2018-04-11] MEDS: POTASSIUM CL 10MEQ/50ML IVPB 50 ML IV SCH ×14 (00:57→22:19)
[2018-04-11] MEDS ORDERED: fentaNYL INJECTION 100 MCG/2 ML AMP IVP PRN (01:45)
[2018-04-11] MEDS ORDERED: PROMETHAZINE INJ 25 MG/ML (PHENERGAN) AMP IVP PRN (01:45)
--- OUTSIDE RECORDS SUMMARY | 2018-04-11 02:04 | XMS REPORT | Continuity of Care Document ---
Author Author [facility] Organization [facility] Address Unknown Phone Unavailable Allergies Active Description Code Type Severity Reaction Onset Reported/Identified Relationship to Patient Clinical Status Yes aripiprazole [id number] Drug Allergy Moderate AGITATION 04/04/2012 Yes levofloxacin [id number] Drug Allergy Moderate RASH, VOMITING 04/04/2012 Yes mirtazapine [id number] Drug Allergy Moderate AGITATION 04/04/2012 Yes naproxen [id number] Drug Allergy Mild RASH 04/04/2012 Yes Sulfa (Sulfonamide Antibiotics) [id number] Drug Allergy Mild RASH 2011 Yes acetaminophen [id number] Drug Allergy Unknown N/A 10/08/2015 Yes hydrocodone [id number] Drug Allergy Unknown N/A 10/08/2015 Yes plastic tape/bandaids/adhesive plastic tape/bandaids/ adhesive Unknown N/A 10/08/2015 Yes peginterferon beta-1a [id number] Drug Allergy Unknown N/A 04/05/2018 Medications There is no data. Problems Date Dx Coded Attending Type Code Diagnosis Diagnosed By 10/29/1505 GLADYS PATRICK [facility] Ot 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 DISC DEGENERATION, 10/29/1505 GLADYS PATRICK [facility] Ot M54.6 PAIN IN THORACIC SPINE 10/29/1505 GLADYS PATRICK [facility] Ot S29.012D STRAIN OF MUSCLE AND [...] K21.9 GASTRO-ESOPHAGEAL REFLUX DISEASE WITHOUT 10/22/2015 MAHAD MENODZA DO Ot K85.0 IDIOPATHIC ACUTE PANCREATITIS 10/22/2015 MAHAD MENDOZA DO Ot K86.1 OTHER CHRONIC PANCREATITIS 10/22/2015 MAHAD MENDOZA DO Ot Z98.1 ARTHRODESIS STATUS 12/20/2015 GLADYS PATRICKP Ot M25.511 12/28/2015 GLADYS PATRICK [employer] Ot M25.511 01/15/2016 GLADYS PATRICKP Ot M25.511 01/17/2016 GLADYS PATRICK [employer] Ot R22.1 01/17/2016 GLADYS PATRICKP Ot Z12.31 02/03/2016 HERMELINDA DE LA GARZA MD Ot F17.210 NICOTINE DEPENDENCE, CIGARETTES, UNCOMPL 02/03/2016 HERMELINDA DE LA GARZA MD Ot G35 MULTIPLE SCLEROSIS 02/03/2016 HERMELINDA DE LA GARZA MD Ot R10.33 PERIUMBILICAL PAIN 02/03/2016 HERMELINDA DE LA GARZA MD Ot Z87.19 PERSONAL HISTORY OF OTHER DISEASES OF TH 02/11/2016 GLADYS PATRICK [employer] Ot R22.1 02/11/2016 GLADYS PATRICK [employer] Ot Z12.31 02/12/2016 GLADYS PATRICK [employer] Ot R22.1 02/12/2016 GLADYS PATRICK [employer] Ot Z12.31 04/07/2016 GLADYS PATRICK [employer] Ot 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 DISC DEGENERATION, 04/24/2016 GLADYS PATRICK [employer] Ot 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 DISC DEGENERATION, 05/14/2016 GLADYS PATRICK [employer] Ot M25.511 PAIN IN RIGHT SHOULDER 05/14/2016 GLADYS PATRICK [employer] Ot R22.1 LOCALIZED SWELLING, MASS AND LUMP, NECK 05/14/2016 GLADYS PATRICK [employer] Ot Z12.31 ENCNTR SCREEN MAMMOGRAM FOR MALIGNANT NE 05/14/2016 GLADYS PATRICK [employer] Ot 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 DISC DEGENERATION, 05/15/2016 GLADYS PATRICK [employer] Ot 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 DISC DEGENERATION, 06/04/2016 GLADYS PATRICK [employer] Ot 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 DISC DEGENERATION, 06/04/2016 GLADYS PATRICK [employer] Ot M54.6 PAIN IN THORACIC SPINE 06/04/2016 GLADYS PATRICK A [employer] Ot S29.012D STRAIN OF MUSCLE AND TENDON OF BACK WALL 06/06/2016 PATRICE PATRICKE A [employer] Ot 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 DISC DEGENERATION, 06/06/2016 PATRICE PATRICKE A [employer] Ot M54.6 PAIN IN THORACIC SPINE 06/06/2016 GLADYS PATRICK A [employer] Ot S29.012D STRAIN OF MUSCLE AND TENDON OF BACK WALL 06/17/2016 PATRICE PATRICKE A [employer] Ot 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 DISC DEGENERATION, 06/17/2016 PATRICE PATRICKE A [employer] Ot M54.6 PAIN IN THORACIC SPINE 06/17/2016 PATRICE PATRICKE A [employer] Ot S29.012D STRAIN OF MUSCLE AND TENDON OF BACK WALL 04/05/2018 GLADYS PATRICK [employer] Ot M25.511 PAIN IN RIGHT SHOULDER 04/05/2018 GLADYS PATRICK [employer] Ot R22.1 LOCALIZED SWELLING, MASS AND LUMP, NECK 04/05/2018 GLADYS PATRICK [employer] Ot Z12.31 ENCNTR SCREEN MAMMOGRAM FOR MALIGNANT NE 04/06/2018 GLADYS PATRICK [employer] Ot M25.511 PAIN IN RIGHT SHOULDER 04/06/2018 GLADYS PATRICK [employer] Ot R22.1 LOCALIZED SWELLING, MASS AND LUMP, NECK 04/06/2018 GLADYS PATRICK [employer] Ot Z12.31 ENCNTR SCREEN MAMMOGRAM FOR MALIGNANT [...] 11.4 fL 7.5-12.5 ABSOLUTE NEUTROPHILS 6647 cells/uL [id number] ABSOLUTE LYMPHOCYTES 2835 cells/uL 850-3900 ABSOLUTE MONOCYTES [...] NR Manual blood basophils/100 leukocytes 1 % [facility] Blood erythrocyte morphology finding identification NORMAL [facility] Manual blood nucleated erythrocytes/100 leukocytes ratio 1 [facility] Comprehensive metabolic panel - 04/05/18 21:35 Serum [...] or plasma urea nitrogen/creatinine mass ratio 3 [facility] Serum or plasma creatinine measurement with calculation of estimated glomerular filtration rate > [facility] Serum or plasma glucose measurement (mass/volume) 106 [...] - 04/07/18 07:35 Magnesium 1.8 mg/dL 1.8-2.4 Lipid 1996 panel - 04/10/18 21:20 Serum or plasma triglyceride measurement (mass/volume) 105 mg/dL <150 Serum or plasma cholesterol measurement (mass/volume) 115 mg/dL < 200 Serum or plasma cholesterol in HDL measurement (mass/volume) 35 mg/ dL 40-60 Cholesterol in LDL [mass/volume] in serum or plasma by direct assay 60 mg/dL 1-129 Serum or plasma cholesterol in VLDL measurement (mass/volume) 21 mg/ dL 5-40 Complete blood count (CBC) with automated white [...] blood basophil count (count/volume) 0.0 10*3/uL 0.0-0.1 Comprehensive metabolic panel - 04/10/18 21:25 Serum or plasma sodium measurement (moles/volume) 143 mmol/L 135-145 Serum or plasma potassium measurement (moles/volume) 2.3 mmol/L 3.6-5.0 Serum or plasma chloride measurement (moles/volume) 111 mmol/L 98-107 Carbon dioxide 19 mmol/L 21-32 Serum or plasma anion gap determination (moles/volume) 13 mmol/L 5-14 Serum or plasma urea nitrogen measurement (mass/volume) 2 mg/dL 7-18 Serum or plasma creatinine measurement (mass/volume) 0.60 mg/dL 0.60-1.30 Serum or plasma urea nitrogen/creatinine mass ratio 3 NRG Serum or plasma creatinine measurement with calculation of estimated glomerular filtration rate > NRG Serum or plasma glucose measurement (mass/volume) 89 mg/dL 70-105 Serum or plasma calcium measurement (mass/volume) 7.8 mg/dL 8.5-10.1 Serum or plasma total bilirubin measurement (mass/volume) 0.5 mg/dL 0.1-1.0 Serum or plasma alkaline phosphatase measurement (enzymatic activity/volume) 77 U/L 40-136 Serum or plasma aspartate aminotransferase measurement (enzymatic activity/ volume) 151 U/L 5-34 Serum or plasma alanine aminotransferase measurement (enzymatic activity/volume ) 102 U/L 0-55 Serum or plasma protein measurement (mass/volume) 4.5 g/dL 6.4-8.2 Serum or plasma albumin measurement (mass/volume) 2.8 g/dL 3.2-4.5 Lipase - 04/10/18 21:25 Lipase 193 U/L 8-78 Magnesium - 04/10/18 21:25 Magnesium 1.6 mg/dL 1.8-2.4 Complete urinalysis with reflex to culture - 04/10/18 22:20 Urine color determination YELLOW NRG Urine clarity determination CLEAR NRG Urine pH measurement by test strip 7 5-9 Specific gravity of urine by test strip 1.010 1.016- 1.022 Urine protein assay by test strip, semi-quantitative NEGATIVE NEGATIVE Urine glucose detection by automated test strip NEGATIVE NEGATIVE Erythrocytes detection in urine sediment by light microscopy NEGATIVE NEGATIVE Urine ketones detection by automated test strip 2+ NEGATIVE Urine nitrite detection by test strip NEGATIVE NEGATIVE Urine total bilirubin detection by test strip NEGATIVE NEGATIVE Urine urobilinogen measurement by automated test strip (mass/volume) NORMAL NORMAL Urine leukocyte esterase detection by dipstick 1+ NEGATIVE Automated urine sediment erythrocyte count by microscopy (number/high power field) NONE NRG Automated urine sediment leukocyte count by microscopy (number/high power field ) [HPF] NRG Bacteria detection in urine sediment by light microscopy TRACE NRG Squamous epithelial cells detection in urine sediment by light microscopy 2-5 NRG Crystals detection in urine sediment by light microscopy NONE NRG Casts detection in urine sediment by light microscopy PRESENT NRG Mucus detection in urine sediment by light microscopy MODERATE NRG Complete urinalysis with reflex to culture YES NRG Hyaline casts detection in urine sediment by light microscopy 0-2 NRG Renal epithelial cells detection in urine sediment by light microscopy NONE NRG Encounters ACCT No. Visit Date/Time Discharge Status Pt. Type Provider Facility Loc./Unit Complaint [id number] 04/05/2018 23:55:00 04/07/2018 18:32:00 DIS Outpatient SMITHA MELENDEZ, ASHANTI Muse [facility] 4TH PANCREATITIS,HYPOVOLEMIA, HYPOMAGNESEMIA [id number] 06/06/2016 15:02:00 06/17/2016 15:06:00 DIS Outpatient GLADYS PATRICK [facility] REHAB DDD, LUMBAR; UPPER BACK PAIN;UPPER BACK STRAIN [id number] 05/07/2016 10:48:00 05/15/2016 12:37:00 DIS Outpatient GLADYS PATRICK [facility] REHAB DDD LUMBAR SPINE [id number] 02/03/2016 09:14:00 02/03/2016 13:17:00 DIS Emergency FREDERIC MELENDEZ, HERMELINDA Mena [facility] ER ABD PAIN [id number] 01/15/2016 11:07:00 01/15/2016 23:59:59 CLS Outpatient GLADYS PATRICK [employer] [facility] RAD NECK MASS, SCREENING [id number] 11/27/2015 10:22:00 11/27/2015 23:59:59 CLS Outpatient GLADYS PATRICK [employer] [facility] RAD RT SHOULDER PAIN [id number] 10/18/2015 14:44:00 10/22/2015 14:30:00 DIS Inpatient MAHAD MENDOZA DO [facility] 4TH ACUTE PANCREATITIS POSS PANCREATIC PSEUDOCYST [id number] 10/08/2015 00:31:00 10/09/2015 10:15:00 DIS Inpatient SURY MELENDEZ, OLAYINKA Fuentes [facility] 4TH FEVER,R/O SEPSIS [id number] 04/10/2018 21:44:00 Document Registration [id number] 04/04/2012 22:38:00 Document Registration [id number] 12/30/2016 08:40:00 Document Registration [id number] 02/17/2017 08:35:00 Document Registration [id number] 03/31/2018 14:30:00 03/31/2018 23:59:59 CLS Outpatient KARTIK MELENDEZ, J[facility]Y [facility] [place] [id number] 02/23/2018 09:00:00 Document Registration [id number] 09/30/2017 17:45:00 Document Registration
[2018-04-11] MEDS: NS IV 1000 ML 1,000 ML IV SCH ×3 (03:33→15:22)
[2018-04-11 04:00] VITALS: BP 121/78
[2018-04-11 06:40] LABS: BASOPHILS % (AUTO) 0 % (0-10); EOSINOPHILS # (AUTO) 0.4 10^3/uL (0.0-0.3); EOSINOPHILS % (AUTO) 5 % (0-10); HEMATOCRIT 28 % (35-52); HEMOGLOBIN 9.9 G/DL (11.5-16.0); LYMPHOCYTES # (AUTO) 2.3 X 10^3 (1.0-4.0); LYMPHOCYTES % (AUTO) 31 % (12-44); MEAN CORPUSCULAR HEMOGLOBIN 31 PG (25-34); MEAN CORPUSCULAR HGB CONC 36 G/DL (32-36); MEAN CORPUSCULAR VOLUME 87 FL (80-99); MEAN PLATELET VOLUME 9.7 FL (7.4-10.4); MONOCYTES # (AUTO) 0.5 X 10^3 (0.0-1.0); MONOCYTES % (AUTO) 7 % (0-12); NEUTROPHILS # (AUTO) 4.2 X 10^3 (1.8-7.8); NEUTROPHILS % (AUTO) 58 % (42-75); PLATELET COUNT 191 10^3/uL (130-400); RED BLOOD COUNT 3.17 10^6/uL (4.35-5.85); RED CELL DISTRIBUTION WIDTH 16.1 % (10.0-14.5); WHITE BLOOD COUNT 7.3 10^3/uL (4.3-11.0)
[2018-04-11 07:00] LABS: ALANINE AMINOTRANSFERASE 88 U/L (0-55); ALBUMIN 2.7 GM/DL (3.2-4.5); ALKALINE PHOSPHATASE 73 U/L (40-136); BILIRUBIN,TOTAL 0.4 MG/DL (0.1-1.0); BUN/CREATININE RATIO 4; CALCIUM 7.4 MG/DL (8.5-10.1); CARBON DIOXIDE 20 MMOL/L (21-32); CHLORIDE 113 MMOL/L (98-107); CREATININE SERUM 0.57 MG/DL (0.60-1.30); GFR ESTIMATED > 60; GLUCOSE 86 MG/DL (70-105); POTASSIUM 2.9 MMOL/L (3.6-5.0); SODIUM 142 MMOL/L (135-145); TOTAL PROTEIN 4.2 GM/DL (6.4-8.2)
[2018-04-11 08:00] VITALS: BP 109/72
--- NOTE | 2018-04-11 09:54 | History & Physicial (CHS) ---
HPI History of Present Illness: Pt hospitalized 04/05/18 for n/v and elevated lipase at that time she had symptoms for 5 days, no n/v/d prior to that. Following discharge pt began vomiting again and has continued to have vomiting and diarrhea since that time. Pt has hx of chronic pancreatitis, pt is unsure why she has chronic pancreatitis - she is to have and EGD in the near future. Denies significant abdominal pain though she states she is tender on the R side. Pt reports hx of hypokalemia though she is not on KCL on a regular basis. Reviewed medications with patient, she has weaned off of all of her controlled substances per Dr. Munoz. Patient reports she is feeling like eating this am and has ordered pancakes. Date seen by provider: April 11, 2018 Time Seen by Provider: 09:49 Attending Physician Marnie Munoz MD PCP Marnie Munoz MD Consult Date of Admission April 10, 2018 at 23:12 Home Medications Home Medications Reviewed patient Home Medication Reconciliation performed by pharmacy medication reconciliations glass installer technician and/or nursing. Patients Allergies have been reviewed. Allergies Coded Allergies: acetaminophen (Verified Allergy, Unknown, 10/08/15) hydrocodone (Verified Allergy, Unknown, 10/08/15) aripiprazole (Unverified Adverse Reaction, Intermediate, AGITATION, 04/04/12 ) levofloxacin (Unverified Adverse Reaction, Intermediate, RASH, VOMITING, ) mirtazapine (Unverified Adverse Reaction, Intermediate, AGITATION, 04/04/12) Sulfa (Sulfonamide Antibiotics) (Unverified Adverse Reaction, Mild, RASH, 04/04/12) naproxen (Unverified Adverse Reaction, Mild, RASH, 04/04/12) peginterferon beta-1a (Verified Adverse Reaction, Unknown, 04/05/18) Uncoded Allergies: plastic tape/bandaids/adhesive (Allergy, Unknown, 10/08/15) [id number]-[id number]-Zyrjtv Hx Patient Social History Alcohol Use: Denies Use Recreational Drug Use: No Smoking Status: Current Someday Smoker Type Used: Cigarettes 2nd Hand Smoke Exposure: Yes Recent Foreign Travel: No Contact w/other who traveled: No Recent Hopitalizations: Yes Recent Infectious Disease Expo: No Physical Abuse Screen: No Sexual Abuse: No Immunizations Up To Date Date of Pneumonia Vaccine: Jul 31, 2010 Past Medical History Past medical history 1. Multiple sclerosis treated by Dr. Bay at [facility] in [place] 2. Lumbar disc disease 3. Chronic pancreatitis 4. Depression and anxiety Past surgical history 1. Back surgery 2 with lumbar fusion in March [address] Aguirre 2. Hysterectomy 3. Cholecystectomy with reported "pancreatic surgery" 4. Appendectomy 5. Family Medical History Significant Family History: No Pertinent Family Hx Family History: Alcoholism Arthritis Cardiovascular disease Colon cancer Completed stroke Coronary thrombosis Diabetes mellitus Hypertension Respiratory disorder Severe allergy Thyroid disease Visual disorder Review of Systems (CHC) Constitutional: No chills, No fever EENTM: see HPI Respiratory: no symptoms reported Cardiovascular: no symptoms reported Gastrointestinal: see HPI Genitourinary: incontinence (urge) Skin: no symptoms reported Psychiatric/Neurological: Emotional Problems Reviewed Test Results Reviewed Test Results Lab Laboratory Tests 04/10/18 21:20: Triglycerides Level 105, Cholesterol Level 115, LDL Cholesterol Direct 60, VLDL Cholesterol 21, HDL Cholesterol 35L 04/10/18 21:25: White Blood Count 7.7, Red Blood Count 3.21L, Hemoglobin 10.0L, Hematocrit 28L, Mean Corpuscular Volume 86, Mean Corpuscular Hemoglobin 31, Mean Corpuscular Hemoglobin Concent 36, Red Cell Distribution Width 16.2H, Platelet Count 218, Mean Platelet Volume 10.0, Neutrophils (%) (Auto) 59, Lymphocytes (%) (Auto) 31 , Monocytes (%) (Auto) 6, Eosinophils (%) (Auto) 4, Basophils (%) (Auto) 0, Neutrophils # (Auto) 4.6, Lymphocytes # (Auto) 2.4, Monocytes # (Auto) 0.5, Eosinophils # (Auto) 0.3, Basophils # (Auto) 0.0, Sodium Level 143, Potassium Level 2.3*L, Chloride Level 111H, Carbon Dioxide Level 19L, Anion Gap 13, Blood Urea Nitrogen 2L, Creatinine 0.60, Estimat Glomerular Filtration Rate > 60, BUN/ Creatinine Ratio 3, Glucose Level 89, Calcium Level 7.8L, Magnesium Level 1.6L, Total Bilirubin 0.5, Aspartate Amino Transf (AST/SGOT) 151H, Alanine Aminotransferase (ALT/SGPT) 102H, Alkaline Phosphatase 77, Total Protein 4.5L, Albumin 2.8L, Lipase 193H 04/10/18 22:20: Urine Color YELLOW, Urine Clarity CLEAR, Urine pH 7, Urine Specific [place] 1.010L, Urine Protein NEGATIVE, Urine Glucose (UA) NEGATIVE, Urine Ketones 2+H, Urine Nitrite NEGATIVE, Urine Bilirubin NEGATIVE, Urine Urobilinogen NORMAL, Urine Leukocyte Esterase 1+H, Urine RBC (Auto) NEGATIVE, Urine RBC NONE, Urine WBC 5-10H, Urine Squamous Epithelial Cells 2-5, Urine Renal Epithelial Cells NONE, Urine Crystals NONE, Urine Bacteria TRACE, Urine Casts PRESENT, Urine Hyaline Casts 0-2H, Urine Mucus MODERATEH, Urine Culture Indicated YES 04/11/18 06:30: White Blood Count 7.3, Red Blood Count 3.17L, Hemoglobin 9.9L, Hematocrit 28L, Mean Corpuscular Volume 87, Mean Corpuscular Hemoglobin 31, Mean Corpuscular Hemoglobin Concent 36, Red Cell Distribution Width 16.1H, Platelet Count 191, Mean Platelet Volume 9.7, Neutrophils (%) (Auto) 58, Lymphocytes (%) (Auto) 31, Monocytes (%) (Auto) 7, Eosinophils (%) (Auto) 5, Basophils (%) (Auto) 0, Neutrophils # (Auto) 4.2, Lymphocytes # (Auto) 2.3, Monocytes # (Auto) 0.5, Eosinophils # (Auto) 0.4H, Basophils # (Auto) 0.0, Sodium Level 142, Potassium Level 2.9L, Chloride Level 113H, Carbon Dioxide Level 20L, Anion Gap 9, Blood Urea Nitrogen 2L, Creatinine 0.57L, Estimat Glomerular Filtration Rate > 60, BUN /Creatinine Ratio 4, Glucose Level 86, Calcium Level 7.4L, Magnesium Level 2.4, Total Bilirubin 0.4, Aspartate Amino Transf (AST/SGOT) 113H, Alanine Aminotransferase (ALT/SGPT) 88H, Alkaline Phosphatase 73, Total Protein 4.2L, Albumin 2.7L Physical Exam-([facility]) Physical Exam Vital Signs VS - Last 72 Hours, by Label 04/10/18 04/10/18 04/11/18 04/11/18 20:58 23:55 00:05 00:16 Temp 98.2 98.4 Pulse 70 60 78 75 Resp 18 18 16 B/P (MAP) 115/76 (89) 126/85 116/82 (93) Pulse Ox 98 98 98 O2 Delivery Room Air 04/11/18 04/11/18 04/11/18 04/11/18 01:08 04:00 07:00 08:00 Temp 98.8 98.7 Pulse 96 76 85 Resp 16 16 B/P (MAP) 121/78 (92) 109/72 (84) Pulse Ox 98 98 95 O2 Delivery Room Air Room Air Room Air Capillary Refill : Less Than 3 Seconds General Appearance: WD/WN, no apparent distress HEENT: PERRL/EOMI Respiratory: lungs clear, normal breath sounds, no respiratory distress Cardiovascular: regular rate, rhythm Gastrointestinal: non tender, soft; No distended, No guarding, No rebound Neurologic/Psychiatric: alert, normal mood/affect, oriented x 3 Assessment/Plan Assessment/Plan Admission Dx 1. N/V/D 2. Hypokalemia 3. Hypomagnesemia 4. Chronic pancreatitis Admission Status: Observation Assessment & Plan 1. N/V/D - symptoms since prior to last hospitalization 04/05/18 - somewhat improved this am, wanting to eat. 2. Hypokalemia - 2.3 on admission, up to 2.9 after 80 mEq of KCL; another 40 ordered then will repeat level 3. Hypomagnesemia -2.3 on admission RESOLVED 4. Chronic pancreatitis - lipase 193, chronically elevated 5. Opioid Use Disorder - recently weaned off of all controlled substances - pt reports feeling positive about not being on the controlled substances. 6. Elevated LFT - chronically elevated, no prior Hep panel in system - ordered Plan: Replace potassium, if K level increase and pt is tolerating po intake will DC home for further work-up of n/v/d and chronically elevated LFT and pancreatic enzymes. Clinical Quality Measures DVT/VTE Risk/Contraindication: Risk Factor Score Per Nursin RFS Level Per Nursing on Admit: 3=High Risk Score Comment: SAM Perez DO April 11, 2018 09:54
[2018-04-11] MEDS: ENOXAPARIN 40 MG/0.4 ML (LOVENOX) SYR SQ SCH (10:46)
[2018-04-11 12:00] VITALS: BP 118/79
[2018-04-11] MEDS ORDERED: DICYCLOMINE 10 MG (BENTYL) CAP ONE (13:13)
[2018-04-11] MEDS: DICYCLOMINE 10 MG (BENTYL) CAP PO SCH ×3 (13:22→21:36)
[2018-04-11] MEDS: ONDANSETRON 4 MG/2 ML (SDV) Z0FRAN IVP PRN (15:21)
[2018-04-11 15:22] VITALS: BP 106/60
[2018-04-11] MEDS ORDERED: KCL 20 MEQ TAB (K-DUR) PO ONE (18:45)
[2018-04-11] MEDS ORDERED: HYDROcodone/APAP 5 MG/325 MG (LORTAB) TAB PO ONE (18:45)
[2018-04-11] MEDS ORDERED: oxyCODONE/APAP 5/325MG (PERCOCET 5) TABLET ONE (18:52)
[2018-04-11] MEDS ORDERED: oxyCODONE/APAP 5/325MG (PERCOCET 5) TABLET PO ONE (19:00)
[2018-04-11 20:00] VITALS: BP 119/75
[2018-04-11] MEDS: DULoxetine 30 MG (CYMBALTA) CAP PO SCH (20:00)
[2018-04-11] MEDS ORDERED: traZODone 50 MG (DESYREL) TAB PO SCH (21:00)
[2018-04-12 00:03] VITALS: BP 111/63
[2018-04-12] MEDS: NS IV 1000 ML 1,000 ML IV SCH ×2 (01:50→09:06)
[2018-04-12] MEDS: ONDANSETRON 4 MG/2 ML (SDV) Z0FRAN IVP PRN (04:22)
[2018-04-12 04:36] VITALS: BP 131/78
[2018-04-12] MEDS: DICYCLOMINE 10 MG (BENTYL) CAP PO SCH ×2 (06:01→10:33)
[2018-04-12] MEDS ORDERED: PANTOPRAZOLE 40 MG (PROTONIX) TAB PO SCH (07:00)
[2018-04-12 08:00] VITALS: BP 123/80
[2018-04-12] MEDS: ENOXAPARIN 40 MG/0.4 ML (LOVENOX) SYR SQ SCH (09:02)
[2018-04-12] MEDS: DULoxetine 30 MG (CYMBALTA) CAP PO SCH (09:03)
[2018-04-12 09:14] LABS: BASOPHILS % (AUTO) 0 % (0-10); EOSINOPHILS # (AUTO) 0.2 10^3/uL (0.0-0.3); EOSINOPHILS % (AUTO) 4 % (0-10); HEMATOCRIT 28 % (35-52); HEMOGLOBIN 9.9 G/DL (11.5-16.0); LYMPHOCYTES # (AUTO) 1.6 X 10^3 (1.0-4.0); LYMPHOCYTES % (AUTO) 27 % (12-44); MEAN CORPUSCULAR HEMOGLOBIN 31 PG (25-34); MEAN CORPUSCULAR HGB CONC 35 G/DL (32-36); MEAN CORPUSCULAR VOLUME 89 FL (80-99); MONOCYTES # (AUTO) 0.4 X 10^3 (0.0-1.0); MONOCYTES % (AUTO) 7 % (0-12); NEUTROPHILS # (AUTO) 3.7 X 10^3 (1.8-7.8); NEUTROPHILS % (AUTO) 63 % (42-75); PLATELET COUNT 173 10^3/uL (130-400); RED BLOOD COUNT 3.18 10^6/uL (4.35-5.85); RED CELL DISTRIBUTION WIDTH 16.5 % (10.0-14.5)
[2018-04-12 09:30] LABS: BUN/CREATININE RATIO 4; CALCIUM 7.7 MG/DL (8.5-10.1); CARBON DIOXIDE 18 MMOL/L (21-32); CHLORIDE 114 MMOL/L (98-107); CREATININE SERUM 0.57 MG/DL (0.60-1.30); GFR ESTIMATED > 60; GLUCOSE 78 MG/DL (70-105); MAGNESIUM 1.8 MG/DL (1.8-2.4); POTASSIUM 3.4 MMOL/L (3.6-5.0); SODIUM 141 MMOL/L (135-145)
--- NOTE | 2018-04-12 10:07 | Discharge Summary ---
Diagnosis/Chief Complaint Date of Admission April 10, 2018 at 23:12 Date of Discharge 04/12/17 Admission Diagnosis Admission Diagnosis Nausea, Vomiting, Diarrhea Discharge Diagnosis Nausea - improved Vomiting - resolved Diarrhea - resolved Will plan discharge to home given that patient has been tolerating PO without difficulty since arrival. Will discharge with medication for loose stools and nausea in case symptoms re-occur at home, although anticipate that patient experienced gastroenteritis and will be okay at home without further significant symptoms. Chief Complaint/HPI Chief Complaint/HPI Pt hospitalized 04/05/18 for n/v and elevated lipase at that time she had symptoms for 5 days, no n/v/d prior to that. Following discharge pt began vomiting again and has continued to have vomiting and diarrhea since that time. Pt has hx of chronic pancreatitis, pt is unsure why she has chronic pancreatitis - she is to have and EGD in the near future. Denies significant abdominal pain though she states she is tender on the R side. Pt reports hx of hypokalemia though she is not on KCL on a regular basis. Reviewed medications with patient, she has weaned off of all of her controlled substances per Dr. Gross. Patient reports she is feeling like eating this am and has ordered pancakes. Discharge Summary-OBS Procedures None. Consultations Discharge Physical Examination Allergies: Coded Allergies: acetaminophen (Verified Allergy, Unknown, 10/08/15) hydrocodone (Verified Allergy, Unknown, 10/08/15) aripiprazole (Unverified Adverse Reaction, Intermediate, AGITATION, 04/04/12 ) levofloxacin (Unverified Adverse Reaction, Intermediate, RASH, VOMITING, ) mirtazapine (Unverified Adverse Reaction, Intermediate, AGITATION, 04/04/12) Sulfa (Sulfonamide Antibiotics) (Unverified Adverse Reaction, Mild, RASH, 04/04/12) naproxen (Unverified Adverse Reaction, Mild, RASH, 04/04/12) peginterferon beta-1a (Verified Adverse Reaction, Unknown, 04/05/18) Uncoded Allergies: plastic tape/bandaids/adhesive (Allergy, Unknown, 10/08/15) Vitals & I&Os Intake and Output 04/12/18 00:00 Intake Total 790 ml Output Total 1200 ml Balance -410 ml Vital Sign - Last 12Hours Date Time Temp Pulse Resp B/P (MAP) Pulse Ox O2 Delivery O2 Flow Rate FiO2 04/12/18 07:00 74 04/12/18 04:36 97.8 18 131/78 (95) 95 Room Air General Appearance: Alert, Oriented X3, Cooperative, No Acute Distress HEENT: Atraumatic, EOMI, Mucous Memb Moist/[place] Respiratory: Clear to Auscultation, Normal Air Movement Cardiovascular: Regular Rate, Normal S1, Normal S2 Abdominal: Normal Bowel Sounds, Soft, No Tenderness, No Masses Extremities: No Clubbing, No Cyanosis, No Tenderness/Swelling Skin: No Rashes, No Significant Lesion Neuro: Normal Speech, Normal Tone, Sensation Intact, Cranial Nerves 3-12 NL Psych/Mental Status: Mental Status NL, Mood NL Hospital Course see final discharge diagnosis Labs Laboratory Tests 04/11/18 17:48: Potassium Level 2.9L 04/12/18 09:00: Potassium Level 3.4L, White Blood Count 6.0, Red Blood Count 3.18L, Hemoglobin 9.9L, Hematocrit 28L, Mean Corpuscular Volume 89, Mean Corpuscular Hemoglobin 31 , Mean Corpuscular Hemoglobin Concent 35, Red Cell Distribution Width 16.5H, Platelet Count 173, Mean Platelet Volume 10.0, Neutrophils (%) (Auto) 63, Lymphocytes (%) (Auto) 27, Monocytes (%) (Auto) 7, Eosinophils (%) (Auto) 4, Basophils (%) (Auto) 0, Neutrophils # (Auto) 3.7, Lymphocytes # (Auto) 1.6, Monocytes # (Auto) 0.4, Eosinophils # (Auto) 0.2, Basophils # (Auto) 0.0, Sodium Level 141, Chloride Level 114H, Carbon Dioxide Level 18L, Anion Gap 9, Blood Urea Nitrogen < 2L, Creatinine 0.57L, Estimat Glomerular Filtration Rate > 60, BUN/Creatinine Ratio 4, Glucose Level 78, Calcium Level 7.7L, Magnesium Level 1.8 Microbiology 04/11/18 C. difficile GDH Antigen & Toxins - Final, Complete 04/10/18 Urine Culture - Final, Complete Probable Gardnerella Vaginalis Discussion & Recommendations Pt has done well while in the hospital and has nearly complete resolution of her symptoms. Her potassium level this morning is 3.4, just under the lower limit of normal; will replace with 40 mgEq x1 prior to discharge and have patient keep scheduled appt 04/14 at 0930, which she has been instructed to keep. Pt reports she is still having some nausea, will discharge with Zofran ODT, and encouraged pt to try OTC Immodium for loose stools if needed. Discharge Condition at discharge Stable Instructions to patient/family Please see electronic discharge instructions given to patient. Discharge Medications Reviewed and agree with Discharge Medication list on patient's Discharge Instruction sheet Clinical Quality Measures DVT/VTE Risk/Contraindication: Risk Factor Score Per Nursin RFS Level Per Nursing on Admit: 3=High Risk Score Comment: Lovenox Copy Copies To 1: LUIZ GROSS MD, MARGARET E DO April 12, 2018 10:07
[2018-04-12] MEDS ORDERED: DIPH1TAB25 PO (10:12)
[2018-04-12] MEDS ORDERED: PROM12.59 PO (10:12)
--- NOTE | 2018-04-12 10:18 | Discharge Instructions ---
Discharge [facility] Discharge Medications New, Converted or Re-Newed RX: Transmitted to Pharmacy New Medications: Diphenoxylate HCl/Atropine (Diphenoxylate-Atrop 2.5-0.025) 1 Each Tablet 1 EACH PO Q6H PRN for DIARRHEA for 3 Days, #10 TAB 0 Refills Promethazine HCl (Promethazine HCl) 12.5 Mg Tablet 12.5 MG PO Q6H PRN for NAUSEA/VOMITING-2ND LINE for 7 Days, #28 TAB 0 Refills Continued Medications: Atorvastatin Calcium (Atorvastatin Calcium) 20 Mg Tablet 20 MG PO HS, TAB Duloxetine HCl (Duloxetine HCl) 60 Mg Capsule.dr 60 MG PO BID, CAP Esomeprazole Magnesium (Esomeprazole Magnesium) 40 Mg Capsule.dr 40 MG PO DAILY, CAP Lurasidone HCl (Latuda) 60 Mg Tablet 60 MG PO DAILY, TAB Ondansetron HCl (Ondansetron HCl) 4 Mg Tablet 4 MG PO TID PRN for NAUSEA/VOMITING-1ST LINE, TAB Pregabalin (Lyrica) 150 Mg Capsule 150 MG PO BID, CAP LAST FILLED #56 4-2-18 Solifenacin Succinate (Vesicare) 10 Mg Tablet 10 MG PO DAILY, TAB Topiramate (Topiramate) 50 Mg Tablet 50 MG PO BID, TAB Trazodone HCl (Trazodone HCl) 50 Mg Tablet 25 MG PO HS, TAB TAKES 1/2 (50MG) TABLET Patient Instructions Patient Instructions -take medications as prescribed -if home zofran not working to control nausea, may try promethazine tablets, 1 every six hours as needed for nausea uncontrolled by Zofran -try OTC immodium per box directions, not to exceed 8 tablets in 24 hours; if immodium not relieving symptoms, may try rx medication to relieve symptoms -bland diet in small quantities until seen by Dr. Gross and told to advance diet -keep follow up appt as scheduled Return to [facility] For: chest pain or pressure, shortness of breath out of norm for patient that does not relieve with resting, nausea or vomting that makes you unable to keep down medications or sips of clear liquids for >12 hours, temp >101 that does not improve after 1 hour with tylenol or ibuprofen, if directed by demolitionist provider or any other emergent complaints or concerns Activity & Diet Discharge Diet: Eat Small Frequent Meals Activity as Tolerated: Yes Orders-Post D/C & Referrals Pneu Vac Indicated: Yes Copy Copies To 1: LUIZ GROSS MD, MARGARET E DO April 12, 2018 10:18
[2018-04-12] MEDS ORDERED: KCL 20 MEQ TAB (K-DUR) PO NR (10:23)
[2018-04-12 10:44] VITALS: BP 123/80
[2018-04-12 12:47] LABS: HEPATITIS C ANTIBODY C Non-Reactive (Non-Reactive)
== END 2018-04-12 10:12 | disposition home or self-care (01) ==
LOC: EDUNIT# 20:24 → ER 20:26 → INTOOBSV 23:12 → ICU 23:12 → 4TH 04-11 14:47
PROVIDERS: ADMIT Family Medicine; ATTEND Pediatrics
DX: E87.6 Hypokalemia (principal); E83.42 Hypomagnesemia; K86.1 Other chronic pancreatitis; R11.2 Nausea with vomiting, unspecified; R19.7 Diarrhea, unspecified; R79.89 Other specified abnormal findings of blood chemistry; G35 Multiple sclerosis; K21.9 Gastro-esophageal reflux disease without esophagitis; M19.91 Primary osteoarthritis, unspecified site; G89.4 Chronic pain syndrome; F32.9 Major depressive disorder, single episode, unspecified; F41.9 Anxiety disorder, unspecified; F17.210 Nicotine dependence, cigarettes, uncomplicated; Z98.1 Arthrodesis status
CPT/HCPCS: 36415; 80048; 80053; 80061; 80074; 81000; 83690; 83735; 84132; 85025; 87045; 87046; 87088; 87324; 87328; 87329; 87449; 96365; 96375; G0378

== ENCOUNTER 2018-04-20 07:56 | Inpatient (IN) | payer MEDICARE, MEDICAID ==
[~2018-04-20] VITALS: Ht 160 cm; Wt 57.8 kg
[~2018-04-20 07:56] MED LIST changes: +DIPH1TAB25 PO; +PROM12.59 PO
[2018-04-20] MEDS ORDERED: ONDANSETRON 4 MG/2 ML (SDV) Z0FRAN IVP ONE (08:45)
[2018-04-20 08:49] LABS: BASOPHILS % (AUTO) 0 % (0-10); EOSINOPHILS # (AUTO) 0.2 10^3/uL (0.0-0.3); EOSINOPHILS % (AUTO) 1 % (0-10); HEMATOCRIT 39 % (35-52); HEMOGLOBIN 13.9 G/DL (11.5-16.0); LYMPHOCYTES # (AUTO) 2.1 X 10^3 (1.0-4.0); LYMPHOCYTES % (AUTO) 18 % (12-44); MEAN CORPUSCULAR HEMOGLOBIN 31 PG (25-34); MEAN CORPUSCULAR HGB CONC 36 G/DL (32-36); MEAN CORPUSCULAR VOLUME 86 FL (80-99); MEAN PLATELET VOLUME 11.8 FL (7.4-10.4); MONOCYTES # (AUTO) 1.1 X 10^3 (0.0-1.0); MONOCYTES % (AUTO) 10 % (0-12); NEUTROPHILS # (AUTO) 7.9 X 10^3 (1.8-7.8); NEUTROPHILS % (AUTO) 70 % (42-75); PLATELET COUNT 227 10^3/uL (130-400); RED BLOOD COUNT 4.51 10^6/uL (4.35-5.85); RED CELL DISTRIBUTION WIDTH 16.1 % (10.0-14.5); WHITE BLOOD COUNT 11.2 10^3/uL (4.3-11.0)
[2018-04-20 08:59] LABS: ALANINE AMINOTRANSFERASE 23 U/L (0-55); ALBUMIN 3.8 GM/DL (3.2-4.5); ALKALINE PHOSPHATASE 88 U/L (40-136); BILIRUBIN,TOTAL 1.1 MG/DL (0.1-1.0); BUN/CREATININE RATIO 12; CALCIUM 9.4 MG/DL (8.5-10.1); CARBON DIOXIDE 21 MMOL/L (21-32); CHLORIDE 101 MMOL/L (98-107); CREATININE SERUM 0.65 MG/DL (0.60-1.30); GFR ESTIMATED > 60; GLUCOSE 120 MG/DL (70-105); MAGNESIUM 1.7 MG/DL (1.8-2.4); SODIUM 137 MMOL/L (135-145); TOTAL PROTEIN 6.4 GM/DL (6.4-8.2)
[2018-04-20] MEDS ORDERED: LACTATED RINGERS 1,000 ML IV ONE (09:09)
[2018-04-20 09:13] LABS: POTASSIUM 2.4 MMOL/L (3.6-5.0)
--- NOTE | 2018-04-20 09:33 | ED GI ---
General Chief Complaint: Abdominal/GI Problems Stated Complaint: VOMITING/DIARRHEA Nursing Triage Note: PT AMB TO ROOM 3 PT CO OF N/V/D SINCE 03/30/18. PT STATES WAS DISMISSED FROM HOSP ON 04/14/18 WENT TO [facility] AND TOLD THERE WAS NOTHING THEY COULD DO. PT STATES HAS GENERALIZED BODY ACHES 5/ Sepsis Screen: No Definite Risk Source of Information: Patient, Old Records Exam Limitations: No Limitations History of Present Illness Date Seen by Provider: April 20, 2018 Time Seen by Provider: 08:42 Initial Comments This 42-year-old woman presents to the emergency room with complaints of nausea , vomiting and diarrhea for the past couple of weeks. She had been admitted to this facility april 10-. She was notably hypokalemic at that time and required replacement. Since returning home she has had continued trouble with vomiting and diarrhea. She states her symptoms are dependent on medications for control. She has been trying to take promethazine but vomits the medication. She feels generally achy. She has some abdominal discomfort as well. She has generalized abdominal tenderness on exam, upper greater than lower. She denies any fever. She denies any hematemesis or hematochezia. She denies being on any antibiotics recently. She states she was seen at the [facility] walk-in clinic yesterday. She denies starting any new medications around the time of symptom onset. Allergies and Home Medications Allergies Coded Allergies: acetaminophen (Verified Allergy, Unknown, 04/20/18) hydrocodone (Verified Allergy, Unknown, 04/20/18) aripiprazole (Verified Adverse Reaction, Intermediate, AGITATION, 04/20/18) levofloxacin (Verified Adverse Reaction, Intermediate, RASH, VOMITING, ) mirtazapine (Verified Adverse Reaction, Intermediate, AGITATION, 04/20/18) Sulfa (Sulfonamide Antibiotics) (Verified Adverse Reaction, Mild, RASH, ) naproxen (Verified Adverse Reaction, Mild, RASH, 04/20/18) peginterferon beta-1a (Verified Adverse Reaction, Unknown, 04/20/18) Uncoded Allergies: plastic tape/bandaids/adhesive (Allergy, Unknown, 10/08/15) Home Medications Atorvastatin Calcium 20 Mg Tablet, 20 MG PO HS, (Reported) Diphenoxylate HCl/Atropine 1 Each Tablet, 1 EACH PO Q6H PRN for DIARRHEA Prescribed by: ESTHELA BLISS on 04/12/18 1012 Duloxetine HCl 60 Mg Capsule.dr, 60 MG PO BID, (Reported) Esomeprazole Magnesium 40 Mg Capsule.dr, 40 MG PO DAILY, (Reported) Linaclotide 290 Mcg Capsule, 290 MCG PO DAILY, (Reported) Lurasidone HCl 60 Mg Tablet, 60 MG PO DAILY, (Reported) Potassium Chloride 10 Meq Capsule.er, 10 MEQ PO BID, (Reported) FILLED 04-16-18 (NOT YET PICKED UP FROM PHARMACY) Pregabalin 150 Mg Capsule, 150 MG PO BID, (Reported) LAST FILLED #56 03-01-18 Promethazine HCl 25 Mg Tablet, 12.5 MG PO Q6H PRN for NAUSEA/VOMITING-2ND LINE, (Reported) Solifenacin Succinate 10 Mg Tablet, 10 MG PO DAILY, (Reported) Topiramate 50 Mg Tablet, 50 MG PO BID, (Reported) Trazodone HCl 50 Mg Tablet, 25 MG PO HS, (Reported) TAKES 1/2 (50MG) TABLET Patient Home Medication List Home Medication List Reviewed: Yes Review of Systems Constitutional: see HPI, weakness, other (achy) EENTM: No Symptoms Reported Respiratory: No Symptoms Reported Cardiovascular: No Symptoms Reported Gastrointestinal: See HPI Genitourinary: No Symptoms Reported Musculoskeletal: see HPI, muscle pain Skin: no symptoms reported Psychiatric/Neurological: No Symptoms Reported Endocrine: No Symptoms Reported Hematologic/Lymphatic: No Symptoms Reported Past Srvmccg-Zlnegn-Rwhxta Hx Past Med/Social Hx: Reviewed and Corrections made Patient Social History Alcohol Use: Denies Use Recreational Drug Use: No Type Used: Cigarettes 2nd Hand Smoke Exposure: Yes Recent Foreign Travel: No Contact w/Someone Who Travel: No Recent Infectious Disease Expo: No Recent Hopitalizations: Yes Physical Abuse: No Sexual Abuse: No Immunizations Up To Date Date of Pneumonia Vaccine: Jul 31, 2010 Seasonal Allergies Seasonal Allergies: Yes Past Medical History Surgeries: Yes (BACK PINS AND RODS, BACK W/DISKECTOMY COLONOSCOPY, OVARIAN CYSTS) Appendectomy, Section, Gallbladder, Hysterectomy, Orthopedic, Pancreatic Respiratory: Yes Pneumonia, Chronic Bronchitis Currently Using CPAP: No Currently Using BIPAP: No Cardiac: Yes Neurological: Yes Multiple Sclerosis Reproductive Disorders: No 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 Genitourinary: No Gastrointestinal: Yes Gastroesophageal Reflux, Pancreatitis, Esophagitis, Irritable Bowel Musculoskeletal: Yes (DDD OF L/S) Degenerate Disk Disease, Arthritis, Fibromyalgia Endocrine: No HEENT: No Cancer: No Psychosocial: Yes (PSYCHOSIS) Anxiety, Depression Nursing Suicide Risk Score: 0 Integumentary: No Blood Disorders: No Adverse Reaction/Blood Tranf: No Family Medical History Reviewed Nursing Family Hx Alcoholism Arthritis Cardiovascular disease Colon cancer Completed stroke Coronary thrombosis Diabetes mellitus Hypertension Respiratory disorder Severe allergy Thyroid disease Visual disorder No Pertinent Family Hx Physical Exam Vital Signs Vital Signs - First Documented 04/20/18 08:15 Temp 97.5 Pulse 119 Resp 18 B/P (MAP) 106/79 (88) Pulse Ox 99 Capillary Refill : Less Than 3 Seconds General Appearance: WD/WN, no apparent distress HEENT: PERRL/EOMI, normal ENT inspection, other (mucous membranes somewhat dry) Neck: normal inspection Respiratory: lungs clear, normal breath sounds, no respiratory distress, no accessory muscle use Cardiovascular: no edema, no murmur, tachycardia Gastrointestinal: soft, abnormal bowel sounds (decreased), tenderness ( generalized, upper greater than lower) Extremities: normal inspection, no pedal edema Neurologic/Psychiatric: campground attendant II-XII nml as tested, no motor/sensory deficits, alert, normal mood/affect, oriented x 3 Skin: normal color, warm/dry, other (skin has a cream called crpe paper appearance) Progress/Results/Core Measures Results/Orders Lab Results Laboratory Tests Test 04/20/18 08:20 Range/Units White Blood Count 11.2 H 4.3-11.0 10^3/uL Red Blood Count 4.51 4.35-5.85 10^6/uL Hemoglobin 13.9 11.5-16.0 G/DL Hematocrit 39 35-52 % Mean Corpuscular Volume 86 80-99 FL Mean Corpuscular Hemoglobin 31 25-34 PG Mean Corpuscular Hemoglobin Concent 36 32-36 G/DL Red Cell Distribution Width 16.1 H 10.0-14.5 % Platelet Count 227 130-400 10^3/uL Mean Platelet Volume 11.8 H 7.4-10.4 FL Neutrophils (%) (Auto) 70 42-75 % Lymphocytes (%) (Auto) 18 12-44 % Monocytes (%) (Auto) 10 0-12 % Eosinophils (%) (Auto) 1 0-10 % Basophils (%) (Auto) 0 0-10 % Neutrophils # (Auto) 7.9 H 1.8-7.8 X 10^3 Lymphocytes # (Auto) 2.1 1.0-4.0 X 10^3 Monocytes # (Auto) 1.1 H 0.0-1.0 X 10^3 Eosinophils # (Auto) 0.2 0.0-0.3 10^3/uL Basophils # (Auto) 0.0 0.0-0.1 10^3/uL Sodium Level 137 135-145 MMOL/L Potassium Level 2.4 *L 3.6-5.0 MMOL/L Chloride Level 101 98-107 MMOL/L Carbon Dioxide Level 21 21-32 MMOL/L Anion Gap 15 H 5-14 MMOL/L Blood Urea Nitrogen 8 7-18 MG/DL Creatinine 0.65 0.60-1.30 MG/DL Estimat Glomerular Filtration Rate > 60 BUN/Creatinine Ratio 12 Glucose Level 120 H 70-105 MG/DL Calcium Level 9.4 8.5-10.1 MG/DL Magnesium Level 1.7 L 1.8-2.4 MG/DL Total Bilirubin 1.1 H 0.1-1.0 MG/DL Aspartate Amino Transf (AST/SGOT) 23 5-34 U/L Alanine Aminotransferase (ALT/SGPT) 23 0-55 U/L Alkaline Phosphatase 88 40-136 U/L Total Protein 6.4 6.4-8.2 GM/DL Albumin 3.8 3.2-4.5 GM/DL Lipase 125 H 8-78 U/L My Orders Orders - RENUKA VELA MD Ondansetron Injection (Zofran Injectio (04/20/18 08:45) Cbc With Automated Diff (04/20/18 08:42) Comprehensive Metabolic Panel (04/20/18 08:42) Magnesium (04/20/18 08:42) Implanted Port: Access (04/20/18 08:42) Saline Lock/Iv-Start (04/20/18 09:09) Lactated Ringers (Lr 1000 Ml Iv Solution (04/20/18 09:09) Ua Culture If Indicated (04/20/18 09:11) Lipase (04/20/18 09:30) Medications Given in ED Vital Signs/I&O 04/20/18 08:15 Temp 97.5 Pulse 119 Resp 18 B/P (MAP) 106/79 (88) Pulse Ox 99 Blood Pressure Mean: 88 Progress Progress Note #1: Progress Note Patient was treated with Zofran. Port was accessed. A liter of LR was infused. Patient was found to be significantly hypokalemic and was therefore admitted. Progress Note #2: Time: 10:14 Progress Note Lipase returned minimally elevated. Dr. Lopez was updated. Departure Communication (Admissions) Time/Spoke to Admitting Phy: 09:23 Case was reviewed with Dr. Lopez. She agrees with admission. She requests replacement of potassium with 40 mEq by IV route over 4 hours followed by 40 mEq orally. She agrees with stool studies and UA which were added to the admission orders. Determination on whether further imaging of the abdomen is necessary will be left to Dr. Lopez on her evaluation. Patient has had CT already this month. Impression Primary Impression: Hypokalemia Additional Impressions: Nausea vomiting and diarrhea Generalized abdominal pain Elevated lipase Disposition: ADMITTED INPATIENT Condition: Improved Admissions Decision to Admit Reason: Admit from ER (General) Decision to Admit/Date: April 20, 2018 Time/Decision to Admit Time: 09:15 Departure-Patient Inst. Referrals: LUIZ GROSS MD (PCP/Family) Primary Care Physician RENUKA VELA MD April 20, 2018 09:33
[2018-04-20 10:20] VITALS: BP 116/70
--- OUTSIDE RECORDS SUMMARY | 2018-04-20 10:39 | XMS REPORT | Continuity of Care Document ---
Author Author [facility] Organization [facility] Address Unknown Phone Unavailable Allergies Active Description Code Type Severity Reaction Onset Reported/Identified Relationship to Patient Clinical Status Yes aripiprazole [id number] Drug Allergy Moderate AGITATION 04/04/2012 Yes levofloxacin [id number] Drug Allergy Moderate RASH, VOMITING 04/04/2012 Yes mirtazapine [id number] Drug Allergy Moderate AGITATION 04/04/2012 Yes naproxen [id number] Drug Allergy Mild RASH 04/04/2012 Yes Sulfa (Sulfonamide Antibiotics) [id number] Drug Allergy Mild RASH 2011 Yes acetaminophen [id number] Drug Allergy Unknown N/A 10/08/2015 Yes hydrocodone [id number] Drug Allergy Unknown N/A 10/08/2015 Yes plastic tape/bandaids/adhesive plastic tape/bandaids/ adhesive Unknown N/A 10/08/2015 Yes peginterferon beta-1a [id number] Drug Allergy Unknown N/A 04/05/2018 Medications There is no data. Problems Date Dx Coded Attending Type Code Diagnosis Diagnosed By 10/29/1505 GLADYS PATRICK [facility] Ot 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 DISC DEGENERATION, 10/29/1505 GLADYS PATRICK [facility] Ot M54.6 PAIN IN THORACIC SPINE 10/29/1505 GLADYS PATRICK [facility] Ot S29.012D STRAIN OF MUSCLE AND [...] GLADYS PATRICKP Ot M25.511 12/28/2015 GLADYS PATRICK [facility] Ot M25.511 01/15/2016 GLADYS PATRICKP Ot M25.511 01/17/2016 GLADYS PATRICK [facility] Ot R22.1 01/17/2016 GLADYS PATRICKP Ot Z12.31 02/03/2016 HERMELINDA DE LA GARZA MD Ot F17.210 NICOTINE DEPENDENCE, CIGARETTES, UNCOMPL 02/03/2016 HERMELINDA DE LA GARZA MD Ot G35 MULTIPLE SCLEROSIS 02/03/2016 HERMELINDA DE LA GARZA MD Ot R10.33 PERIUMBILICAL PAIN 02/03/2016 HERMELINDA DE LA GARZA MD Ot Z87.19 PERSONAL HISTORY OF OTHER DISEASES OF TH 02/11/2016 GLADYS PATRICK [facility] Ot R22.1 02/11/2016 GLADYS PATRICK [facility] Ot Z12.31 02/12/2016 GLADYS PATRICK [facility] Ot R22.1 02/12/2016 GLADYS PATRICK [facility] Ot Z12.31 04/07/2016 GLADYS PATRICK [facility] Ot 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 DISC DEGENERATION, 04/24/2016 GLADYS PATRICK [facility] Ot 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 DISC DEGENERATION, 05/14/2016 GLADYS PATRICK [facility] Ot M25.511 PAIN IN RIGHT SHOULDER 05/14/2016 GLADYS PATRICK [facility] Ot R22.1 LOCALIZED SWELLING, MASS AND LUMP, NECK 05/14/2016 GLADYS PATRICK [facility] Ot Z12.31 ENCNTR SCREEN MAMMOGRAM FOR MALIGNANT NE 05/14/2016 GLADYS PATRICK [facility] Ot 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 DISC DEGENERATION, 05/15/2016 GLADYS PATRICK [facility] Ot 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 DISC DEGENERATION, 06/04/2016 GLADYS PATRICK [facility] Ot 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 DISC DEGENERATION, 06/04/2016 GLADYS PATRICK [facility] Ot M54.6 PAIN IN THORACIC SPINE 06/04/2016 GLADYS PATRICK A [facility] Ot S29.012D STRAIN OF MUSCLE AND TENDON OF BACK WALL 06/06/2016 PATRICE PATRICKE [facility] Ot 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 DISC DEGENERATION, 06/06/2016 PATRICE PATRICKE [facility] Ot M54.6 PAIN IN THORACIC SPINE 06/06/2016 GLADYS PATRICK [facility] Ot S29.012D STRAIN OF MUSCLE AND TENDON OF BACK WALL 06/17/2016 PATRICE PATRICKE [facility] Ot 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 DISC DEGENERATION, 06/17/2016 PATRICE PATRICKE [facility] Ot M54.6 PAIN IN THORACIC SPINE 06/17/2016 PATRICE PATRICKE [facility] Ot S29.012D STRAIN OF MUSCLE AND TENDON OF BACK WALL 04/05/2018 GLADYS PATRICK [facility] Ot M25.511 PAIN IN RIGHT SHOULDER 04/05/2018 GLADYS PATRICK [facility] Ot R22.1 LOCALIZED SWELLING, MASS AND LUMP, NECK 04/05/2018 GLADYS PATRICK [facility] Ot Z12.31 ENCNTR SCREEN MAMMOGRAM FOR MALIGNANT NE 04/06/2018 GLADYS PATRICK [facility] Ot M25.511 PAIN IN RIGHT SHOULDER 04/06/2018 GLADYS PATRICK [facility] Ot R22.1 LOCALIZED SWELLING, MASS AND LUMP, NECK 04/06/2018 GLADYS PATRICK [facility] Ot Z12.31 ENCNTR SCREEN MAMMOGRAM FOR MALIGNANT NE 04/07/2018 ASHANTI BONE MD Ot E83.42 HYPOMAGNESEMIA 04/07/2018 ASHANTI BONE MD Ot E87.6 HYPOKALEMIA 04/07/2018 ASHANTI BONE MD Ot F17.210 NICOTINE DEPENDENCE, CIGARETTES, UNCOMPL 04/07/2018 ASHANTI BONE MD Ot F32.9 MAJOR DEPRESSIVE DISORDER, SINGLE EPISOD 04/07/2018 ASHANTI BONE MD Ot F41.9 ANXIETY DISORDER, UNSPECIFIED 04/07/2018 ASHANTI BONE MD Ot G35 MULTIPLE SCLEROSIS 04/07/2018 ASHANTI BONE MD Ot G89.4 CHRONIC PAIN SYNDROME 04/07/2018 ASHANTI BONE MD Ot K21.9 GASTRO-ESOPHAGEAL REFLUX DISEASE WITHOUT 04/07/2018 ASHANTI BONE MD Ot K76.0 FATTY (CHANGE OF) LIVER, NOT ELSEWHERE C 04/07/2018 ASHANTI BONE MD Ot K85.90 ACUTE PANCREATITIS WITHOUT NECROSIS OR I 04/07/2018 ASHANTI BONE MD Ot K86.1 OTHER CHRONIC PANCREATITIS 04/07/2018 ASHANTI BONE MD Ot M19.91 PRIMARY OSTEOARTHRITIS, UNSPECIFIED SITE 04/07/2018 ASHANTI BONE MD Ot Z98.1 ARTHRODESIS STATUS 04/12/2018 LUIZ PAPPAS MD Ot E83.42 HYPOMAGNESEMIA 04/12/2018 LUIZ PAPPAS MD Ot E87.6 HYPOKALEMIA 04/12/2018 LUIZ PAPPAS MD Ot F17.210 NICOTINE DEPENDENCE, CIGARETTES, UNCOMPL 04/12/2018 LUIZ PAPPAS MD Ot F32.9 MAJOR DEPRESSIVE DISORDER, SINGLE EPISOD 04/12/2018 LUIZ PAPPAS MD Ot F41.9 ANXIETY DISORDER, UNSPECIFIED 04/12/2018 LUIZ PAPPAS MD Ot G35 MULTIPLE SCLEROSIS 04/12/2018 LUIZ PAPPAS MD Ot G89.4 CHRONIC PAIN SYNDROME 04/12/2018 LUIZ PAPPAS MD Ot K21.9 GASTRO-ESOPHAGEAL REFLUX DISEASE WITHOUT 04/12/2018 LUIZ PAPPAS MD Ot K86.1 OTHER CHRONIC PANCREATITIS 04/12/2018 LUIZ PAPPAS MD Ot M19.91 PRIMARY OSTEOARTHRITIS, UNSPECIFIED SITE 04/12/2018 LUIZ PAPPAS MD Ot R11.2 NAUSEA WITH VOMITING, UNSPECIFIED 04/12/2018 LUIZ PAPPAS MD Ot R19.7 DIARRHEA, UNSPECIFIED 04/12/2018 LUIZ PAPPAS MD Ot R79.89 OTHER SPECIFIED ABNORMAL FINDINGS OF BLO 04/12/2018 LUIZ PAPPAS MD Ot Z98.1 ARTHRODESIS STATUS 04/12/2018 LUIZ PAPPAS MD Ot E83.42 HYPOMAGNESEMIA 04/12/2018 LUIZ PAPPAS MD Ot E87.6 HYPOKALEMIA 04/12/2018 LUIZ PAPPAS MD Ot F17.210 NICOTINE DEPENDENCE, CIGARETTES, UNCOMPL 04/12/2018 LUIZ PAPPAS MD Ot F32.9 MAJOR DEPRESSIVE DISORDER, SINGLE EPISOD 04/12/2018 LUIZ PAPPAS MD Ot F41.9 ANXIETY DISORDER, UNSPECIFIED 04/12/2018 LUIZ PAPPAS MD Ot G35 MULTIPLE SCLEROSIS 04/12/2018 LUIZ PAPPAS MD Ot G89.4 CHRONIC PAIN SYNDROME 04/12/2018 LUIZ PAPPAS MD Ot K21.9 GASTRO-ESOPHAGEAL REFLUX DISEASE WITHOUT 04/12/2018 LUIZ PAPPAS MD Ot K86.1 OTHER CHRONIC PANCREATITIS 04/12/2018 LUIZ PAPPAS MD Ot M19.91 PRIMARY OSTEOARTHRITIS, UNSPECIFIED SITE 04/12/2018 LUIZ PAPPAS MD Ot R11.2 NAUSEA WITH VOMITING, UNSPECIFIED 04/12/2018 LUIZ PAPPAS MD Ot R19.7 DIARRHEA, UNSPECIFIED 04/12/2018 LUIZ PAPPAS MD Ot R79.89 OTHER SPECIFIED ABNORMAL FINDINGS OF BLO 04/12/2018 LUIZ PAPPAS MD Ot Z98.1 ARTHRODESIS STATUS 04/15/2018 ASHANTI BONE MD Ot E83.42 HYPOMAGNESEMIA 04/15/2018 ASHANTI BONE MD Ot E87.6 HYPOKALEMIA 04/15/2018 ASHANTI BONE MD Ot F17.210 NICOTINE DEPENDENCE, CIGARETTES, UNCOMPL 04/15/2018 ASHANTI BONE MD Ot F32.9 MAJOR DEPRESSIVE DISORDER, SINGLE EPISOD 04/15/2018 ASHANTI BONE MD Ot F41.9 ANXIETY DISORDER, UNSPECIFIED 04/15/2018 ASHANTI BONE MD Ot G35 MULTIPLE SCLEROSIS 04/15/2018 ASHANTI BONE MD Ot G89.4 CHRONIC PAIN SYNDROME 04/15/2018 ASHANTI BONE MD Ot K21.9 GASTRO-ESOPHAGEAL REFLUX DISEASE WITHOUT 04/15/2018 ASHANTI BONE MD Ot K76.0 FATTY (CHANGE OF) LIVER, NOT ELSEWHERE C 04/15/2018 ASHANTI BONE MD Ot K85.90 ACUTE PANCREATITIS WITHOUT NECROSIS OR I 04/15/2018 ASHANTI BONE MD Ot K86.1 OTHER CHRONIC PANCREATITIS 04/15/2018 ASHANTI BONE MD Ot M19.91 PRIMARY OSTEOARTHRITIS, UNSPECIFIED SITE 04/15/2018 ASHANTI BONE MD Ot Z98.1 ARTHRODESIS STATUS 04/15/2018 ASHANTI BONE MD Ot E83.42 HYPOMAGNESEMIA 04/15/2018 ASHANTI BONE MD Ot E87.6 HYPOKALEMIA 04/15/2018 ASHANTI BONE MD Ot F17.210 NICOTINE DEPENDENCE, CIGARETTES, UNCOMPL 04/15/2018 ASHANTI BONE MD Ot F32.9 MAJOR DEPRESSIVE DISORDER, SINGLE EPISOD 04/15/2018 ASHANTI BONE MD Ot F41.9 ANXIETY DISORDER, UNSPECIFIED 04/15/2018 ASHANTI BONE MD Ot G35 MULTIPLE SCLEROSIS 04/15/2018 ASHANTI BONE MD Ot G89.4 CHRONIC PAIN SYNDROME 04/15/2018 ASHANTI BONE MD Ot K21.9 GASTRO-ESOPHAGEAL REFLUX DISEASE WITHOUT 04/15/2018 ASHANTI BONE MD Ot K76.0 FATTY (CHANGE OF) LIVER, NOT ELSEWHERE C 04/15/2018 ASHANTI BONE MD Ot K85.90 ACUTE PANCREATITIS WITHOUT NECROSIS OR I 04/15/2018 SMITHA MELENDEZ, ASHANTI Muse Ot K86.1 OTHER CHRONIC PANCREATITIS 04/15/2018 ASHANTI BONE MD, Ot M19.91 PRIMARY OSTEOARTHRITIS, UNSPECIFIED SITE 04/15/2018 ASHANTI BONE MD, Ot Z98.1 ARTHRODESIS STATUS [...] 11.4 fL 7.5-12.5 ABSOLUTE NEUTROPHILS 6647 cells/uL 7926-3940 ABSOLUTE LYMPHOCYTES 2835 cells/uL 850-3900 ABSOLUTE MONOCYTES [...] NRG Manual blood lymphocytes/100 leukocytes 23 % NRG Manual eosinophils/100 leukocytes in nose 1 % NRG Manual blood basophils/100 leukocytes 1 % NRG Blood erythrocyte morphology finding identification NORMAL [facility] Manual blood nucleated erythrocytes/[address] [facility] Comprehensive metabolic panel - 04/05/18 21:35 [...] NRG Serum or plasma glucose measurement (mass/volume) 106 [...] 119 mmol/L 98-107 Carbon dioxide 18 mmol/L -32 Serum or plasma anion gap determination (moles/volume) [...] 21:25 Lipase 193 U/L 8-78 Magnesium - 05/12/18 21:25 Magnesium 1.6 mg/dL 1.8-2.4 Complete urinalysis [...] culture - 04/10/18 22:20 Bacterial urine culture [id number] NRG COLONY COUNT 10,000/ML - 100,000/ML NRG [...] 12:00 Stool bacteria identification by culture N2 [facility] [id number] - 04/11/18 12:00 OP FREE TEXT REPORTABLE SENT TO [facility] 04/12/18 [facility] C DIFFICILE AG + TOXIN A/B. - 04/11/18 13:16 RESULTS NEGATIVE FOR ANTIGEN AND TOXIN A/B [facility] Serum or plasma potassium measurement (moles/volume) - [...] Status Pt. Type Provider Facility Loc./Unit Complaint [id number] 04/10/2018 23:12:00 04/12/2018 11:20:00 DIS Inpatient MIAN MELENDEZ, LUIZ Fuentes [facility] 4TH NAUSEA,VOMITING,DIARRHEA, HYPOKALEMIA [id number] 04/05/2018 23:55:00 04/07/2018 18:32:00 DIS Inpatient ASHANTI BONE MD [facility] 4TH PANCREATITIS,HYPOVOLEMIA, HYPOMAGNESEMIA [id number] 06/06/2016 15:02:00 06/17/2016 15:06:00 DIS Outpatient GLADYS PATRICK [facility] REHAB DDD, LUMBAR; UPPER BACK PAIN;UPPER BACK STRAIN [id number] 05/07/2016 10:48:00 05/15/2016 12:37:00 DIS Outpatient GLADYS PATRICK [facility] REHAB DDD LUMBAR SPINE [id number] 02/03/2016 09:14:00 02/03/2016 13:17:00 DIS Emergency FREDERIC MELENDEZ, HERMELINDA Mena [facility] ER ABD PAIN [id number] 01/15/2016 11:07:00 01/15/2016 23:59:59 CLS Outpatient GLADYS PATRICK [facility] RAD NECK MASS, SCREENING [id number] 11/27/2015 10:22:00 11/27/2015 23:59:59 CLS Outpatient GLADYS PATRICK [facility] RAD RT SHOULDER PAIN [id number] 10/18/2015 14:44:00 10/22/2015 14:30:00 DIS Inpatient MAHAD MENDOZA DO [facility] 4TH ACUTE PANCREATITIS POSS PANCREATIC PSEUDOCYST [id number] 10/08/2015 00:31:00 10/09/2015 10:15:00 DIS Inpatient OLAYINKA GA MD [facility] 4TH FEVER,R/O SEPSIS [id number] 04/04/2012 22:38:00 Document Registration [id number] 12/30/2016 08:40:00 Document Registration [id number] 02/17/2017 08:35:00 Document Registration [id number] 04/14/2018 09:30:00 04/14/2018 23:59:59 CLS Outpatient LUIZ PAPPAS MD [facility] [id number] 02/23/2018 09:00:00 Document Registration [id number] 09/30/2017 17:45:00 Document Registration
[2018-04-20] MEDS ORDERED: PROMETHAZINE INJ 25 MG/ML (PHENERGAN) AMP IV PRN (10:45)
[2018-04-20] MEDS: FAMOTIDINE 20 MG (PEPCID) TABLET PO SCH ×2 (10:47→20:30)
[2018-04-20] MEDS: NS IV 1000 ML 1,000 ML IV SCH ×2 (10:48→21:33)
[2018-04-20] MEDS: POTASSIUM CL 10 MEQ/50 ML IVPB (PRE-MIX) IV SCH ×4 (10:48→14:23)
[2018-04-20] MEDS ORDERED: PROM25TA14 PO (11:04)
[2018-04-20] MEDS ORDERED: POTA10CA43 PO (11:08)
[2018-04-20] MEDS ORDERED: LINA290C PO (11:08)
--- OUTSIDE RECORDS SUMMARY | 2018-04-20 11:12 | XMS REPORT | Continuity of Care Document ---
Author Author [facility] Organization [facility] Address Unknown Phone Unavailable Allergies Active Description Code Type Severity Reaction Onset Reported/Identified Relationship to Patient Clinical Status Yes aripiprazole [id number] Drug Allergy Moderate AGITATION 04/04/2012 Yes levofloxacin [id number] Drug Allergy Moderate RASH, VOMITING 04/04/2012 Yes mirtazapine [id number] Drug Allergy Moderate AGITATION 04/04/2012 Yes naproxen [id number] Drug Allergy Mild RASH 04/04/2012 Yes Sulfa (Sulfonamide Antibiotics) [id number] Drug Allergy Mild RASH 2011 Yes acetaminophen [id number] Drug Allergy Unknown N/A 10/08/2015 Yes hydrocodone [id number] Drug Allergy Unknown N/A 10/08/2015 Yes plastic tape/bandaids/adhesive plastic tape/bandaids/ adhesive Unknown N/A 10/08/2015 Yes peginterferon beta-1a [id number] Drug Allergy Unknown N/A 04/05/2018 Medications There is no data. Problems Date Dx Coded Attending Type Code Diagnosis Diagnosed By 10/29/1505 GLADYS PATRICK [facility] Ot 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 DISC DEGENERATION, 10/29/1505 [facility] Ot M54.6 PAIN IN THORACIC SPINE 10/29/1505 [facility] Ot S29.012D STRAIN OF MUSCLE AND [...] GLADYS PATRICKP Ot M25.511 12/28/2015 GLADYS PATRICK EXCHANGE ADMINISTRATOR Ot M25.511 01/15/2016 GLADYS PATRICKP Ot M25.511 01/17/2016 GLADYS PATRICK EXCHANGE ADMINISTRATOR Ot R22.1 01/17/2016 GLADYS PATRICKP Ot Z12.31 02/03/2016 HERMELINDA DE LA GARZA MD Ot F17.210 NICOTINE DEPENDENCE, CIGARETTES, UNCOMPL 02/03/2016 HERMELINDA DE LA GARZA MD Ot G35 MULTIPLE SCLEROSIS 02/03/2016 HERMELINDA DE LA GARZA MD Ot R10.33 PERIUMBILICAL PAIN 02/03/2016 HERMELINDA DE LA GARZA MD Ot Z87.19 PERSONAL HISTORY OF OTHER DISEASES OF TH 02/11/2016 GLADYS PATRICK EXCHANGE ADMINISTRATOR Ot R22.1 02/11/2016 GLADYS PATRICK EXCHANGE ADMINISTRATOR Ot Z12.31 02/12/2016 GLADYS PATRICK EXCHANGE ADMINISTRATOR Ot R22.1 02/12/2016 GLADYS PATRICK EXCHANGE ADMINISTRATOR Ot Z12.31 04/07/2016 GLADYS PATRICK EXCHANGE ADMINISTRATOR Ot 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 DISC DEGENERATION, 04/24/2016 GLADYS PATRICK [employer]CH[employer] ADMINISTRATOR Ot 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 DISC DEGENERATION, 05/14/2016 GLADYS PATRICK [employer]CH[employer] ADMINISTRATOR Ot M25.511 PAIN IN RIGHT SHOULDER 05/14/2016 GLADYS PATRICK EXCHANGE ADMINISTRATOR Ot R22.1 LOCALIZED SWELLING, MASS AND LUMP, NECK 05/14/2016 GLADYS PATRICK EXCHANGE ADMINISTRATOR Ot Z12.31 ENCNTR SCREEN MAMMOGRAM FOR MALIGNANT NE 05/14/2016 GLADYS PATRICK EXCHANGE ADMINISTRATOR Ot 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 DISC DEGENERATION, 05/15/2016 GLADYS PATRICK EXCHANGE ADMINISTRATOR Ot 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 DISC DEGENERATION, 06/04/2016 GLADYS PATRICK EXCHANGE ADMINISTRATOR Ot 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 DISC DEGENERATION, 06/04/2016 GLADYS PATRICK EXCHANGE ADMINISTRATOR Ot M54.6 PAIN IN THORACIC SPINE 06/04/2016 GLADYS PATRICK A EXCHANGE ADMINISTRATOR Ot S29.012D STRAIN OF MUSCLE AND TENDON OF BACK WALL 06/06/2016 PATRICE PATRICKE A EXCHANGE ADMINISTRATOR Ot 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 DISC DEGENERATION, 06/06/2016 PATRICE PATRICKE A EXCHANGE ADMINISTRATOR Ot M54.6 PAIN IN THORACIC SPINE 06/06/2016 GLADYS PATRICK A EXCHANGE ADMINISTRATOR Ot S29.012D STRAIN OF MUSCLE AND TENDON OF BACK WALL 06/17/2016 PATRICE PATRICKE A EXCHANGE ADMINISTRATOR Ot 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 DISC DEGENERATION, 06/17/2016 PATRICE PATRICKE A EXCHANGE ADMINISTRATOR Ot M54.6 PAIN IN THORACIC SPINE 06/17/2016 PATRICE PATRICKE A EXCHANGE ADMINISTRATOR Ot S29.012D STRAIN OF MUSCLE AND TENDON OF BACK WALL 04/05/2018 GLADYS PATRICK EXCHANGE ADMINISTRATOR Ot M25.511 PAIN IN RIGHT SHOULDER 04/05/2018 GLADYS PATRICK EXCHANGE ADMINISTRATOR Ot R22.1 LOCALIZED SWELLING, MASS AND LUMP, NECK 04/05/2018 GLADYS PATRICK EXCHANGE ADMINISTRATOR Ot Z12.31 ENCNTR SCREEN MAMMOGRAM FOR MALIGNANT NE 04/06/2018 GLADYS PATRICK EXCHANGE ADMINISTRATOR Ot M25.511 PAIN IN RIGHT SHOULDER 04/06/2018 GLADYS PATRICK EXCHANGE ADMINISTRATOR Ot R22.1 LOCALIZED SWELLING, MASS AND LUMP, NECK 04/06/2018 GLADYS PATRICK EXCHANGE ADMINISTRATOR Ot Z12.31 ENCNTR SCREEN MAMMOGRAM FOR MALIGNANT [...] 11.4 fL 7.5-12.5 ABSOLUTE NEUTROPHILS 6647 cells/uL 5702-2084 ABSOLUTE LYMPHOCYTES 2835 cells/uL [id number] ABSOLUTE MONOCYTES [...] NRG Blood erythrocyte morphology finding identification NORMAL [facility] Manual blood nucleated erythrocytes/100 leukocytes ratio 1 [facility] Comprehensive metabolic panel - 04/05/18 [...] culture - 04/10/18 22:20 Bacterial urine culture [id number] NRG COLONY COUNT 10,000/ML - 100,000/ML NRG [...] 12:00 Stool bacteria identification by culture N2 [facility] [id number] - 04/11/18 12:00 OP FREE TEXT REPORTABLE SENT TO [facility] 04/12/18 [facility] C DIFFICILE AG + TOXIN A/B. - 04/11/18 13:16 RESULTS NEGATIVE FOR ANTIGEN AND TOXIN A/B [facility] Serum or plasma potassium measurement [...] Status Pt. Type Provider Facility Loc./Unit Complaint [id number] 04/10/2018 23:12:00 04/12/2018 11:20:00 DIS Inpatient MIAN MELENDEZ, LUIZ [facility]entes [facility] 4TH NAUSEA,VOMITING,DIARRHEA, HYPOKALEMIA [id number] 04/05/2018 23:55:00 04/07/2018 18:32:00 DIS Inpatient ASHANTI BONE MD [facility] 4TH PANCREATITIS,HYPOVOLEMIA, HYPOMAGNESEMIA [id number] 06/06/2016 15:02:00 06/17/2016 15:06:00 DIS Outpatient GLADYS PATRICK EXCHANGE ADMINISTRATOR [facility] REHAB DDD, LUMBAR; UPPER BACK PAIN;UPPER BACK STRAIN [id number] 05/07/2016 10:48:00 05/15/2016 12:37:00 DIS Outpatient GLADYS PATRICK EXCHANGE ADMINISTRATOR [facility] REHAB DDD LUMBAR SPINE [id number] 02/03/2016 09:14:00 02/03/2016 13:17:00 DIS Emergency FREDERIC MELENDEZ, HERMELINDA Mena [facility] ER ABD PAIN [id number] 01/15/2016 11:07:00 01/15/2016 23:59:59 CLS Outpatient GLADYS PATRICK EXCHANGE ADMINISTRATOR [facility] RAD NECK MASS, SCREENING [id number] 11/27/2015 10:22:00 11/27/2015 23:59:59 CLS Outpatient GLADYS PATRICK EXCHANGE ADMINISTRATOR [facility] RAD RT SHOULDER PAIN [id number] 10/18/2015 14:44:00 10/22/2015 14:30:00 DIS Inpatient MAHAD MENDOZA DO [facility] 4TH ACUTE PANCREATITIS POSS PANCREATIC PSEUDOCYST [id number] 10/08/2015 00:31:00 10/09/2015 10:15:00 DIS Inpatient OLAYINKA GA MD [facility] 4TH FEVER,R/O SEPSIS [id number] 04/04/2012 22:38:00 Document Registration [id number] 12/30/2016 08:40:00 Document Registration [id number] 02/17/2017 08:35:00 Document Registration [id number] 04/14/2018 09:30:00 04/14/2018 23:59:59 CLS Outpatient LUIZ PAPPAS MD [facility] [id number] 02/23/2018 09:00:00 Document Registration [id number] 09/30/2017 17:45:00 Document Registration
[2018-04-20 11:18] VITALS: BP 102/70
--- NOTE | 2018-04-20 12:19 | History & Physicial (CHS) ---
HPI History of Present Illness: 42 yo female presented to ER with intractable vomiting and diarrhea. She started vomiting around March 30 and was inpatient earlier in March with potassium below 2. She states she did get better and went home, but almost immediately started again. She vomits whether she eats or not. She is nauseated even with liquids. She had loose, watery stools about 3-4x per day if she doesn't take Lomotil. She denies fever, she has some intermittent abdominal pain. She does report a history of chronic pancreatitis, but unclear work-up and states she hasn't seen GI in over a year and does not recall who she saw then. She states she last had EGD a couple of years ago at least. She denies blood in vomit or stool. Her stool tests earlier this month were negative for shigella/salmonella/ campylobacter/E coli 0157, crypto, giardia and C diff. She is feeling anxious and tremulous and states she used to be on alprazolam and pain medications which were stopped due to inconsistent urine testing. Review of clinic chart shows oxyodone taper, unclear whether she should be out yet. Date seen by provider: April 20, 2018 Time Seen by Provider: 12:00 Attending Physician Olayinka Ga MD PCP Marnie Munoz MD Consult Date of Admission April 20, 2018 at 9:30 am Home Medications Home Medications Reviewed patient Home Medication Reconciliation performed by pharmacy medication reconciliations solar installer technician and/or nursing. Patients Allergies have been reviewed. Allergies Coded Allergies: acetaminophen (Verified Allergy, Unknown, 04/20/18) hydrocodone (Verified Allergy, Unknown, 04/20/18) aripiprazole (Verified Adverse Reaction, Intermediate, AGITATION, 04/20/18) levofloxacin (Verified Adverse Reaction, Intermediate, RASH, VOMITING, ) mirtazapine (Verified Adverse Reaction, Intermediate, AGITATION, 04/20/18) Sulfa (Sulfonamide Antibiotics) (Verified Adverse Reaction, Mild, RASH, ) naproxen (Verified Adverse Reaction, Mild, RASH, 04/20/18) peginterferon beta-1a (Verified Adverse Reaction, Unknown, 04/20/18) Uncoded Allergies: plastic tape/bandaids/adhesive (Allergy, Unknown, 10/08/15) KCO-Hhdzjs-Rkotsy Hx Patient Social History Alcohol Use: Denies Use Recreational Drug Use: No Smoking Status: Current Everyday Smoker Type Used: Cigarettes 2nd Hand Smoke Exposure: Yes Recent Foreign Travel: No Contact w/other who traveled: No Recent Hopitalizations: Yes Recent Infectious Disease Expo: No Physical Abuse Screen: No Sexual Abuse: No Immunizations Up To Date Date of Pneumonia Vaccine: Jul 31, 2010 Past Medical History Past medical history 1. Multiple sclerosis treated by Dr. Bay at [facility] in [place] 2. Lumbar disc disease 3. Chronic pancreatitis 4. Depression and anxiety Past surgical history 1. Back surgery 2 with lumbar fusion in [address] Aguirre 2. Hysterectomy 3. Cholecystectomy with reported "pancreatic surgery" 4. Appendectomy 5. Family Medical History Significant Family History: No Pertinent Family Hx Family History: Alcoholism Arthritis Cardiovascular disease Colon cancer Completed stroke Coronary thrombosis Diabetes mellitus Hypertension Respiratory disorder Severe allergy Thyroid disease Visual disorder Review of Systems (CHC) Constitutional: No fever; malaise EENTM: no symptoms reported Respiratory: No cough, No short of breath Cardiovascular: No chest pain Gastrointestinal: see HPI Genitourinary: no symptoms reported Musculoskeletal: back pain Skin: no symptoms reported Psychiatric/Neurological: Anxiety, Paresthesia (chest and abdomen x 3 days) Reviewed Test Results Reviewed Test Results Lab Laboratory Tests Test 04/20/18 08:20 Range/Units White Blood Count 11.2 H 4.3-11.0 10^3/uL Red Blood Count 4.51 4.35-5.85 10^6/uL Hemoglobin 13.9 11.5-16.0 G/DL Hematocrit 39 35-52 % Mean Corpuscular Volume 86 80-99 FL Mean Corpuscular Hemoglobin 31 25-34 PG Mean Corpuscular Hemoglobin Concent 36 32-36 G/DL Red Cell Distribution Width 16.1 H 10.0-14.5 % Platelet Count 227 130-400 10^3/uL Mean Platelet Volume 11.8 H 7.4-10.4 FL Neutrophils (%) (Auto) 70 42-75 % Lymphocytes (%) (Auto) 18 12-44 % Monocytes (%) (Auto) 10 0-12 % Eosinophils (%) (Auto) 1 0-10 % Basophils (%) (Auto) 0 0-10 % Neutrophils # (Auto) 7.9 H 1.8-7.8 X 10^3 Lymphocytes # (Auto) 2.1 1.0-4.0 X 10^3 Monocytes # (Auto) 1.1 H 0.0-1.0 X 10^3 Eosinophils # (Auto) 0.2 0.0-0.3 10^3/uL Basophils # (Auto) 0.0 0.0-0.1 10^3/uL Sodium Level 137 135-145 MMOL/L Potassium Level 2.4 *L 3.6-5.0 MMOL/L Chloride Level 101 98-107 MMOL/L Carbon Dioxide Level 21 21-32 MMOL/L Anion Gap 15 H 5-14 MMOL/L Blood Urea Nitrogen 8 7-18 MG/DL Creatinine 0.65 0.60-1.30 MG/DL Estimat Glomerular Filtration Rate > 60 BUN/Creatinine Ratio 12 Glucose Level 120 H 70-105 MG/DL Calcium Level 9.4 8.5-10.1 MG/DL Magnesium Level 1.7 L 1.8-2.4 MG/DL Total Bilirubin 1.1 H 0.1-1.0 MG/DL Aspartate Amino Transf (AST/SGOT) 23 5-34 U/L Alanine Aminotransferase (ALT/SGPT) 23 0-55 U/L Alkaline Phosphatase 88 40-136 U/L Total Protein 6.4 6.4-8.2 GM/DL Albumin 3.8 3.2-4.5 GM/DL Lipase 125 H 8-78 U/L Radiology None this admit but CT abdomen 04/05 for same complaints unremarkable Physical Exam-(CHC) Physical Exam Vital Signs VS - Last 72 Hours, by Label 04/20/18 04/20/18 04/20/18 04/20/18 08:15 10:13 10:20 11:06 Temp 97.5 97.5 98.3 Pulse 119 119 98 96 Resp 18 18 20 B/P (MAP) 106/79 (88) 106/79 (88) 116/70 (85) Pulse Ox 99 99 99 O2 Delivery Room Air 04/20/18 04/20/18 04/20/18 04/20/18 11:18 12:35 13:02 13:15 Temp 98.5 99.7 98.2 Pulse 101 109 111 105 Resp 20 20 20 B/P (MAP) 102/70 (81) 103/72 (82) 92/60 (71) Pulse Ox 100 100 97 O2 Delivery Room Air Room Air Room Air 04/20/18 04/20/18 16:44 19:57 Temp 99.7 99.3 Pulse 106 109 Resp 24 20 B/P (MAP) 108/76 (87) 110/76 (87) Pulse Ox 99 98 O2 Delivery Room Air Room Air Capillary Refill : Less Than 3 Seconds General Appearance: other (appears uncomfortable) Cardiovascular: regular rate, rhythm, no murmur Gastrointestinal: soft, no organomegaly, tenderness (right upper quadrant), other (hypoactive bowel sounds) Extremities: no pedal edema Neurologic/Psychiatric: alert, other (flat affect) Skin: normal color, warm/dry Assessment/Plan Assessment/Plan Admission Dx Intractable vomiting Hypokalemia Admission Status: Inpatient Order (span 2 midnights) Reason for Inpatient Admission: Patient with intractable vomiting, severe hypokalemia, second admission this month requiring intensive IV replacement. (1) Nausea vomiting and diarrhea Status: Acute Assessment & Plan: Persistent for [address] now with negative CT scan of abdomen and stool testing at last hospital visit. Do not suspect infection at this point. May be multifactorial including possibility of exocrine pancreatic insufficiency secondary to chronic pancreatitis (would suspect more diarrhea and less vomiting, however) as well as possible contribution of discontinuing opiate pain medications (although taper was done- was given oxycontin 15 mg daily x 7 days on 04/06 along with percocet 10/325 mg 14 tabs and percocet 10/325 mg 14 tabs on 04/16). Another consideration may be central demyelinating lesion secondary to MS, however, that would not be expected to cause diarrhea. Treating symptomatically for now, but even if enough improvement occurs for d/c , discussed may need to see GI again, has not seen in sometime and consider EGD. (2) Elevated lipase Status: Chronic Assessment & Plan: Chronic, lower than earlier in the month (3) Chronic pancreatitis Status: Chronic Assessment & Plan: Unclear etiology and diagnosis, no GI records noted in clinic chart, she states she has not seen in some time. Consider checking fecal elastase for pancreatic insufficiency if diarrhea persists. (4) Hypokalemia, gastrointestinal losses Status: Acute Assessment & Plan: Replace and recheck. (5) Chronic pain Status: Chronic Assessment & Plan: Low back pain/degenerative disc disease. Has been tapered off of opiate pain medications due to inconsistent urine drug screens. Will avoid opiate pain medications. Qualifiers: Qualified Codes: G89.4 - Chronic pain syndrome (6) Multiple sclerosis Status: Chronic Assessment & Plan: Apparently stable, has not seen Neurology in sometime. No clear evidence of recent relapse, consider MRI brain if persistent vomiting. (7) Anxiety Status: Chronic Assessment & Plan: Alprazolam discontinued secondary to inconsistent urine testing outpatient. Will try to manage without benzodiazepines. (8) Insomnia Status: Chronic Assessment & Plan: Resume home trazodone (9) DVT prophylaxis Status: Acute Assessment & Plan: Enoxaparin Clinical Quality Measures DVT/VTE Risk/Contraindication: Risk Factor Score Per Nursin RFS Level Per Nursing on Admit: 4+=Very High OLAYINKA GA MD April 20, 2018 12:19
[2018-04-20] MEDS ORDERED: MAGNESIUM 1 GM/100 ML IVPB 100 ML IV NR (12:30)
[2018-04-20 12:35] VITALS: BP 103/72
[2018-04-20] MEDS: ENOXAPARIN 40 MG/0.4 ML (LOVENOX) SYR SC SCH (12:59)
[2018-04-20] MEDS: NICOTINE 14 MG (NICODERM) PATCH TD SCH (13:14)
[2018-04-20 13:15] VITALS: BP 92/60
[2018-04-20 14:15] LABS: CLARITY,URINE SLIGHTLY CLOUDY; COLOR,URINE AMBER; GLUCOSE, URINE (UA) NEGATIVE (NEGATIVE); KETONES,URINE 3+ (NEGATIVE); LEUKOCYTE ESTERASE ,URINE 1+ (NEGATIVE); NITRITE,URINE NEGATIVE (NEGATIVE); PH,URINE 8 (5-9); PROTEIN,URINE 2+ (NEGATIVE); UROBILINOGEN,URINE 4 MG/DL (NORMAL)
[2018-04-20 14:25] LABS: BACTERIA,URINE FEW /HPF; BILIRUBIN,URINE 1+ (NEGATIVE); RBC,URINE RARE /HPF; SQUAMOUS EPITHELIAL CELL,UR RARE /HPF
[2018-04-20] MEDS ORDERED: KCL 20 MEQ TAB (K-DUR) PO NR (15:00)
[2018-04-20] MEDS ORDERED: TROSPIUM 20 MG (SANCTURA) TAB PO SCH (16:00)
[2018-04-20] MEDS: ONDANSETRON 4 MG/2 ML (SDV) Z0FRAN IV PRN ×2 (16:08→20:37)
[2018-04-20 16:44] VITALS: BP 108/76
[2018-04-20 19:57] VITALS: BP 110/76
[2018-04-20] MEDS: DULoxetine 30 MG (CYMBALTA) CAP PO SCH (20:29)
[2018-04-20] MEDS: PREGABALIN 75 MG (LYRICA) CAP PO SCH (20:30)
[2018-04-20] MEDS: toPIRamate 25 MG (TOPAMAX) TAB PO SCH (20:30)
[2018-04-20] MEDS ORDERED: ATORVASTATIN 20 MG (LIPITOR) TABLET PO SCH (21:00)
[2018-04-20] MEDS ORDERED: traZODone 50 MG (DESYREL) TAB PO SCH (21:00)
[2018-04-20] MEDS ORDERED: NON-FORMULARY MEDICATION 1 EA EA (Topiramate 50 MG) PO SCH (21:00)
[2018-04-20] MEDS ORDERED: NON-FORMULARY MEDICATION 1 EA EA (Pregabalin (Lyrica) 150 MG) PO SCH (21:00)
[2018-04-20] MEDS ORDERED: NON-FORMULARY MEDICATION 1 EA EA (Duloxetine HCl 60 MG) PO SCH (21:00)
[2018-04-20] MEDS: POTASSIUM CL 10MEQ/50ML IVPB 50 ML IV SCH ×2 (22:41→23:55)
[2018-04-20] MEDS ORDERED: diphenhydrAMINE 50 MG/ML INJ (BENADRYL) IVP PRN (22:45)
[2018-04-20] MEDS ORDERED: hydrOXYzine (VISTARIL) 25 MG CAP PO PRN (22:45)
[2018-04-21] VITALS: BP 104/72
[2018-04-21] MEDS ORDERED: POTASSIUM CL 10MEQ/50ML IVPB 100 ML IV ONE (02:09)
[2018-04-21] MEDS: POTASSIUM CL 10MEQ/50ML IVPB 50 ML IV SCH ×2 (02:18→03:56)
[2018-04-21 04:00] VITALS: BP 96/66
[2018-04-21 05:46] LABS: BASOPHILS % (AUTO) 0 % (0-10); EOSINOPHILS # (AUTO) 0.2 10^3/uL (0.0-0.3); EOSINOPHILS % (AUTO) 3 % (0-10); HEMATOCRIT 31 % (35-52); HEMOGLOBIN 10.8 G/DL (11.5-16.0); LYMPHOCYTES # (AUTO) 1.8 X 10^3 (1.0-4.0); LYMPHOCYTES % (AUTO) 30 % (12-44); MEAN CORPUSCULAR HEMOGLOBIN 31 PG (25-34); MEAN CORPUSCULAR HGB CONC 35 G/DL (32-36); MEAN CORPUSCULAR VOLUME 89 FL (80-99); MEAN PLATELET VOLUME 11.5 FL (7.4-10.4); MONOCYTES # (AUTO) 0.5 X 10^3 (0.0-1.0); MONOCYTES % (AUTO) 8 % (0-12); NEUTROPHILS # (AUTO) 3.5 X 10^3 (1.8-7.8); NEUTROPHILS % (AUTO) 59 % (42-75); PLATELET COUNT 164 10^3/uL (130-400); RED CELL DISTRIBUTION WIDTH 15.3 % (10.0-14.5); WHITE BLOOD COUNT 5.9 10^3/uL (4.3-11.0)
[2018-04-21] MEDS ORDERED: TROSPIUM 20 MG (SANCTURA) TAB PO SCH (06:00)
[2018-04-21 06:05] LABS: ALANINE AMINOTRANSFERASE 20 U/L (0-55); ALBUMIN 3.2 GM/DL (3.2-4.5); ALKALINE PHOSPHATASE 69 U/L (40-136); BILIRUBIN,TOTAL 0.8 MG/DL (0.1-1.0); BUN/CREATININE RATIO 11; CALCIUM 8.4 MG/DL (8.5-10.1); CARBON DIOXIDE 17 MMOL/L (21-32); CHLORIDE 111 MMOL/L (98-107); CREATININE SERUM 0.57 MG/DL (0.60-1.30); GFR ESTIMATED > 60; GLUCOSE 96 MG/DL (70-105); MAGNESIUM 1.8 MG/DL (1.8-2.4); POTASSIUM 3.9 MMOL/L (3.6-5.0); SODIUM 137 MMOL/L (135-145); TOTAL PROTEIN 5.2 GM/DL (6.4-8.2)
[2018-04-21] MEDS ORDERED: PANTOPRAZOLE 40 MG (PROTONIX) TAB PO SCH (07:00)
[2018-04-21 08:00] VITALS: BP 95/58
[2018-04-21] MEDS: PREGABALIN 75 MG (LYRICA) CAP PO SCH (08:08)
[2018-04-21] MEDS: FAMOTIDINE 20 MG (PEPCID) TABLET PO SCH (08:08)
[2018-04-21] MEDS: NICOTINE 14 MG (NICODERM) PATCH TD SCH (08:08)
[2018-04-21] MEDS: toPIRamate 25 MG (TOPAMAX) TAB PO SCH (08:08)
[2018-04-21] MEDS: ONDANSETRON 4 MG/2 ML (SDV) Z0FRAN IV PRN (08:08)
[2018-04-21] MEDS: DULoxetine 30 MG (CYMBALTA) CAP PO SCH (08:15)
[2018-04-21] MEDS ORDERED: NICOTINE PATCH REMOVAL TP SCH (08:59)
[2018-04-21] MEDS ORDERED: NON-FORMULARY MEDICATION 1 EA EA (Esomeprazole Magnesium 40 MG) PO SCH (09:00)
[2018-04-21] MEDS ORDERED: NON-FORMULARY MEDICATION 1 EA EA (Solifenacin Succinate (Vesicare) 10 MG) PO SCH (09:00)
[2018-04-21] MEDS ORDERED: LURASIDONE HCL 60 MG PO SCH (09:00)
[2018-04-21] MEDS: ENOXAPARIN 40 MG/0.4 ML (LOVENOX) SYR SC SCH (11:40)
[2018-04-21] MEDS ORDERED: PROM25TA14 PO (13:11)
--- NOTE | 2018-04-21 13:14 | Discharge Instructions ---
Discharge Inst-[facility] Discharge Medications New, Converted or Re-Newed RX: Transmitted to Pharmacy Continued Medications: Atorvastatin Calcium (Atorvastatin Calcium) 20 Mg Tablet 20 MG PO HS, TAB Duloxetine HCl (Duloxetine HCl) 60 Mg Capsule.dr 60 MG PO BID, CAP Esomeprazole Magnesium (Esomeprazole Magnesium) 40 Mg Capsule.dr 40 MG PO DAILY, CAP Lurasidone HCl (Latuda) 60 Mg Tablet 60 MG PO DAILY, TAB Potassium Chloride (Potassium Chloride) 10 Meq Capsule.er 10 MEQ PO BID, CAP FILLED -18-18 (NOT YET PICKED UP FROM PHARMACY) Pregabalin (Lyrica) 150 Mg Capsule 150 MG PO BID, CAP LAST FILLED #56 4-2-18 Promethazine HCl (Promethazine Tablet) 25 Mg Tablet 12.5 MG PO Q6H PRN for NAUSEA/VOMITING-2ND LINE, #30 TAB 0 Refills (This prescription has been renewed) Solifenacin Succinate (Vesicare) 10 Mg Tablet 10 MG PO DAILY, TAB Topiramate (Topiramate) 50 Mg Tablet 50 MG PO BID, TAB Trazodone HCl (Trazodone HCl) 50 Mg Tablet 25 MG PO HS, TAB TAKES 1/2 (50MG) TABLET Discontinued Medications: Diphenoxylate HCl/Atropine (Diphenoxylate-Atrop 2.5-0.025) 1 Each Tablet 1 EACH PO Q6H PRN for DIARRHEA for 3 Days, #10 TAB 0 Refills Linaclotide (Linzess) 290 Mcg Capsule 290 MCG PO DAILY, TAB Patient Instructions Goal/Follow Up Appt: Follow up with Dr. Gross at [facility] on 04/28 at 10 am. Patient Instructions: Will make note of consideration for GI and Neurology referrals, you should also discuss with Dr. Gross at your next visit. Return to The Hospital For: Inability to keep down liquids. Activity & Diet Discharge Diet: Eat Small Frequent Meals, Avoid Fatty Foods Activity as Tolerated: Yes Copy Copies To 1: LUIZ GROSS MD, BETHANY N MD April 21, 2018 1:14 pm
--- NOTE | 2018-04-21 13:16 | Discharge Summary ---
Diagnosis/Chief Complaint Date of Admission April 20, 2018 at 9:30 am Date of Discharge April 21, 2018 Admission Diagnosis Admission Diagnosis (1) Nausea vomiting and diarrhea (2) Elevated lipase (3) Chronic pancreatitis (4) Hypokalemia, gastrointestinal losses (5) Chronic pain (6) Multiple sclerosis (7) Anxiety (8) Insomnia Discharge Diagnosis (1) Nausea vomiting and diarrhea Status: Acute Assessment & Plan: Persistent for [address] negative [address] scan of abdomen and stool testing at last hospital visit. Do not suspect infection at this point. May be multifactorial including possibility of exocrine pancreatic insufficiency secondary to chronic pancreatitis (would suspect more diarrhea and less vomiting, however) as well as possible contribution of discontinuing opiate pain medications (although taper was done- was given oxycontin 15 mg daily x 7 days on 04/06 along with percocet 10/325 mg 14 tabs and percocet 10/325 mg 14 tabs on 04/16). Another consideration may be central demyelinating lesion secondary to MS, however, that would not be expected to cause diarrhea. Treating symptomatically for now, but even if enough improvement occurs for d/c , discussed may need to see GI again, has not seen in sometime and consider EGD. Improved at time of d/c. Stool occult blood testing positive, needs followed up. (2) Elevated lipase Status: Chronic Assessment & Plan: Chronic, lower than earlier in the month (3) Chronic pancreatitis Status: Chronic Assessment & Plan: Unclear etiology and diagnosis, no GI records noted in clinic chart, she states she has not seen in some time. Consider checking fecal elastase for pancreatic insufficiency if diarrhea persists. (4) Hypokalemia, gastrointestinal losses Status: Acute Assessment & Plan: Replaced (5) Chronic pain Status: Chronic Assessment & Plan: Low back pain/degenerative disc disease. Has been tapered off of opiate pain medications due to inconsistent urine drug screens. Will avoid opiate pain medications. Qualifiers: Qualified Codes: G89.4 - Chronic pain syndrome (6) Multiple sclerosis Status: Chronic Assessment & Plan: Apparently stable, has not seen Neurology in sometime. No clear evidence of recent relapse, consider MRI brain if persistent vomiting. (7) Anxiety Status: Chronic Assessment & Plan: Alprazolam discontinued secondary to inconsistent urine testing outpatient. Will try to manage without benzodiazepines. (8) Insomnia Status: Chronic Assessment & Plan: Resume home trazodone Chief Complaint/HPI Chief Complaint/HPI 42 yo female presented to ER with intractable vomiting and diarrhea. She started vomiting around March 30 and was inpatient earlier in March with potassium below 2. She states she did get better and went home, but almost immediately started again. She vomits whether she eats or not. She is nauseated even with liquids. She had loose, watery stools about 3-4x per day if she doesn't take Lomotil. She denies fever, she has some intermittent abdominal pain. She does report a history of chronic pancreatitis, but unclear work-up and states she hasn't seen GI in over a year and does not recall who she saw then. She states she last had EGD a couple of years ago at least. She denies blood in vomit or stool. Her stool tests earlier this month were negative for shigella/salmonella/ campylobacter/E coli 0157, crypto, giardia and C diff. She is feeling anxious and tremulous and states she used to be on alprazolam and pain medications which were stopped due to inconsistent urine testing. Review of clinic chart shows oxyodone taper, unclear whether she should be out yet. Discharge Summary-Simple/Stand Consultations Discharge Physical Examination Allergies: Coded Allergies: acetaminophen (Verified Allergy, Unknown, 04/20/18) hydrocodone (Verified Allergy, Unknown, 04/20/18) aripiprazole (Verified Adverse Reaction, Intermediate, AGITATION, 04/20/18) levofloxacin (Verified Adverse Reaction, Intermediate, RASH, VOMITING, ) mirtazapine (Verified Adverse Reaction, Intermediate, AGITATION, 04/20/18) Sulfa (Sulfonamide Antibiotics) (Verified Adverse Reaction, Mild, RASH, ) naproxen (Verified Adverse Reaction, Mild, RASH, 04/20/18) peginterferon beta-1a (Verified Adverse Reaction, Unknown, 04/20/18) Uncoded Allergies: plastic tape/bandaids/adhesive (Allergy, Unknown, 10/08/15) Vitals & I&Os Vital Sign - Last 12Hours Date Time Temp Pulse Resp B/P (MAP) Pulse Ox O2 Delivery O2 Flow Rate FiO2 04/21/18 08:15 Room Air 04/21/18 08:00 97.6 107 20 95/58 (70) 99 Intake and Output 04/21/18 00:00 Intake Total 1850 ml Balance 1850 ml General Appearance: Alert, No Acute Distress Respiratory: Clear to Auscultation, Normal Air Movement Cardiovascular: Regular Rate, No Murmurs Abdominal: Normal Bowel Sounds, Soft, No Tenderness Neuro: Normal Speech Psych/Mental Status: Mental Status NL Hospital Course See final discharge diagnosis. Radiology Reviewed None this admit but CT abdomen 04/05 for same complaints unremarkable Discharge Instructions to patient/family Please see electronic discharge instructions given to patient. Discharge Medications Reviewed and agree with Discharge Medication list on patient's Discharge Instruction sheet Clinical Quality Measures DVT/VTE Risk/Contraindication: Risk Factor Score Per Nursin RFS Level Per Nursing on Admit: 4+=Very High Copy Copies To 1: LUIZ GROSS MD, BETHANY N MD April 21, 2018 13:15
== END 2018-04-21 13:50 | disposition home or self-care (01) | DRG 392 ==
LOC: EDUNIT# 07:56 → ER 07:58 → 4TH 09:30
PROVIDERS: ADMIT Family Medicine; ATTEND Family Medicine
DX: R11.2 Nausea with vomiting, unspecified (principal); R19.7 Diarrhea, unspecified; E87.6 Hypokalemia; K86.1 Other chronic pancreatitis; G89.29 Other chronic pain; F17.210 Nicotine dependence, cigarettes, uncomplicated; G35 Multiple sclerosis; M51.36 Other intervertebral disc degeneration, lumbar region; F41.9 Anxiety disorder, unspecified; F32.9 Major depressive disorder, single episode, unspecified; F51.04 Psychophysiologic insomnia; M19.91 Primary osteoarthritis, unspecified site; M79.7 Fibromyalgia; K58.9 Irritable bowel syndrome, unspecified; K21.9 Gastro-esophageal reflux disease without esophagitis; R74.8 Abnormal levels of other serum enzymes; Z87.19 Personal history of other diseases of the digestive system; Z98.1 Arthrodesis status; Z87.01 Personal history of pneumonia (recurrent)
CPT/HCPCS: 36415; 80053; 81000; 82274; 83690; 83735; 84132; 85025; 85027; 87088; 87324; 87328; 87329; 87449; 96374

== ENCOUNTER → 2019-11-07 | Outpatient (CLI) | payer MEDICARE, MEDICAID ==
[~2019-11-07] MED LIST changes: -DULO60CA58 PO; +DULO60CA59 PO; +POTA10CA43 PO; +PROM12.511 PO; -PROM12.59 PO; +TRAZ-222 PO; -TRAZ-28 PO
--- NOTE | 2019-11-08 08:24 | Diagnostic Imaging Report ---
PROCEDURE: CT chest without contrast. TECHNIQUE: Multiple contiguous axial images were obtained through the chest without the use of intravenous contrast. Auto Exposure Controls were utilized during the CT exam to meet ALARA standards for radiation dose reduction. DATE: November 07, 2019. COMPARISON: Chest radiograph February 03, 2016. INDICATION: 44-year-old female, chest pain, shortness of breath, cough. PROCEDURE: Axial noncontrasted CT images of the chest. Noncontrasted limits the evaluation of the mediastinum and vascular structures. FINDINGS: There is a 2 mm calcified granuloma in the right upper lobe on axial image 42. There is a 2 mm noncalcified left upper lobe pulmonary nodule on axial image 67. There is no additional identified pulmonary nodule. There is no otherwise noted focal airspace consolidation. There is no pneumothorax. There is no pleural effusion. The central airways are patent. The main pulmonary artery diameter is abnormally dilated at 3.4 cm. This is consistent with pulmonary artery hypertension. The heart is not enlarged. There is no pericardial effusion. There is no identified abnormally enlarged mediastinal or axillary lymph node which meets CT size criteria for adenopathy. There is a left-sided Fvgr-P-Zvktissj with tip at the level of the lower SVC. The patient is status post cholecystectomy. Additional evaluation of the imaged portions of the upper abdomen are unremarkable. There are very mild atherosclerotic calcifications noted. There is a mildly displaced fracture of the right fourth rib and also of the right fifth rib laterally as well as the right sixth and seventh ribs laterally. There is some periosteal reaction and partial healing response. These fractures may be late acute or subacute in age. Recommend correlation. There is also a minimally displaced fracture of the left lateral fourth rib and minimally displaced fracture of the left seventh rib and eighth rib and ninth ribs laterally. These fractures are also likely late acute to early subacute in age. There is an essentially nondisplaced fracture of the sternum best illustrated on sagittal image 84 with adjacent periosteal reaction. There is no mediastinal hematoma. IMPRESSION: 1. Essentially nondisplaced fracture of the sternum with adjacent periosteal reaction. This fracture may be subacute in age. Recommend correlation. There is no mediastinal hematoma. 2. Multiple bilateral rib fractures which appear most likely late acute to subacute in age. 3. No identified acute cardiopulmonary abnormality. 4. Abnormally dilated main pulmonary artery which is suggesting pulmonary hypertension. 5. Benign calcified 2 mm right upper lobe granuloma and 2 mm noncalcified left upper lobe pulmonary nodule. Dictated by: Dictated on workstation # [id number]
== END ==
LOC: RAD 16:59
PROVIDERS: ATTEND Nurse Practitioner Family
DX: S22.20XA Unspecified fracture of sternum, initial encounter for closed fracture (principal); S22.43XA Multiple fractures of ribs, bilateral, initial encounter for closed fracture; I28.1 Aneurysm of pulmonary artery; J84.10 Pulmonary fibrosis, unspecified; K31.84 Gastroparesis; K86.9 Disease of pancreas, unspecified; M51.36 Other intervertebral disc degeneration, lumbar region; M13.88 Other specified arthritis, other site; M79.7 Fibromyalgia; R91.1 Solitary pulmonary nodule; M94.0 Chondrocostal junction syndrome [Tietze]; Z90.49 Acquired absence of other specified parts of digestive tract; Z95.828 Presence of other vascular implants and grafts
CPT/HCPCS: 71250

== ENCOUNTER → 2020-01-17 | Outpatient (CLI) | payer MEDICARE, MEDICAID ==
[~2020-01-17] MED LIST changes: -TRAZ-222 PO; +TRZ50T PO
--- NOTE | 2020-01-17 11:39 | Diagnostic Imaging Report ---
INDICATION: Postmenopausal screening for osteoporosis. COMPARISON: None. FINDINGS: AP Spine L1-L4: [BMD (g/cm2): na] [T-Score: na] [Z-Score: na] [BMD Previous: na] [BMD % Change: na] LT Hip Neck: [BMD (g/cm2): 0.745] [T-Score: -2.1] [Z-Score: -1.6] LT Hip Total: [BMD (g/cm2): 0.763] [T-Score: -1.9] [Z-Score: -1.7] [BMD Previous: na] [BMD % Change: na] RT Hip Neck: [BMD (g/cm2): 0.778] [T-Score: -1.9] [Z-Score: -1.4] RT Hip Total: [BMD (g/cm2): 0.756] [T-score: -2.0] [Z-Score: -1.8] [BMD Previous: na] [BMD % Change: na] *Indicates significant change from prior examination based on 95% confidence level. World Health Organization criteria for BMD interpretation classify patients as Normal (T-score at or above -1.0), Osteopenic (T-score between -1.0 and -2.5) or Osteoporotic (T-score at or below -2.5). LIMITATIONS AND MODIFICATION: None. FRACTURE RISK (FRAX SCORE): The ten year probability of (%): Major Osteoporotic Fracture: [8.2] Hip Fracture: [2.7] IMPRESSION: 1. Osteopenia (Low bone mass). 2. Baseline examination. 3. See below National Osteoporosis Foundation guidelines on when to potentially initiate pharmacologic therapy. Based on the National Osteoporosis Foundation Guidelines, pharmacologic treatment should be initiated in any of the following, unless clinical conditions suggest otherwise: * Any patient with prior fragility fracture of the hip or vertebrae. A spine fracture indicates 5X risk for subsequent spine fracture and 2X risk for subsequent hip fracture. * Osteoporosis (T-score <-2.5). * Postmenopausal women and men age 50 and older with low bone mass/osteopenia (T-score between -1.0 and -2.5) by DXA and 10-year major osteoporotic fracture greater than 20% or a 10-year probability of hip fracture greater than 3%. These fracture risks are supplied above in the FRAX score, if applicable. * Clinician judgement and/or patient preferences may indicate treatment for people with 10-year fracture probabilities above or below these levels. Dictated by: Dictated on workstation # [id number]
== END ==
LOC: RAD 10:45
PROVIDERS: ATTEND Nurse Practitioner Family
DX: Z13.820 Encounter for screening for osteoporosis (principal); M85.80 Other specified disorders of bone density and structure, unspecified site; M84.48XG Pathological fracture, other site, subsequent encounter for fracture with delayed healing; M51.36 Other intervertebral disc degeneration, lumbar region; Z79.899 Other long term (current) drug therapy; Z78.0 Asymptomatic menopausal state
CPT/HCPCS: 77080

== ENCOUNTER → 2022-05-12 | Outpatient (CLI) | payer MEDICAID ==
[~2022-05-12] MED LIST changes: +ONDA-105 PO; -ONDA4TAB10 PO; +ONDA8TAB13 PO; -OXYC-465 PO; +OXYC-556 PO; +OXYC1TAB87 PO
--- NOTE | 2022-05-12 10:24 | Diagnostic Imaging Report ---
PROCEDURE: MR imaging of the brain without contrast. TECHNIQUE: Multiplanar, multisequence MR imaging of the brain was performed without contrast. INDICATION: Headaches. Shakiness. Generalized body pain. COMPARISON: none FINDINGS: No acute ischemia, mass, or hemorrhage. Focal areas of T2 hyperintense signal are seen in the periventricular and juxtacortical white matter involving the bilateral cerebral hemispheres, greatest in the bilateral frontal lobes. The ventricles, cortical sulci, and basilar cisterns are symmetric and unremarkable. The sellar and suprasellar regions have a normal appearance. The brainstem and posterior fossa are unremarkable. The paranasal sinuses and mastoid air cells demonstrate normal signal characteristics. Left-sided lens implant is noted. The scalp and calvarium have a normal appearance. IMPRESSION: 1. Scattered focal T2 hyperintense signal in the periventricular and juxtacortical white matter, which can be seen with demyelination. Sequelae of migraine and/or chronic microvascular disease can also contribute to this appearance. Consider CSF analysis to further evaluate. 2. No acute ischemia, mass, or hemorrhage. Dictated by: Dictated on workstation # [id number]
== END ==
LOC: RAD 09:30
PROVIDERS: ATTEND Psychiatry & Neurology Neurology
DX: G37.9 Demyelinating disease of central nervous system, unspecified (principal)
CPT/HCPCS: 70551

== ENCOUNTER → 2022-05-21 | Outpatient (CLI) | payer MEDICARE, MEDICAID ==
--- NOTE | 2022-05-21 14:30 | Diagnostic Imaging Report ---
INDICATION: Neck pain and radiculopathy as well as right shoulder pain. TIME OF EXAM: 2:08 PM. TECHNIQUE: Four views of the right shoulder were obtained. FINDINGS: The glenohumeral and acromioclavicular alignment is normal. The acromiohumeral space is normal. No fracture or dislocation is identified. IMPRESSION: No acute bony abnormality is detected. Dictated by: Dictated on workstation # [id number]
--- NOTE | 2022-05-21 14:31 | Diagnostic Imaging Report ---
INDICATION: Neck pain. TIME OF EXAM: 2:01 PM. TECHNIQUE: Five views of the cervical spine were obtained. FINDINGS: The curvature and alignment are normal. There is some minimal degenerative disc disease at the C5-C6 level with disc space narrowing and marginal spurring. The prevertebral tissues are normal. No definite motion during flexion or extension maneuvers is identified. There are no fractures. IMPRESSION: C5-C6 degenerative disc disease. No abnormal motion during flexion or extension maneuvers is identified. Dictated by: Dictated on workstation # [id number]
--- NOTE | 2022-05-21 15:58 | Diagnostic Imaging Report ---
PROCEDURE: MR imaging cervical spine without contrast. TECHNIQUE: Multiplanar, multisequence MR imaging of the cervical spine was performed without contrast. DATE: May 21, 2022. COMPARISON: None. INDICATION: 47-year-old female, body aches. FINDINGS: There is normal cervical spine alignment. There is no evidence of a diffuse marrow infiltrating or replacing process. There is no identified focal concerning bone lesion. The visualized spinal cord is unremarkable. The cervical disc heights are well preserved. C2-C3: There is no disc bulge. The uncovertebral and facet joints are unremarkable. There is no foraminal narrowing. There is no spinal canal stenosis. C3-C4: There is no disc bulge. The uncovertebral and facet joints are unremarkable. There is no foraminal narrowing. There is no spinal canal stenosis. C4-C5: There is a very small posterior disc/osteophyte complex. The uncovertebral and facet joints are unremarkable. There is no foraminal narrowing. There is no spinal canal stenosis. C5-C6: There is a very small posterior disc/osteophyte complex. The uncovertebral and facet joints are unremarkable. There is no foraminal narrowing. There is no spinal canal stenosis. C6-C7: There is a posterior disc/osteophyte complex. The uncovertebral and facet joints are unremarkable. There is no foraminal narrowing. There is no high-grade spinal canal stenosis. C7-T1: There is no disc bulge. The uncovertebral and facet joints are unremarkable. There is no foraminal narrowing. There is no spinal canal stenosis. IMPRESSION: 1. Mild disc degenerative changes at C4-C5, C5-C6, and C6-C7 without high-grade foraminal or spinal stenosis. 2. No abnormal cord signal to specifically suggest demyelinating disease of the cervical spine. 3. No focal concerning bone lesion. Dictated by: Dictated on workstation # [id number]
== END ==
LOC: RAD 14:00
PROVIDERS: ATTEND Anesthesiology Pain Medicine
DX: M50.123 Cervical disc disorder at C6-C7 level with radiculopathy (principal); M50.122 Cervical disc disorder at C5-C6 level with radiculopathy
CPT/HCPCS: 72050; 72141; 73030

== ENCOUNTER 2022-06-05 15:27 | Inpatient (IN) | payer MEDICARE, MEDICAID ==
[~2022-06-05] VITALS: Ht 160 cm; Wt 64.5 kg
[2022-06-05 15:55] LABS: BASOPHILS % (AUTO) 0 % (0-10); EOSINOPHILS # (AUTO) 0.1 10^3/uL (0.0-0.3); EOSINOPHILS % (AUTO) 1 % (0-10); HEMATOCRIT 42 % (35-52); HEMOGLOBIN 14.2 g/dL (11.5-16.0); LYMPHOCYTES # (AUTO) 1.9 10^3/uL (1.0-4.0); LYMPHOCYTES % (AUTO) 14 % (12-44); MEAN CORPUSCULAR HEMOGLOBIN 30 pg (25-34); MEAN CORPUSCULAR HGB CONC 34 g/dL (32-36); MEAN CORPUSCULAR VOLUME 88 fL (80-99); MONOCYTES # (AUTO) 0.6 10^3/uL (0.0-1.0); MONOCYTES % (AUTO) 4 % (0-12); NEUTROPHILS # (AUTO) 10.6 10^3/uL (1.8-7.8); NEUTROPHILS % (AUTO) 80 % (42-75); PLATELET COUNT 252 10^3/uL (130-400); WHITE BLOOD COUNT 13.3 10^3/uL (4.3-11.0)
[2022-06-05] MEDS ORDERED: NS IV 1000 ML 1,000 ML IV SCH ×2 (16:00→17:15)
[2022-06-05 16:03] LABS: ALBUMIN 4.5 GM/DL (3.2-4.5)
[2022-06-05] MEDS ORDERED: fentaNYL INJ 100 MCG/2 ML AMP IVP STA (16:03)
[2022-06-05 16:04] LABS: POTASSIUM 3.1 MMOL/L (3.6-5.0)
[2022-06-05 16:05] LABS: CALCIUM 9.5 MG/DL (8.5-10.1)
[2022-06-05 16:06] LABS: TOTAL PROTEIN 7.3 GM/DL (6.4-8.2)
[2022-06-05 16:08] LABS: BILIRUBIN,TOTAL 0.5 MG/DL (0.1-1.0)
[2022-06-05 16:10] LABS: CREATININE SERUM 1.01 MG/DL (0.60-1.30)
--- NOTE | 2022-06-05 16:10 | ED Abdominal Pain ---
General Chief Complaint: Abdominal/GI Problems Stated Complaint: UPPER ABD PAIN Nursing Triage Note: PT AMBULATE ROOM 06 WITH C/O ABD PAIN AND NAUSEA X3 HOURS. PT REPORTS EATING A CHEESEBURGER X1 HOUR PRIOR TO ABDP AND NAUSEA. PT REPORTS HX OF PANCREATITIS. (SARMAD HERNANDEZ) History of Present Illness Date Seen by Provider: Jun 05, 2022 Time Seen by Provider: 15:50 Initial Comments 47 year old female presents with epigastric pain that started in the last 3 hours. She vomited one time, which improved symptoms. Hx of GERD, takes Protonix. She has had previous cholecystectomy, total hysterectomy and appendectomy. She had a history of pancreatitis in the past. She denies any recent travel or changes in her diet.She denies chronic or acute alcohol use, last intake was Nov 30, 2021. She was started on Nystatin 2 days ago for thrush, which is improving. 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); No Swelling/Mass in Abdomen, No Weakness (SARMAD HERNANDEZ) Allergies and Home Medications Allergies Coded Allergies: hydrocodone (Verified Allergy, Unknown, 04/20/18) aripiprazole (Verified Adverse Reaction, Intermediate, AGITATION, 04/20/18) levofloxacin (Verified Adverse Reaction, Intermediate, RASH, VOMITING, 04/20/18) mirtazapine (Verified Adverse Reaction, Intermediate, AGITATION, 04/20/18) Sulfa (Sulfonamide Antibiotics) (Verified Adverse Reaction, Mild, RASH, 04/20/18) naproxen (Verified Adverse Reaction, Mild, RASH, 04/20/18) peginterferon beta-1a (Verified Adverse Reaction, Unknown, 04/20/18) Uncoded Allergies: plastic tape/bandaids/adhesive (Allergy, Unknown, 10/08/15) Patient Home Medication List Home Medication List Reviewed: Yes (SARMAD HERNANDEZ) Atorvastatin Calcium (Atorvastatin Calcium) 20 Mg Tablet, 20 MG PO HS, (Reported) Entered as Reported by: KATLYN FRAIRE on 04/05/182229 Duloxetine HCl (Duloxetine HCl) 60 Mg Capsule.dr, 60 MG PO BID, (Reported) Entered as Reported by: KATLYN FRAIRE on 04/05/182229 Esomeprazole Magnesium (Esomeprazole Magnesium) 40 Mg Capsule.dr, 40 MG PO DAILY, (Reported) Entered as Reported by: ZAIRA KULKARNI on 04/06/18 0845 Lurasidone HCl (Latuda) 60 Mg Tablet, 60 MG PO DAILY, (Reported) Entered as Reported by: KATLYN FRAIRE on 04/05/182229 Ondansetron (Ondansetron Odt) 8 Mg Tab.rapdis, 8 MG PO Q6H PRN for NAUSEA/VOMITING Prescribed by: JESSICA ARSHAD on 07/11/20 1227 Oxycodone HCl/Acetaminophen (Percocet 5-325 mg Tablet) 1 Each Tablet, 1 TAB PO Q4H Prescribed by: JESSICA ARSHAD on 07/11/20 1227 Potassium Chloride (Potassium Chloride) 10 Meq Capsule.er, 10 MEQ PO BID, (Reported) Entered as Reported by: ZAIRA KULKARNI on 04/20/18 1108 Pregabalin (Lyrica) 150 Mg Capsule, 150 MG PO BID, (Reported) Entered as Reported by: KATHRYN COONEY on 10/08/15 1136 Promethazine HCl (Promethazine Tablet) 25 Mg Tablet, 12.5 MG PO Q6H PRN for NAUSEA/VOMITING-2ND LINE Prescribed by: OLAYINKA GA on 04/21/18 1311 Solifenacin Succinate (Vesicare) 10 Mg Tablet, 10 MG PO DAILY, (Reported) Entered as Reported by: KATLYN FRAIRE on 04/05/182229 Topiramate (Topiramate) 50 Mg Tablet, 50 MG PO BID, (Reported) Entered as Reported by: KATLYN FRAIRE on 04/05/182229 Trazodone HCl (Trazodone HCl) 50 Mg Tablet, 25 MG PO HS, (Reported) Entered as Reported by: KATLYN FRAIRE on 04/05/182229 Review of Systems Review of Systems Constitutional: no symptoms reported, see HPI Respiratory: No Symptoms Reported, See HPI Cardiovascular: No Symptoms Reported, See HPI Gastrointestinal: See HPI, Abdominal Pain; Denies Diarrhea; Nausea, Vomiting Genitourinary: No Symptoms Reported, See HPI (SARMAD HERNANDEZ) All Other Systems Reviewed Negative Unless Noted: Yes (SARMAD HERNANDEZ) Past Jiiaxrs-Xydroq-Shdwjd Hx Patient Social History Tobacco Use?: Yes Tobacco type used: Cigarettes Smoking Status: Current Everyday Smoker Smokeless Tobacco Frequency: Never a User Use of E-Cig and/or Vaping dev: No Use of E-Cig and/or Vaping Luis: Never a User Substance use?: No Alcohol Use?: No Pt feels they are or have been: No (SARMAD HERNANDEZ) Seasonal Allergies Seasonal Allergies: Yes (SARMAD HERNANDEZ) Past Medical History Surgeries: Yes (BACK PINS AND RODS, BACK W/DISKECTOMY COLONOSCOPY, OVARIAN CYSTS) Appendectomy, Section, Gallbladder, Hysterectomy, Orthopedic, Pancreatic Respiratory: Yes Pneumonia, Chronic Bronchitis Currently Using CPAP: No Currently Using BIPAP: No Cardiac: Yes Neurological: Yes Multiple Sclerosis 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 Genitourinary: No Gastrointestinal: Yes Gastroesophageal Reflux, Pancreatitis, Esophagitis, Irritable Bowel Musculoskeletal: Yes (DDD OF L/S) Degenerate Disk Disease, Arthritis, Fibromyalgia Endocrine: No HEENT: No Cancer: No Psychosocial: Yes (PSYCHOSIS) Anxiety, Depression Integumentary: No Blood Disorders: No Adverse Reaction/Blood Tranf: No (SARMAD HERNANDEZ) Family Medical History Reviewed Nursing Family Hx (SARMAD HERNANDEZ) Alcoholism Arthritis Cardiovascular disease Colon cancer Completed stroke Coronary thrombosis Diabetes mellitus Hypertension Respiratory disorder Severe allergy Thyroid disease Visual disorder No Pertinent Family Hx (SARMAD HERNANDEZ) Physical Exam Vital Signs Vital Signs - First Documented 06/05/22 15:35 Temp 36.7 Pulse 87 Resp 19 B/P (MAP) 120/75 (90) O2 Delivery Room Air (RENUKA VELA MD) Vital Signs Capillary Refill : Less Than 3 Seconds (SARMAD HERNANDEZ) Height/Weight/BMI Height: 5'3.00" Weight: 127lbs. 8.0oz. 57.342122ro; 25.00 BMI Method:Stated General Appearance: WD/WN, mild distress (Secondary to pain) HEENT: PERRL/EOMI, normal ENT inspection, other (oral mucosa with healing thrush, most noted to tongue) Neck: non-tender, full range of motion, supple, normal inspection Respiratory: chest non-tender, lungs clear, normal breath sounds Cardiovascular: normal peripheral pulses Gastrointestinal: normal bowel sounds, soft, distended; No guarding, No rebound; tenderness Back: normal inspection, no CVA tenderness, no vertebral tenderness Neurologic/Psychiatric: no motor/sensory deficits, alert, normal mood/affect, oriented x 3 (MARY,SARMAD WINDOWS APPLICATION PACKAGER) Progress/Results/Core Measures Results/Orders Lab Results Laboratory Tests Test 06/05/22 00:00 06/05/22 15:40 Range/Units Urine Color YELLOW Urine Clarity CLEAR Urine pH 6.0 5-9 Urine Specific [place] 1.025 H 1.016-1.022 Urine Protein 1+ H NEGATIVE Urine Glucose (UA) NEGATIVE NEGATIVE Urine Ketones NEGATIVE NEGATIVE Urine Nitrite NEGATIVE NEGATIVE Urine Bilirubin NEGATIVE NEGATIVE Urine Urobilinogen 0.2 < = 1.0 MG/DL Urine Leukocyte Esterase NEGATIVE NEGATIVE Urine RBC (Auto) NEGATIVE NEGATIVE Urine RBC 0-2 /HPF Urine WBC 0-2 /HPF Urine Squamous Epithelial Cells 2-5 /HPF Urine Crystals PRESENT H /LPF Urine Amorphous Sediment FEW BRADEN URATES H /LPF Urine Bacteria NEGATIVE /HPF Urine Casts PRESENT /LPF Urine Hyaline Casts 0-2 H /LPF Urine Mucus SMALL H /LPF Urine Culture Indicated NO White Blood Count 13.3 H 4.3-11.0 10^3/uL Red Blood Count 4.74 3.80-5.11 10^6/uL Hemoglobin 14.2 11.5-16.0 g/dL Hematocrit 42 35-52 % Mean Corpuscular Volume 88 80-99 fL Mean Corpuscular Hemoglobin 30 25-34 pg Mean Corpuscular Hemoglobin Concent 34 32-36 g/dL Red Cell Distribution Width 13.1 10.0-14.5 % Platelet Count 252 130-400 10^3/uL Mean Platelet Volume 11.0 9.0-12.2 fL Immature Granulocyte % (Auto) 1 % Neutrophils (%) (Auto) 80 H 42-75 % Lymphocytes (%) (Auto) 14 12-44 % Monocytes (%) (Auto) 4 0-12 % Eosinophils (%) (Auto) 1 0-10 % Basophils (%) (Auto) 0 0-10 % Neutrophils # (Auto) 10.6 H 1.8-7.8 10^3/uL Lymphocytes # (Auto) 1.9 1.0-4.0 10^3/uL Monocytes # (Auto) 0.6 0.0-1.0 10^3/uL Eosinophils # (Auto) 0.1 0.0-0.3 10^3/uL Basophils # (Auto) 0.0 0.0-0.1 10^3/uL Immature Granulocyte # (Auto) 0.1 0.0-0.1 10^3/uL Prothrombin Time 12.8 12.2-14.7 SEC INR Comment 0.9 0.8-1.4 Activated Partial Thromboplast Time 32 24-35 SEC Sodium Level 144 135-145 MMOL/L Potassium Level 3.1 L 3.6-5.0 MMOL/L Chloride Level 106 98-107 MMOL/L Carbon Dioxide Level 22 21-32 MMOL/L Anion Gap 16 H 5-14 MMOL/L Blood Urea Nitrogen 6 L 7-18 MG/DL Creatinine 1.01 0.60-1.30 MG/DL Estimat Glomerular Filtration Rate 69 BUN/Creatinine Ratio 6 Glucose Level 111 H 70-105 MG/DL Calcium Level 9.5 8.5-10.1 MG/DL Corrected Calcium 9.1 8.5-10.1 MG/DL Total Bilirubin 0.5 0.1-1.0 MG/DL Aspartate Amino Transf (AST/SGOT) 31 5-34 U/L Alanine Aminotransferase (ALT/SGPT) 21 0-55 U/L Alkaline Phosphatase 102 40-136 U/L Troponin I < 0.028 <0.028 NG/ML C-Reactive Protein High Sensitivity 0.76 H 0.00-0.50 MG/DL Total Protein 7.3 6.4-8.2 GM/DL Albumin 4.5 3.2-4.5 GM/DL Amylase Level 2116 H 25-125 U/L Lipase 9376 H 8-78 U/L (RENUKA VELA MD) Medications Given in ED Current Medications Medications Dose Ordered Sig/Sophia Route Start Time Stop Time Status Last Admin Dose Admin Iohexol 100 ml ONCE ONCE IV 06/05/22 16:15 06/05/22 16:16 DC 06/05/22 16:51 74 ML Sodium Chloride 100 ml ONCE ONCE IV 06/05/22 16:15 06/05/22 16:16 DC 06/05/22 16:51 80 ML (RENUKA VELA MD) Vital Signs/I&O 06/05/22 15:35 Temp 36.7 Pulse 87 Resp 19 B/P (MAP) 120/75 (90) O2 Delivery Room Air (RENUKA VELA MD) Blood Pressure Mean: 90 Progress Progress Note : Time: 15:50 Progress Note Patient seen and evaluated, will obtain labs, normal saline 1 L per IV, fentanyl 50 mcg IV, and CT abdomen pelvis. 1645 amylase 2116, lipase 9376, awaiting CT. Patient reports continued pain with minimal improvement after the fentanyl, will give Dilaudid 0.5 mg IV and a second liter of saline. 1700 CT shows no changes in the liver, small nodule in the left upper lobe 0.2cm. Gallbladder is surgically absent there is inflammatory stranding and a trace amount of fluid seen within the right upper quadrant along the pancreatic body and head no. Pancreatic fluid or areas of necrosis noted no obvious pancreatic ductal dilatation. No other significant abnormalities on abdomen. 1730 patient improved after Dilaudid. Discussed patient with Dr. Ga, agreeable with plans for admission, hydration and pain control. We will not contact general surgery at this time, may consult in morning if symptoms not improving. (SARMAD HERNANDEZ) Diagnostic Imaging Diagonstic Imaging: CT Plain Films/CT/US/NM/MRI: abdomen, pelvis Comments NAME: JAME MENDOZA [facility] REC#: [id number] PT STATUS: REG ER : 1975 PHYSICIAN: SARMAD HERNANDEZ ADMIT DATE: 06/05/22/ER Draft Date of Exam:06/05/22 CT ABDOMEN/PELVIS W EXAMINATION: CT abdomen and pelvis with intravenous contrast. TECHNIQUE: Multiple contiguous axial images were obtained through the abdomen and pelvis after the uneventful administration of intravenous contrast. All CT scans use one or more of the following dose optimizing techniques: Automated exposure control, MA and/or KvP adjustment based on patient size and exam type or iterative reconstruction. HISTORY: Epigastric pain, severe hx pancreatitis. COMPARISON: 07/11/2020. FINDINGS: Lung bases: Bibasilar dependent atelectasis. There is a 0.2 cm left upper lobe pulmonary nodule. Solid organs: The liver is normal without focal lesion. The gallbladder is surgically absent. There is no biliary ductal dilation. There is inflammatory stranding and trace fluid seen within the right upper quadrant along the pancreatic body and head. No loculated peripancreatic fluid collection or areas of hypoenhancement to suggest necrosis. No obvious pancreatic ductal dilatation. Spleen is normal. Adrenal glands are normal. The kidneys are normal without hydronephrosis. Bowel: The stomach and small bowel are normal without obstruction. Colon is unremarkable. The appendix is nonvisualized and may be surgically absent. Peritoneum: Fluid within the peripancreatic tissues as described above. No loculated fluid collection or free air. No suspicious lymphadenopathy. Vasculature: Normal without aneurysm. Musculoskeletal: Surgical changes from L4 through S1 spinal fusion. Pelvis: The uterus is surgically absent. No adnexal mass. The urinary bladder is normal. IMPRESSION: 1. Findings compatible with history of pancreatitis. No evidence of necrosis or peripancreatic fluid collection. Dictated on workstation # [id number] Dict: 06/05/22 1654 Trans: 06/05/22 1659 [id number] Interpreted by: LOLITA BORDEN DO Electronically signed by: Reviewed: Reviewed by Me (SARMAD HERNANDEZ) Departure Impression Primary Impression: Abdominal pain Qualified Codes: R10.13 - Epigastric pain Additional Impressions: Pancreatitis Qualified Codes: K85.90 - Acute pancreatitis without necrosis or infection, unspecified Thrush Disposition: ADMITTED INPATIENT Condition: Stable Admissions Decision to Admit/Date: Jun 05, 2022 Time/Decision to Admit Time: 16:45 (SARMAD HERNANDEZ) Departure-Patient Inst. Referrals: [facility] [place] Primary Care Physician ATTENDING PHYSICIAN NOTE: I was physically present as attending physician in the emergency department during the care of this patient, but I was not directly involved in the decision making or delivery of care for this patient. (RENUKA VELA MD) SARMAD HERNANDEZ Jun 05, 2022 16:10 RENUKA VELA MD Jun 05, 2022 19:09
[2022-06-05 16:12] LABS: BILIRUBIN,URINE NEGATIVE (NEGATIVE); CLARITY,URINE CLEAR; COLOR,URINE YELLOW; GLUCOSE, URINE (UA) NEGATIVE (NEGATIVE); KETONES,URINE NEGATIVE (NEGATIVE); LEUKOCYTE ESTERASE ,URINE NEGATIVE (NEGATIVE); NITRITE,URINE NEGATIVE (NEGATIVE); PROTEIN,URINE 1+ (NEGATIVE)
[2022-06-05] MEDS ORDERED: HOLD METFORMIN - RECEIVED CONTRAST 20 ML VIAL IV SCH (16:15)
[2022-06-05] MEDS ORDERED: IOHEXOL 350 MG/ML 100 ML (OMNIPAQUE 350) VIAL IV ONE (16:15)
[2022-06-05] MEDS ORDERED: NS 100 ML (IVPB) BAG IV ONE (16:15)
[2022-06-05 16:22] LABS: AMORPHOUS SEDIMENT,UR FEW AMOR URATES /LPF; BACTERIA,URINE NEGATIVE /HPF; HYALINE CASTS, URINE 0-2 /LPF; RBC,URINE 0-2 /HPF; WBC,URINE 0-2 /HPF
[2022-06-05] MEDS ORDERED: POTASSIUM CL 10MEQ/50ML IVPB 50 ML IV STA (16:28)
--- NOTE | 2022-06-05 17:00 | Diagnostic Imaging Report ---
EXAMINATION: CT abdomen and pelvis with intravenous contrast. TECHNIQUE: Multiple contiguous axial images were obtained through the abdomen and pelvis after the uneventful administration of intravenous contrast. All CT scans use one or more of the following dose optimizing techniques: Automated exposure control, MA and/or KvP adjustment based on patient size and exam type or iterative reconstruction. HISTORY: Epigastric pain, severe hx pancreatitis. COMPARISON: 07/11/2020. FINDINGS: Lung bases: Bibasilar dependent atelectasis. There is a 0.2 cm left upper lobe pulmonary nodule. Solid organs: The liver is normal without focal lesion. The gallbladder is surgically absent. There is no biliary ductal dilation. There is inflammatory stranding and trace fluid seen within the right upper quadrant along the pancreatic body and head. No loculated peripancreatic fluid collection or areas of hypoenhancement to suggest necrosis. No obvious pancreatic ductal dilatation. Spleen is normal. Adrenal glands are normal. The kidneys are normal without hydronephrosis. Bowel: The stomach and small bowel are normal without obstruction. Colon is unremarkable. The appendix is nonvisualized and may be surgically absent. Peritoneum: Fluid within the peripancreatic tissues as described above. No loculated fluid collection or free air. No suspicious lymphadenopathy. Vasculature: Normal without aneurysm. Musculoskeletal: Surgical changes from L4 through S1 spinal fusion. Pelvis: The uterus is surgically absent. No adnexal mass. The urinary bladder is normal. IMPRESSION: 1. Findings compatible with history of pancreatitis. No evidence of necrosis or peripancreatic fluid collection. Dictated by: Dictated on workstation # [id number]
[2022-06-05] MEDS ORDERED: HYDROmorphone 2 MG/ML VIAL (DILAUDID) IV STA (17:06)
[2022-06-05 17:27] LABS: INR 0.9 (0.8-1.4); PROTHROMBIN TIME PATIENT 12.8 SEC (12.2-14.7)
[2022-06-05] MEDS ORDERED: LACTATED RINGERS 1,000 ML IV STA (18:28)
[2022-06-05] MEDS ORDERED: HYDROmorphone 2 MG/ML VIAL (DILAUDID) ONE ×2 (19:58→22:47)
[2022-06-05] MEDS: HYDROmorphone 2 MG/ML VIAL (DILAUDID) IV PRN ×2 (20:00→22:51)
[2022-06-05 20:19] VITALS: BP 113/75
[2022-06-05] MEDS ORDERED: LACTATED RINGERS 1,000 ML IV SCH (21:30)
[2022-06-05] MEDS ORDERED: ONDANSETRON 4 MG/2 ML (SDV) Z0FRAN IV PRN (21:30)
[2022-06-05] MEDS ORDERED: ONDANSETRON 4 MG/2 ML (SDV) Z0FRAN ONE (22:47)
[2022-06-05] MEDS ORDERED: NYSTATIN ORAL SUSP 5 ML UDC ONE (22:48)
[2022-06-05] MEDS: LACTATED RINGERS 1,000 ML IV SCH (22:51)
[2022-06-05] MEDS: NYSTATIN ORAL SUSP 5 ML UDC PO SCH (22:51)
[2022-06-05 23:33] VITALS: BP 95/61
[2022-06-06] VITALS (7 sets, daily range): BP systolic 89–115; BP diastolic 56–73
[2022-06-06] MEDS: LACTATED RINGERS 1,000 ML IV SCH ×5 (01:23→22:04)
[2022-06-06] MEDS: NYSTATIN ORAL SUSP 5 ML UDC PO SCH ×6 (03:39→19:48)
[2022-06-06] MEDS: HYDROmorphone 2 MG/ML VIAL (DILAUDID) IV PRN ×5 (03:58→23:31)
[2022-06-06 05:33] LABS: BASOPHILS % (AUTO) 1 % (0-10); EOSINOPHILS # (AUTO) 0.1 10^3/uL (0.0-0.3); EOSINOPHILS % (AUTO) 2 % (0-10); HEMATOCRIT 32 % (35-52); HEMOGLOBIN 10.6 g/dL (11.5-16.0); LYMPHOCYTES # (AUTO) 1.8 10^3/uL (1.0-4.0); LYMPHOCYTES % (AUTO) 24 % (12-44); MEAN CORPUSCULAR HEMOGLOBIN 30 pg (25-34); MEAN CORPUSCULAR HGB CONC 33 g/dL (32-36); MEAN CORPUSCULAR VOLUME 92 fL (80-99); MEAN PLATELET VOLUME 11.5 fL (9.0-12.2); MONOCYTES # (AUTO) 0.5 10^3/uL (0.0-1.0); MONOCYTES % (AUTO) 7 % (0-12); NEUTROPHILS % (AUTO) 67 % (42-75); PLATELET COUNT 172 10^3/uL (130-400); WHITE BLOOD COUNT 7.5 10^3/uL (4.3-11.0)
[2022-06-06 05:46] LABS: POTASSIUM 3.3 MMOL/L (3.6-5.0)
[2022-06-06 05:47] LABS: CALCIUM 8.2 MG/DL (8.5-10.1)
[2022-06-06 05:51] LABS: CREATININE SERUM 0.75 MG/DL (0.60-1.30)
[2022-06-06] MEDS: POTASSIUM CL 10MEQ/50ML IVPB 50 ML IV SCH ×4 (06:23→09:21)
[2022-06-06] MEDS ORDERED: GBPN600T PO (13:11)
[2022-06-06] MEDS ORDERED: TRAZ-227 PO (13:11)
[2022-06-06] MEDS ORDERED: PANT40TA52 PO (13:11)
[2022-06-06] MEDS ORDERED: NYST1000 PO (13:11)
[2022-06-06] MEDS ORDERED: GABA300C PO (13:11)
[2022-06-06] MEDS ORDERED: CYCL10TA25 PO (13:11)
[2022-06-06] MEDS ORDERED: IBUP-1780 PO (13:11)
[2022-06-06] MEDS ORDERED: CETI10TA17 PO (13:11)
[2022-06-06] MEDS ORDERED: VILA40TA PO (13:11)
--- NOTE | 2022-06-06 14:34 | History & Physical ---
HPI History of Present Illness: 47 yo female presented to ER due to severe abdominal pain that started yesterday. She has a history of pancreatitis on and off over several years. She believes she had an ERCP many years ago, but isn't sure. 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 She was seeing GI in the past and that had transitioned to Dr. Curiel in [place], but with COVID she has not even seen him yet. She has a history of heavy alcohol use when she was younger, but no longer and her last drink was on 's Kamila. She has had a cholecystectomy in the past. She denies substance use. She does take ibuprofen as needed for pain, but no other OTC. She was recently diagnosed with thrush in the last day or two and started Nystatin swish and swallow, she says she gets thrush not infrequently. She also notes that when she decreases her PPI she seems to get pancreatitis flares. Source: patient Date seen by provider: Jun 06, 2022 Time Seen by Provider: 11:35 Attending Physician [place] PCP Admitting Physician: Catalina Ga MD Attending Physician: Catalina Ga MD Consult Date of Admission Jun 05, 2022 at 18:11 Home Medications Home Medications Reviewed patient Home Medication Reconciliation performed by pharmacy medication reconciliations forest ranger technician and/or nursing. Patients Allergies have been reviewed. Allergies Coded Allergies: hydrocodone (Verified Allergy, Unknown, 04/20/18) aripiprazole (Verified Adverse Reaction, Intermediate, AGITATION, 04/20/18) levofloxacin (Verified Adverse Reaction, Intermediate, RASH, VOMITING, 04/20/18) mirtazapine (Verified Adverse Reaction, Intermediate, AGITATION, 04/20/18) Sulfa (Sulfonamide Antibiotics) (Verified Adverse Reaction, Mild, RASH, 04/20/18) naproxen (Verified Adverse Reaction, Mild, RASH, 04/20/18) peginterferon beta-1a (Verified Adverse Reaction, Unknown, 04/20/18) Uncoded Allergies: plastic tape/bandaids/adhesive (Allergy, Unknown, 10/08/15) GSP-Kpwler-Ivhsoo Hx Patient Social History Smoking Status: Current Everyday Smoker 2nd Hand Smoke Exposure: Yes Recent Hopitalizations: Yes Alcohol Use?: No Tobacco type used: Cigarettes Have you traveled recently?: No Immunizations Up To Date Influenza Vaccine Up-to-Date: No; Not Current Past Medical History Past medical history 1. Multiple sclerosis treated by Dr. Bay at [facility] in [place] 2. Lumbar disc disease 3. Chronic pancreatitis 4. Depression and anxiety Past surgical history 1. Back surgery 2 with lumbar fusion in March [address] Aguirre 2. Hysterectomy 3. Cholecystectomy with reported "pancreatic surgery" 4. Appendectomy 5. Family Medical History Family History: Alcoholism Arthritis Cardiovascular disease Colon cancer Completed stroke Coronary thrombosis Diabetes mellitus Hypertension Respiratory disorder Severe allergy Thyroid disease Visual disorder Review of Systems ([facility]) Constitutional: No fever Respiratory: No short of breath Gastrointestinal: abdominal pain, nausea Genitourinary: no symptoms reported Reviewed Test Results Reviewed Test Results Lab Laboratory Tests Test 06/05/22 00:00 06/05/22 15:40 06/06/22 05:04 Range/Units Urine Color YELLOW Urine Clarity CLEAR Urine pH 6.0 5-9 Urine Specific [place] 1.025 H 1.016-1.022 Urine Protein 1+ H NEGATIVE Urine Glucose (UA) NEGATIVE NEGATIVE Urine Ketones NEGATIVE NEGATIVE Urine Nitrite NEGATIVE NEGATIVE Urine Bilirubin NEGATIVE NEGATIVE Urine Urobilinogen 0.2 < = 1.0 MG/DL Urine Leukocyte Esterase NEGATIVE NEGATIVE Urine RBC (Auto) NEGATIVE NEGATIVE Urine RBC 0-2 /HPF Urine WBC 0-2 /HPF Urine Squamous Epithelial Cells 2-5 /HPF Urine Crystals PRESENT H /LPF Urine Amorphous Sediment FEW BRADEN URATES H /LPF Urine Bacteria NEGATIVE /HPF Urine Casts PRESENT /LPF Urine Hyaline Casts 0-2 H /LPF Urine Mucus SMALL H /LPF Urine Culture Indicated NO White Blood Count 13.3 H 7.5 4.3-11.0 10^3/uL Red Blood Count 4.74 3.52 L 3.80-5.11 10^6/uL Hemoglobin 14.2 10.6 #L 11.5-16.0 g/dL Hematocrit 42 32 L 35-52 % Mean Corpuscular Volume 88 92 80-99 fL Mean Corpuscular Hemoglobin 30 30 25-34 pg Mean Corpuscular Hemoglobin Concent 34 33 32-36 g/dL Red Cell Distribution Width 13.1 13.3 10.0-14.5 % Platelet Count 252 172 130-400 10^3/uL Mean Platelet Volume 11.0 11.5 9.0-12.2 fL Immature Granulocyte % (Auto) 1 0 % Neutrophils (%) (Auto) 80 H 67 42-75 % Lymphocytes (%) (Auto) 14 24 12-44 % Monocytes (%) (Auto) 4 7 0-12 % Eosinophils (%) (Auto) 1 2 0-10 % Basophils (%) (Auto) 0 1 0-10 % Neutrophils # (Auto) 10.6 H 5.0 1.8-7.8 10^3/uL Lymphocytes # (Auto) 1.9 1.8 1.0-4.0 10^3/uL Monocytes # (Auto) 0.6 0.5 0.0-1.0 10^3/uL Eosinophils # (Auto) 0.1 0.1 0.0-0.3 10^3/uL Basophils # (Auto) 0.0 0.0 0.0-0.1 10^3/uL Immature Granulocyte # (Auto) 0.1 0.0 0.0-0.1 10^3/uL Prothrombin Time 12.8 12.2-14.7 SEC INR Comment 0.9 0.8-1.4 Activated Partial Thromboplast Time 32 24-35 SEC Sodium Level 144 141 135-145 MMOL/L Potassium Level 3.1 L 3.3 L 3.6-5.0 MMOL/L Chloride Level 106 109 H 98-107 MMOL/L Carbon Dioxide Level 22 22 21-32 MMOL/L Anion Gap 16 H 10 5-14 MMOL/L Blood Urea Nitrogen 6 L 5 L 7-18 MG/DL Creatinine 1.01 0.75 0.60-1.30 MG/DL Estimat Glomerular Filtration Rate 69 99 BUN/Creatinine Ratio 6 7 Glucose Level 111 H 89 70-105 MG/DL Calcium Level 9.5 8.2 L 8.5-10.1 MG/DL Corrected Calcium 9.1 8.5-10.1 MG/DL Total Bilirubin 0.5 0.1-1.0 MG/DL Aspartate Amino Transf (AST/SGOT) 31 5-34 U/L Alanine Aminotransferase (ALT/SGPT) 21 0-55 U/L Alkaline Phosphatase 102 40-136 U/L Troponin I < 0.028 <0.028 NG/ML C-Reactive Protein High Sensitivity 0.76 H 0.00-0.50 MG/DL Total Protein 7.3 6.4-8.2 GM/DL Albumin 4.5 3.2-4.5 GM/DL Amylase Level 2116 H 444 H 25-125 U/L Lipase 9376 H 668 H 8-78 U/L Radiology CT abdomen 06/05/22: IMPRESSION: 1. Findings compatible with history of pancreatitis. No evidence of necrosis or peripancreatic fluid collection. Physical Exam-([facility]C) Physical Exam Vital Signs VS - Last 72 Hours, by Label 06/05/22 06/05/22 06/05/22 06/05/22 15:35 19:52 20:19 23:33 Temp 36.7 36.1 Pulse 87 72 Resp 19 20 B/P (MAP) 120/75 (90) 113/75 (88) 95/61 (72) Pulse Ox 97 98 O2 Delivery Room Air Room Air Room Air 06/05/22 06/06/22 06/06/22 06/06/22 23:40 03:25 03:55 08:00 Temp 36.7 36.0 36.6 Pulse 72 67 71 Resp 18 18 16 B/P (MAP) 89/62 (71) 101/62 (75) 96/56 (69) Pulse Ox 92 97 91 O2 Delivery Room Air Room Air Room Air 06/06/22 06/06/22 08:00 12:00 Temp 36.8 Pulse 67 Resp 17 B/P (MAP) 112/73 (86) Pulse Ox 95 O2 Delivery Room Air Room Air Capillary Refill : Less Than 3 Seconds General Appearance: WD/WN, no apparent distress Respiratory: lungs clear, normal breath sounds Cardiovascular: regular rate, rhythm, no murmur Gastrointestinal: normal bowel sounds, soft, tenderness (greatest epigastric and RUQ) Extremities: no pedal edema Neurologic/Psychiatric: alert, normal mood/affect Skin: normal color, warm/dry Assessment/Plan Assessment/Plan Admission Status: Inpatient Order (span 2 midnights) Reason for Inpatient Admission: Pancreatitis (1) Pancreatitis Status: Acute Assessment & Plan: Check triglycerides, continue aggressive IV hydration and pain control, okay for clears when pain allows. Qualifiers: Qualified Codes: K85.00 - Idiopathic acute pancreatitis without necrosis or infection (2) Thrush Status: Acute Assessment & Plan: Resume home nystatin, check HIV. (3) Chronic pain Status: Chronic (4) DVT prophylaxis Status: Acute Assessment & Plan: Enoxaparin CATALINA GA MD Jun 06, 2022 14:34
[2022-06-06] MEDS ORDERED: CYCLOBENZAPRINE 10 MG (FLEXERIL) TAB PO PRN (15:00)
[2022-06-06] MEDS ORDERED: ENOXAPARIN 40 MG/0.4 ML (LOVENOX) SYR SQ SCH (15:00)
[2022-06-06] MEDS: PANTOPRAZOLE 40 MG (PROTONIX) TAB PO SCH (19:48)
[2022-06-06] MEDS: GABAPENTIN 600 MG (NEURONTIN) TAB PO SCH (19:48)
[2022-06-06] MEDS ORDERED: GABAPENTIN 300 MG (NEURONTIN) CAP PO SCH (21:00)
[2022-06-06] MEDS ORDERED: traZODone 100 MG (DESYREL) TAB PO SCH (21:00)
[2022-06-06] MEDS ORDERED: NICOTINE 21 MG (NICODERM) PATCH TD SCH (21:20)
[2022-06-07] MEDS: NYSTATIN ORAL SUSP 5 ML UDC PO SCH ×3 (02:08→10:01)
[2022-06-07] MEDS: LACTATED RINGERS 1,000 ML IV SCH ×2 (02:08→07:33)
[2022-06-07 03:07] VITALS: BP 104/62
[2022-06-07] MEDS: HYDROmorphone 2 MG/ML VIAL (DILAUDID) IV PRN ×2 (03:15→07:33)
[2022-06-07 05:55] LABS: HEMATOCRIT 34 % (35-52); HEMOGLOBIN 11.3 g/dL (11.5-16.0); MEAN CORPUSCULAR HEMOGLOBIN 30 pg (25-34); MEAN CORPUSCULAR HGB CONC 33 g/dL (32-36); MEAN CORPUSCULAR VOLUME 90 fL (80-99); MEAN PLATELET VOLUME 11.6 fL (9.0-12.2); PLATELET COUNT 169 10^3/uL (130-400); WHITE BLOOD COUNT 7.5 10^3/uL (4.3-11.0)
[2022-06-07 06:15] LABS: ALBUMIN 3.6 GM/DL (3.2-4.5); POTASSIUM 3.8 MMOL/L (3.6-5.0)
[2022-06-07 06:17] LABS: CALCIUM 9.1 MG/DL (8.5-10.1)
[2022-06-07 06:18] LABS: TOTAL PROTEIN 5.8 GM/DL (6.4-8.2)
[2022-06-07 06:20] LABS: BILIRUBIN,TOTAL 0.8 MG/DL (0.1-1.0)
[2022-06-07 06:21] LABS: CREATININE SERUM 0.73 MG/DL (0.60-1.30)
[2022-06-07 06:24] LABS: MAGNESIUM 1.5 MG/DL (1.6-2.4)
[2022-06-07 07:25] VITALS: BP 113/65
[2022-06-07] MEDS: PANTOPRAZOLE 40 MG (PROTONIX) TAB PO SCH (08:43)
[2022-06-07] MEDS: GABAPENTIN 600 MG (NEURONTIN) TAB PO SCH (08:43)
[2022-06-07] MEDS ORDERED: VILAZODONE 40 MG (VIIBRYD) TABLET (NON-FORMULARY) PO SCH (09:00)
[2022-06-07] MEDS: MAGNESIUM 1 GM/100 ML IVPB 100 ML IV SCH ×2 (09:56→10:59)
--- NOTE | 2022-06-07 11:14 | Discharge Summary ---
Diagnosis/Chief Complaint Date of Admission Jun 06, 2022 at 14:56 Date of Discharge Discharge Date: Jun 07, 2022 [facility] Discharge Summary Discharge Physical Exam Allergies: Coded Allergies: hydrocodone (Verified Allergy, Unknown, 04/20/18) aripiprazole (Verified Adverse Reaction, Intermediate, AGITATION, 04/20/18) levofloxacin (Verified Adverse Reaction, Intermediate, RASH, VOMITING, 04/20/18) mirtazapine (Verified Adverse Reaction, Intermediate, AGITATION, 04/20/18) Sulfa (Sulfonamide Antibiotics) (Verified Adverse Reaction, Mild, RASH, 04/20/18) naproxen (Verified Adverse Reaction, Mild, RASH, 04/20/18) peginterferon beta-1a (Verified Adverse Reaction, Unknown, 04/20/18) Uncoded Allergies: plastic tape/bandaids/adhesive (Allergy, Unknown, 10/08/15) Vitals & I&Os Vital Signs Date Time Temp Pulse Resp B/P (MAP) Pulse Ox O2 Delivery O2 Flow Rate FiO2 06/07/22 08:14 96 Room Air 06/07/22 07:25 37.2 82 20 113/65 (81) General Appearance: No Apparent Distress Cardiovascular: Regular Rate, Rhythm, No Edema, No Gallop, No JVD, No Murmur, Normal Peripheral Pulses Gastrointestinal: Normal Bowel Sounds, No Organomegaly, Soft, Other (Mild right upper quadrant and epigastric discomfort to palpation no rebound or guarding.) Hospital Course Was the Problem List Reviewed?: Yes 47 yo female presented to ER due to severe abdominal pain that started yesterday. She has a history of pancreatitis on and off over several years. She believes she had an ERCP many years ago, but isn't sure. 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 She was seeing GI in the past and that had transitioned to Dr. Curiel in [place], but with COVID she has not even seen him yet. She has a history of heavy alcohol use when she was younger, but no longer and her last drink was on New 's [place]ila. She has had a cholecystectomy in the past. She denies substance use. She does take ibuprofen as needed for pain, but no other OTC. She was recently diagnosed with thrush in the last day or two and started Nystatin swish and swallow, she says she gets thrush not infrequently. She also notes that when she decreases her PPI she seems to get pancreatitis flare.N.p.o. status was initiated with an admission lipase level a little over 600. IV fluids were initiated. Symptoms improved and she was tolerating liquids without difficulty. She reported some mild chronic problems with hypokalemia her magnesium level was low at 1.5 so she received 2 g of magnesium before discharge discussed that this may be secondary to her twice daily proton pump inhibitor therapy which it was recommended that she continue but try [id number] magnesium supplementation most easily mag nesium oxide 4 to 500 mg daily. Did discuss the possibility of mild diarrhea with this. She is on no other medications to deplete magnesium with no evidence for hypertension. She did have an extensive work-up in the past which what sounds like endoscopic ultrasound and ERCP without definitive diagnosis compatible with idiopathic pancreatitis. Recommended that she follow-up with her PCP in 1 to 2 weeks consideration for referral back to Dr. Curiel whom she is seen in the past but it apparently been sometime as it been over 2 years since her last episode of pancreatitis. There were no changes in medication. Labs (last 24 hrs) Laboratory Tests 06/07/22 05:20: White Blood Count 7.5, Red Blood Count 3.81, Hemoglobin 11.3L, Hematocrit 34L, Mean Corpuscular Volume 90, Mean Corpuscular Hemoglobin 30, Mean Corpuscular Hemoglobin Concent 33, Red Cell Distribution Width 12.9, Platelet Count 169, Mean Platelet Volume 11.6, Sodium Level 141, Potassium Level 3.8, Chloride Level 105, Carbon Dioxide Level 23, Anion Gap 13, Blood Urea Nitrogen 4L, Creatinine 0.73, Estimat Glomerular Filtration Rate 102, BUN/Creatinine Ratio 5, Glucose Level 74, Calcium Level 9.1, Corrected Calcium 9.4, Magnesium Level 1.5L, Total Bilirubin 0.8, Aspartate Amino Transf (AST/SGOT) 49H, Alanine Aminotransferase (ALT/SGPT) 29, Alkaline Phosphatase 93, Total Protein 5.8L, Albumin 3.6 Patient resulted labs reviewed. Pending Labs Laboratory Tests 06/07/22 05:20: White Blood Count 7.5, Red Blood Count 3.81, Hemoglobin 11.3, Hematocrit 34, Mean Corpuscular Volume 90, Mean Corpuscular Hemoglobin 30, Mean Corpuscular Hemoglobin Concent 33, Red Cell Distribution Width 12.9, Platelet Count 169, Mean Platelet Volume 11.6, Sodium Level 141, Potassium Level 3.8, Chloride Level 105, Carbon Dioxide Level 23, Anion Gap 13, Blood Urea Nitrogen 4, Creatinine 0.73, Estimat Glomerular Filtration Rate 102, BUN/Creatinine Ratio 5, Glucose Level 74, Calcium Level 9.1, Corrected Calcium 9.4, Magnesium Level 1.5, Total Bilirubin 0.8, Aspartate Amino Transf (AST/SGOT) 49, Alanine Aminotransferase (ALT/SGPT) 29, Alkaline Phosphatase 93, Total Protein 5.8, Albumin 3.6, HIV (1&2) Ag and Ab Screen Referral [Pending] Discussion & Recommendations Discharge Planning: >30 minutes discharge planning Discharge Home Medications: Active Scripts Active Reported Cetirizine HCl 10 Mg Tablet 10 Mg PO HS Viibryd (Vilazodone Hydrochloride) 40 Mg Tablet 40 Mg PO DAILY LAST FILLED 04-10-2022 #30/30 DAY SUPPLY Pantoprazole Sodium 40 Mg Tablet.dr 40 Mg PO BID Cyclobenzaprine HCl 10 Mg Tablet 10 Mg PO TID PRN Ibuprofen 800 Mg Tablet 800 Mg PO BID PRN Neurontin (Gabapentin) 300 Mg Capsule 300 Mg PO HS TAKES 300MG +600MG TOGETHER TO EQUAL 900MG AT BEDTIME Gabapentin 600 Mg Tablet 600 Mg PO BID Trazodone HCl 100 Mg Tablet 100 Mg PO HS Nystatin 100,000 Unit/Ml Oral.susp 4 Ml PO QID SWISH IN MOUTH AND RETAIN FOR LONG POSSIBLE (SEVERAL MINUTES). USE FOR 7-14 DAYS Instructions to patient/family Please see electronic discharge instructions given to patient. STANLEY REAL MD Jun 07, 2022 11:14
[2022-06-07 11:27] VITALS: BP 112/63
[2022-06-07 12:07] VITALS: BP 112/63
== END 2022-06-07 12:10 | disposition home or self-care (01) | DRG 440 ==
LOC: EDUNIT# 15:27 → ER 15:30 → 4TH 18:11 → OBSVTOIN 06-06 14:56
PROVIDERS: ADMIT Family Medicine; ATTEND Internal Medicine
DX: K85.00 Idiopathic acute pancreatitis without necrosis or infection (principal); B37.9 Candidiasis, unspecified; K86.1 Other chronic pancreatitis; G89.29 Other chronic pain; G35 Multiple sclerosis; F32.A Depression, unspecified; F41.9 Anxiety disorder, unspecified; F17.210 Nicotine dependence, cigarettes, uncomplicated; Z20.822 Contact with and (suspected) exposure to COVID-19; K58.9 Irritable bowel syndrome, unspecified; M19.90 Unspecified osteoarthritis, unspecified site; M79.7 Fibromyalgia; E87.6 Hypokalemia; E83.42 Hypomagnesemia
CPT/HCPCS: 36415; 74177; 80048; 80053; 81000; 82150; 83690; 83735; 84478; 84484; 85025; 85027; 85610; 85730; 86141; 87389; G0378

== ENCOUNTER 2022-11-14 12:25 | Emergency (ER) | payer MEDICARE, MEDICAID ==
[~2022-11-14] VITALS: Ht 160 cm; Wt 65.3 kg
[~2022-11-14 12:25] MED LIST changes: +ALBU8.5H6 IH; +CETI10TA17 PO; +CYCL10TA25 PO; +GABA300C PO; +GBPN600T PO; +IBUP-1780 PO; +NYST1000 PO; +PANT40TA52 PO; -RT-ALBUINH IH; +TRAZ-227 PO; +VILA40TA PO
[2022-11-14 12:45] VITALS: BP 114/72
[2022-11-14] MEDS ORDERED: morphine INJ 10 MG/ML 1ML (SYR OR VIAL) IVP STA ×2 (13:54→14:45)
[2022-11-14] MEDS ORDERED: ONDANSETRON 4 MG/2 ML (SDV) Z0FRAN IVP ONE (14:00)
[2022-11-14] MEDS ORDERED: HOLD METFORMIN - RECEIVED CONTRAST 20 ML VIAL IV SCH (14:15)
[2022-11-14] MEDS ORDERED: NS 100 ML (IVPB) BAG IV ONE (14:15)
[2022-11-14] MEDS ORDERED: IOHEXOL 350 MG/ML 100 ML (OMNIPAQUE 350) VIAL IV ONE (14:15)
[2022-11-14] MEDS ORDERED: CATHETER FLUSH 10 ML SYR IV PRN (14:15)
[2022-11-14 14:16] LABS: BASOPHILS % (AUTO) 1 % (0-10); EOSINOPHILS # (AUTO) 0.1 10^3/uL (0.0-0.3); EOSINOPHILS % (AUTO) 2 % (0-10); HEMATOCRIT 38 % (35-52); HEMOGLOBIN 13.2 g/dL (11.5-16.0); LYMPHOCYTES # (AUTO) 2.2 10^3/uL (1.0-4.0); LYMPHOCYTES % (AUTO) 26 % (12-44); MEAN CORPUSCULAR HEMOGLOBIN 30 pg (25-34); MEAN CORPUSCULAR HGB CONC 35 g/dL (32-36); MEAN CORPUSCULAR VOLUME 86 fL (80-99); MEAN PLATELET VOLUME 11.2 fL (9.0-12.2); MONOCYTES # (AUTO) 0.5 10^3/uL (0.0-1.0); MONOCYTES % (AUTO) 6 % (0-12); NEUTROPHILS # (AUTO) 5.4 10^3/uL (1.8-7.8); NEUTROPHILS % (AUTO) 65 % (42-75); PLATELET COUNT 241 10^3/uL (130-400); WHITE BLOOD COUNT 8.3 10^3/uL (4.3-11.0)
--- NOTE | 2022-11-14 14:17 | ED Abdominal Pain ---
General Chief Complaint: Abdominal/GI Problems Stated Complaint: ABD PAIN Nursing Triage Note: PT AMB TO TRIAGE W C/O SEVERE RUQ PAIN SX 11/11/22. PT BELIEVES SHE IS EXPERIENCING PANCREATITIS. PT A&OX4. Source of Information: Patient Exam Limitations: No Limitations History of Present Illness Date Seen by Provider: Nov 14, 2022 Time Seen by Provider: 12:50 Initial Comments Patient is a 47-year-old female who presents to the emergency department for evaluation of right upper quadrant abdominal pain that began 3 days ago. Patient thinks is related to her chronic pancreatitis. States she has also had some nausea without vomiting. States she has had some constipation. No fever. No chest pain. Allergies and Home Medications Allergies Coded Allergies: hydrocodone (Verified Allergy, Unknown, 04/20/18) aripiprazole (Verified Adverse Reaction, Intermediate, AGITATION, 04/20/18) levofloxacin (Verified Adverse Reaction, Intermediate, RASH, VOMITING, 04/20/18) mirtazapine (Verified Adverse Reaction, Intermediate, AGITATION, 04/20/18) Sulfa (Sulfonamide Antibiotics) (Verified Adverse Reaction, Mild, RASH, 04/20/18) naproxen (Verified Adverse Reaction, Mild, RASH, 04/20/18) peginterferon beta-1a (Verified Adverse Reaction, Unknown, 04/20/18) Uncoded Allergies: plastic tape/bandaids/adhesive (Allergy, Unknown, 10/08/15) Patient Home Medication List Home Medication List Reviewed: Yes Cetirizine HCl (Cetirizine HCl) 10 Mg Tablet, 10 MG PO HS, (Reported) Entered as Reported by: SARAH PAK on 06/06/221310 Cyclobenzaprine HCl (Cyclobenzaprine HCl) 10 Mg Tablet, 10 MG PO TID PRN for MUSCLE SPASMS, (Reported) Entered as Reported by: SARAH PAK on 06/06/22 131 Gabapentin (Gabapentin) 600 Mg Tablet, 600 MG PO BID, (Reported) Entered as Reported by: SARAH PAK on 06/06/22 131 Gabapentin (Neurontin) 300 Mg Capsule, 300 MG PO HS, (Reported) Entered as Reported by: SARAH PAK on 06/06/22 131 Ibuprofen (Ibuprofen) 800 Mg Tablet, 800 MG PO BID PRN for PAIN-MILD (1-4), (Reported) Entered as Reported by: SARAH PAK on 06/06/22 131 Nystatin (Nystatin) 100,000 Unit/Ml Oral.susp, 4 ML PO QID, (Reported) Entered as Reported by: SARAH PAK on 06/06/22 131 Ondansetron (Ondansetron Odt) 4 Mg Tab.rapdis, 4 MG SL Q4H PRN for N AUSEA/VOMITING Prescribed by: Omar Covington on 11/14/22 153 Oxycodone HCl/Acetaminophen (Percocet 5-325 mg Tablet) 1 Each Tablet, 1 TAB PO Q4H PRN for PAIN-MODERATE (5-7) Prescribed by: Omar Covington on 11/14/22 153 Pantoprazole Sodium (Pantoprazole Sodium) 40 Mg Tablet.dr, 40 MG PO BID, (Reported) Entered as Reported by: SARAH PAK on 06/06/22 131 Trazodone HCl (Trazodone HCl) 100 Mg Tablet, 100 MG PO HS, (Reported) Entered as Reported by: SARAH PAK on 06/06/22 131 Vilazodone Hydrochloride (Viibryd) 40 Mg Tablet, 40 MG PO DAILY, (Reported) Entered as Reported by: SARAH PAK on 06/06/22 131 Review of Systems Review of Systems Constitutional: no symptoms reported EENTM: No Symptoms Reported Respiratory: No Symptoms Reported Cardiovascular: No Symptoms Reported Gastrointestinal: See HPI, Abdominal Pain Genitourinary: No Symptoms Reported Musculoskeletal: no symptoms reported Skin: no symptoms reported Psychiatric/Neurological: No Symptoms Reported Endocrine: No Symptoms Reported Hematologic/Lymphatic: No Symptoms Reported Past [id number]-[id number] Hx Patient Social History Tobacco Use?: Yes Tobacco type used: Cigarettes Smoking Status: Current Everyday Smoker Use of E-Cig and/or Vaping dev: No Substance use?: No Alcohol Use?: No Immunizations Up To Date Influenza Vaccine Up-to-Date: No; Not Current First/Initial COVID19 Vaccinat: NONE Second COVID19 Vaccination Adria: NONE Third COVID19 Vaccination Date: NONE COVID19 Vaccine Project Management Engineer: NONE Seasonal Allergies Seasonal Allergies: Yes Past Medical History Surgeries: Yes (BACK PINS AND RODS, BACK W/DISKECTOMY COLONOSCOPY, OVARIAN CYSTS) Appendectomy, Section, Gallbladder, Hysterectomy, Orthopedic, Pancreatic Respiratory: Yes Pneumonia, Chronic Bronchitis Currently Using CPAP: No Currently Using BIPAP: No Cardiac: Yes Neurological: Yes Multiple Sclerosis Reproductive Disorders: No 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 Genitourinary: No Gastrointestinal: Yes Gastroesophageal Reflux, Pancreatitis, Esophagitis, Irritable Bowel Musculoskeletal: Yes (DDD OF L/S) Degenerate Disk Disease, Arthritis, Fibromyalgia Endocrine: No HEENT: No Cancer: No Psychosocial: Yes (PSYCHOSIS) Anxiety, Depression Integumentary: No Blood Disorders: No Adverse Reaction/Blood Tranf: No Family Medical History Alcoholism Arthritis Cardiovascular disease Colon cancer Completed stroke Coronary thrombosis Diabetes mellitus Hypertension Respiratory disorder Severe allergy Thyroid disease Visual disorder Physical Exam Vital Signs Vital Signs - First Documented 11/14/22 12:45 Temp 36.8 Pulse 102 Resp 22 B/P (MAP) 114/72 (86) Pulse Ox 98 O2 Delivery Room Air Capillary Refill : Less Than 3 Seconds Height/Weight/BMI Height: 5'3.00" Weight: 127lbs. 8.0oz. [id number]; 25.00 BMI Method:Stated General Appearance: WD/WN, no apparent distress HEENT: PERRL/EOMI, normal ENT inspection, TMs normal, pharynx normal Neck: non-tender, full range of motion, supple, normal inspection Respiratory: chest non-tender, lungs clear, normal breath sounds, no respiratory distress, no accessory muscle use Cardiovascular: regular rate, rhythm Gastrointestinal: soft, tenderness Extremities: normal range of motion, non-tender, normal inspection, no pedal edema, no calf tenderness Neurologic/Psychiatric: lather apprentice II-XII nml as tested, no motor/sensory deficits, alert, normal mood/affect, oriented x 3 Skin: normal color, warm/dry Progress/Results/Core Measures Results/Orders Lab Results Laboratory Tests Test 11/14/22 14:09 11/14/22 14:44 Range/Units White Blood Count 8.3 4.3-11.0 10^3/uL Red Blood Count 4.39 3.80-5.11 10^6/uL Hemoglobin 13.2 11.5-16.0 g/dL Hematocrit 38 35-52 % Mean Corpuscular Volume 86 80-99 fL Mean Corpuscular Hemoglobin 30 25-34 pg Mean Corpuscular Hemoglobin Concent 35 32-36 g/dL Red Cell Distribution Width 13.0 10.0-14.5 % Platelet Count 241 130-400 10^3/uL Mean Platelet Volume 11.2 9.0-12.2 fL Immature Granulocyte % (Auto) 0 % Neutrophils (%) (Auto) 65 42-75 % Lymphocytes (%) (Auto) 26 12-44 % Monocytes (%) (Auto) 6 0-12 % Eosinophils (%) (Auto) 2 0-10 % Basophils (%) (Auto) 1 0-10 % Neutrophils # (Auto) 5.4 1.8-7.8 10^3/uL Lymphocytes # (Auto) 2.2 1.0-4.0 10^3/uL Monocytes # (Auto) 0.5 0.0-1.0 10^3/uL Eosinophils # (Auto) 0.1 0.0-0.3 10^3/uL Basophils # (Auto) 0.0 0.0-0.1 10^3/uL Immature Granulocyte # (Auto) 0.0 0.0-0.1 10^3/uL Sodium Level 140 135-145 MMOL/L Potassium Level 3.5 L 3.6-5.0 MMOL/L Chloride Level 107 98-107 MMOL/L Carbon Dioxide Level 23 21-32 MMOL/L Anion Gap 10 5-14 MMOL/L Blood Urea Nitrogen 5 L 7-18 MG/DL Creatinine 0.79 0.60-1.30 MG/DL Estimat Glomerular Filtration Rate 93 BUN/Creatinine Ratio 6 Glucose Level 101 70-105 MG/DL Calcium Level 9.5 8.5-10.1 MG/DL Corrected Calcium 9.4 8.5-10.1 MG/DL Total Bilirubin 0.4 0.1-1.0 MG/DL Aspartate Amino Transf (AST/SGOT) 84 H 5-34 U/L Alanine Aminotransferase (ALT/SGPT) 72 H 0-55 U/L Alkaline Phosphatase 154 H 40-136 U/L Total Protein 6.8 6.4-8.2 GM/DL Albumin 4.1 3.2-4.5 GM/DL Lipase 93 H 8-78 U/L Urine Color YELLOW Urine Clarity CLEAR Urine pH 6.5 5-9 Urine Specific [place] <=1.005 1.016-1.022 Urine Protein NEGATIVE NEGATIVE Urine Glucose (UA) NEGATIVE NEGATIVE Urine Ketones NEGATIVE NEGATIVE Urine Nitrite NEGATIVE NEGATIVE Urine Bilirubin NEGATIVE NEGATIVE Urine Urobilinogen 0.2 < = 1.0 MG/DL Urine Leukocyte Esterase NEGATIVE NEGATIVE Urine RBC (Auto) NEGATIVE NEGATIVE Urine RBC NONE /HPF Urine WBC RARE /HPF Urine Squamous Epithelial Cells 0-2 /HPF Urine Crystals NONE /LPF Urine Bacteria TRACE /HPF Urine Casts NONE /LPF Urine Mucus NEGATIVE /LPF Urine Culture Indicated NO My Orders Orders - OMAR COVINGTON ENGROSSER Cbc With Automated Diff (11/14/22 13:54) Comprehensive Metabolic Panel (11/14/22 13:54) Lipase (11/14/22 13:54) Iv/Invasive Line Insertion .IV INSERT (11/14/22 13:54) Ct Abdomen/Pelvis W (11/14/22 13:54) Morphine Injection (Morphine Injection (11/14/22 13:54) Ondansetron Injection (Zofran Injectio (11/14/22 14:00) Iohexol Injection (Omnipaque 350 Mg/Ml 1 (11/14/22 14:15) Received Contrast (Hold Metformin- Contr (11/14/22 14:15) Ns (Ivpb) (Sodium Chloride 0.9% Ivpb Bag (11/14/22 14:15) Sodium Chloride Flush (Catheter Flush Sy (11/14/22 14:15) Ua Culture If Indicated (11/14/22 14:45) Morphine Injection (Morphine Injection (11/14/22 14:45) Medications Given in ED Vital Signs/I&O 11/14/22 11/14/22 12:45 15:51 Temp 36.8 36.8 Pulse 102 Resp 22 B/P (MAP) 114/72 (86) Pulse Ox 98 O2 Delivery Room Air 11/15/22 00:00 Intake Total 26 ml Balance 26 ml Blood Pressure Mean: 86 Progress Progress Note : Progress Note Patient is nontoxic and well-hydrated on exam. Patient does have upper abdomen tenderness to palpation. Vital signs are reassuring. Laboratory evaluation largely unremarkable. Lipase mildly elevated. Patient also with mild transaminitis. No hyperbilirubinemia noted. Urinalysis reassuring. CT of the abdomen pelvis reveals mild stranding around the pancreas. Patient's HPI and work-up are consistent with acute on chronic pancreatitis. Given analgesia and antiemetics in the ER with some improvement in pain. I offered admission versus home treatment and patient stated she would prefer to go home at this time and attempt treatment at home. I encouraged her to use the analgesia and antiemetics as prescribed. Discussed importance of a clear liquid diet. Strict return precautions for urgent symptomology discussed. Discussed importance of close follow-up with PCP. Patient verbalized understanding. Departure Impression Primary Impression: Acute on chronic pancreatitis Disposition: HOME, SELF-CARE Condition: Stable Departure-Patient Inst. Decision time for Depature: 15:30 Referrals: [facility] [place] (PCP/Family) Primary Care Physician Patient Instructions: Chronic Pancreatitis (DC) Scripts Ondansetron (Ondansetron Odt) 4 Mg Tab.rapdis 4 MG SL Q4H PRN for NAUSEA/VOMITING for 5 Days, #30 TAB 0 Refills Prov: OMAR COVINGTON APRN 11/14/22 Oxycodone HCl/Acetaminophen (Percocet 5-325 mg Tablet) 1 Each Tablet 1 TAB PO Q4H PRN for PAIN-MODERATE (5-7) MDD 6 TABS for 5 Days, #25 TAB 0 Refills Prov: OMAR COVINGTON APRN 11/14/22 OMAR COVINGTON APRN Nov 14, 2022 14:17
[2022-11-14 14:31] LABS: ALBUMIN 4.1 GM/DL (3.2-4.5); POTASSIUM 3.5 MMOL/L (3.6-5.0)
[2022-11-14 14:32] LABS: CALCIUM 9.5 MG/DL (8.5-10.1)
[2022-11-14 14:34] LABS: TOTAL PROTEIN 6.8 GM/DL (6.4-8.2)
[2022-11-14 14:35] LABS: BILIRUBIN,TOTAL 0.4 MG/DL (0.1-1.0)
[2022-11-14 14:37] LABS: CREATININE SERUM 0.79 MG/DL (0.60-1.30)
[2022-11-14 14:51] LABS: BILIRUBIN,URINE NEGATIVE (NEGATIVE); CLARITY,URINE CLEAR; COLOR,URINE YELLOW; GLUCOSE, URINE (UA) NEGATIVE (NEGATIVE); KETONES,URINE NEGATIVE (NEGATIVE); LEUKOCYTE ESTERASE ,URINE NEGATIVE (NEGATIVE); NITRITE,URINE NEGATIVE (NEGATIVE); PH,URINE 6.5 (5-9); PROTEIN,URINE NEGATIVE (NEGATIVE)
--- NOTE | 2022-11-14 15:10 | Diagnostic Imaging Report ---
PROCEDURE: CT abdomen and pelvis with contrast. TECHNIQUE: Multiple contiguous axial images were obtained through the abdomen and pelvis after administration of intravenous contrast. Auto Exposure Controls were utilized during the CT exam to meet ALARA standards for radiation dose reduction. All CT scans use one or more of the following dose optimizing techniques: automated exposure control, MA and/or KvP adjustment based on patient size and exam type or iterative reconstruction. INDICATION: Abdominal pain. History of pancreatitis. Previous appendectomy and hysterectomy. COMPARISON: It is compared with abdominopelvic CT 06/05/2022. FINDINGS: There may be very slight stranding of the peripancreatic fat adjacent to its head, neck and uncinate process. In the appropriate clinical scenario mild degree of active pancreatitis may be present. There was however no evidence for parenchymal abscess, necrosis or pseudocyst and there is no ascites. No gastric outlet obstruction. There is fatty infiltration of the liver. Absent gallbladder. No pathological bile duct dilatation. Spleen and adrenals negative. The kidneys unobstructed. There is fluid throughout the lumen of the colon from cecum to rectum consistent with a nonspecific diarrheal state. No bowel wall thickening. No pericolonic edema. Small bowel unobstructed and unremarkable. IMPRESSION: 1. Very minimal stranding of the peripancreatic fat adjacent to its head may reflect very mild changes of active pancreatitis without abscess, necrosis, pseudocyst or ascites. 2. Increased fluid load throughout the colons' length consistent with nonspecific diarrheal state without associated bowel wall thickening. Dictated by: Dictated on workstation # [id number]
[2022-11-14 15:16] LABS: BACTERIA,URINE TRACE /HPF; SQUAMOUS EPITHELIAL CELL,UR 0-2 /HPF; WBC,URINE RARE /HPF
[2022-11-14] MEDS ORDERED: ONDA4TAB11 SL (15:32)
[2022-11-14] MEDS ORDERED: OXYC1TAB87 PO (15:32)
== END 2022-11-14 15:51 | disposition home or self-care (01) ==
LOC: EDUNIT# 12:25 → ER 12:27
DX: K85.92 Acute pancreatitis with infected necrosis, unspecified (principal); K86.1 Other chronic pancreatitis; F17.210 Nicotine dependence, cigarettes, uncomplicated; Z28.310 Unvaccinated for COVID-19
CPT/HCPCS: 36415; 74177; 80053; 81000; 83690; 85025